=== PATIENT | male | born 1935 | race Hispanic/Latino ===

== ENCOUNTER 2022-08-01 08:58 | Observation (INO) | payer OTHER ==
--- NOTE | 2022-08-01 09:42 | RAD REPORT ---
EXAM DESCRIPTION: Shant Single View08/01/2022 9:24 am CLINICAL HISTORY: Retraction of dialysis catheter COMPARISON: none FINDINGS: The lungs appear clear of acute infiltrate. The heart is normal size Tip of a central venous catheter overlies the mid superior vena cava
[2022-08-01 10:07] LABS: Absolute Lymphocytes (CBC) 1.1 K/uL (0.7-4.9); Hematocrit 34.7 % (39.6-49.0); Lymphocytes % 17.9 % (15.3-44.8); MPV 8.3 fL (7.6-11.3); RBC Red Blood Cell Count 3.62 M/uL (4.33-5.43)
[2022-08-01 10:23] LABS: Protime INR 0.96
[2022-08-01 10:24] LABS: Potassium 4.2 mmol/L (3.5-5.1)
--- NOTE | 2022-08-01 12:27 | EDPHYS ---
Physician Documentation [facility] Name: Fran Stewart Age: 86 yrs Sex: Male : 1935 Arrival Date: 08/01/2022 Time: 09:01 Bed 8 Private MD: ED Physician Aaron Nevarez HPI: 08/01 09:16 This 86 yrs old Male presents to ER via EMS with complaints of Problem with learning coach catheter. 09:16 Pt sent from dialysis because dialysis catheter got pulled out about 5-6 inches. rn Patient had some bleeding, no longer bleeding. No other complaints. Pt does not recall how it happened. . Onset: The symptoms/episode began/occurred at an unknown time. Severity of symptoms: At their worst the symptoms were mild in the emergency department the symptoms are unchanged. The patient has not experienced similar symptoms in the past. The patient has not recently seen a physician. Historical: - Allergies: 09:11 No Known Allergies; db - PMHx: 09:11 End stage renal disease; db - Immunization history:: Client reports having NOT received the Covid vaccine. - Social history:: Smoking status: Patient/guardian denies using tobacco, the patient reports quitting approximately 47 years ago. - Family history:: not pertinent. - Hospitalizations: : No recent hospitalization is reported. ROS: 09:16 Constitutional: Negative for fever, chills, and weight loss, Eyes: Negative for injury, rn pain, redness, and discharge, Cardiovascular: Negative for chest pain, palpitations, and edema, Respiratory: Negative for shortness of breath, cough, wheezing, and pleuritic chest pain, Abdomen/GI: Negative for abdominal pain, nausea, vomiting, diarrhea, and constipation, Back: Negative for injury and pain, MS/Extremity: Negative for injury and deformity, Skin: Negative for injury, rash, and discoloration, Neuro: Negative for headache, weakness, numbness, tingling, and seizure. Exam: 12:24 Constitutional: This is a well developed, well nourished patient who is awake, alert, rn and in no acute distress. Head/Face: Normocephalic, atraumatic. Chest/axilla: Right chest wall tunneled catheter pulled out with dry blood approx 5 in. Cardiovascular: Regular rate and rhythm. No pulse deficits. Respiratory: No increased work of breathing, no retractions or nasal flaring. Abdomen/GI: Soft, non-tender Skin: Warm, dry MS/ Extremity: Pulses equal, no cyanosis. Neuro: Awake and alert, GCS 15, oriented to person, place, time, and situation. Vital Signs: 08:53 BP 122 / 73; Pulse 65; Resp 18; Temp 98.1(O); Pulse Ox 100% ; db 09:33 Weight 72.57 kg; Height 5 ft. 6 in. (167.64 cm); Pain 0/10; db 10:00 BP 118 / 70; Pulse 62; Resp 16; Pulse Ox 100% on R/A; db 10:30 BP 121 / 71; Pulse 60; Resp 16; Pulse Ox 100% on R/A; db 11:30 BP 126 / 70; Pulse 61; Resp 16; Pulse Ox 100% on R/A; db 12:00 BP 143 / 67; Pulse 65; Resp 16; Pulse Ox 100% on R/A; db 13:00 BP 145 / 75 (auto/); Pulse 62 MON; Resp 16 S; Pulse Ox 100% on R/A; db 17:00 BP 145 / 66; Pulse 62; Resp 18; Temp 98; Pulse Ox 100% ; Pain 0/10; db 09:33 Body Mass Index 25.82 (72.57 kg, 167.64 cm) db MDM: 09:04 Patient medically screened. rn 10:37 ED course: Consulted with Dr. Osei, will come to eval patient shortly. . rn 12:24 Differential Diagnosis ESRD, catheter pulled out. Data reviewed: vital signs, nurses rn notes, lab test result(s), radiologic studies, plain films, and as a result, I will admit patient. Counseling: I had a detailed discussion with the patient and/or guardian regarding: the historical points, exam findings, and any diagnostic results supporting the discharge/admit diagnosis, lab results, radiology results, the need for further work-up and treatment in the hospital. Special discussion: I discussed with the patient/guardian in detail that at this point there is no indication for admission to the hospital. It is understood, however, that if the symptoms persist or worsen the patient needs to return immediately for re-evaluation. ED course: Dr. Osei saw patient, will replace tomorrow, will admit to Dr. Nevarez and plan to keep NPO after midnight. . 08/01 09:04 Order name: CBC with Diff; Complete Time: 10: rn 08/01 09:04 Order name: Basic Metabolic Panel; Complete Time: : rn 08/01 09:04 Order name: XRAY Chest (1 view); Complete Time: 10: rn 08/01 09:04 Order name: Protime (+inr); Complete Time: 10: rn 08/01 09:04 Order name: Ptt, Activated; Complete Time: 10: rn 08/01 12:24 Order name: SARS RAPID kj1 08/01 09:04 Order name: IV Start; Complete Time: 09: rn 08/01 13:34 Order name: CONS Physician Consult EDMS Administered Medications: No medications were administered Disposition Summary: 08/01/22 12:27 Hospitalization Ordered Hospitalization Status: Observation rn Provider: Jagdish Nevarez rn Location: Telemetry/MedSurg (observation) rn Condition: Stable rn Problem: new rn Symptoms: have improved rn Bed/Room Type: Standard rn Room Assignment: [facility](08/01/22 17:06) jose Diagnosis - End stage renal disease rn - Other complication of vascular dialysis catheter rn Forms: - Medication Reconciliation Form rn - SBAR form rn Signatures: Dispatcher [employer] EDAaron Tomlinson MD MD rn Alonzo Felix, RN RN jaArmida Tadeo, RN RN db Corrections: (The following items were deleted from the chart) 12:24 09:16 Constitutional: Negative for fever, chills, and weight loss, rn rn 17:06 12:27 david garcia
--- NOTE | 2022-08-01 12:27 | ER ---
Nurse's Notes [facility] Name: Fran Stewart Age: 86 yrs Sex: Male : 1935 Arrival Date: 08/01/2022 Time: 09:01 Bed 8 Private MD: Diagnosis: End stage renal disease;Other complication of vascular dialysis catheter Presentation: 08/01 08:53 Chief complaint: EMS states: EMS picked patient up from [facility]. Per [facility] staff db patient's dialysis cath appears to be coming out. Patient in no distress no complaints denies pulling line. Denies pain. States did not finish dialysis today. Coronavirus screen: Vaccine status: Patient reports being unvaccinated. Client denies travel out of the [place] in the last 14 days. At this time, the client does not indicate any symptoms associated with coronavirus-19. Ebola Screen: Patient negative for fever greater than or equal to 101.5 degrees Fahrenheit, and additional compatible Ebola Virus Disease symptoms Patient denies exposure to infectious person. Patient denies travel to an Ebola-affected area in the 21 days before illness onset. No symptoms or risks identified at this time. Initial Sepsis Screen: Does the patient meet any 2 criteria? No. Patient's initial sepsis screen is negative. Does the patient have a suspected source of infection? No. Patient's initial sepsis screen is negative. Risk Assessment: Do you want to hurt yourself or someone else? Patient reports no desire to harm self or others. Onset of symptoms was August 01, 2022. 08:53 Method Of Arrival: EMS: [facility] db 08:53 Acuity: CAROLIN 3 db Triage Assessment: 09:11 General: Appears in no apparent distress. comfortable, Behavior is calm, cooperative, db appropriate for age, quiet. Pain: Denies pain. Historical: - Allergies: 09:11 No Known Allergies; db - PMHx: 09:11 End stage renal disease; db - Immunization history:: Client reports having NOT received the Covid vaccine. - Social history:: Smoking status: Patient/guardian denies using tobacco, the patient reports quitting approximately 47 years ago. - Family history:: not pertinent. - Hospitalizations: : No recent hospitalization is reported. Screenin:00 Abuse screen: Denies threats or abuse. Denies injuries from another. Nutritional db screening: No deficits noted. Tuberculosis screening: No symptoms or risk factors identified. Fall Risk None identified. No fall in past 12 months (0 pts). No secondary diagnosis (0 pts). IV access (20 points). Ambulatory Aid- None/Bed Rest/Nurse Assist (0 pts). Gait- Normal/Bed Rest/Wheelchair (0 pts) Mental Status- Oriented to own ability (0 pts). Total Alcantara Fall Scale indicates No Risk (0-24 pts). Assessment: 10:16 Reassessment: Patient and/or family updated on plan of care and expected duration. Pain db level reassessed. Patient is alert, oriented x 3, equal unlabored respirations, skin warm/dry/pink. see triage assessment for initial assessment. General: Appears in no apparent distress. Behavior is calm, cooperative, appropriate for age. Neuro: No deficits noted. Level of Consciousness is awake, alert, obeys commands, Oriented to person, place, time, situation, Appropriate for age. Cardiovascular: Capillary refill < 3 seconds Rhythm is sinus tachycardia Chest pain is denied. Respiratory: No deficits noted. Airway is patent Respiratory effort is Respiratory pattern is regular, symmetrical. GI: No deficits noted. No signs and/or symptoms were reported involving the gastrointestinal system. :. 12:00 Reassessment: Patient appears in no apparent distress at this time. No changes from db previously documented assessment. Patient and/or family updated on plan of care and expected duration. Pain level reassessed. Patient is alert, oriented x 3, equal unlabored respirations, skin warm/dry/pink. 13:00 Reassessment: Patient appears in no apparent distress at this time. No changes from db previously documented assessment. Patient and/or family updated on plan of care and expected duration. Pain level reassessed. Patient is alert, oriented x 3, equal unlabored respirations, skin warm/dry/pink. 17:00 Reassessment: Patient appears in no apparent distress at this time. No changes from db previously documented assessment. Patient and/or family updated on plan of care and expected duration. Pain level reassessed. Vital Signs: 08:53 BP 122 / 73; Pulse 65; Resp 18; Temp 98.1(O); Pulse Ox 100% ; db 09:33 Weight 72.57 kg; Height 5 ft. 6 in. (167.64 cm); Pain 0/10; db 10:00 BP 118 / 70; Pulse 62; Resp 16; Pulse Ox 100% on R/A; db 10:30 BP 121 / 71; Pulse 60; Resp 16; Pulse Ox 100% on R/A; db 11:30 BP 126 / 70; Pulse 61; Resp 16; Pulse Ox 100% on R/A; db 12:00 BP 143 / 67; Pulse 65; Resp 16; Pulse Ox 100% on R/A; db 13:00 BP 145 / 75 (auto/); Pulse 62 MON; Resp 16 S; Pulse Ox 100% on R/A; db 17:00 BP 145 / 66; Pulse 62; Resp 18; Temp 98; Pulse Ox 100% ; Pain 0/10; db 09:33 Body Mass Index 25.82 (72.57 kg, 167.64 cm) db ED Course: 09:01 Patient arrived in ED. ss 09:02 Armida Mullen RN is Primary Nurse. db 09:04 Aaron Nevarez MD is Attending Physician. rn 09:10 Triage completed. db 09:11 Arm band placed on right wrist. Patient placed in an exam room. db 09:26 XRAY Chest (1 view) In Process Unspecified. EDMS 09:55 Missed attempt(s): 22 gauge in right forearm. Bleeding controlled, band aid applied, jd3 catheter tip intact. 09:57 Inserted saline lock: 22 gauge in right antecubital area, using aseptic technique. jd3 Blood collected. 10:00 Patient has correct armband on for positive identification. Bed in low position. Side db rails up X 1. 12:26 Jagdish Nevarez MD is Hospitalizing Provider. rn 13:00 Pulse ox on. NIBP on. Warm blanket given. db 17:25 Report given to KENNETH Duran. db 17:33 No provider procedures requiring assistance completed. Patient admitted, IV remains in db place. Administered Medications: No medications were administered Medication: 10:00 VIS not applicable for this client. db Outcome: 12:27 Decision to Hospitalize by Provider. rn 17:33 Admitted to db 17:33 Condition: stable 17:33 Instructed on the need for admit. 17:44 Patient left the ED. db Signatures: Dispatcher [employer] EDMS Aaron Nevarez MD MD rn Smirch, Shelby, RN RN ss Davies, Jonathon RN RN jd3 Armida Mullen, RN RN db
[2022-08-01 13:15] LABS: SARS-CoV-2 Antigen Rapid Res Negative (Negative)
[2022-08-01] MEDS ORDERED: ONDANSETRON 4 MG/2 ML VIAL IV PRN (13:32)
--- NOTE | 2022-08-01 13:37 | P.HP ---
Certification for Inpatient Patient admitted to: Observation With expected LOS: <2 Midnights Practitioner: I am a practitioner with admitting privileges, knowledge of patient current condition, hospital course, and medical plan of care. 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 Patient reports he has been in usual state of health, no fever/chills, no pain, unsure of how it got pulled out. Workup in ED rather unremarkable. Dr. Osei was consulted by ED Physician and planning to replace catheter tomorrow. Allergies No Known Allergies Allergy (Unverified 08/01/22 13:46) Home Medications: Allopurinol 1 tab PO DAILY 08/01/22 Bupropion HCl [Wellbutrin Xl] 1 tab PO DAILY 08/01/22 Clonidine HCl [Clonidine HCl ER] 1 tab PO TID 08/01/22 Hydralazine [Apresoline*] 1 tab PO TID 08/01/22 Metoprolol Succinate [Toprol Xl*] 1 tab PO DAILY 08/01/22 Nifedipine Xl [Procardia XL*] 1 tab PO DAILY 08/01/22 Quinapril HCl 1 tab PO BID 08/01/22 Rosuvastatin [Crestor*] 1 tab PO DAILY 08/01/22 Torsemide [Demadex*] 1 tab PO DAILY 08/01/22 - Past Medical/Surgical History -: ESRD on HD -: HTN -: R nephrectomy for renal tumor -: R nephrectomy - Social History Smoking Status: Unknown if ever smoked Alcohol use: No Place of Residence: Home Review of Systems 10-point ROS is otherwise unremarkable Physical Examination - Physical Exam General: Alert, In no apparent distress, Oriented x3 HEENT: EOMI, Sclerae nonicteric Neck: Supple, No LAD Respiratory: Clear to auscultation bilaterally, Normal air movement Cardiovascular: Regular rate/rhythm, Edema (trace b/l pedal) Gastrointestinal: Soft and benign, Non-distended, No tenderness Musculoskeletal: No contractures, No tenderness Integumentary: Other (R tunneled IJ catheter pulled out a few inches, no surrounding erythema, no tenderness) Neurological: Normal speech, Normal strength at 5/5 x4 extr, Normal affect - Studies Laboratory Data (last 24 hrs) 08/01/22 09:55: PT 10.6, INR 0.96, APTT 29.7 08/01/22 09:55: Sodium 134 L, Potassium 4.2, BUN 30 H, Creatinine 4.50 H, Glucose 98 08/01/22 09:55: WBC 6.10, Hgb 11.5 L, Hct 34.7 L, Plt Count 207 Assessment and Plan - Advance Directives Does patient have a Living Will: No Does patient have a Durable POA for Healthcare: No Physician Review Additional Text: Problem List Dialysis catheter pulled out ESRD on HD (TTS) 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 Osei consulted in ED planned for replacement tomorrow NPO aftermidnight Nephrology - Lexi consulted patient without any complaints otherwise seems to be stable at baseline Code: DNR Dispo: home, possibly tomorrow after catheter placement +/- HD Time Spent Managing Pts Care (In Minutes): 65
[2022-08-01] MEDS: INSULIN -REGULAR HUMAN 50 UNIT/0.5 ML ML SQ SCH ×2 (16:30→21:00)
[2022-08-01 18:02] VITALS: BMI 25.6
[2022-08-02 01:19] LABS: Specific Gravity 1.013 (1.005-1.030); Urine Bacteria <20 /HPF (<20); Urine Bilirubin NEGATIVE (Negative); Urine Blood Negative (Negative); Urine Clarity Clear (Clear); Urine Color Light-Yellow (Yellow); Urine Glucose NEGATIVE (Negative); Urine Protein 1+ (Negative); Urine RBC <5 /HPF (None Seen); Urine Urobilinogen Normal (Normal); Urine pH 6.5 (5.0-7.0)
[2022-08-02 05:27] LABS: Absolute Lymphocytes (CBC) 1.2 K/uL (0.7-4.9); Hematocrit 29.9 % (39.6-49.0); Lymphocytes % 22.4 % (15.3-44.8); MPV 7.8 fL (7.6-11.3); RBC Red Blood Cell Count 3.12 M/uL (4.33-5.43)
[2022-08-02 05:46] LABS: Magnesium 2.3 mg/dL (1.8-2.4); Potassium 3.9 mmol/L (3.5-5.1)
[2022-08-02] MEDS: INSULIN -REGULAR HUMAN 50 UNIT/0.5 ML ML SQ SCH ×3 (07:30→16:30)
[2022-08-02] MEDS: cloNIDine HCL 0.1 MG TAB PO SCH ×2 (08:15→14:00)
[2022-08-02] MEDS: HYDRALAZINE HCL 25 MG TABLET PO SCH ×2 (08:17→14:00)
[2022-08-02] MEDS ORDERED: NIFEDIPINE XL 60 MG TABLET PO SCH (09:00)
[2022-08-02] MEDS ORDERED: lisinopriL 20 MG TAB PO SCH (09:00)
[2022-08-02] MEDS ORDERED: BUPROPION HCL XL 150 MG TAB PO SCH (09:00)
[2022-08-02] MEDS ORDERED: ROSUVASTATIN 10 MG TAB PO SCH (09:00)
[2022-08-02] MEDS ORDERED: allopurinoL 100 MG TAB PO SCH (09:00)
[2022-08-02] MEDS ORDERED: HOME MED 1 EA UNK (Clonidine Hcl [Clonidine Hcl Er] 0.1 MG Tab.Er.12h) PO SCH (09:00)
[2022-08-02] MEDS ORDERED: METOPROLOL XL 50 MG TAB PO SCH (09:00)
[2022-08-02] MEDS ORDERED: TORSEMIDE 20 MG TAB PO SCH (09:00)
[2022-08-02] MEDS ORDERED: Ringers Lactate 0 ML IV ONE (12:27)
[2022-08-02] MEDS ORDERED: NA CHLORIDE 0.9% 1,000 ML ONE (12:43)
[2022-08-02] MEDS ORDERED: NS 0.9% VIAL 10 ML ONE (13:16)
[2022-08-02] MEDS ORDERED: NA CHLORIDE 0.9% 100 ML IV ONE (13:16)
[2022-08-02] MEDS ORDERED: HEPARIN 5000 UNIT/ML 1 ML VIAL ONE (13:16)
[2022-08-02] MEDS ORDERED: CEFAZOLIN SODIUM 1 GM/VIAL ONE (13:24)
[2022-08-02] MEDS ORDERED: propofoL 200 MG/20 ML VIAL IV ONE ×2 (13:29→14:26)
[2022-08-02] MEDS ORDERED: MIDAZOLAM HCL 2 MG/2 ML INJ ONE (13:30)
[2022-08-02] MEDS ORDERED: LIDOCAINE 1% MPF 2 ML AMPULE ONE (13:30)
--- NOTE | 2022-08-02 14:38 | P.BOP ---
Preoperative diagnosis: ESRD Postoperative diagnosis: same Primary procedure: 1. Placement of a new RIJ vein cuffed hemodialysis catheter Secondary procedure: 2. interpretation of fluoroscopy Other procedure(s): 3. Right jugular vein ultrasound. Estimated blood loss: <10cc Specimen: old catheter Findings: see dicta Anesthesia: MAC Complications: None Transferred to: Recovery Room Condition: Good
--- NOTE | 2022-08-02 14:49 | P.BOP ---
Preoperative diagnosis: ESRD Postoperative diagnosis: same Primary procedure: 1. Placement of a new RIJ vein tunneled cuffed hemodialysis catheter Secondary procedure: 2. interpretation of fluoroscopy, 3. Removal of old tunneled cuffed HD cat Other procedure(s): 4. Right jugular vein ultrasound. Estimated blood loss: <10cc Specimen: old catheter Findings: see dicta Anesthesia: MAC Complications: None Implants: HD cath Transferred to: Recovery Room Condition: Good
[2022-08-02 15:08] VITALS: TEMP 97; O2SAT 100
--- NOTE | 2022-08-02 15:16 | RAD REPORT ---
EXAM DESCRIPTION: RAD - Chest Single View - 08/02/2022 3:08 pm CLINICAL HISTORY: new HD cath placed COMPARISON: Chest Single View dated 08/01/2022 FINDINGS: Lines: Right IJ approach dialysis catheter with tip overlying the SVC. Lungs: No evidence of edema or pneumonia. Pleural: No significant pleural effusions or pneumothorax. Cardiac: The heart size is within normal limits. Mediastinum: Within normal limits. Bones: No acute fractures. Other: None IMPRESSION: No acute cardiopulmonary disease. IJ catheter tip overlies the mid SVC.
[2022-08-02 15:23] VITALS: BP 119/52
--- NOTE | 2022-08-02 16:13 | RAD REPORT ---
EXAM DESCRIPTION: RAD - Fluoroscopy <1 Hour - 08/02/2022 2:54 pm CLINICAL HISTORY: TESSIO CATH PLACEMENT COMPARISON: No comparisons FINDINGS/IMPRESSION: Two intraoperative fluoroscopic images were submitted demonstrating placement o f a right IJ approach dialysis catheter with tip overlying the SVC. Cumulative dose: Not provided Fluoro time: 26.7 seconds
--- NOTE | 2022-08-02 18:33 | CON ---
Date of Consultation: 08/02/2022 Diagnosis: End-stage renal disease, nonfunctioning hemodialysis catheter. History Of Present Illness: This is a case of an 86-year-old patient sent from the Dialysis Center a fter found to have his catheter partially pulled with the cuff already outside, nonfunctioning. Appa rently, he just received a hemodialysis. He stated that dialysis catheter was placed over there for hemodialysis after he developed end-stage renal disease secondary to a right nephrectomy for tumor. He denies any shortness of breath, any chest pain, any fever. Review of Systems: Ten points otherwise unremarkable. Allergies: NONE. Medications: Allopurinol, , Toprol, Procardia, Crestor, Demadex, Wellbutrin. Social History: He does not smoke. He does drink alcohol. Past Medical History: End-stage renal disease, hypertension. Past Surgical History: Include right nephrectomy. Physical Examination: General: Patient is awake and alert. HEENT: Pupils are equal and reactive. Anicteric. Neck: Supple. Chest: Clear. Abdomen: Soft and depressible. Integumentary: Patient has a catheter exiting through the right chest. Half of his catheter is out. The cuff is already out. It is nonfunctional. There is no evidence of infection. No hematoma see n. Laboratory Data: Blood work shows WBC count of 6 with a hemoglobin of 11.5, INR is 0.96, creatinine is 4.5, and potassium is 4.2. Chest x-ray interpreted by Dr. Smith as lungs appear clear of infilt rate. Assessment: This is an 86-year-old patient found to have a dislodged catheter, cuff already off the skin, probably half way out and they sent the patient to us for malfunctioning catheter and also for removal and placement. The benefits, alternatives, and risks of removal of old catheter and placemen t of a new catheter fully explained which include, but not limited to, infection, bleeding, damage to adjacent structures, anesthesia complication, pneumothorax, hemothorax, DVTs, PEs, pericardiac tampo nade, endocarditis, pericarditis, DC, and even . He also understands this may not relieve any o f symptoms. He might need more than one surgical intervention. He was booked in OR. PETRONA/MODL Voice ID: [id number] Report ID: [id number]
--- NOTE | 2022-08-02 21:43 | P.DS ---
Admission Date: 08/01/22 Discharge Date: 08/02/22 Disposition: ROUTINE DISCHARGE Reason for Admission: tunneled dialysis catheter partially pulled out Consultations: General Surgery - Dr. Osei Nephrology - Dr. 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 Patient reports he has been in usual state of health, no fever/chills, no pain, unsure of how it got pulled out. Workup in ED rather unremarkable. Dr. Osei was consulted by ED Physician and planning to replace catheter tomorrow. 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 Dr. Osei was consulted and replaced the dialysis catheter without complications. Patient's aviation manager was consulted. Patient was deemed stable for discharge home, to continue dialysis as scheduled on outpatient basis tomorrow. No change in medications Follow-up with Dr. Osei in 1 week Vital Signs/Physical Exam: Temp Pulse Resp BP Pulse Ox 97.0 F 58 16 119/52 L 100 08/02/22 16:00 08/02/22 16:00 08/02/22 16:00 08/02/22 16:00 08/02/22 16:00 General: Alert, In no apparent distress, Oriented x3 HEENT: EOMI, Sclerae nonicteric Neck: Supple, No LAD Respiratory: Clear to auscultation bilaterally, Normal air movement Cardiovascular: No edema, Regular rate/rhythm Gastrointestinal: Soft and benign, Non-distended, No tenderness Musculoskeletal: No contractures, No tenderness Integumentary: No significant lesion Neurological: Normal speech, Normal affect Laboratory Data at Discharge: WBC 5.30 K/uL (4.3-10.9) 08/02/22 05:07 Hgb 10.0 g/dL (13.6-17.9) L D 08/02/22 05:07 Hct 29.9 % (39.6-49.0) L 08/02/22 05:07 Plt Count 168 K/uL (152-406) 08/02/22 05:07 PT 10.6 SECONDS (9.5-12.5) 08/01/22 09:55 INR 0.96 08/01/22 09:55 APTT 29.7 SECONDS (24.3-36.9) 08/01/22 09:55 Sodium 137 mmol/L (136-145) 08/02/22 05:07 Potassium 3.9 mmol/L (3.5-5.1) 08/02/22 05:07 BUN 45 mg/dL (7-18) H 08/02/22 05:07 Creatinine 5.78 mg/dL (0.55-1.3) H* 08/02/22 05:07 Glucose 95 mg/dL (74-106) 08/02/22 05:07 Magnesium 2.3 mg/dL (1.8-2.4) 08/02/22 05:07 Home Medications: Allopurinol 1 tab PO DAILY 08/01/22 Bupropion HCl [Wellbutrin Xl] 1 tab PO DAILY 08/01/22 Hydralazine [Apresoline*] 1 tab PO TID 08/01/22 Metoprolol Succinate [Toprol Xl*] 1 tab PO DAILY 08/01/22 Nifedipine Xl [Procardia XL*] 1 tab PO DAILY 08/01/22 Quinapril HCl 1 tab PO BID 08/01/22 Rosuvastatin [Crestor*] 1 tab PO DAILY 08/01/22 Torsemide [Demadex*] 1 tab PO DAILY 08/01/22 cloNIDine HCL [Clonidine HCl] 1 tab PO TID 08/01/22 Physician Discharge Instructions: Patient presented to ED from dialysis center after his dialysis catheter was noted to be pulled out several inches. Dr. Osei was consulted and replaced the dialysis catheter without complications. Patient's aviation manager was consulted. Patient was deemed stable for discharge home, to continue dialysis as scheduled on outpatient basis tomorrow. No change in medications Follow-up with Dr. Osei in 1 week Followup: NONE,NONE [Primary Care Provider] - 1 Week (Please follow up with your primary care provider. ) Time spent managing pt's care (in minutes): 45
--- NOTE | 2022-08-03 00:57 | OP ---
Date of Procedure: 08/02/2022 Surgeon: Parviz Osei MD Preoperative Diagnosis: End-stage renal disease. Postoperative Diagnosis: End-stage renal disease. Procedures: 1.Placement of a new cuffed hemodialysis catheter in the right internal jugular vein. 2.Interpretation of fluoroscopy. 3.Right jugular vein ultrasound. Estimated Blood Loss: Less than 10 cc. Specimen: Old catheter. Findings: Old catheter intact. Anesthesia: MAC plus local. Indications: This is the case of a male who by accident pulled his catheter out, it could not be rec overed so had to be removed and also the patient needed a new one in. The benefits, alternatives, an d risks of removal of a hemodialysis catheter and placement of a new hemodialysis catheter were also explained to the patient which include, but are not limited to infection, bleeding, damage to adjacen t structures, anesthesia complication, pneumothorax, hemothorax, cardiac arrhythmias, CT, and even de ath. He also understands this may not relieve any symptoms and he may need more than one surgical in tervention. He understood and signed a consent. He also understands the risks of pneumothorax, DVTs , and PE. Procedure In Detail: The patient was brought to the operating room, placed in supine position, and a nesthesia was given without complication. Chest and neck were prepped and draped in sterile fashion. The previous catheter was removed. It was hanging partially underneath the skin all the way to the neck region, but it was already off the vascular system. The catheter was removed intact, sent for evaluation. After that, with the patient already in Trendelenburg position, an ultrasound of that ar ea was done. We noted a patent jugular vein. Using that ultrasound guidance, we placed a needle in the right internal jugular vein at the first attempt. A guidewire was passed into the superior vena cava with the help of fluoroscopy. A cuffed catheter was tunneled underneath the skin coming from th e right upper chest to meet that new incision in the right neck region. Serial dilators were placed under fluoroscopy guidance through the guidewire until we put the introducer sheath. The guidewire w as removed. Catheter was placed and then introducer sheath was peeled off. The patient tolerated th e procedure well. Excellent backflow and inflow. Fluoroscopy once again showed the catheter was amee hollie in the proper place. The 3-0 chromic was used for subcutaneous closure and the 3-0 nylon to fix the catheter to the skin. The patient tolerated the procedure well. The patient was brought back fr om Trendelenburg position to normal position. The patient tolerated the procedure well. The patient was sent to recovery in stable condition. Chest x-ray was ordered stat. PETRONA/RASHEL Voice ID: [id number] Report ID: [id number]
== END 2022-08-02 16:54 | disposition home or self-care (01) ==
LOC: ER 08:58 → ERHOLD 13:31 → 2ND 17:25
PROVIDERS: ADMIT Hospitalist; ATTEND Hospitalist
PROC: 05HM33Z Insertion of Infusion Device into Right Internal Jugular Vein, Percutaneous Approach (ICD-10-PCS; principal; 2022-08-02 13:30)
DX: N18.6 End stage renal disease (principal); T82.41XA Breakdown (mechanical) of vascular dialysis catheter, initial encounter
CPT/HCPCS: 85025 ×2; 81001; 80048 ×2; 36415; 83735; 85610; 82947 ×5; 88300; 85730; 71045 ×2; 94760 ×2; 99285; 87811; 36558; J2704 ×2; J1644 ×2; A4216; G0378 ×4; J7030; J0690; C1752; 76000; J2250; J7120

== ENCOUNTER 2024-03-06 07:07 | Emergency (ER) | payer OTHER ==
--- OUTSIDE RECORDS SUMMARY | 2024-03-06 07:16 | XMS REPORT | Continuity of Care Document ---
Author Name Unknown Address [address] [facility] [address] [place] [address] [facility] Address [address] [facility] [address] [place] [address] Care Team Providers Care Compensation Manager Name Role Phone No , Pcp Primary Care Physician Unavailab ALBERTO Mendoza Attending Clinician UnavailJulian Goss MD Attending Clinician [phone] Alberto Mcrae MD Attending Clinician + [phone] Doctor Unassigned, [place] Attending Clinician U navailable 2, Bhavani Mda Procedure Rm Attending Clinician Unav marcela Montero MD, Sendil K.[facility]. Attending Clinician + [phone] WINSTON SENDTREVOR K.H. Attending Clinician UnavailNava Gonzalez Attending Clinician [phone] EARL LARSON RP Attending Clinician Unavailable MACKENZIE PARSONS Attending Clinician Unavailable 1, [facility] Attending Clinician Unavailable Mathew Hua MD Attending Clinician [phone] MATHEW HUA Attending Clinician UnavailDamaris Fonseca Attending Clinician + [phone] Roe COOPER, Cathryn Attending Clinician Unavailable Renny Singh MD Attending Clinician [phone] Soha Sanchez MD Attending Clinician [phone] 1, [facility] Infusion Chair Attending Clinician Junior Huang SOLUTIONS DEVELOPER, Mina Attending Clinician [phone] MINA HUANG Attending Clinician Unavailable Mackenzie Parsons DO Attending Clinician [phone] Gene LAKE, Earl Rp Attending Clinician [phone] [facility] Attending Clinician Unavailable 1, Bhavani Mda Procedure Rm Attending Clinician Goyo Moody DO Attending Clinician [phone] 2, [facility] Infusion Chair Attending Clinician Junior Moiseb, [facility] Main Attending Clinician Unavailabl e 3, [facility] Infusion Chair Attending Clinician Junior medeiros 5, [facility] Infusion Chair Attending Clinician Junior medeiros 7, [facility] Infusion Chair Attending Clinician Junior medeiros 1, [facility] Infusion Chair Attending Clinician Farhana Price Attending Clinician [phone] Quinn Marino LMSW Attending Clinician U Bang Foreman DO Attending Clinician [phone] Only, [facility] Test Attending Clinician Unavailable Pranay Davies MD Attending Clinician [phone] PRANAY DAVIES Attending Clinician Unavailable 2, [facility] Attending Clinician Unavailable , [facility] Surg Spec Procedure Attending Clinician Unavailable FARHANA GROVER Attending Clinician Unavailable Nurse, [facility] Surgery Faculty Attending Clinician U ALBERTO Zelaya Admitting Clinician Alberto Ruiz MD Admitting Clinician + [phone] Payers Payer Name Policy Type Policy Number Effective Date Expirati on Date Source [facility] WELL[employer] [id number] 2022 00:00:00 WELL[employer] MEDICARE ADVANTAGE [id number] 2002 00:00:00 Problems Condition Name Condition Details Condition Category Status Onset Date Resolution Date Last Treatment Date Treating Clinician Comments Source 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 02-04 00:00: 00 [facility] End stage renal disease End stage renal disease Disease Active 2021-09 1-04 00:00: 00 [facility] 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 05-21 00:00: 00 [facility] 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 8-30 00:00: 00 [facility] 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 1-28 00:00: 00 [facility] Urothelial cancer Urothelial cancer Disease Active 2020-09 00:00: 00 [facility] CKD (chronic kidney disease) stage 4, 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 Added automatic ally from request for surgery [id number] [facility] Allergies, Adverse Reactions, Alerts Allergy Name Allergy Type Status Severity Reaction(s) Onset Date Inactive Date Treating Clinician Comments Source No Known Drug Intolera nces DA Active U 2008-09 00:00: 00 [facility] NO KNOWN ALLERGIE S Drug Class Active [facility] Family History Family Member Diagnosis Comments Start Date Stop Date Sourc e Natural father Cancer Unive [facility] Natural mother Other - see comments [facility] Social History Social Habit Start Date Stop Date Quantity Comments Source History of tobacco use Cigarette Smoker [facility] Gender identity [facility] Sexual orientation [facility] Exposure to SARS-CoV-2 (event) 2022-09-20 00:00:00 2022-09-30 15:18:00 Not sure [facility] History of Social function 2022-07-30 00:00:00 2022-07-30 00:00:00 [facility] Tobacco use and exposure 2022-07-30 00:00:00 2022-07-30 00:00:00 Smokeless tobacco non-user [facility] History SDOH Food Worry 2022-05-29 00:00:00 2022-05-29 00:00:00 1 [facility] History SDOH Food Scarcity 2022-05-29 00:00:00 2022-05-29 00:00:00 1 [facility] History SDOH Transport Med 2022-05-29 00:00:00 2022-05-29 00:00:00 2 [facility] History SDOH Transport Non-Med 2022-05-29 00:00:00 2022-05-29 00:00:00 2 [facility] Alcohol intake 2022-04-04 00:00:00 2022-04-04 00:00:00 Current drinker of alcohol (finding) [facility] Sex Assigned At 1935 00:00:00 1935 00:00:00 [facility] Smoking Status Start Date Stop Date Source Never smoked tobacco [facility] Ex-smoker 2022-04-04 00:00:00 2022-04-04 00:00:00 U [facility] Medications Ordered Medication Name Filled Medication Name Start Date Stop Date Current Medication? Ordering Clinician Indication Dosage Frequency Signature (SIG) Comments Components Source sulfamethox azole-trime thoprim (BACTRIM DS) 800-160 mg per tablet 1 tablet 03-13 16:30: 00 03-13 15:41 :00 No [id number] 1{tbl} [facility] linagliptin (TRADJENTA ORAL) 03-13 10:17: 02 Yes Take by mouth. [facility] linagliptin (TRADJENTA ORAL) 09-30 15:38: 40 Yes Take by mouth. [facility] cloNIDine 0.1 mg tablet 2021-09 0 00:00: 00 Yes .1mg Take 0.1 mg by mouth. [facility] tamsulosin 0.4 mg 24 hr capsule 2021-09 0-13 00:00: 00 Yes [id number] .4mg Take 1 capsule by mouth at bedtime. [facility] NIFEdipine XL 60 mg 24 hr tablet 9-29 00:00: 00 09-12 00:00 :00 No 60mg Take 60 mg by mouth. [facility] docusate 50 mg/5 mL solution 05-29 00:00: 00 Yes [id number] 100mg Take 10 mL by mouth in the morning. [facility] metoprolol succinate XL 50 mg 24 hr tablet 05-29 00:00: 00 Yes [id number] 50mg Take 1 tablet by mouth in the morning. [facility] NIFEdipine ER 60 mg tablet 05-29 00:00: 00 Yes [id number] 60mg Take 1 tablet by mouth in the morning. [facility] torsemide 20 mg tablet 05-29 00:00: 00 Yes [id number] 20mg Take 1 tablet by mouth every morning. [facility] sennosides 8.6 mg tablet 05-29 00:00: 00 Yes [id number] 8.6mg Take 1 tablet by mouth in the morning. [facility] bisacodyL 5 mg EC tablet 05-29 00:00: 00 Yes [id number] 5mg Take 1 tablet by mouth in the morning. [facility] metoprolol succinate XL 50 mg 24 hr tablet 05-29 00:00: 00 09-12 00:00 :00 No 1{tbl} Take 1 tablet by mouth. [facility] linagliptin (TRADJENTA ORAL) 05-28 18:07: 30 Yes Take by mouth. [facility] hydralazine HCl (HYDRALAZIN E ORAL) 05-28 13:28: 30 05-28 00:00 :00 No 25mg Take 25 mg by mouth. [facility] heparin (porcine) injection 5,000 Units 05-28 13:00: 00 Yes 5000U 5,000 Units, Subcutaneo us, BID, First dose on Fri05/28/22 at 0800, Until Discontinu ed, Routine [facility] KCL (KLOR-CON M20) tablet 40 mEq 05-28 12:15: 00 05-28 14:07 :00 No 40meq 40 mEq, Oral, ONCE, 1 dose, On Fri05/28/22 at 0715, Routine [facility] hydrALAZINE 50 mg tablet 05-28 00:00: 00 Yes [id number] 50mg Take 1 tablet by mouth in the morning and 1 tablet at noon and 1 tablet in the evening. [facility] gabapentin 300 mg capsule 05-28 00:00: 00 Yes [id number] 300mg Take 1 capsule by mouth in the morning and 1 capsule in the evening. [facility] ondansetron 4 mg disintegrat ing tablet 05-28 00:00: 00 Yes [id number] 4mg Take 1 tablet by mouth every 8 (eight) hours as needed for Nausea and Vomiting (N/V). [facility] bisacodyL 10 mg suppository 05-28 00:00: 00 Yes [id number] 10mg Insert 1 Suppositor y into rectum once daily as needed for Constipati on or Constipati on unresolved by oral medication s. [facility] acetaminoph en 325 mg tablet 05-28 00:00: 00 05-29 04:59 :00 No [id number] 650mg Take 2 tablets by mouth every 6 (six) hours. [facility] NaCl 0.9% (NS) injection 5 mL 05-25 12:15: 00 05-25 17:00 :00 No 5mL 5 mL, Slow IV Push, ONCE, 1 dose, On 05/25/22 at 0715, Routine [facility] heparin 1,000 unit/mL injection 2,000 Units 05-25 12:03: 39 Yes 2000U PRN - SEE INSTRUCTIO NS, Starting on 05/25/22 at 0703, Until Discontinu ed, Routine
For Priming of Ports:&nbs p; &n bsp; After initial saline flush, prime each port with heparin according to the priming volume listed on each catheter port for catheter lock.
[facility] heparin 1,000 unit/mL injection 2,000 Units 05-24 19:18: 56 Yes 2000U PRN - SEE INSTRUCTIO NS, Starting on Fri05/24/22 at 1418, Until Discontinu ed, Routine
For Priming of Ports:&nbs p; &n bsp; After initial saline flush, prime each port with heparin according to the priming volume listed on each catheter port for catheter lock.
[facility] docusate (COLACE) 50 mg/5 mL solution 100 mg 05-24 14:00: 00 Yes 100mg 100 mg, Oral, DAILY, First dose on Fri05/24/22 at 0900, Until Discontinu ed, Routine [facility] bisacodyL (DULCOLAX) suppository 10 mg 05-24 11:49: 39 Yes 10mg 10 mg, Rectal, QDAILYPRN, Starting on Fri05/24/22 at 0649, Until Discontinu ed, Routine, Constipati on, Constipati on unresolved by oral medication s [facility] heparin 1,000 unit/mL injection 05-23 21:27: 57 05-23 21:27 :57 No Slow IV Push, PRN, Starting on Fri05/23/22 at 1627, Until Fri05/23/22 at 1627, Routine [facility] lidocaine 1% (PF) (XYLOCAINE) injection 05-23 21:08: 52 05-23 21:08 :52 No PRN, Starting on Fri05/23/22 at 1608, Until Discontinu ed, Routine [facility] FENTanyl PF (SUBLIMAZE (PF)) injection 05-23 21:04: 16 05-23 21:04 :16 No Slow IV Push, PRN, Starting on Fri05/23/22 at 1604, Until Discontinu ed, Routine [facility] D5W 0.45% NaCl (1/2NS) 1 L + KCL 20 mEq 05-23 18:15: 00 Yes IV Infusion, at 75 mL/hr, CONTINUOUS , Starting on Fri05/23/22 at 1315, Until Discontinu ed, [facility] bisacody[facility] (DULCOLAX) tablet 5 mg 05-23 14:00: 00 Yes 5mg 5 mg, Oral, DAILY, First dose on Fri05/23/22 at 0900, Until Discontinu ed, Routine [facility] hydrALAZINE (APRESOLINE ) tablet 50 mg 05-23 13:00: 00 Yes 50mg 50 mg, Oral, TID, First dose (after last modificati on) on Fri05/23/22 at 0800, Until Discontinu ed, Routine [facility] NaCl 0.9% (NS) IV infusion 1,000 mL 05-23 12:00: 00 Yes 1000mL at 10 mL/hr, IV Infusion, CONTINUOUS , Starting on Fri05/23/22 at 0700, Until Discontinu ed, Routine [facility] hydrALAZINE (APRESOLINE ) tablet 25 mg 05-23 01:00: 00 Yes 25mg 25 mg, Oral, BID, First dose on Fri05/22/22 at 2000, Until Discontinu ed, Routine [facility] torsemide (SOAANZ) tablet 20 mg 05-22 16:00: 00 Yes 20mg 20 mg, Oral, QAM, First dose on Fri05/22/22 at 1100, Until Discontinu ed, Routine [facility] NIFEdipine ER tablet 60 mg 05-22 16:00: 00 Yes 60mg 60 mg, Oral, DAILY, First dose on Fri05/22/22 at 1100, Until Discontinu ed, Routine [facility] HYDROmorpho ne (DILAUDID) injection 0.2 mg 05-22 15:41: 51 05-24 15:40 :51 No .2mg 0.2 mg, Slow IV Push, Q8HPRN, Starting on Fri05/22/22 at 1041, Until Fri05/24/22 at 1040, Routine, Breakthrou gh Pain Only
Us e approved by (Faculty): GENERAL SURGERY
General surgeon approving: Alberto Mcrae [facility] buPROPion XL (WELLBUTRIN XL) tablet 150 mg 05-22 14:00: 00 Yes 150mg 150 mg, Oral, DAILY, First dose on Fri05/22/22 at 0900, Until Discontinu ed, Routine [facility] sennosides (SENOKOT) tablet 8.6 mg 05-22 14:00: 00 Yes 8.6mg 8.6 mg, Oral, DAILY, First dose on Fri05/22/22 at 0900, Until Discontinu ed, Routine [facility] metoprolol succinate XL (TOPROL XL) tablet 50 mg 05-22 14:00: 00 Yes 50mg 50 mg, Oral, DAILY, First dose on Fri05/22/22 at 0900, Until Discontinu ed, Routine [facility] tamsulosin (FLOMAX) capsule 0.4 mg 05-22 02:00: 00 Yes .4mg 0.4 mg, Oral, QHS, First dose on Fri05/21/22 at 2100, Until Discontinu ed, Routine [facility] gabapentin (NEURONTIN) capsule 300 mg 05-22 01:00: 00 Yes 300mg 300 mg, Oral, BID, First dose on Fri05/21/22 at 2000, Until Discontinu ed, Routine [facility] proMETHazin e (PHENERGAN) 12.5 mg in NS 50 mL IV piggyback (CNR) 05-21 23:18: 46 Yes 12.5mg 12.5 mg, IV Piggyback, at 200 mL/hr Administer over 15 Minutes, Q4HPRN, Starting on Fri05/21/22 at 1818, Until Discontinu ed, Routine, N/V unresponsi ve to Ondansetro n [facility] acetaminoph en (TYLENOL) tablet 650 mg 05-21 23:00: 00 Yes 650mg 650 mg, Oral, Q6H, First dose on Fri05/21/22 at 1800, Until Discontinu ed, Routine [facility] Sliding Scale Insulin - Lispro (HumaLOG) + Fsbg Testing 05-21 22:00: 00 Yes Subcutaneo us, TID MEALS+HS, First dose on Fri05/21/22 at 1700, Until Discontinu ed, Routine [facility] NaCl 0.9% (NS) IV infusion 1,000 mL 05-21 22:00: 00 Yes 1000mL at 50 mL/hr, IV Infusion, CONTINUOUS , Starting on Fri05/21/22 at 1700, Until Discontinu ed, Routine [facility] glucagon (GLUCAGEN DIAGNOSTIC KIT) injection 1 mg 05-21 21:49: 47 Yes 1mg 1 mg, Intramuscu lar, PRN, Starting on Fri05/21/22 at 1649, Until Discontinu ed, NORA, Blood Glucose < or = 70 mg/dL and patient is unable to swallow or has mental changes. [facility] dextrose 50 % in water (D50W) injection 25 mL 05-21 21:49: 47 Yes 25mL 25 mL, Slow IV Push, PRN, Starting on Fri05/21/22 at 1649, Until Discontinu ed, NORA, Blood Glucose < or = 70 mg/dL and patient is unable to swallow or has mental status changes. [facility] ondansetron (ZOFRAN (PF)) injection 4 mg 05-21 21:42: 21 Yes 4mg 4 mg, Slow IV Push, Q4HPRN, Starting on Fri05/21/22 at 1642, Until Discontinu ed, Routine, Nausea and Vomiting (N/V) [facility] bupivacaine liposome (PF) (EXPAREL (PF)) 1.3 % (13.3 mg/mL) 266 mg, NaCl 0.9% (NS) 40 mL 05-21 21:00: 00 05-21 22:12 :34 No PRN, Starting on Fri05/21/22 at 1600, Intra-op [facility] HYDROcodone -acetaminop hen (NORCO 5) 5-325 mg tablet 1 tablet 05-21 20:45: 00 05-21 22:56 :00 No 1{tbl} 1 tablet, Oral, ONCE, 1 dose, On Fri05/21/22 at 1545, Routine, PACU [facility] HYDROmorphO ne (DILAUDID) injection 0.2 mg 05-21 20:33: 52 05-22 01:03 :16 No .2mg 0.2 mg, Slow IV Push, Q5MIN PRN, 10 doses, Starting on Fri05/21/22 at 1533, Until Fri05/21/22 at 2002, Routine, Pain (scale 7-10), PACU
Us e approved by (Faculty): PACU USE -ANESTHESI A SERVICE-HY DROMORPHON E INJECTIONS [facility] ondansetron (ZOFRAN (PF)) injection 4 mg 05-21 20:33: 52 05-21 23:00 :00 No 4mg 4 mg, Slow IV Push, PRN, 1 dose, Starting on Fri05/21/22 at 1533, Until Discontinu ed, Routine, Nausea and Vomiting (N/V), PACU [facility] gabapentin (NEURONTIN) capsule 300 mg 05-21 14:45: 00 05-21 17:01 :00 No 300mg 300 mg, Oral, ONCE, 1 dose, On Fri05/21/22 at 0945, Routine, DSU Pre-op [facility] acetaminoph en (TYLENOL) tablet 975 mg 05-21 14:45: 00 05-21 16:59 :00 No 975mg 975 mg, Oral, ONCE, 1 dose, On Fri05/21/22 at 0945, Routine, DSU Pre-op [facility] linagliptin (TRADJENTA ORAL) 05-21 10:27: 43 Yes Take by mouth. [facility] cloNIDine 0.1 mg tablet 05-02 00:00: 00 05-28 00:00 :00 No .1mg Take 1 tablet by mouth in the morning. [facility] acetaminoph en (TYLENOL ORAL) 04-29 10:14: 13 04-29 00:00 :00 No 1{tbl} Take 1 tablet by mouth as needed. [facility] quinapriL 40 mg tablet 7-26 00:00: 00 Yes 40mg Take 1 tablet by mouth. [facility] torsemide 20 mg tablet 5-31 00:00: 00 05-28 00:00 :00 No 20mg Take 20 mg by mouth in the morning. [facility] tamsulosin 0.4 mg 24 hr capsule 3-03 00:00: 00 07-04 00:00 :00 No [id number] .4mg Take 1 capsule by mouth at bedtime. [facility] proCHLORper azine 10 mg tablet 1- 00:00: 00 Yes [id number] 10mg Take 1 tablet by mouth every 6 (six) hours as needed for Nausea and Vomiting (N/V). [facility] ondansetron 4 mg disintegrat ing tablet - 00:00: 00 04-29 00:00 :00 No [id number] 4mg Take 1 tablet by mouth every 8 (eight) hours as needed for Nausea and Vomiting (N/V). [facility] aspirin 81 mg chewable tablet 3-25 00:00: 00 04-29 00:00 :00 No CHEW AND SWALLOW 1 TABLET BY MOUTH EVERY DAY [facility] quinapriL 40 mg tablet 11-28 00:00: 00 05-28 00:00 :00 No 40mg Take 40 mg by mouth 2 (two) times daily. [facility] ONETOUCH DELICA PLUS LANCET 33 gauge Misc 11-27 00:00: 00 Yes CHECK BLOOD SUGAR TWICE DAILY [facility] metoprolol succinate XL 50 mg 24 hr tablet 2-20 00:00: 00 05-28 00:00 :00 No 50mg Take 50 mg by mouth daily. [facility] rosuvastati n 10 mg tablet -08 00:00: 00 Yes 10mg Take 10 mg by mouth daily. [facility] NIFEdipine XL 60 mg 24 hr tablet 2 00:00: 00 05-28 00:00 :00 No 60mg Take 60 mg by mouth daily. [facility] buPROPion XL 150 mg 24 hr tablet 10-13 00:00: 00 Yes 150mg Take 150 mg by mouth daily. [facility] allopurinoL 100 mg tablet 10-09 00:00: 00 Yes 100mg Take 100 mg by mouth daily. [facility] cloNIDine 0.1 mg tablet 10-09 00:00: 00 05-02 00:00 :00 No .1mg Take 0.1 mg by mouth 3 (three) times daily. [facility] ONETOUCH ULTRA BLUE TEST STRIP strip 10-02 00:00: 00 Yes USE DIRECTED TO CHECK BLOOD GLUCOSE LEVELS TWICE DAILY [facility] Vital Signs Vital Name Observation Time Observation Value Comments S ource Systolic blood pressure 2023-03-13 15:10:00 112 mm[Hg] [facility] Diastolic blood pressure 2023-03-13 15:10:00 61 mm[Hg] [facility] Heart rate 2023-03-13 15:10:00 75 /min [facility] Body height 2023-03-13 15:10:00 167.6 cm [facility] Body weight 2023-03-13 15:10:00 72.802 kg [facility] BMI 2023-03-13 15:10:00 25.91 kg/m2 [facility] Oxygen saturation in Arterial blood by Pulse oximetry 2023-03-13 15:10:00 98 /min [facility] Systolic blood pressure 2022-09-30 21:40:00 117 mm[Hg] [facility] Diastolic blood pressure 2022-09-30 21:40:00 66 mm[Hg] [facility] Heart rate 2022-09-30 21:40:00 93 /min [facility] Body temperature 2022-09-30 21:40:00 36.83 Octavia [facility] Body height 2022-09-30 21:40:00 167.6 cm [facility] Body weight 2022-09-30 21:40:00 72.666 kg [facility] BMI 2022-09-30 21:40:00 25.86 kg/m2 [facility] Oxygen saturation in Arterial blood by Pulse oximetry 2022-09-30 21:40:00 98 /min [facility] Systolic blood pressure 2022-09-12 15:31:00 133 mm[Hg] [facility] Diastolic blood pressure 2022-09-12 15:31:00 59 mm[Hg] [facility] Heart rate 2022-09-12 15:31:00 56 /min Unive [facility] Body temperature 2022-09-12 15:31:00 36.56 Octavia [facility] Body height 2022-09-12 15:31:00 167.6 cm [facility] Body weight 2022-09-12 15:31:00 74.526 kg [facility] BMI 2022-09-12 15:31:00 26.52 kg/m2 [facility] Oxygen saturation in Arterial blood by Pulse oximetry 2022-09-12 15:31:00 99 /min rooma [facility] Systolic blood pressure 2022-06-13 15:11:00 148 mm[Hg] [facility] Diastolic blood pressure 2022-06-13 15:11:00 71 mm[Hg] [facility] Heart rate 2022-06-13 15:11:00 61 /min Unive [facility] Body temperature 2022-06-13 15:11:00 36.89 Octavia [facility] Body weight 2022-06-13 15:11:00 75.07 kg [facility] BMI 2022-06-13 15:11:00 26.71 kg/m2 [facility] Oxygen saturation in Arterial blood by Pulse oximetry 2022-06-13 15:11:00 99 /min [facility] Systolic blood pressure 2022-05-28 16:30:00 137 mm[Hg] [facility] Diastolic blood pressure 2022-05-28 16:30:00 77 mm[Hg] [facility] Heart rate 2022-05-28 16:30:00 82 /min Unive [facility] Body temperature 2022-05-28 16:30:00 36.11 Octavia [facility] Oxygen saturation in Arterial blood by Pulse oximetry 2022-05-28 16:30:00 91 /min [facility] Respiratory rate 2022-05-27 16:40:00 16 /min [facility] Body weight 2022-05-27 16:40:00 71.03 kg [facility] BMI 2022-05-27 16:40:00 25.27 kg/m2 [facility] Body height 2022-05-23 20:35:00 167.6 cm [facility] Systolic blood pressure 2022-05-21 14:41:00 133 mm[Hg] [facility] Diastolic blood pressure 2022-05-21 14:41:00 67 mm[Hg] [facility] Heart rate 2022-05-21 14:41:00 71 /min Unive [facility] Body temperature 2022-05-21 14:41:00 36.72 Octavia [facility] Respiratory rate 2022-05-21 14:41:00 18 /min [facility] Body height 2022-05-21 14:41:00 167.6 cm [facility] Body weight 2022-05-21 14:41:00 77.7 kg [facility] BMI 2022-05-21 14:41:00 27.65 kg/m2 [facility] Oxygen saturation in Arterial blood by Pulse oximetry 2022-05-21 14:41:00 97 /min [facility] Systolic blood pressure 2022-05-25 16:30:00 140 mm[Hg] [facility] Diastolic blood pressure 2022-05-25 16:30:00 73 mm[Hg] [facility] Heart rate 2022-05-25 16:30:00 84 /min [facility] Body temperature 2022-05-25 14:57:00 36.28 Octavia [facility] Respiratory rate 2022-05-25 14:57:00 18 /min [facility] Body weight 2022-05-25 14:57:00 73.5 kg [facility] BMI 2022-05-25 14:57:00 26.15 kg/m2 [facility] Oxygen saturation in Arterial blood by Pulse oximetry 2022-05-25 12:47:00 94 /min Elkin o [facility] Body height 2022-05-23 20:35:00 167.6 cm [facility] Procedures Procedure Date / Time Performed Performing Clinician Source DISCLOSURE AND CONSENT, MEDICAL AND SURGICAL PROCEDURES 2023-03-18 05:01:00 Doctor Unassigned, [place] [facility] CT ABDOMEN PELVIS WO CONTRAST 2022-09-27 19:53:00 Alberto Mcrae [facility] DISCLOSURE AND CONSENT, MEDICAL AND SURGICAL PROCEDURES 2022-09-18 06:01:00 Doctor Unassigned, [facility] EXTERNAL PROVIDER RECORDS 2022-08-02 06:01:00 Do ctor Unassigned, [facility] EXTERNAL PROVIDER RECORDS 2022-07-10 05:01:00 Do ctor Unassigned, [facility] EXTERNAL PROVIDER RECORDS 2022-06-28 05:01:00 Do ctor Unassigned, [facility] PHOSPHORUS 2022-05-28 07:14:00 Ashish Mcmullen [facility] MAGNESIUM 2022-05-28 07:14:00 Ashish Mcmullen [facility] BASIC METABOLIC PANEL (NA, K, CL, CO2, GLUCOSE, BUN, CREATININE, CA) 2022-05-28 07:14:00 Ashish Mcmullen [facility] EXTRA TUBE LAV 2022-05-28 07:14:00 Alberto Mcrae [facility] POCT GLUCOSE (AUTOMATED) 2022-05-27 17:05:00 Alberto Mcrae [facility] POCT GLUCOSE (AUTOMATED) 2022-05-27 16:18:00 Alberto Mcrae [facility] POCT GLUCOSE (AUTOMATED) 2022-05-27 01:50:00 Alberto Mcrae [facility] POCT GLUCOSE (AUTOMATED) 2022-05-26 20:56:00 Alberto Mcrae [facility] POCT GLUCOSE (AUTOMATED) 2022-05-26 17:18:00 Alberto Mcrae [facility] POCT GLUCOSE (AUTOMATED) 2022-05-26 13:49:00 Alberto Mcrae [facility] POCT GLUCOSE (AUTOMATED) 2022-05-26 01:55:00 Alberto Mcrae [facility] POCT GLUCOSE (AUTOMATED) 2022-05-25 22:21:00 Alberto Mcrae [facility] POCT GLUCOSE (AUTOMATED) 2022-05-25 12:50:00 Alberto Mcrae [facility] POCT GLUCOSE (AUTOMATED) 2022-05-25 12:50:00 Alberto Mcrae [facility] POCT GLUCOSE (AUTOMATED) 2022-05-25 01:55:00 Alberto Mcrae [facility] POCT GLUCOSE (AUTOMATED) 2022-05-25 01:55:00 Alberto Mcrae [facility] POCT GLUCOSE (AUTOMATED) 2022-05-24 22:32:00 Alberto Mcrae [facility] POCT GLUCOSE (AUTOMATED) 2022-05-24 22:32:00 Alberto Mcrae [facility] MRSA / MSSA SCREEN BY PCRERIC 2022-05-24 21:07:00 Mignon Rayo [facility] MRSA / MSSA SCREEN BY PCRERIC 2022-05-24 21:07:00 Mignon Rayo [facility] POCT GLUCOSE (AUTOMATED) 2022-05-24 16:59:00 Alberto Mcrae [facility] POCT GLUCOSE (AUTOMATED) 2022-05-24 16:59:00 Alberto Mcrae [facility] BASIC METABOLIC PANEL (NA, K, CL, CO2, GLUCOSE, BUN, CREATININE, CA) 2022-05-24 14:46:00 Ashish Mcmullen [facility] MAGNESIUM 2022-05-24 14:46:00 Ashish Mcmullen [facility] PHOSPHORUS 2022-05-24 14:46:00 Ashish Mcmullen [facility] HEPATITIS B SURFACE ANTIBODY 2022-05-24 14:46:00 Vu, [facility] HEPATITIS B SURFACE ANTIGEN 2022-05-24 14:46:00 Vu, [facility] HBC ANTIBODY (IGM & IGG) 2022-05-24 14:46:00 Vu, [facility] PHOSPHORUS 2022-05-24 14:46:00 Nasarabella Ashish [facility] MAGNESIUM 2022-05-24 14:46:00 [facility] BASIC METABOLIC PANEL (NA, K, CL, CO2, GLUCOSE, BUN, CREATININE, CA) 2022-05-24 14:46:00 [facility] HEPATITIS B SURFACE ANTIBODY 2022-05-24 14:46:00 Vu, [facility] HEPATITIS B SURFACE ANTIGEN 2022-05-24 14:46:00 Vu, [facility] HBC ANTIBODY (IGM & IGG) 2022-05-24 14:46:00 Vu, [facility] XR CHEST 1 VW 2022-05-24 14:35:00 Vu, [facility] XR CHEST 1 VW 2022-05-24 14:35:00 Vu, [facility] POCT GLUCOSE (AUTOMATED) 2022-05-24 12:56:00 Alberto Mcrae [facility] POCT GLUCOSE (AUTOMATED) 2022-05-24 12:56:00 Alberto Mcrae [facility] POCT GLUCOSE (AUTOMATED) 2022-05-24 02:41:00 Alberto Mcrae [facility] POCT GLUCOSE (AUTOMATED) 2022-05-24 02:41:00 Alberto Mcrae [facility] POCT GLUCOSE (AUTOMATED) 2022-05-23 22:33:00 Alberto Mcrae [facility] POCT GLUCOSE (AUTOMATED) 2022-05-23 22:33:00 Albetro Mcrae [facility] IR CENTRALLY INSERTED DEVICE TUNNELED 5 OR OLDER NO PORT/PUMP 2022-05-23 21:35:13 Aury, [facility] IR CENTRALLY INSERTED DEVICE TUNNELED 5 OR OLDER NO PORT/PUMP 2022-05-23 21:35:13 Ari Jeffers [facility] POCT GLUCOSE (AUTOMATED) 2022-05-23 16:47:00 Alberto Mcrae [facility] POCT GLUCOSE (AUTOMATED) 2022-05-23 16:47:00 Alberto Mcrae [facility] BASIC METABOLIC PANEL (NA, K, CL, CO2, GLUCOSE, BUN, CREATININE, CA) 2022-05-23 14:06:00 Ashish Mcmullen [facility] BASIC METABOLIC PANEL (NA, K, CL, CO2, GLUCOSE, BUN, CREATININE, CA) 2022-05-23 14:06:00 Ashish Mcmullen [facility] POCT GLUCOSE (AUTOMATED) 2022-05-23 12:56:00 Alberto Mcrae [facility] POCT GLUCOSE (AUTOMATED) 2022-05-23 12:56:00 Alberto Mcrae [facility] POCT GLUCOSE (AUTOMATED) 2022-05-23 02:10:00 Alberto Mcrae [facility] POCT GLUCOSE (AUTOMATED) 2022-05-23 02:10:00 Alberto Mcrae [facility] POCT GLUCOSE (AUTOMATED) 2022-05-22 21:25:00 Alberto Mcrae [facility] POCT GLUCOSE (AUTOMATED) 2022-05-22 21:25:00 Alberto Mcrae [facility] POCT GLUCOSE (AUTOMATED) 2022-05-22 21:25:00 Alberto Mcrae [facility] POCT GLUCOSE (AUTOMATED) 2022-05-22 16:34:00 Alberto Mcrae [facility] POCT GLUCOSE (AUTOMATED) 2022-05-22 16:34:00 Alberto Mcrae [facility] POCT GLUCOSE (AUTOMATED) 2022-05-22 16:34:00 Alberto Mcrae [facility] BASIC METABOLIC PANEL (NA, K, CL, CO2, GLUCOSE, BUN, CREATININE, CA) 2022-05-22 15:16:00 Bang Pride [facility] BASIC METABOLIC PANEL (NA, K, CL, CO2, GLUCOSE, BUN, CREATININE, CA) 2022-05-22 15:16:00 [employer] [facility] BASIC METABOLIC PANEL (NA, K, CL, CO2, GLUCOSE, BUN, CREATININE, CA) 2022-05-22 15:16:00 Bang Pride [facility] POCT GLUCOSE (AUTOMATED) 2022-05-22 12:43:00 Alberto Mcrae [facility] POCT GLUCOSE (AUTOMATED) 2022-05-22 12:43:00 Alberto Mcrae [facility] POCT GLUCOSE (AUTOMATED) 2022-05-22 12:43:00 Alberto Mcrae [facility] BASIC METABOLIC PANEL (NA, K, CL, CO2, GLUCOSE, BUN, CREATININE, CA) 2022-05-22 04:48:00 [employer] [facility] BASIC METABOLIC PANEL (NA, K, CL, CO2, GLUCOSE, BUN, CREATININE, CA) 2022-05-22 04:48:00 [employer] [facility] BASIC METABOLIC PANEL (NA, K, CL, CO2, GLUCOSE, BUN, CREATININE, CA) 2022-05-22 04:48:00 [employer] [facility] POCT GLUCOSE (AUTOMATED) 2022-05-22 01:43:00 Alberto Mcrae [facility] POCT GLUCOSE (AUTOMATED) 2022-05-22 01:43:00 Alberto Mcrae [facility] POCT GLUCOSE (AUTOMATED) 2022-05-22 01:43:00 Alberto Mcrae [facility] POCT GLUCOSE (AUTOMATED) 2022-05-21 22:51:00 Alberto Mcrae [facility] POCT GLUCOSE (AUTOMATED) 2022-05-21 22:51:00 Alberto Mcrae [facility] POCT GLUCOSE (AUTOMATED) 2022-05-21 22:51:00 Alberto Mcrae [facility] BASIC METABOLIC PANEL (NA, K, CL, CO2, GLUCOSE, BUN, CREATININE, CA) 2022-05-21 22:21:00 [employer] [facility] PROTHROMBIN TIME / INR 2022-05-21 22:21:00 Chen Pride [facility] BASIC METABOLIC PANEL (NA, K, CL, CO2, GLUCOSE, BUN, CREATININE, CA) 2022-05-21 22:21:00 [employer] [facility] PROTHROMBIN TIME / INR 2022-05-21 22:21:00 Chen Pride [facility] BASIC METABOLIC PANEL (NA, K, CL, CO2, GLUCOSE, BUN, CREATININE, CA) 2022-05-21 22:21:00 [employer] [facility] PROTHROMBIN TIME / INR 2022-05-21 22:21:00 Chen Pride [facility] SURGICAL PATHOLOGY EXAM 2022-05-21 20:42:00 Alberto Mcrae [facility] BASIC METABOLIC PANEL (NA, K, CL, CO2, GLUCOSE, BUN, CREATININE, CA) 2022-05-21 19:05:00 Floresita Hewitt [facility] BASIC METABOLIC PANEL (NA, K, CL, CO2, GLUCOSE, BUN, CREATININE, CA) 2022-05-21 19:05:00 Floresita Hewitt [facility] BASIC METABOLIC PANEL (NA, K, CL, CO2, GLUCOSE, BUN, CREATININE, CA) 2022-05-21 19:05:00 Floresita Hewitt [facility] ABG+COOX+NA+K+GLU+CA2+ 2022-05-21 19:02:00 Corky Mcrae [facility] ABG+COOX+NA+K+GLU+CA2+ 2022-05-21 19:02:00 Corky Mcrae [facility] INTUBATION 2022-05-21 17:59:00 Floresita Hewitt [facility] POCT GLUCOSE (AUTOMATED) 2022-05-21 17:42:00 Alberto Mcrae [facility] POCT GLUCOSE (AUTOMATED) 2022-05-21 17:42:00 Alberto Mcrae [facility] POCT GLUCOSE (AUTOMATED) 2022-05-21 17:42:00 Alberto Mcrae [facility] LAPAROSCOPIC NEPHRECTOMY 2022-05-21 17:30:00 Alberto Mcrae [facility] LAPAROSCOPIC NEPHRECTOMY 2022-05-21 17:30:00 Alberto Mcrae [facility] LAPAROSCOPIC NEPHRECTOMY 2022-05-21 17:30:00 Alberto Mcrae [facility] HB ABO GROUPING 2022-05-21 16:18:00 Bautista Mosquera [facility] HB ABO GROUPING 2022-05-21 16:18:00 Bautista Mosquera [facility] HB ABO GROUPING 2022-05-21 16:18:00 Bautista Mosquera [facility] COVID-19 (ID NOW RAPID TESTING) 2022-05-21 14:40:00 Alberto Mcrae [facility] LAB ONLY COVID INTERPRETATION 2022-05-21 14:40:00 Alberto Mcrae [facility] COVID-19 (ID NOW RAPID TESTING) 2022-05-21 14:40:00 Alberto Mcrae [facility] LAB ONLY COVID INTERPRETATION 2022-05-21 14:40:00 Alberto Mcrae [facility] COVID-19 (ID NOW RAPID TESTING) 2022-05-21 14:40:00 Alberto Mcrae [facility] LAB ONLY COVID INTERPRETATION 2022-05-21 14:40:00 Alberto Mcrae [facility] HOSPITAL ADMISSION 2022-05-21 05:01:00 Doctor Un assigned, [facility] NM MYOCARDIUM PERFUSION STRESS AND REST 2022-05-16 15:20:00 Josiane Montero [facility] NUCLEAR STRESS TEST CARDIOLOGY (DO NOT SCHED) 2022-05-16 15:20:00 Josiane Montero [facility] TRANSTHORACIC ECHO (TTE) COMPLETE W/ CONTRAST 2022-05-16 15:04:00 Josiane Montero [facility] DISCLOSURE AND CONSENT, MEDICAL AND SURGICAL PROCEDURES 2022-05-16 05:01:00 Doctor Unassigned, [facility] ECG ROUTINE & RHYTHM STRIP 2022-05-07 18:02:03 Josiane Montero [facility] INSURANCE CORRESPONDENCE 2022-05-07 05:01:00 Doc tor Unassigned, [facility] MAGNESIUM 2022-04-29 15:52:00 Mackenzie Parsons [facility] PHOSPHORUS 2022-04-29 15:52:00 [facility] INTACT PTH CALCIUM GROUP 2022-04-29 15:52:00 Ender Parsons [facility] CBC WITH DIFF 2022-04-29 15:52:00 Mina Huang [facility] COMP. METABOLIC PANEL ([id number]) 2022-04-29 15:52:00 Mina Huang [facility] FERRITIN SERUM 2022-04-29 15:52:00 Mina Huang [facility] TOTAL IRON BINDING CAPACITY 2022-04-29 15:52:00 Mina Huang [facility] DISCLOSURE AND CONSENT, MEDICAL AND SURGICAL PROCEDURES 2022-04-26 05:01:00 Doctor Unassigned, [facility] DISCLOSURE AND CONSENT, MEDICAL AND SURGICAL PROCEDURES 2022-04-26 05:01:00 Doctor Unassigned, [facility] DISCLOSURE AND CONSENT, MEDICAL AND SURGICAL PROCEDURES 2022-04-26 05:01:00 Doctor Unassigned, [facility] NM RENAL FLOW FUNCTION WITH PHARMACOLOGICAL INTERVENTION 2022-04-12 15:51:20 Mg Arceo [facility] CONSENT/REFUSAL FOR DIAGNOSIS AND TREATMENT 2022-04-12 13:48:51 Doctor Unassigned, [facility] ASSIGNMENT OF BENEFITS 2022-04-12 13:48:30 Docto r Unassigned, [facility] Encounters Start Date/Time End Date/Time Encounter Type Admission Type Attending Clinicians Care Facility Care Department Encounter ID Source 2023-04-18 09:49:27 Outpatient [facility] [id number] [facility] 2023-02-04 09:07:15 Outpatient [facility] [id number] [facility] 2023-01-13 08:39:19 Outpatient [facility] [id number] [facility] 2023-01-08 09:31:16 Outpatient [facility] [id number] [facility] 2022-10-29 08:41:22 Outpatient [facility] [id number] [facility] 2022-10-25 12:34:20 Outpatient [facility] [id number] [facility] 2022-09-03 07:49:48 Outpatient [facility] [id number] [facility] 2022-08-06 10:36:00 Outpatient [facility] [id number] [facility] 2022-07-29 08:51:23 Outpatient [facility] [id number] [facility] 2022-07-22 17:03:45 Outpatient [facility] [id number] [facility] 2022-07-15 09:06:16 Outpatient [facility] [id number] [facility] 2022-05-21 10:11:00 Inpatient ALBERTO DURHAM [facility] [id number] [facility] 2023-08-28 10:45:00 2023-08-28 10:45:00 Outpatient ALBERTO DURHAM [facility] [id number] [facility] 2023-07-01 09:00:00 2023-07-01 12:27:58 Office Visit Julian Dumas [facility] 1 1..114 350.1.13.58 9.2.7.2.686 [id number] [facility] 2023-03-20 00:00:00 2023-03-20 00:00:00 Telephone Alberto Mcrae [facility] 1..114 350.1.13.10 4.2.7.2.686 [id number] [facility] 2023-03-18 00:00:00 2023-03-18 00:00:00 Orders Only Doctor Unassigned, [facility] 1.840.114 350.1.13.10 4.2.7.2.686 [id number] [facility] 2023-03-13 11:00:00 2023-03-13 11:01:16 Outpatient R ALBERTO MCRAE [facility] [id number] [facility] 2023-03-13 11:00:00 2023-03-13 11:01:16 Office Visit Alberto Mcrae 2, Bhavani Mda Procedure [facility] 1..840.114 350.1.13.10 4.2.7.2.686 [id number] [facility] 2023-02-24 09:30:00 2023-02-24 09:30:00 Outpatient JULIAN DUMAS [facility] [id number] [facility] 2022-10-28 09:30:00 2022-10-28 09:31:13 Outpatient [facility] [id number] [facility] 2022-09-30 15:30:00 2022-09-30 16:00:00 Office Visit Josiane Montero [facility] 1..840.114 350.1.13.10 4.2.7.2.686 [id number] [facility] 2022-09-30 15:30:00 2022-09-30 15:30:00 Outpatient JOSIANE YEBOAH [facility] [id number] [facility] 2022-09-27 13:14:40 2022-09-27 23:59:00 Hospital Encounter Alberto Mcrae [facility] 1.2.840.114 350.1.13.10 4.2.7.2.686 [id number] [facility] 2022-09-27 13:13:29 2022-09-27 13:13:29 Outpatient R ALBERTO MCRAE [facility] [id number] [facility] 2022-09-27 13:13:29 2022-09-27 13:13:29 Hospital Encounter Alberto Mcrae [facility] 1.2.840.114 350.1.13.10 4.2.7.2.686 [id number] [facility] 2022-09-27 00:00:00 2022-09-27 00:00:00 [facility] 1.2.840.114 350.1.13.10 4.2.7.2.686 [id number] [facility] 2022-09-20 00:00:00 2022-09-20 00:00:00 Rosa Maria Arriaza [facility] 1.2.840.114 350.1.13.10 4.2.7.2.686 [id number] [facility] 2022-09-19 00:00:00 2022-09-19 00:00:00 Telephone Alberto Mcrae [facility] 1.2.840.114 350.1.13.10 4.2.7.2.686 [id number] [facility] 2022-09-18 00:00:00 2022-09-18 00:00:00 Orders Only Doctor Unassigned, [facility] 1.2.840.114 350.1.13.10 4.2.7.2.686 [id number] [facility] 2022-09-12 09:00:00 2022-09-12 10:00:00 Office Visit Alberto Mcrae 2, Bhavani Mda Procedure Rm [facility] 1.2.840.114 350.1.13.10 4.2.7.2.686 [id number] [facility] 2022-09-12 09:30:00 2022-09-12 09:45:00 Office Visit Alberto Mcrae [facility] 1.2.840.114 350.1.13.10 4.2.7.2.686 [id number] [facility] 2022-09-12 09:30:00 2022-09-12 09:30:00 Outpatient ALBERTO DURHAM [facility] [id number] [facility] 2022-09-12 09:00:00 2022-09-12 09:00:00 Outpatient ALBERTO DURHAM [facility] [id number] [facility] 2022-09-05 13:00:00 2022-09-05 13:00:00 Outpatient [facility] [id number] [facility] 2022-08-20 10:00:00 2022-08-20 10:00:00 Outpatient JOSIANE YEBOAH [facility] [id number] [facility] 2022-08-02 00:00:00 2022-08-02 00:00:00 Orders Only Doctor Unassigned, [facility] 1.840.114 350.1.13.10 4.2.7.2.686 [id number] [facility] 2022-07-29 09:45:00 2022-07-30 08:36:03 Office Visit Julian Dumas [facility] 1.2.840.114 350.1.13.58 9.2.7.2.686 [id number] [facility] 2022-07-11 16:00:00 2022-07-11 16:00:00 Outpatient MACKENZIE SEGOVIA [facility] [id number] [facility] 2022-07-11 16:00:00 2022-07-11 16:00:00 Outpatient Dustin [facility] [id number] [facility] 2022-07-10 00:00:00 2022-07-10 00:00:00 Orders Only Doctor Unassigned, [place] 1.2840.114 350.1.13.10 4.2.7.2.686 [id number] [facility] 2022-07-08 11:00:00 2022-07-08 11:15:00 Welcome Wagon Hostess Visit 1, Adc Lab Mathew Hua [facility] 1.0.114 350.1.13.10 4.2.7.2.686 [id number] [facility] 2022-07-08 11:00:00 2022-07-08 11:00:00 Outpatient MATHEW MCNAMARA [facility] [id number] [facility] 2022-07-04 00:00:00 2022-07-04 00:00:00 Case Management Nava Arriaza [facility] 1.2.114 350.1.13.10 4.2.7.2.686 [id number] [facility] 2022-07-03 00:00:00 2022-07-03 00:00:00 Telephone Damaris Marr [facility] 1.0.114 350.1.13.10 4.2.7.2.686 [id number] [facility] 2022-06-28 00:00:00 2022-06-28 00:00:00 Orders Only Doctor Unassigned, [place] [facility] 1.840.114 350.1.13.10 4.2.7.2.686 [id number] [facility] 2022-06-13 09:30:00 2022-06-13 09:45:00 Office Visit Alberto Mcrae [facility] 1..114 350.1.13.10 4.2.7.2.686 [id number] [facility] 2022-06-13 09:30:00 2022-06-13 09:30:00 Outpatient ALBERTO DURHAM [facility] [id number] [facility] 2022-05-29 00:00:00 2022-05-29 00:00:00 Transition of Care Cathryn Au 1.2.840.114 350.1.13.10 4.2.7.2.686 [id number] [facility] 2022-05-21 09:27:00 2022-05-28 18:07:00 Inpatient R ALBERTO MCRAE [facility] [id number] [facility] 2022-05-21 09:27:00 2022-05-28 18:07:00 Hospital Encounter Alberto Mcrae [facility] 1.2.840.114 350.1.13.10 4.2.7.2.686 [id number] [facility] 2022-05-21 12:51:00 2022-05-21 16:58:00 Anesthesia Event Renny Singh Joc[facility] 1.2.840.1 [id number] 3.104.2.7 .[id number] [facility] 2022-05-21 12:30:00 2022-05-21 16:18:00 Surgery Alberto Mcrae 1.2.840.1 [id number] 3.104.2.7 .[id number] [facility] 2022-05-21 09:27:00 2022-05-21 09:27:00 Inpatient [facility] [id number] [facility] 2022-05-21 00:00:00 2022-05-21 00:00:00 Orders Only Doctor Unassigned, [place] [facility] 1.2.840.114 350.1.13.10 4.2.7.2.686 [id number] [facility] 2022-05-20 07:00:00 2022-05-20 10:00:00 Nurse Visit 1, Adc Infusion Chair Mina Huang [facility] 1.2.840.114 350.1.13.10 4.2.7.2.686 [id number] [facility] 2022-05-20 07:00:00 2022-05-20 10:00:00 Nurse Visit Mina Huang 1, Adc Infusion Chair 1.2.840.1 [id number] 3.104.2.7 .[id number] [facility] 2022-05-20 07:00:00 2022-05-20 07:00:00 Outpatient MINA BRITT [facility] [id number] [facility] 2022-05-20 07:00:00 2022-05-20 07:00:00 Outpatient R SAL [facility] [id number] [facility] 2022-05-20 00:00:00 2022-05-20 00:00:00 Telephone Alberto Mcrae [facility] 1.2.840.114 350.1.13.10 4.2.7.2.686 [id number] [facility] 2022-05-20 00:00:00 2022-05-20 00:00:00 Telephone Alberto Mcrae 1.2.840.1 [id number] 3.104.2.7 .[id number] .8 [id number] [facility] 2022-05-20 00:00:00 2022-05-20 00:00:00 Travel 1.2.840.1 06795.1.1 3.104.2.7 .3.012246 .8 1.2.840.114 350.1.13.10 4.2.7.3.698 [id number] [facility] 2022-05-16 07:44:47 2022-05-16 23:59:00 Hospital Encounter Josiane Montero 1.2.840.1 77617.1.1 3.104.2.7 .3.870074 .8 [id number] [facility] 2022-05-16 07:44:21 2022-05-16 23:59:00 Hospital Encounter Josiane Montero [facility] 1.2.840.114 350.1.13.10 4.2.7.2.686 [id number] [facility] 2022-05-16 07:44:21 2022-05-16 23:59:00 Hospital Encounter Josiane Montero. 1.2.840.1 35696.1.1 3.104.2.7 .3.908927 .8 [id number] [facility] 2022-05-16 07:44:01 2022-05-16 23:59:00 Hospital Encounter Josiane Montero. [facility] 1.2.840.114 350.1.13.10 4.2.7.2.686 [id number] [facility] 2022-05-16 07:44:01 2022-05-16 23:59:00 Hospital Encounter Josiane Montero. 1.2.840.1 49632.1.1 3.104.2.7 .3.412279 .8 [id number] [facility] 2022-05-16 11:30:00 2022-05-16 11:30:00 Outpatient JOSIANE MONTERO [facility] [id number] [facility] 2022-05-16 08:00:00 2022-05-16 08:00:00 Outpatient R JOSIANE MONTERO [facility] [id number] [facility] 2022-05-16 07:43:41 2022-05-16 07:43:41 Hospital Encounter Josiane Montero [facility] 1.2.840.114 350.1.13.10 4.2.7.2.686 [id number] [facility] 2022-05-16 07:43:41 2022-05-16 07:43:41 Hospital Encounter Yenifer Monterotrevor Patel[facility]ille[facility]bin 1.2.840.1 50924.1.1 3.104.2.7 .3.722037 .8 [id number] [facility] 2022-05-16 07:42:46 2022-05-16 07:42:46 Outpatient R JOSIANE MONTERO [facility] [id number] [facility] 2022-05-16 07:42:46 2022-05-16 07:42:46 Hospital Encounter Josiane Montero [facility] 1..114 350.1.13.10 4.2.7.2.686 [id number] [facility] [facility] 2022-05-16 07:42:46 2022-05-16 07:42:46 Hospital Encounter Yenifer Monterotrevor PatelCamilleCorbin 1.2.840.1 06430.1.1 3.104.2.7 .3.334601 .8 [id number] [facility] 2022-05-14 00:00:00 2022-05-14 00:00:00 Case Management Mina Huang [facility] 1.840.114 350.1.13.10 4.2.7.2.686 [id number] [facility] 2022-05-14 00:00:00 2022-05-14 00:00:00 Case Management Mina Huang 1.2.840.1 73156.1.1 3.104.2.7 .3.173590 .8 [id number] [facility] 2022-05-10 00:00:00 2022-05-10 00:00:00 Telephone Alberto Mcrae [facility] 1..114 350.1.13.10 4.2.7.2.686 [id number] [facility] 2022-05-09 00:00:00 2022-05-09 00:00:00 Telephone Mina Huang BUILDING 1.2.840.114 350.1.13.10 4.2.7.2.686 [id number] [id number] [facility] 2022-05-09 00:00:00 2022-05-09 00:00:00 Telephone Tarsha Huangi 1.2.840.1 36169.1.1 3.104.2.7 .3.837094 .8 [id number] [facility] 2022-05-07 13:00:00 2022-05-07 14:36:31 Outpatient R JOSIANE MONTERO [facility] [id number] [facility] 2022-05-07 13:00:00 2022-05-07 14:36:31 Office Visit Josiane Montero [facility] 1.2.840.114 350.1.13.10 4.2.7.2.686 [id number] [facility] 2022-05-07 13:00:00 2022-05-07 14:36:31 Office Visit Josiane Montero 1.2.840.1 65589.1.1 3.104.2.7 .3.059269 .8 [id number] [facility] 2022-05-07 13:00:00 2022-05-07 13:30:00 Office Visit Josiane MonteroHCorbin [facility] 1.2.840.114 350.1.13.10 4.2.7.2.686 [id number] [facility] 2022-05-07 13:00:00 2022-05-07 13:00:00 Outpatient R JOSIANE MONTERO [facility] [id number] [facility] 2022-05-07 13:00:00 2022-05-07 13:00:00 Outpatient R WINSTON YENIFERTREVOR [facility] [id number] [facility] 2022-05-07 00:00:00 2022-05-07 00:00:00 Orders Only Doctor Unassigned, [place] [facility] 1.2.840.114 350.1.13.10 4.2.7.2.686 [id number] [facility] 2022-05-07 00:00:00 2022-05-07 00:00:00 Orders Only Doctor Unassigned, [place] 1.2.840.1 59274.1.1 3.104.2.7 .3.664515 .8 [id number] [facility] 2022-05-07 00:00:00 2022-05-07 00:00:00 Patient Secure Huang Mina [facility] 1.2.840.114 350.1.13.10 4.2.7.2.686 [id number] [facility] 2022-05-07 00:00:00 2022-05-07 00:00:00 Travel 1.2.840.1 62000.1.1 3.104.2.7 .3.376088 .8 1.2.840.114 350.1.13.10 4.2.7.3.698 084.8 [id number] [facility] 2022-05-02 10:30:00 2022-05-02 11:01:18 Outpatient R MACKENZIE PARSONS [facility] [id number] [facility] 2022-05-02 10:30:00 2022-05-02 11:01:18 Office Visit Mackenzie Parsons [facility] 1.2.840.114 350.1.13.10 4.2.7.2.686 [id number] [facility] 2022-05-02 10:30:00 2022-05-02 11:01:18 Office Visit Mackenzie Parsons 1.2.840.1 79349.1.1 3.104.2.7 .3.602547 .8 [id number] [facility] 2022-05-02 00:00:00 2022-05-02 00:00:00 Travel 1.2.840.1 25810.1.1 3.104.2.7 .3.616666 .8 1.2.840.114 350.1.13.10 4.2.7.3.698 084.8 [id number] [facility] 2022-04-29 10:00:00 2022-04-29 17:12:20 Outpatient R EARL LARSON [facility] [id number] [facility] 2022-04-29 10:00:00 2022-04-29 17:12:20 Office Visit Earl Larson Rp [facility] 1.2.840.114 350.1.13.10 4.2.7.2.686 [id number] [facility] 2022-04-29 10:00:00 2022-04-29 17:12:20 Office Visit Earl Larson Rp 1.2.840.1 41714.1.1 3.104.2.7 .3.716314 .8 [id number] [facility] 2022-04-29 10:45:00 2022-04-29 11:00:00 Welcome Wagon Hostess Visit [facility] Mackenize Parsons [facility] 1.2.840.114 350.1.13.10 4.2.7.2.686 [id number] [facility] 2022-04-29 10:45:00 2022-04-29 11:00:00 Welcome Wagon Hostess Visit Mackenzie Parsons [facility] 1.2.840.1 10420.1.1 3.104.2.7 .3.452911 .8 [id number] [facility] 2022-04-29 10:45:00 2022-04-29 10:45:00 Outpatient MACKENZIE SEGOVIA [facility] [id number] [facility] 2022-04-29 10:00:00 2022-04-29 10:00:00 Outpatient EARL GUIDRY [facility] [id number] [facility] 2022-04-29 00:00:00 2022-04-29 00:00:00 Travel 1.2.840.1 35157.1.1 3.104.2.7 .3.504866 .8 1.2.840.114 350.1.13.10 4.2.7.3.698 084.8 [id number] [facility] 2022-04-26 00:00:00 2022-04-26 00:00:00 Telephone Mackenzie Parsons [facility] 1.2.840.114 350.1.13.10 4.2.7.2.686 [id number] [facility] 2022-04-26 00:00:00 2022-04-26 00:00:00 Telephone Mackenzie Parsons 1.2.840.1 12725.1.1 3.104.2.7 .3.527030 .8 [id number] [facility] 2022-04-25 11:00:00 2022-04-25 13:51:07 Office Visit Alberto Mcrae 1, Bhavani Mda Procedure Rm 1.2.840.1 50304.1.1 3.104.2.7 .3.730998 .8 [id number] [facility] 2022-04-25 11:00:00 2022-04-25 12:00:00 Office Visit Alberto Mcrae 1, Bhavani Mda Procedure [facility] 1.2.840.114 350.1.13.10 4.2.7.2.686 [id number] [facility] 2022-04-25 11:00:00 2022-04-25 11:00:00 Outpatient R ALBERTO MCRAE [facility] [id number] [facility] 2022-04-25 00:00:00 2022-04-25 00:00:00 Travel 1.2.840.1 95521.1.1 3.104.2.7 .3.779780 .8 1.2.840.114 350.1.13.10 4.2.7.3.698 084.8 [id number] [facility] 2022-04-12 08:51:02 2022-04-12 23:59:00 Outpatient ALBERTO DURHAM [facility] [id number] [facility] 2022-04-12 08:51:02 2022-04-12 23:59:00 Hospital Encounter Alberto Mcrae [facility] 1.2.840.114 350.1.13.10 4.2.7.2.686 [id number] [facility] 2022-04-12 08:51:02 2022-04-12 23:59:00 Hospital Encounter Alberto Mcrae 1.2.840.1 51944.1.1 3.104.2.7 .3.069485 .8 [id number] [facility] 2022-04-12 00:00:00 2022-04-12 00:00:00 Orders Only Doctor Unassigned, [place] [facility] 1.2.840.114 350.1.13.10 4.2.7.2.686 [id number] [facility] 2022-04-12 00:00:00 2022-04-12 00:00:00 Orders Only Doctor Unassigned, [place] 1.2.840.1 99194.1.1 3.104.2.7 .3.260466 .8 [id number] [facility] 2022-04-05 00:00:00 2022-04-05 00:00:00 Patient Secure Msg Doctor Unassigned, [place] [facility] 1.2.840.114 350.1.13.10 4.2.7.2.686 [id number] [facility] 2022-04-04 23:59:59 2022-04-04 23:59:59 Anesthesia Event Goyo De La O 1.2.840.1 40844.1.1 3.104.2.7 .3.218184 .8 [id number] [facility] 2022-04-04 23:59:59 2022-04-04 23:59:59 Anesthesia Event Goyo De La O 1.2.840.1 26543.1.1 3.104.2.7 .3.642273 .8 [id number] [facility] 2022-04-04 10:30:00 2022-04-04 10:45:00 Office Visit Alberto Mcrae [facility] 1.2.840.114 350.1.13.10 4.2.7.2.686 [id number] [facility] 2022-04-04 10:30:00 2022-04-04 10:45:00 Office Visit Alberto Mcrae 1.2.840.1 75010.1.1 3.104.2.7 .3.768587 .8 [id number] [facility] 2022-04-04 10:30:00 2022-04-04 10:30:00 Outpatient ALBERTO DURHAM [facility] [id number] [facility] 2022-04-04 10:30:00 2022-04-04 10:30:00 Outpatient ALBERTO DURHAM [facility] [id number] [facility] 2022-04-04 00:00:00 2022-04-04 00:00:00 Travel 1.2.840.1 60247.1.1 3.104.2.7 .3.026432 .8 1.2.840.114 350.1.13.10 4.2.7.3.698 084.8 [id number] [facility] 2022-03-21 16:30:00 2022-03-21 16:30:00 Outpatient ALBERTO DURHAM [facility] [id number] [facility] 2022-03-21 00:00:00 2022-03-21 00:00:00 Telephone Alberto Mcrae [facility] 1.2.840.114 350.1.13.10 4.2.7.2.686 [id number] [facility] 2022-03-21 00:00:00 2022-03-21 00:00:00 Telephone Alberto Mcrae 1.2.840.1 48741.1.1 3.104.2.7 .3.000170 .8 [id number] [facility] 2022-02-26 00:00:00 2022-02-26 00:00:00 Telephone Alberto Mcrae [facility] 1.2.840.114 350.1.13.10 4.2.7.2.686 [id number] [facility] 2022-02-26 00:00:00 2022-02-26 00:00:00 Alberto [place] 1.2.840.1 65116.1.1 3.104.2.7 .3.409311 .8 [id number] [facility] 2022-02-15 00:00:00 2022-02-15 00:00:00 Telephone Alberto Mcrae [facility] 1.2.840.114 350.1.13.10 4.2.7.2.686 [id number] [facility] 2022-02-14 09:45:00 2022-02-14 09:45:00 Outpatient R ALBERTO MCRAE [facility] [id number] [facility] 2022-01-29 09:24:53 2022-01-29 23:59:00 Hospital Encounter Mina Huang [facility] 1.2840.114 350.1.13.10 4.2.7.2.686 [id number] [facility] 2022-01-29 09:24:32 2022-01-29 23:59:00 Outpatient R MINA HUANG [facility] [id number] [facility] 2022-01-29 09:24:32 2022-01-29 23:59:00 Hospital Encounter Sal [facility] 1.84.114 350.1.13.10 4.2.7.2.686 [id number] [facility] 2022-01-23 11:30:00 2022-01-23 13:00:00 Nurse Visit 2, [facility] Infusion Chair Earl Larson [facility] 1.114 350.1.13.10 4.2.7.2.686 [id number] [facility] 2022-01-23 11:30:00 2022-01-23 11:30:00 Outpatient R GENE NADINEBridget [facility] [id number] [facility] 2022-01-23 11:30:00 2022-01-23 11:30:00 Outpatient R EARL LARSON [facility] [id number] [facility] 2022-01-22 10:30:00 2022-01-22 10:45:00 Welcome Wagon Hostess Visit Pob, Adc Lab Main Earl Larson [facility] 1.84.114 350.1.13.10 4.2.7.2.686 [id number] [facility] 2022-01-22 10:30:00 2022-01-22 10:30:00 Outpatient R NADINE LARSONBridget [facility] [id number] [facility] 2022-01-16 13:30:00 2022-01-16 15:30:00 Nurse Visit 3, [facility] Infusion Chair Nadine Larsonbridget [facility] 1..840.114 350.1.13.10 4.2.7.2.686 [id number] [facility] 2022-01-16 13:30:00 2022-01-16 13:30:00 Outpatient R GENENADINEFORMERLY [facility] [id number] [facility] 2022-01-16 13:30:00 2022-01-16 13:30:00 Outpatient R GENE [facility]INEFORMERLY [facility] [id number] [facility] 2022-01-15 14:00:00 2022-01-15 15:00:00 Telemedici ne Visit Mina Huang BUILDING 1..840.114 350.1.13.10 4.2.7.2.686 [id number] [facility] 2022-01-15 14:00:00 2022-01-15 14:00:00 Outpatient MINA BRITT [facility] [id number] [facility] 2022-01-15 13:00:00 2022-01-15 13:00:00 Outpatient MINA BRITT [facility] [id number] [facility] 2022-01-15 10:15:00 2022-01-15 10:30:00 Welcome Wagon Hostess Visit Pob, Adc Lab Main Gene Earl [facility] BUILDING 1..840.114 350.1.13.10 4.2.7.2.686 [id number] [facility] 2022-01-15 10:15:00 2022-01-15 10:15:00 Outpatient EARL GUIDRY [facility] [id number] [facility] 2022-01-15 00:00:00 2022-01-15 00:00:00 Orders Only Doctor Unassigned, [place] [facility] 1.2840.114 350.1.13.10 4.2.7.2.686 [id number] [facility] 2022-01-02 11:30:00 2022-01-02 15:00:00 Nurse Visit 5, [facility] 1.20.114 350.1.13.10 4.2.7.2.686 [id number] [facility] 2022-01-02 11:30:00 2022-01-02 15:00:00 Nurse Visit 5, [facility] 1.20.114 350.1.13.10 4.2.7.2.686 [id number] [facility] 2022-01-02 11:30:00 2022-01-02 11:30:00 Outpatient R GENE [facility] [id number] [facility] 2022-01-02 11:30:00 2022-01-02 11:30:00 Outpatient R EARL LARSON [facility] [id number] [facility] 2022-01-01 10:30:00 2022-01-01 10:45:00 Welcome Wagon Hostess Visit Pob, Adc Lab Main Gene Nadinebridget [facility] 1..114 350.1.13.10 4.2.7.2.686 [id number] [facility] 2022-01-01 10:30:00 2022-01-01 10:30:00 Outpatient R [facility] [id number] [facility] 2022-01-01 10:30:00 2022-01-01 10:30:00 Outpatient R NADINE [facility]SONFORMERLY [facility] [id number] [facility] 2022-01-01 10:30:00 2022-01-01 10:30:00 Outpatient EARL GUIDRY [facility] [id number] [facility] 2022-01-01 00:00:00 2022-01-01 00:00:00 Orders Only Doctor Unassigned, [place] [facility] 1.84.114 350.1.13.10 4.2.7.2.686 [id number] [facility] 2021-12-26 13:00:00 2021-12-26 15:00:00 Nurse Visit 7, [facility] Infusion Chair Earl Larson Rp [facility] 1.84.114 350.1.13.10 4.2.7.2.686 [id number] [facility] 2021-12-26 13:00:00 2021-12-26 13:00:00 Outpatient EARL GUIDRY [facility] [id number] [facility] 2021-12-26 13:00:00 2021-12-26 13:00:00 Outpatient EARL GUIDRY [facility] [id number] [facility] 2021-12-24 11:20:00 2021-12-24 16:04:50 Office Visit Earl Larson Rp 1..840.114 350.1.13.10 4.2.7.2.686 [id number] [facility] 2021-12-24 11:20:00 2021-12-24 16:04:50 Outpatient EARL GUIDRY [facility] [id number] [facility] 2021-12-24 11:20:00 2021-12-24 16:04:50 Outpatient EARL GUIDRY [facility] [id number] [facility] 2021-12-24 11:20:00 2021-12-24 16:04:50 Office Visit Earl Larson Rp BUILDING 1.2.840.114 350.1.13.10 4.2.7.2.686 [id number] [facility] 2021-12-24 11:20:00 2021-12-24 11:20:00 Outpatient R GENEEARL Kaur [facility] [id number] [facility] 2021-12-24 10:30:00 2021-12-24 11:03:50 Outpatient R EARL LARSON [facility] [id number] [facility] 2021-12-24 10:30:00 2021-12-24 10:45:00 Welcome Wagon Hostess Visit [facility] Earl Larson [facility] 1.2.840.114 350.1.13.10 4.2.7.2.686 [id number] [facility] 2021-12-14 00:00:00 2021-12-14 00:00:00 Telephone Gene, Nadinebridget [facility] 1.2.840.114 350.1.13.10 4.2.7.2.686 [id number] [facility] 2021-12-12 12:30:00 2021-12-12 16:00:00 Nurse Visit 1, [facility] Infusion Chair GeneEarl kaur [facility] 1.2.840.114 350.1.13.10 4.2.7.2.686 [id number] [facility] 2021-12-12 12:30:00 2021-12-12 12:30:00 Outpatient R EARL LARSON [facility] [id number] [facility] 2021-12-12 12:30:00 2021-12-12 12:30:00 Outpatient R EARL LARSON [facility] [id number] [facility] 2021-12-11 11:30:00 2021-12-11 11:45:00 Welcome Wagon Hostess Visit Pob, [facility] 1.2.840.114 350.1.13.10 4.2.7.2.686 [id number] [facility] 2021-12-11 11:30:00 2021-12-11 11:30:00 Outpatient R NADINE [facility]SON[facility]ER[facility] [id number] [facility] 2021-12-05 13:00:00 2021-12-05 14:30:00 Nurse Visit 3, [facility] Infusion Chair Mina Huang [facility] 1.2.840.114 350.1.13.10 4.2.7.2.686 [id number] [facility] 2021-12-05 13:00:00 2021-12-05 13:00:00 Outpatient Dustin HUANG [facility] [id number] [facility] 2021-12-05 13:00:00 2021-12-05 13:00:00 Outpatient R SAL [facility] [id number] [facility] 2021-12-05 13:00:00 2021-12-05 13:00:00 Outpatient R MINA HUANG [facility] [id number] [facility] 2021-12-04 10:00:00 2021-12-04 10:15:00 Welcome Wagon Hostess Visit Pob, Adc Lab Main Sal [facility] BUILDING 1.2.840.114 350.1.13.10 4.2.7.2.686 [id number] [facility] 2021-12-04 10:00:00 2021-12-04 10:00:00 Outpatient R TARSHA HUANGFORMERLY [facility] [id number] [facility] 2021-12-04 10:00:00 2021-12-04 10:00:00 Outpatient TARSHA BRITTFORMERLY [facility] [id number] [facility] 2021-11-30 10:20:00 2021-11-30 10:40:00 Telemedici ne Visit Earl Larson Rp [facility] BUILDING 1.2.840.114 350.1.13.10 4.2.7.2.686 [id number] [facility] 2021-11-30 10:20:00 2021-11-30 10:20:00 Outpatient R EARL LARSON [facility] [id number] [facility] 2021-11-30 10:20:00 2021-11-30 10:20:00 Outpatient R EARL LRASON [facility] [id number] [facility] 2021-11-28 00:00:00 2021-11-28 00:00:00 Telephone Farhana Grover [facility] 1.2.840.114 350.1.13.10 4.2.7.2.686 [id number] [facility] 2021-11-27 10:30:00 2021-11-27 10:30:00 Outpatient MINA BRITT [facility] [id number] [facility] 2021-11-27 10:30:00 2021-11-27 10:30:00 Outpatient MINA BRITT [facility] [id number] [facility] 2021-11-23 10:00:00 2021-11-23 10:00:00 Outpatient EARL GUIDRY [facility] [id number] [facility] 2021-11-23 10:00:00 2021-11-23 10:00:00 Outpatient EARL GUIDRY [facility] [id number] [facility] 2021-11-19 10:30:00 2021-11-19 10:30:00 Outpatient EARL GUIDRY [facility] [id number] [facility] 2021-11-19 10:30:00 2021-11-19 10:30:00 Welcome Wagon Hostess Visit Pob, Adc Lab Main Earl Larson [facility] 1.2.840.114 350.1.13.10 4.2.7.2.686 [id number] [facility] 2021-11-19 10:30:00 2021-11-19 10:25:29 Outpatient EARL GUIDRY [facility] [id number] [facility] 2021-11-14 11:30:00 2021-11-14 13:00:00 Nurse Visit 3, [facility] Infusion Chair Mina Huang [facility] 1..840.114 350.1.13.10 4.2.7.2.686 [id number] [facility] 2021-11-14 11:30:00 2021-11-14 11:30:00 Outpatient Dustin HUANG [facility] [id number] [facility] 2021-11-14 11:30:00 2021-11-14 11:30:00 Outpatient TARSHA [facility]FORMER[facility] [id number] [facility] 2021-11-14 00:00:00 2021-11-14 00:00:00 Farhana Choudhary [facility] BUILDING 1..840.114 350.1.13.10 4.2.7.2.686 [id number] [facility] 2021-11-05 11:00:00 2021-11-05 11:15:00 Welcome Wagon Hostess Visit Pob, Adc Lab Main Earl Larson Rp [facility] BUILDING 1..840.114 350.1.13.10 4.2.7.2.686 [id number] [facility] 2021-11-05 11:00:00 2021-11-05 11:00:00 Outpatient EARL GUIDRY [facility] [id number] [facility] 2021-11-05 11:00:00 2021-11-05 11:00:00 Outpatient EARL GUIDRY [facility] [id number] [facility] 2021-11-02 00:00:00 2021-11-02 00:00:00 Case Management Mina Huang [facility] 1.2.840.114 350.1.13.10 4.2.7.2.686 [id number] [facility] 2021-11-01 12:30:00 2021-11-01 14:30:00 Nurse Visit 5, [facility] Infusion Chair Earl Larson [facility] 1.20.114 350.1.13.10 4.2.7.2.686 [id number] [facility] 2021-11-01 12:30:00 2021-11-01 12:30:00 Outpatient Dustin LARSON [facility] [id number] [facility] 2021-11-01 12:30:00 2021-11-01 12:30:00 Outpatient R GENE [facility] [id number] [facility] 2021-11-01 00:00:00 2021-11-01 00:00:00 Orders Only Doctor Unassigned, [place] [facility] 1.2840.114 350.1.13.10 4.2.7.2.686 [id number] [facility] 2021-10-30 00:00:00 2021-10-30 00:00:00 Case Management Mina Huang [facility] 1.2840.114 350.1.13.10 4.2.7.2.686 [id number] [facility] 2021-10-30 00:00:00 2021-10-30 00:00:00 Case Management Mina Huang [facility] 1.2840.114 350.1.13.10 4.2.7.2.686 [id number] [facility] 2021-10-24 08:08:05 2021-10-24 23:59:00 Hospital Encounter Nadine Larsonbridget Joshua [facility] 1.2840.114 350.1.13.10 4.2.7.2.686 [id number] [facility] 2021-10-24 09:00:00 2021-10-24 09:15:00 Welcome Wagon Hostess Visit [facility], [facility] Main Gene Earl Joshua [facility] PROFESSIO [facility] 1.2840.114 350.1.13.10 4.2.7.2.686 [id number] [facility] 2021-10-24 09:00:00 2021-10-24 09:00:00 Outpatient R EARL LARSON [facility] [id number] [facility] 2021-10-24 09:00:00 2021-10-24 09:00:00 Outpatient R EARL LARSON [facility] [id number] [facility] 2021-10-19 10:45:00 2021-10-19 11:00:00 Welcome Wagon Hostess Visit [facility] Gene Earl Joshua [facility] 1.2840.114 350.1.13.10 4.2.7.2.686 [id number] [facility] 2021-10-19 10:20:00 2021-10-19 10:40:00 Office Visit Earl Larson Rp [facility] 1.2840.114 350.1.13.10 4.2.7.2.686 [id number] [facility] 2021-10-19 10:20:00 2021-10-19 10:20:00 Outpatient R EARL LARSON [facility] [id number] [facility] 2021-10-19 10:20:00 2021-10-19 10:13:50 [facility] [id number] [facility] 2021-10-19 10:20:00 2021-10-19 10:13:50 Outpatient R EARL LARSON [facility] [id number] [facility] 2021-10-19 00:00:00 2021-10-19 00:00:00 Patient Outreach Davionvarun Quinn Elisa VALDEZ [facility] 1.2.840.114 350.1.13.10 4.2.7.2.686 [id number] [facility] 2021-09-28 00:00:00 2021-09-28 00:00:00 Telephone Earl Larson Rp [facility] 1.2.840.114 350.1.13.10 4.2.7.2.686 [id number] [facility] 2021-09-28 00:00:00 2021-09-28 00:00:00 Telephone Alberto Mcrae [facility] 1.2.840.114 350.1.13.10 4.2.7.2.686 [id number] [facility] 2021-09-26 00:00:00 2021-09-26 00:00:00 Multidisci plinary Conference [employer] [facility] 1.2.840.114 350.1.13.10 4.2.7.2.686 [id number] [facility] 2021-09-20 16:30:00 2021-09-20 16:45:00 Telemedici ne Visit Alberto Mcrae [facility] 1.2.840.114 350.1.13.10 4.2.7.2.686 [id number] [facility] 2021-09-20 16:30:00 2021-09-20 16:30:00 Outpatient R ALBERTO MCRAE [facility] [id number] [facility] 2021-09-20 16:30:00 2021-09-20 16:30:00 Outpatient ALBERTO DURHAM [facility] [id number] [facility] 2021-09-20 16:30:00 2021-09-20 16:30:00 Outpatient ALBERTO DURHAM [facility] [id number] [facility] 2021-09-17 00:00:00 2021-09-17 00:00:00 Telephone Earl Larson Rp [facility] 1.2840.114 350.1.13.10 4.2.7.2.686 [id number] [facility] 2021-09-17 00:00:00 2021-09-17 00:00:00 Telephone Earl Larson Rp [facility] 1.2840.114 350.1.13.10 4.2.7.2.686 [id number] [facility] 2021-08-28 00:00:00 2021-08-28 00:00:00 Orders Only Doctor Unassigned, [place] [facility] 1.840.114 350.1.13.10 4.2.7.2.686 [id number] [facility] 2021-08-27 10:00:00 2021-08-27 10:38:07 Outpatient EARL GUIDRY [facility] [id number] [facility] 2021-08-27 09:51:36 2021-08-27 10:38:07 Office Visit Earl Larson Rp [facility] 1.2840.114 350.1.13.10 4.2.7.2.686 [id number] [facility] 2021-08-22 09:02:09 2021-08-22 09:17:09 Welcome Wagon Hostess Visit Pob, Adc Lab Main Earl Larson [facility] 1.2840.114 350.1.13.10 4.2.7.2.686 [id number] [facility] 2021-08-22 09:00:00 2021-08-22 09:00:00 [facility]patient [facility] [id number] [facility] 2021-08-22 00:00:00 2021-08-22 00:00:00 Case Management Earl Larson JOSÉ MIGUEL [facility] 1.2.840.114 350.1.13.10 4.2.7.2.686 [id number] [facility] 2021-08-15 09:46:39 2021-08-15 23:59:00 Hospital Encounter Earl Larson [facility] 1.2840.114 350.1.13.10 4.2.7.2.686 [id number] [facility] 2021-08-15 09:46:03 2021-08-15 23:59:00 Outpatient R EARL LARSON [facility] [id number] [facility] 2021-08-15 09:46:03 2021-08-15 23:59:00 Hospital Encounter Earl Larson [facility] 1.2840.114 350.1.13.10 4.2.7.2.686 [id number] [facility] 2021-08-06 00:00:00 2021-08-06 00:00:00 Telephone Mina Huang [facility] 1.2.840.114 350.1.13.10 4.2.7.2.686 [id number] [facility] 2021-08-02 16:15:00 2021-08-02 16:15:00 Outpatient ALBERTO DURHAM [facility] [id number] [facility] 2021-08-02 13:18:24 2021-08-02 13:33:24 Telemedici ne Visit Alberto Mcrae [facility] 1.114 350.1.13.10 4.2.7.2.686 [id number] [facility] 2021-07-31 14:05:52 2021-07-31 23:59:00 Outpatient ALBERTO DURHAM [facility] [id number] [facility] 2021-07-31 14:05:52 2021-07-31 23:59:00 Outpatient ALBERTO DURHAM [facility] [id number] [facility] 2021-07-31 14:00:00 2021-07-31 23:59:00 Hospital Alberto Hodge [facility] 1..114 350.1.13.10 4.2.7.2.686 [id number] [facility] 2021-07-31 00:00:00 2021-07-31 00:00:00 Outpatient ALBERTO DURHAM [facility] [id number] [facility] 2021-07-30 10:00:00 2021-07-30 10:45:45 Outpatient R EARL LARSON [facility] [id number] [facility] 2021-07-30 10:00:00 2021-07-30 10:45:45 Outpatient EARL GUIDRY [facility] [id number] [facility] 2021-07-30 09:39:15 2021-07-30 10:45:45 [facility] 1..114 350.1.13.10 4.2.7.2.686 [id number] [facility] 2021-07-30 00:00:00 2021-07-30 00:00:00 Orders Only Doctor Unassigned, [place] [facility] 1.840.114 350.1.13.10 4.2.7.2.686 [id number] [facility] 2021-07-26 09:40:49 2021-07-26 09:55:49 Office Visit Alberto Mcrae [facility] 1.2.840.114 350.1.13.10 4.2.7.2.686 [id number] [facility] 2021-07-26 09:00:00 2021-07-26 09:00:00 Outpatient ALBERTO DURHAM [facility] [id number] [facility] 2021-07-26 09:00:00 2021-07-26 09:00:00 Outpatient Dustin MCRAE [facility] [id number] [facility] 2021-07-26 09:00:00 2021-07-26 09:00:00 Outpatient ALBERTO DURHAM [facility] [id number] [facility] 2021-07-26 09:00:00 2021-07-26 09:00:00 Outpatient ALBERTO DURHAM [facility] [id number] [facility] 2021-07-26 09:00:00 2021-07-26 09:00:00 Outpatient R ALBERTO MCRAE [facility] [id number] [facility] 2021-07-24 07:44:00 2021-07-24 16:10:00 Hospital Encounter Alberto Mcrae [facility] 1.2.840.114 350.1.13.10 4.2.7.2.686 [id number] [facility] 2021-07-24 07:44:00 2021-07-24 16:10:00 Outpatient R CLEMENTINA [facility] [id number] [facility] 2021-07-24 07:44:00 2021-07-24 16:10:00 Outpatient Dustin MCRAE [facility] [id number] [facility] 2021-07-24 09:23:00 2021-07-24 11:41:00 Surgery Alberto Mcrae [facility] 1.2840.114 350.1.13.10 4.2.7.2.686 [id number] [facility] 2021-07-24 00:00:00 2021-07-24 00:00:00 Orders Only Doctor Unassigned, [place] [facility] 1.2840.114 350.1.13.10 4.2.7.2.686 [id number] [id number] [facility] 2021-07-23 09:49:49 2021-07-23 10:04:49 Laboratory Only Only, Adc Test Mathew Hua [facility] 1..114 350.1.13.10 4.2.7.2.686 [id number] [facility] 2021-07-23 09:30:00 2021-07-23 09:30:00 Outpatient Dustin HUA [facility] [id number] [facility] 2021-07-23 00:00:00 2021-07-23 00:00:00 Orders Only Doctor Unassigned, [place] [facility] 1..114 350.1.13.10 4.2.7.2.686 [id number] [facility] 2021-07-05 13:00:00 2021-07-05 13:00:00 Outpatient ALBERTO DURHAM [facility] [id number] [facility] 2021-07-05 12:20:32 2021-07-05 12:50:32 Office Visit Alberto Mcrae [facility] 1..114 350.1.13.10 4.2.7.2.686 [id number] [facility] 2021-06-28 09:53:52 2021-06-28 10:08:52 Welcome Wagon Hostess Visit Pob, Adc Lab Main [facility] 1..114 350.1.13.10 4.2.7.2.686 [id number] [facility] 2021-06-28 10:00:00 2021-06-28 10:00:00 Outpatient R [facility]JALI [facility] [id number] [facility] 2021-06-28 00:00:00 2021-06-28 00:00:00 Orders Only Doctor Unassigned, [place] [facility] 1.2.840.114 350.1.13.10 4.2.7.2.686 [id number] [facility] 2021-06-27 00:00:00 2021-06-27 00:00:00 [facility] 1.20.114 350.1.13.10 4.2.7.2.686 [id number] [facility] 2021-06-18 08:35:44 2021-06-18 08:50:44 Welcome Wagon Hostess Visit Pob, Adc Lab [facility] 1..114 350.1.13.10 4.2.7.2.686 [id number] [facility] 2021-06-18 08:45:00 2021-06-18 08:45:00 Outpatient R [facility] [id number] [facility] 2021-06-15 00:00:00 2021-06-15 00:00:00 Telephone [facility] 1.2.114 350.1.13.10 4.2.7.2.686 [id number] [facility] 2021-06-13 00:00:00 2021-06-13 00:00:00 [facility] 1.2.114 350.1.13.10 4.2.7.2.686 [id number] [facility] 2021-06-12 00:00:00 2021-06-12 00:00:00 Telephone Jean Pierre Daviesth [facility] 1.2.840.114 350.1.13.10 4.2.7.2.686 [id number] [facility] 2021-06-11 11:18:43 2021-06-11 11:33:43 Welcome Wagon Hostess Visit 2, [facility] Pranay Davies [facility] Professio nal Building 1.2.840.114 350.1.13.10 4.2.7.2.686 [id number] [facility] 2021-06-11 11:18:43 2021-06-11 11:33:43 Welcome Wagon Hostess Visit 2, [facility] 1.2.840.114 350.1.13.10 4.2.7.2.686 [id number] [facility] 2021-06-11 09:55:45 2021-06-11 11:11:05 Office Visit Pranay Davies , [facility] Surg Spec Procedure [facility] Professio nal Building 1.2.840.114 350.1.13.10 4.2.7.2.686 [id number] [facility] 2021-06-11 10:00:00 2021-06-11 10:00:00 Outpatient R MARYBridget PRANAY [facility] [id number] [facility] 2021-06-11 00:00:00 2021-06-11 00:00:00 Orders Only Doctor Unassigned, [place] [facility] 1.2.840.114 350.1.13.10 4.2.7.2.686 [id number] [id number] [facility] 2021-06-07 00:00:00 2021-06-07 00:00:00 Telephone Farhana Grover [facility] Nadia [facility] 1.2.840.114 350.1.13.10 4.2.7.2.686 [id number] [facility] 2021-06-07 00:00:00 2021-06-07 00:00:00 Telephone Farhana Grover [facility] 1.2.840.114 350.1.13.10 4.2.7.2.686 [id number] [facility] 2021-06-06 10:26:33 2021-06-06 10:41:33 Welcome Wagon Hostess Visit Pob, Adc Lab Main Farhana Grover [facility] Devantesentara [facility] Building 1.2.840.114 350.1.13.10 4.2.7.2.686 [id number] [facility] 2021-06-06 10:26:33 2021-06-06 10:41:33 Welcome Wagon Hostess Visit Pob, Adc Lab Main Farhana Grover [facility] 1.2.840.114 350.1.13.10 4.2.7.2.686 [id number] [facility] 2021-06-06 10:30:00 2021-06-06 10:30:00 Outpatient R FARHANA GROVER [facility] [id number] [facility] 2021-06-04 08:00:00 2021-06-04 08:00:00 Outpatient R PRANAY DAVIES [facility] [id number] [facility] 2021-06-04 00:00:00 2021-06-04 00:00:00 Telephone Farhana Grover [facility] 1.2.840.114 350.1.13.10 4.2.7.2.686 [id number] [facility] 2021-06-04 00:00:00 2021-06-04 00:00:00 Telephone Farhana Grover [facility] [place] Mau Zuniga [facility] 1.2.840.114 350.1.13.10 4.2.7.2.686 [id number] [facility] 2021-05-31 00:00:00 2021-05-31 00:00:00 Telephone [facility]ana Grover [facility] 1.2.840.114 350.1.13.10 4.2.7.2.686 [id number] [facility] 2021-05-31 00:00:00 2021-05-31 00:00:00 Telephone Farhana Grover [facility] 1.2.840.114 350.1.13.10 4.2.7.2.686 [id number] [facility] 2021-05-25 10:30:00 2021-05-25 10:30:00 Outpatient R FARHANA GROVER [facility] [id number] [facility] 2021-05-25 10:09:13 2021-05-25 10:24:13 Welcome Wagon Hostess Visit Pob, Adc Lab Main Farhana Grover [facility] 1..840.114 350.1.13.10 4.2.7.2.686 [id number] [facility] 2021-05-25 10:09:13 2021-05-25 10:24:13 Welcome Wagon Hostess Visit Pob, Adc Lab Main Farhana Grover [facility] 1.2.840.114 350.1.13.10 4.2.7.2.686 [id number] [facility] 2021-05-25 00:00:00 2021-05-25 00:00:00 Orders Only Doctor Unassigned, [place] [facility] 1.2.840.114 350.1.13.10 4.2.7.2.686 [id number] [id number] [facility] 2021-05-25 00:00:00 2021-05-25 00:00:00 Orders Only Doctor Unassigned, [place] [facility] 1.2.840.114 350.1.13.10 4.2.7.2.686 [id number] [facility] 2021-05-15 00:00:00 2021-05-15 00:00:00 Case Management Farhana Grover [facility] 1.2.840.114 350.1.13.10 4.2.7.2.686 [id number] [facility] 2021-05-15 00:00:00 2021-05-15 00:00:00 Case Management Farhana Grover [facility] 1.2.840.114 350.1.13.10 4.2.7.2.686 [id number] [facility] 2021-05-08 00:00:00 2021-05-08 00:00:00 Orders Only Doctor Unassigned, [place] [facility] 1.2.840.114 350.1.13.10 4.2.7.2.686 [id number] [facility] 2021-05-08 00:00:00 2021-05-08 00:00:00 Orders Only Doctor Unassigned, [place] [facility] 1.2.840.114 350.1.13.10 4.2.7.2.686 [id number] [id number] [facility] 2021-04-26 09:20:59 2021-04-26 10:02:28 Office Visit Pranay Davies, Adc Surg Spec Procedure [facility] Building 1.2.840.114 350.1.13.10 4.2.7.2.686 [id number] [facility] 2021-04-26 09:30:00 2021-04-26 09:30:00 Outpatient R JEAN [facility] [id number] [facility] 2021-04-26 00:00:00 2021-04-26 00:00:00 Orders Only Doctor Unassigned, [place] [facility] 1.2.840.114 350.1.13.10 4.2.7.2.686 [id number] [facility] 2021-04-24 10:13:04 2021-04-24 10:28:04 Nurse Visit Nurse, [facility] Surgery Faculty Anjali [facility] 1.2.840.114 350.1.13.10 4.2.7.2.686 [id number] [facility] 2021-04-24 10:00:00 2021-04-24 10:00:00 Outpatient R PRANAY DAVIES [facility] [id number] [facility] 2021-04-24 00:00:00 2021-04-24 00:00:00 Telephone Anjali [facility] 1.2.840.114 350.1.13.10 4.2.7.2.686 [id number] [facility] 2021-04-24 00:00:00 2021-04-24 00:00:00 Telephone Anjali [facility] 1.2.840.114 350.1.13.10 4.2.7.2.686 [id number] [facility] 2021-04-09 00:00:00 2021-04-09 00:00:00 Outpatient R FARHANA GROVER [facility] [id number] [facility] 2021-04-04 00:00:00 2021-04-04 00:00:00 Case Management Farhana Grover [facility] 1..840.114 350.1.13.10 4.2.7.2.686 [id number] [facility] 2021-03-27 09:14:56 2021-03-27 23:59:00 Hospital Encounter Farhana Grover [facility] 1.84.114 350.1.13.10 4.2.7.2.686 [id number] [facility] 2021-03-27 00:00:00 2021-03-27 00:00:00 Outpatient R FARHANA GROVER [facility] [id number] [facility] 2021-03-21 08:53:31 2021-03-21 09:44:44 Office Visit Farhana Grover [facility] 1.840.114 350.1.13.10 4.2.7.2.686 [id number] [facility] 2021-03-21 09:30:00 2021-03-21 09:30:00 Outpatient R FARHANA GROVER [facility] [id number] [facility] 2020-12-21 13:54:08 2020-12-21 15:56:02 [facility] 1..840.114 350.1.13.10 4.2.7.2.686 [id number] [facility] 2020-12-21 14:15:00 2020-12-21 14:15:00 Outpatient R JEAN [facility]ER[facility] [id number] [facility] 2020-12-21 00:00:00 2020-12-21 00:00:00 Orders Only Doctor Unassigned, [place] [facility] 1..840.114 350.1.13.10 4.2.7.2.686 [id number] [facility] Results Test Description Test Time Test Comments Results Result Co [facility]ments [facility]29* Test Item Value Reference Range Interpretation Comme nts MAGNESIUM (test code = 4723987299) 2.1 mg/dL 1.7-2.4 Lab Interpretation (test cod e = 13333-2) [facility] 12:10:29* Test Item Value Reference Range Interpretation Comme nts PHOSPHORUS (test code = 1567268462) 3.2 mg/dL 2.5-5 Lab Interpretation (test cod e = 22285-0) [facility] (NA, K, CL, CO2, GLUCOSE, BUN, CREATININE, CA)2022-05-28 08:05:09* Test Item Value Reference Range Interpretation Comme nts NA (test code = 1838607349) 134 mmol/L 135-145 L K (test code = 1295948555) 3.4 mmol/L 3.5-5 L CL (test code = 0143981358) 105 mmol/L 98-108 CO2 TOTAL (test code = 0378601417) 25 mmol/L 23-31 AGAP (test code = 8565292425) 2-16 BUN (test code = 4027155274) 41 mg/dL 7-23 H GLUCOSE (test code = 3643185637) 92 mg/dL 70-110 CREATININE (test code = 6912490122) 3.79 mg/dL 0.6-1.25 H CALCIUM (test code = 1408851698) 8.3 mg/dL 8.6-10.6 L eGFR (test code = 7652529550) mL/min/1.73m2 LAMAR (test code = LAMAR) Association of Glomerular Filtration Rate (GFR) and Staging of Kidney Disease* + --+ --+ ------+| GFR (mL/min/1.73 m2) ?| With Kidney Damage ?| ?Without Kidney Damage+ --------+ --------+ +| ?>90 ?| ?Stage one ?| ? Normal ?+ ---+ ---+ -------+| ?60-89 ?| ?Stage two ?| ? Decreased GFR ? + --+ --+ ------+| ?30-59 ?| ?Stage three ?| ? Stage three ? + --+ --+ ------+| ?15-29 ?| ?Stage four ? | ? Stage four ?+ ---+ ---+ -------+| ?<15 (or dialysis) ? ?| ?Stage five ? | ? Stage five ?+ ---+ ---+ -------+ *Each stage assumes the associated GFR level has been in effect for at least three months. ?Stages 1 to 5, with or without kidney disease, indicate chronic kidney disease. Notes: Determination of stages one and two (with eGFR >59mL/min/1.73 m2) requires estimation of kidney damage for at least three months as defined by structural or functional abnormalities of the kidney, manifested by either:Pathological abnormalities or Markers of kidney damage (including abnormalities in the composition of the blood or urine or abnormalities in imaging tests). Lab Interpretation (test code = 54264-2) Abnormal [facility] GLUCOSE (AUTOMATED)2022-05-27 17:05:48* Test Item Value Reference Range Interpretation Comme nts POCT GLU (test code = 6057575918) 91 mg/dL 70-110 Notified Provide r Lab Interpretation (test code = 16302-0) Normal [facility] GLUCOSE (AUTOMATED)2022-05-27 16:19:18* Test Item Value Reference Range Interpretation Comme nts POCT GLU (test code = 8189138674) 101 mg/dL 70-110 Lab Interpretation (test cod e = 50842-0) Normal [facility] GLUCOSE (AUTOMATED)2022-05-27 01:54:26* Test Item Value Reference Range Interpretation Comme nts POCT GLU (test code = 5041461642) 94 mg/dL 70-110 Lab Interpretation (test cod e = 62654-6) Normal [facility] GLUCOSE (AUTOMATED)2022-05-26 20:57:23* Test Item Value Reference Range Interpretation Comme nts POCT GLU (test code = 5059272003) 111 mg/dL 70-110 H Lab Interpretation (test cod e = 80474-7) Abnormal [facility] GLUCOSE (AUTOMATED)2022-05-26 17:20:02* Test Item Value Reference Range Interpretation Comme nts POCT GLU (test code = 3709769745) 145 mg/dL 70-110 H Notified Provide r Lab Interpretation (test code = 30081-8) Abnormal [facility] GLUCOSE (AUTOMATED)2022-05-26 14:01:51* Test Item Value Reference Range Interpretation Comme nts POCT GLU (test code = 6706714424) 109 mg/dL 70-110 Notified Provide r Lab Interpretation (test code = 93633-8) Normal [facility] GLUCOSE (AUTOMATED)2022-05-26 01:56:49* Test Item Value Reference Range Interpretation Comme nts POCT GLU (test code = 9707370320) 144 mg/dL 70-110 H Notified Provide r Lab Interpretation (test code = 16351-6) Abnormal [facility] GLUCOSE (AUTOMATED)2022-05-25 22:23:00* Test Item Value Reference Range Interpretation Comme nts POCT GLU (test code = 8710507505) 88 mg/dL 70-110 Notified Provide r Lab Interpretation (test code = 53791-4) Normal [facility] GLUCOSE (AUTOMATED)2022-05-25 12:51:19* Test Item Value Reference Range Interpretation Comme nts POCT GLU (test code = 4499176214) 102 mg/dL 70-110 Notified Provide r Lab Interpretation (test code = 90516-6) Normal [facility] GLUCOSE (AUTOMATED)2022-05-25 12:51:19* Test Item Value Reference Range Interpretation Comme nts POCT GLU (test code = 4765003784) 102 mg/dL 70-110 Notified Provide r Lab Interpretation (test code = 42256-9) Normal [facility] GLUCOSE (AUTOMATED)2022-05-25 01:56:36* Test Item Value Reference Range Interpretation Comme nts POCT GLU (test code = 1461365426) 117 mg/dL 70-110 H Lab Interpretation (test cod e = 78301-3) Abnormal [facility] GLUCOSE (AUTOMATED)2022-05-24 22:40:35* Test Item Value Reference Range Interpretation Comme nts POCT GLU (test code = 4158354807) 109 mg/dL 70-110 Lab Interpretation (test cod e = 82783-1) Normal [facility] GLUCOSE (AUTOMATED)2022-05-24 17:00:37* Test Item Value Reference Range Interpretation Comme nts POCT GLU (test code = 3348477769) 113 mg/dL 70-110 H Lab Interpretation (test cod e = 96576-7) Abnormal [facility] GLUCOSE (AUTOMATED)2022-05-24 12:57:44* Test Item Value Reference Range Interpretation Comme nts POCT GLU (test code = [id number]) 101 mg/dL 70-110 Lab Interpretation (test cod e = 33629-7) Normal [facility] GLUCOSE (AUTOMATED)2022-05-24 02:43:09* Test Item Value Reference Range Interpretation Comme nts POCT GLU (test code = [id number]) 135 mg/dL 70-110 H Lab Interpretation (test cod e = 49716-8) Abnormal [facility] GLUCOSE (AUTOMATED)2022-05-23 22:34:12* Test Item Value Reference Range Interpretation Comme nts POCT GLU (test code = [id number]) 91 mg/dL 70-110 Lab Interpretation (test cod e = 43741-7) [facility] 21:19:58* Test Item Value Reference Range Interpretation Comme nts PH (test code = 2) 7.35-7.45 PCO2 (test code = [id number]) See_Comment [Automated messa ge] The system which generated this result transmitted reference range: 35 - 45 mmHg. The reference range was not used to interpret this result as normal/abnormal. PO2 (test code = [id number]) See_Comment H [Automated messa ge] The system which generated this result transmitted reference range: 80 - 100 mmHg. The reference range was not used to interpret this result as normal/abnormal. HCO3 (test code = [id number]) See_Comment [Automated messa ge] The system which generated this result transmitted reference range: 22 - 26 mEq/L. The reference range was not used to interpret this result as normal/abnormal. BE (test code = 1856393319) See_Comment [Automated messa ge] The system which generated this result transmitted reference range: -3.0 - 3.0 mEq/L. The reference range was not used to interpret this result as normal/abnormal. THB (test code = 2317533868) 13.4 g/dL 13.5-18 L %O2HB (test code = 2950652161) 99.2 % 94-99 H %COHB ART (test code = 3726073102) 0.2 % 0-1.5 %METHB ART (test code = 8466235176) 0.2 % 0.4-1.5 L VOL%O2 ART (test code = 1875110396) 19.2 % 15-23 QUES NA (test code = 2520722458) 143 mmol/L 135-145 K+ (test code = 4537533541) 3.2 mmol/L 3.5-5 L AC CA IONZ (test code = 6984535014) 5.10 mg/dL 4.5-5.3 GLUCOSE (test code = 0492581134) 117 mg/dL 70-110 H Lab Interpretation (test code = 76549-7) [facility] 21:19:58* Test Item Value Reference Range Interpretation Comme nts PH (test code = 2) 7.35-7.45 PCO2 (test code = 6025004139) See_Comment [Automated messa ge] The system which generated this result transmitted reference range: 35 - 45 mmHg. The reference range was not used to interpret this result as normal/abnormal. PO2 (test code = 0149460527) See_Comment H [Automated messa ge] The system which generated this result transmitted reference range: 80 - 100 mmHg. The reference range was not used to interpret this result as normal/abnormal. HCO3 (test code = 3468211566) See_Comment [Automated messa ge] The system which generated this result transmitted reference range: 22 - 26 mEq/L. The reference range was not used to interpret this result as normal/abnormal. BE (test code = 1961752243) See_Comment [Automated messa ge] The system which generated this result transmitted reference range: -3.0 - 3.0 mEq/L. The reference range was not used to interpret this result as normal/abnormal. THB (test code = 2728579002) 13.4 g/dL 13.5-18 L %O2HB (test code = 9805646074) 99.2 % 94-99 H %COHB ART (test code = 0699060922) 0.2 % 0-1.5 %METHB ART (test code = 8441504114) 0.2 % 0.4-1.5 L VOL%O2 ART (test code = 7800079878) 19.2 % 15-23 QUES NA (test code = 2824241204) 143 mmol/L 135-145 K+ (test code = 1574399980) 3.2 mmol/L 3.5-5 L AC CA IONZ (test code = 2804937002) 5.10 mg/dL 4.5-5.3 GLUCOSE (test code = 5492647158) 117 mg/dL 70-110 H Lab Interpretation (test code = 89499-5) [facility] 16:48:15* Test Item Value Reference Range Interpretation Comme [facility] POCT GLU (test code = 1543904128) 193 mg/dL 70-110 H Lab Interpretation (test cod e = 34436-4) Abnormal [facility] METABOLIC PANEL (NA, K, CL, CO2, GLUCOSE, BUN, CREATININE, CA)2022-05-23 14:26:44* Test Item Value Reference Range Interpretation Comme [facility] NA (test code = 6488183594) 140 mmol/L 135-145 K (test code = 1447982581) 3.9 mmol/L 3.5-5 CL (test code = 9167029246) 108 mmol/L 98-108 CO2 TOTAL (test code = 2488089451) 24 mmol/L 23-31 AGAP (test code = 3563604603) 2-16 BUN (test code = 1254652067) 46 mg/dL 7-23 H GLUCOSE (test code = 9868870079) 148 mg/dL 70-110 H CREATININE (test code = 9862870637) 4.80 mg/dL 0.6-1.25 H CALCIUM (test code = 0079534108) 8.6 mg/dL 8.6-10.6 eGFR (test code = 4832291409) mL/min/1.73m2 LAMAR (test code = LAMAR) Association of Glomerular Filtration Rate (GFR) and Staging of Kidney Disease* + --+ --+ ------+| GFR (mL/min/1.73 m2) ?| With Kidney Damage ?| ?Without Kidney Damage+ --------+ --------+ +| ?>90 ?| ?Stage one ?| ? Normal ?+ ---+ ---+ -------+| ?60-89 ?| ?Stage two ?| ? Decreased GFR ? + --+ --+ ------+| ?30-59 ?| ?Stage three ?| ? Stage three ? + --+ --+ ------+| ?15-29 ?| ?Stage four ? | ? Stage four ?+ ---+ ---+ -------+| ?<15 (or dialysis) ? ?| ?Stage five ? | ? Stage five ?+ ---+ ---+ -------+ *Each stage assumes the associated GFR level has been in effect for at least three months. ?Stages 1 to 5, with or without kidney disease, indicate chronic kidney disease. Notes: Determination of stages one and two (with eGFR >59mL/min/1.73 m2) requires estimation of kidney damage for at least three months as defined by structural or functional abnormalities of the kidney, manifested by either:Pathological abnormalities or Markers of kidney damage (including abnormalities in the composition of the blood or urine or abnormalities in imaging tests). Lab Interpretation (test code = 73197-3) Abnormal [facility] GLUCOSE (AUTOMATED)2022-05-23 12:57:22* Test Item Value Reference Range Interpretation Comme nts POCT GLU (test code = 7100383077) 115 mg/dL 70-110 H Lab Interpretation (test cod e = 79041-3) Abnormal [facility] GLUCOSE (AUTOMATED)2022-05-23 02:13:30* Test Item Value Reference Range Interpretation Comme nts POCT GLU (test code = 6062951081) 133 mg/dL 70-110 H Lab Interpretation (test cod e = 70940-4) Abnormal [facility] GLUCOSE (AUTOMATED)2022-05-22 21:26:56* Test Item Value Reference Range Interpretation Comme nts POCT GLU (test code = 3098753873) 148 mg/dL 70-110 H Lab Interpretation (test cod e = 17258-8) Abnormal [facility] GLUCOSE (AUTOMATED)2022-05-22 21:26:56* Test Item Value Reference Range Interpretation Comme nts POCT GLU (test code = 3536916493) 148 mg/dL 70-110 H Lab Interpretation (test cod e = 77136-3) Abnormal [facility] GLUCOSE (AUTOMATED)2022-05-22 16:35:07* Test Item Value Reference Range Interpretation Comme nts POCT GLU (test code = 7468589837) 118 mg/dL 70-110 H Lab Interpretation (test cod e = 11715-8) Abnormal [facility] GLUCOSE (AUTOMATED)2022-05-22 16:35:07* Test Item Value Reference Range Interpretation Comme nts POCT GLU (test code = 6145425014) 118 mg/dL 70-110 H Lab Interpretation (test cod e = 70917-9) Abnormal [facility] Metabolic Panel (NA, K, CL, CO2, Glucose, BUN, Creatinine, CA)2022-05-22 15:45:30* Test Item Value Reference Range Interpretation Comme [facility] NA (test code = 7841374156) 143 mmol/L 135-145 K (test code = 5225076053) 3.7 mmol/L 3.5-5 CL (test code = 6207257859) 111 mmol/L 98-108 H CO2 TOTAL (test code = 7668274763) 27 mmol/L 23-31 AGAP (test code = 0932188854) 2-16 BUN (test code = 7246494209) 33 mg/dL 7-23 H GLUCOSE (test code = 3124939736) 122 mg/dL 70-110 H CREATININE (test code = 6161201106) 3.11 mg/dL 0.6-1.25 H CALCIUM (test code = 4953339421) 7.9 mg/dL 8.6-10.6 L eGFR (test code = 2142661794) mL/min/1.73m2 LAMAR (test code = LAMAR) Association of Glomerular Filtration Rate (GFR) and Staging of Kidney Disease* + --+ --+ ------+| GFR (mL/min/1.73 m2) ?| With Kidney Damage ?| ?Without Kidney Damage+ --------+ --------+ +| ?>90 ?| ?Stage one ?| ? Normal ?+ ---+ ---+ -------+| ?60-89 ?| ?Stage two ?| ? Decreased GFR ? + --+ --+ ------+| ?30-59 ?| ?Stage three ?| ? Stage three ? + --+ --+ ------+| ?15-29 ?| ?Stage four ? | ? Stage four ?+ ---+ ---+ -------+| ?<15 (or dialysis) ? ?| ?Stage five ? | ? Stage five ?+ ---+ ---+ -------+ *Each stage assumes the associated GFR level has been in effect for at least three months. ?Stages 1 to 5, with or without kidney disease, indicate chronic kidney disease. Notes: Determination of stages one and two (with eGFR >59mL/min/1.73 m2) requires estimation of kidney damage for at least three months as defined by structural or functional abnormalities of the kidney, manifested by either:Pathological abnormalities or Markers of kidney damage (including abnormalities in the composition of the blood or urine or abnormalities in imaging tests). Lab Interpretation (test code = 74983-2) Abnormal [facility] Metabolic Panel (NA, K, CL, CO2, Glucose, BUN, Creatinine, CA)2022-05-22 15:45:30* Test Item Value Reference Range Interpretation Comme nts NA (test code = 4287257224) 143 mmol/L 135-145 K (test code = 6510170276) 3.7 mmol/L 3.5-5 CL (test code = 7242757924) 111 mmol/L 98-108 H CO2 TOTAL (test code = 9239835306) 27 mmol/L 23-31 AGAP (test code = 6489780320) 2-16 BUN (test code = 0105547133) 33 mg/dL 7-23 H GLUCOSE (test code = 0811982808) 122 mg/dL 70-110 H CREATININE (test code = 3762406902) 3.11 mg/dL 0.6-1.25 H CALCIUM (test code = 4159951828) 7.9 mg/dL 8.6-10.6 L eGFR (test code = 6694165473) mL/min/1.73m2 LAMAR (test code = LAMAR) Association of Glomerular Filtration Rate (GFR) and Staging of Kidney Disease* + --+ --+ ------+| GFR (mL/min/1.73 m2) ?| With Kidney Damage ?| ?Without Kidney Damage+ --------+ --------+ +| ?>90 ?| ?Stage one ?| ? Normal ?+ ---+ ---+ -------+| ?60-89 ?| ?Stage two ?| ? Decreased GFR ? + --+ --+ ------+| ?30-59 ?| ?Stage three ?| ? Stage three ? + --+ --+ ------+| ?15-29 ?| ?Stage four ? | ? Stage four ?+ ---+ ---+ -------+| ?<15 (or dialysis) ? ?| ?Stage five ? | ? Stage five ?+ ---+ ---+ -------+ *Each stage assumes the associated GFR level has been in effect for at least three months. ?Stages 1 to 5, with or without kidney disease, indicate chronic kidney disease. Notes: Determination of stages one and two (with eGFR >59mL/min/1.73 m2) requires estimation of kidney damage for at least three months as defined by structural or functional abnormalities of the kidney, manifested by either:Pathological abnormalities or Markers of kidney damage (including abnormalities in the composition of the blood or urine or abnormalities in imaging tests). Lab Interpretation (test code = 81929-8) Abnormal [facility] GLUCOSE (AUTOMATED)2022-05-22 12:44:12* Test Item Value Reference Range Interpretation Comme [facility] POCT GLU (test code = 1168010061) 129 mg/dL 70-110 H Lab Interpretation (test cod e = 18731-2) Abnormal [facility] GLUCOSE (AUTOMATED)2022-05-22 12:44:12* Test Item Value Reference Range Interpretation Comme [facility] POCT GLU (test code = 8672710963) 129 mg/dL 70-110 H Lab Interpretation (test cod e = 58189-7) Abnormal [facility] Metabolic Panel (NA, K, CL, CO2, Glucose, BUN, Creatinine, CA)2022-05-22 05:21:04* Test Item Value Reference Range Interpretation Comme [facility] NA (test code = 4357408095) 141 mmol/L 135-145 K (test code = 6920691557) 3.7 mmol/L 3.5-5 CL (test code = 8586740023) 112 mmol/L 98-108 H CO2 TOTAL (test code = 6074422663) 22 mmol/L 23-31 L AGAP (test code = 9361712612) 2-16 BUN (test code = 6829113839) 27 mg/dL 7-23 H GLUCOSE (test code = 5799960319) 136 mg/dL 70-110 H CREATININE (test code = 7582377258) 2.22 mg/dL 0.6-1.25 H CALCIUM (test code = 3949752746) 7.9 mg/dL 8.6-10.6 L eGFR (test code = 6842700060) mL/min/1.73m2 LAMAR (test code = LAMAR) Association of Glomerular Filtration Rate (GFR) and Staging of Kidney Disease* + --+ --+ ------+| GFR (mL/min/1.73 m2) ?| With Kidney Damage ?| ?Without Kidney Damage+ --------+ --------+ +| ?>90 ?| ?Stage one ?| ? Normal ?+ ---+ ---+ -------+| ?60-89 ?| ?Stage two ?| ? Decreased GFR ? + --+ --+ ------+| ?30-59 ?| ?Stage three ?| ? Stage three ? + --+ --+ ------+| ?15-29 ?| ?Stage four ? | ? Stage four ?+ ---+ ---+ -------+| ?<15 (or dialysis) ? ?| ?Stage five ? | ? Stage five ?+ ---+ ---+ -------+ *Each stage assumes the associated GFR level has been in effect for at least three months. ?Stages 1 to 5, with or without kidney disease, indicate chronic kidney disease. Notes: Determination of stages one and two (with eGFR >59mL/min/1.73 m2) requires estimation of kidney damage for at least three months as defined by structural or functional abnormalities of the kidney, manifested by either:Pathological abnormalities or Markers of kidney damage (including abnormalities in the composition of the blood or urine or abnormalities in imaging tests). Lab Interpretation (test code = 17693-9) [facility] (NA, K, CL, CO2, Glucose, BUN, Creatinine, CA)2022-05-22 05:21:04* Test Item Value Reference Range Interpretation Comme nts NA (test code = 8890934317) 141 mmol/L 135-145 K (test code = 5675409580) 3.7 mmol/L 3.5-5 CL (test code = 1143508855) 112 mmol/L 98-108 H CO2 TOTAL (test code = 8759107403) 22 mmol/L 23-31 L AGAP (test code = 7965275824) 2-16 BUN (test code = 8699858670) 27 mg/dL 7-23 H GLUCOSE (test code = 2996446625) 136 mg/dL 70-110 H CREATININE (test code = 7607761261) 2.22 mg/dL 0.6-1.25 H CALCIUM (test code = 0890277744) 7.9 mg/dL 8.6-10.6 L eGFR (test code = 4703153966) mL/min/1.73m2 LAMAR (test code = LAMAR) Association of Glomerular Filtration Rate (GFR) and Staging of Kidney Disease* + --+ --+ ------+| GFR (mL/min/1.73 m2) ?| With Kidney Damage ?| ?Without Kidney Damage+ --------+ --------+ +| ?>90 ?| ?Stage one ?| ? Normal ?+ ---+ ---+ -------+| ?60-89 ?| ?Stage two ?| ? Decreased GFR ? + --+ --+ ------+| ?30-59 ?| ?Stage three ?| ? Stage three ? + --+ --+ ------+| ?15-29 ?| ?Stage four ? | ? Stage four ?+ ---+ ---+ -------+| ?<15 (or dialysis) ? ?| ?Stage five ? | ? Stage five ?+ ---+ ---+ -------+ *Each stage assumes the associated GFR level has been in effect for at least three months. ?Stages 1 to 5, with or without kidney disease, indicate chronic kidney disease. Notes: Determination of stages one and two (with eGFR >59mL/min/1.73 m2) requires estimation of kidney damage for at least three months as defined by structural or functional abnormalities of the kidney, manifested by either:Pathological abnormalities or Markers of kidney damage (including abnormalities in the composition of the blood or urine or abnormalities in imaging tests). Lab Interpretation (test code = 32324-9) Abnormal [facility] GLUCOSE (AUTOMATED)2022-05-22 01:45:11* Test Item Value Reference Range Interpretation Comme nts POCT GLU (test code = 5880160069) 135 mg/dL 70-110 H Lab Interpretation (test cod e = 48467-5) Abnormal [facility] GLUCOSE (AUTOMATED)2022-05-22 01:45:11* Test Item Value Reference Range Interpretation Comme nts POCT GLU (test code = 3682016112) 135 mg/dL 70-110 H Lab Interpretation (test cod e = 37533-9) Abnormal [facility] GLUCOSE (AUTOMATED)2022-05-21 23:03:07* Test Item Value Reference Range Interpretation Comme nts POCT GLU (test code = 3002269242) 150 mg/dL 70-110 H Lab Interpretation (test cod e = 48452-3) Abnormal [facility] GLUCOSE (AUTOMATED)2022-05-21 23:03:07* Test Item Value Reference Range Interpretation Comme nts POCT GLU (test code = 9860148584) 150 mg/dL 70-110 H Lab Interpretation (test cod e = 80511-2) Abnormal [facility] Metabolic Panel (NA, K, CL, CO2, Glucose, BUN, Creatinine, CA)2022-05-21 22:58:23* Test Item Value Reference Range Interpretation Comme nts NA (test code = 4437223945) 140 mmol/L 135-145 K (test code = 8302088218) 3.5 mmol/L 3.5-5 CL (test code = 2527752703) 110 mmol/L 98-108 H CO2 TOTAL (test code = 2821630944) 23 mmol/L 23-31 AGAP (test code = 4140133179) 2-16 BUN (test code = 9277005684) 25 mg/dL 7-23 H GLUCOSE (test code = 3212303034) 167 mg/dL 70-110 H CREATININE (test code = 6679254059) 2.14 mg/dL 0.6-1.25 H CALCIUM (test code = 9669249767) 8.6 mg/dL 8.6-10.6 eGFR (test code = 9840651305) mL/min/1.73m2 LAMAR (test code = LAMAR) Association of Glomerular Filtration Rate (GFR) and Staging of Kidney Disease* + --+ --+ ------+| GFR (mL/min/1.73 m2) ?| With Kidney Damage ?| ?Without Kidney Damage+ --------+ --------+ +| ?>90 ?| ?Stage one ?| ? Normal ?+ ---+ ---+ -------+| ?60-89 ?| ?Stage two ?| ? Decreased GFR ? + --+ --+ ------+| ?30-59 ?| ?Stage three ?| ? Stage three ? + --+ --+ ------+| ?15-29 ?| ?Stage four ? | ? Stage four ?+ ---+ ---+ -------+| ?<15 (or dialysis) ? ?| ?Stage five ? | ? Stage five ?+ ---+ ---+ -------+ *Each stage assumes the associated GFR level has been in effect for at least three months. ?Stages 1 to 5, with or without kidney disease, indicate chronic kidney disease. Notes: Determination of stages one and two (with eGFR >59mL/min/1.73 m2) requires estimation of kidney damage for at least three months as defined by structural or functional abnormalities of the kidney, manifested by either:Pathological abnormalities or Markers of kidney damage (including abnormalities in the composition of the blood or urine or abnormalities in imaging tests). Lab Interpretation (test code = 71631-5) [facility] (NA, K, CL, CO2, Glucose, BUN, Creatinine, CA)2022-05-21 22:58:23* Test Item Value Reference Range Interpretation Comme nts NA (test code = 5022226638) 140 mmol/L 135-145 K (test code = 4320769653) 3.5 mmol/L 3.5-5 CL (test code = 6161246473) 110 mmol/L 98-108 H CO2 TOTAL (test code = 7887105405) 23 mmol/L 23-31 AGAP (test code = 3714087839) 2-16 BUN (test code = 8678989770) 25 mg/dL 7-23 H GLUCOSE (test code = 7672271421) 167 mg/dL 70-110 H CREATININE (test code = 4911154143) 2.14 mg/dL 0.6-1.25 H CALCIUM (test code = 3299650454) 8.6 mg/dL 8.6-10.6 eGFR (test code = 1968550663) mL/min/1.73m2 LAMAR (test code = LAMAR) Association of Glomerular Filtration Rate (GFR) and Staging of Kidney Disease* + --+ --+ ------+| GFR (mL/min/1.73 m2) ?| With Kidney Damage ?| ?Without Kidney Damage+ --------+ --------+ +| ?>90 ?| ?Stage one ?| ? Normal ?+ ---+ ---+ -------+| ?60-89 ?| ?Stage two ?| ? Decreased GFR ? + --+ --+ ------+| ?30-59 ?| ?Stage three ?| ? Stage three ? + --+ --+ ------+| ?15-29 ?| ?Stage four ? | ? Stage four ?+ ---+ ---+ -------+| ?<15 (or dialysis) ? ?| ?Stage five ? | ? Stage five ?+ ---+ ---+ -------+ *Each stage assumes the associated GFR level has been in effect for at least three months. ?Stages 1 to 5, with or without kidney disease, indicate chronic kidney disease. Notes: Determination of stages one and two (with eGFR >59mL/min/1.73 m2) requires estimation of kidney damage for at least three months as defined by structural or functional abnormalities of the kidney, manifested by either:Pathological abnormalities or Markers of kidney damage (including abnormalities in the composition of the blood or urine or abnormalities in imaging tests). Lab Interpretation (test code = 18718-9) [facility] [id number] 22:42:01* Test Item Value Reference Range Interpretation Comme nts PROTIME PATIENT (test code = 5964-2) See_Comment H [Automated messa ge] The system which generated this result transmitted reference range: 10.1 - 12.6 Seconds. The reference range was not used to interpret this result as normal/abnormal. INR (test code = 6301-6) Normal INR <1.1; Warfarin Therapeutic range 2.0 to 3.0 or 2.5 to 3.5, depending upon the indications. Lab Interpretation (test code = 71499-6) [facility] [id number] 22:42:01* Test Item Value Reference Range Interpretation Comme nts PROTIME PATIENT (test code = 5964-2) See_Comment H [Automated messa [employer]] The system which generated this result transmitted reference range: 10.1 - 12.6 Seconds. The reference range was not used to interpret this result as normal/abnormal. INR (test code = 6301-6) Normal INR <1.1; Warfarin Therapeutic range 2.0 to 3.0 or 2.5 to 3.5, depending upon the indications. Lab Interpretation (test code = 38151-7) [facility]normal [facility] / [id number] 22:42:01* Test Item Value Reference Range Interpretation Comme nts PROTIME PATIENT (test code = 5964-2) See_Comment H [Automated messa ge] The system which generated this result transmitted reference range: 10.1 - 12.6 Seconds. The reference range was not used to interpret this result as normal/abnormal. INR (test code = 6301-6) Normal INR <1.1; Warfarin Therapeutic range 2.0 to 3.0 or 2.5 to 3.5, depending upon the indications. Lab Interpretation (test code = 54555-5) Abnormal [facility] GLUCOSE (AUTOMATED)2022-05-21 17:44:04* Test Item Value Reference Range Interpretation Comme [facility] POCT GLU (test code = 2910120329) 106 mg/dL 70-110 Lab Interpretation (test cod e = 30179-3) Normal [facility] GLUCOSE (AUTOMATED)2022-05-21 17:44:04* Test Item Value Reference Range Interpretation Comme nts POCT GLU (test code = 1272842572) 106 mg/dL 70-110 Lab Interpretation (test cod e = 72090-6) Normal [facility] This is a pre-surgical type and screen. ONCE [id number] 16:59:30* Test Item Value Reference Range Interpretation Comme nts ABO & RH (test code = 20) AB POSITIVE Performed at [facility] Laboratory [facility] - [address] Free: [phone] No. [id number] IAT (test code = 1185) Negative Performed at [address] Free: [phone] No. [id number] [facility] This is a pre-surgical type and screen. ONCE [id number] 16:59:30* Test Item Value Reference Range Interpretation Comme nts ABO & RH (test code = 20) AB POSITIVE Performed at [address] Free: [phone] No. [id number] IAT (test code = 1185) Negative Performed at [place] [address] Free: [phone] No. [id number] [facility] - This is a pre-surgical type and screen. ONCE [id number] 16:59:30* Test Item Value Reference Range Interpretation Comme nts ABO & RH (test code = 20) AB POSITIVE Performed at [facility] Laboratory [place] [address]oll Free: [phone] No. [id number] IAT (test code = 1185) Negative Performed at [place] [address] Free: [phone] No. [id number] [facility]2022-05-16 18:51:14* Test Item Value Reference Range Interpretation Comme nts Height (test code = 6602817429) in Weight (test code = 1198088804) lbs Systolic BP (test code = 1304893288) mmHg Diastolic BP (test code = 3945639124) mmHg Heart Rate (test code = 2805077531) bpm BSA (test code = 7488611317) 1.88 m2 Ao root annulus (test code = 5527124643) 3.7 cm Ao root diam (test code = 2124705826) 3.70 cm Aortic root (test code = 7588870262) 3.7 cm LVOT diameter (test code = 1817985853) 2.06 cm LVIDD (test code = 0534407881) 4.80 cm IVS (test code = 5356029556) 1.52 cm Interventricular Septum Diastolic Thickness by 2D (test code = 2102519) 1.52 cm LVPWD (test code = 1448612068) 1.52 cm PW (test code = 2968071382) 1.52 cm 0.6-1.1 EF(Teich) (test code = 4369156052) 57.00 % LVIDS (test code = 9039165386) 3.40 cm FS (test code = 4260913166) 30 % EF - 2D (test code = 15717903) 57.00 % LA size (test code = 9649595908) 4.2 cm LAV(MOD-sp4) (test code = 7349346264) 68.30 mL E wave decelartion time (test code = 8224888132) 0.20 s MV Peak E Sourav (test code = 5967941595) 91.0 cm/s MV stenosis pressure 1/2 time (test code = 0596194755) 57.7 ms MV Peak A Sourav (test code = 0796325339) 111.4 cm/s E/A ratio (test code = 1491244265) ratio MV Prop V (test code = 4946729351) 53.90 cm/s MV E/e' septal (test code = 5713381044) 7.9 cm/s Tapse (test code = 0452621784) 2.5 cm LVOT stroke volume (test code = 0041937378) 80.20 cm3 LVOT peak sourav (test code = 8940414071) 93.2 cm/s LVOT mn grad (test code = 7779636173) mmHg AV LVOT peak gradient (test code = 4624146866) mmHg LVOT peak VTI (test code = 5721268803) 24.1 cm LV V1 mean (test code = 9175390268) 66.80 cm/s Aortic valve mean velocity (test code = 0013905970) 101.3 cm/s Ao peak sourav (test code = 0940687052) 146.4 cm/s Ao VTI (test code = 4779289130) 33.4 cm AV area by cont VTI (test code = 5080858049) 2.4 cm2 AV area peak sourav (test code = 3753637654) 2.1 cm2 Ao max PG (test code = 5700925033) 8.60 mm[Hg] AV peak gradient (test code = 1128669007) mmHg AV valve area (test code = 1886425785) 2.40 cm2 AV mean gradient (test code = 9078612609) mmHg Radiology Study observation (narrative) (test code = 29538-7) LAMAR (test code = LAMAR) Formatting of this result is different from the original. ?Left?Ventricle: Left ventricle size is normal. Mildly increased wall thickness. Normal wall motion. Normal systolic function with a visually estimated EF of 55 - 60%. There is impaired relaxation. ?Tricuspid?Valve: Trace transvalvular regurgitation. Insufficient regurgant jet to estimate RVSP. ?RA pressure is 0-5 mmHg. ?Left?Atrium: Left atrium is mildly dilated. Left VentricleLeft ventricle size is normal. Mildly increased wall thickness. Normal wall motion. Normal systolic function with a visually estimated EF of 55 - 60%. There is impaired relaxation.Right VentricleRight ventricle size is normal. Normal systolic function.Left AtriumLeft atrium is mildly dilated.Right AtriumRight atrium size is normal.IVC/SVCRA pressure is 0-5 mmHg.Mitral ValveMild mitral annular calcification. Trace transvalvular regurgitation.Tricusp id ValveTricuspid valve structure is grossly normal. Trace transvalvular regurgitation. Insufficient regurgant jet to estimate RVSP. RA pressure is 0-5 mmHg.Aortic ValveAortic valve opens well. Mildly calcified cusps. Trace transvalvular regurgitation.Pulmoni c ValveNot well visualized. Trace transvalvular regurgitation.Ascendi ng AortaAnnulus is normal in size.PericardiumTrivi al pericardial effusion present.Study DetailsStudy quality was adequate. A complete echocardiogram was performed using 2D, color flow Doppler and spectral Doppler. 5 mL of Lumason ultrasound enhancing agent used. [facility] [id number] 19:45:54* Test Item Value Reference Range Interpretation Comme nts PTH-INTACT (test code = 0081417919) 158.8 pg/mL 12-88 H PTH-CA Interpretation (test code = 4935958258) Further clinical data needed for interpretation. CALCIUM (test code = 6734149655) 8.9 mg/dL 8.6-10.6 Lab Interpretation (test code = 90404-3) Abnormal [facility] HospitalFERRITIN [id number] 18:13:44* Test Item Value Reference Range Interpretation Comme nts FERRITIN (test code = 5385353473) 81.7 ng/mL 18-464 LAMAR (test code = LAMAR) Biotin has been reported to cause a negative bias, interpret results relative to patient's use of biotin. Lab Interpretation (test code = 79058-1) Normal [facility] [id number] 17:46:02 * Test Item Value Reference Range Interpretation Comme nts TIBC (test code = 9700243189) 288 ug/dL 250-410 Lab Interpretation (test cod e = 23264-7) Normal [facility] HospitalCOMP[facility] METABOLIC PANEL (32256)2022-04-29 17:37:02* Test Item Value Reference Range Interpretation Comme nts NA (test code = 8419600937) 141 mmol/L 135-145 K (test code = 1356861721) 3.3 mmol/L 3.5-5 L CL (test code = 7149426919) 105 mmol/L 98-108 CO2 TOTAL (test code = 3537355180) 29 mmol/L 23-31 AGAP (test code = 8635243027) 2-16 BUN (test code = 3085895159) 34 mg/dL 7-23 H GLUCOSE (test code = 2514652121) 113 mg/dL 70-110 H CREATININE (test code = 0956837978) 2.23 mg/dL 0.6-1.25 H TOTAL BILI (test code = 4330356839) 0.3 mg/dL 0.1-1.1 CALCIUM (test code = 0392563606) 8.9 mg/dL 8.6-10.6 T PROTEIN (test code = 3843402382) 7.2 g/dL 6.3-8.2 ALBUMIN (test code = 9464929641) 4.3 g/dL 3.5-5 ALK PHOS (test code = 0009585318) 83 U/L 34-122 ALTv (test code = 1742-6) 17 U/L 5-50 AST(SGOT) (test code = 8757178457) 23 U/L 13-40 eGFR (test code = 5810076109) mL/min/1.73m2 LAMAR (test code = LAMAR) Association of Glomerular Filtration Rate (GFR) and Staging of Kidney Disease* + --+ --+ ------+| GFR (mL/min/1.73 m2) ?| With Kidney Damage ?| ?Without Kidney Damage+ --------+ --------+ +| ?>90 ?| ?Stage one ?| ? Normal ?+ ---+ ---+ -------+| ?60-89 ?| ?Stage two ?| ? Decreased GFR ? + --+ --+ ------+| ?30-59 ?| ?Stage three ?| ? Stage three ? + --+ --+ ------+| ?15-29 ?| ?Stage four ? | ? Stage four ?+ ---+ ---+ -------+| ?<15 (or dialysis) ? ?| ?Stage five ? | ? Stage five ?+ ---+ ---+ -------+ *Each stage assumes the associated GFR level has been in effect for at least three months. ?Stages 1 to 5, with or without kidney disease, indicate chronic kidney disease. Notes: Determination of stages one and two (with eGFR >59mL/min/1.73 m2) requires estimation of kidney damage for at least three months as defined by structural or functional abnormalities of the kidney, manifested by either:Pathological abnormalities or Markers of kidney damage (including abnormalities in the composition of the blood or urine or abnormalities in imaging tests). Lab Interpretation (test code = 57755-1) Abnormal [facility] WITH [id number] 17:31:00* Test Item Value Reference Range Interpretation Comme nts WBC (test code = 6690-2) See_Comment [Automated messa ge] The system which generated this result transmitted reference range: 4.20 - 10.70 10*3/?L. The reference range was not used to interpret this result as normal/abnormal. RBC (test code = 789-8) See_Comment L [Automated messa ge] The system which generated this result transmitted reference range: 4.26 - 5.52 10*6/?L. The reference range was not used to interpret this result as normal/abnormal. HGB (test code = 718-7) 11.0 g/dL 12.2-16.4 L HCT (test code = 4544-3) 34.2 % 38.4-49.3 L MCV (test code = 787-2) 97.4 fL 81.7-95.6 H MCH (test code = 785-6) 31.3 pg 26.1-32.7 MCHC (test code = 786-4) 32.2 g/dL 31.2-35 RDW-SD (test code = 46171-8) 51.6 fL 38.5-51.6 RDW-CV (test code = 788-0) 14.5 % 12.1-15.4 PLT (test code = 777-3) See_Comment L [Automated messa ge] The system which generated this result transmitted reference range: 150 - 328 10*3/?L. The reference range was not used to interpret this result as normal/abnormal. MPV (test code = 70819-7) 10.9 fL 9.8-13 NRBC/100 WBC (test code = 1482580235) See_Comment [Automated [employer] ssage] The system which generated this result transmitted reference range: 0.0 - 10.0 /100 WBCs. The reference range was not used to interpret this result as normal/abnormal. NRBC x10^3 (test code = 2943347154) See_Comment [Automated messa ge] The system which generated this result transmitted reference range: 10*3/?L. The reference range was not used to interpret this result as normal/abnormal. GRAN MAT (NEUT) % (test code = 770-8) 66.4 % IMM GRAN % (test code = 4770873326) 0.20 % LYMPH % (test code = 736-9) 20.7 % MONO % (test code = 5905-5) 11.2 % EOS % (test code = 713-8) 1.1 % BASO % (test code = 706-2) 0.4 % GRAN MAT x10^3(ANC) (test code = 9218746926) 3.80 10*3/uL 1.99-6.95 IMM GRAN x10^3 (test code = 2922368792) 0-0.06 LYMPH x10^3 (test code = 731-0) 1.18 10*3/uL 1.09-3.23 MONO x10^3 (test code = 742-7) 0.64 10*3/uL 0.36-1.02 EOS x10^3 (test code = 711-2) 0.06 10*3/uL 0.06-0.53 BASO x10^3 (test code = 704-7) 0.01-0.09 Lab Interpretation (test code = 09612-3) Abnormal [facility]- US RETROPERITONEAL [id number] 11:35:00 Patient Name: ALICIA STEWART Unit No: [id number] EXAMS: CPT CODE: [id number] US RETROPERITONEAL COM [id number] CLINICAL INFORMATION: Chronic kidney disease stage III Dictation Location: J9 Comparison: Technique: Real-time grayscale study with Doppler and spectral analysis. Findings: Right kidney: 11.6 x 4.9 x 6.5 centimeters. There is prominence of the intrarenal collecting system and proximal ureter. Echogenic cortex. 1 cm cortical cyst in the lower pole. No apparent stones. Left kidney: 9.3 x 3.4 x 5.0 centimeters. Echogenic cortex with 4.2 cm lower pole exophytic cortical cyst no apparentstones. There is no apparent ascites. IMPRESSION: 1. Bilateral echogenic renal cortices can be seen with medical renal disease. 2. No apparent urolithiasis. 3. Bilateral simple appearing cortical cysts. 4. Right hydronephrosis. [id number] Reported and signed by: Polo Gutierrez M.D. CC: Debbie Boone; Laura lAmeida Technologist: Jeanine Adams RDMS(AB) Transcrpt Date/Tm/Trnsp: 01/18/2019 (0168) [facility] Orig Print D/T: S:01/18/2019 (1137) [facility] NAME: ALICIA STEWART [address] [place] [address] PHYS: [place] [address] : 1935 AGE: 83 SEX: M [facility]ONE #: [phone] EXAM DATE: 01/18/2019 STATUS: REG CLI FAX #: [phone] RADIOLOGY NO: PAGE 1 Signed Report Notes Date/Time Note Provider Source 2019-01-18 17:03:00 [id number] [place] [address] PATIENT NAME: ALICIA STEWART ADMIT DATE: 01/18/19ACCOUNT NO: [id number] ROOM NO: AGE: 83 REPORT TYPE: ECHOCARDIOGRAM SEX: M ADMITTING PHYSICIAN: ATTENDING PHYSICIAN:Laura Almeida MD *[facility]*[address] [place], [place] [id number] Transthoracic Echocardiogram Patient: Alicia Stewart JStudy Date: 01/18/2019 BP: Location: COCWUURN: [id number] : 1935 Age: 83 Height: 66 in / 167.6 cmAccession#: [id number] Gender: M Weight: 169.6 lb / 77.1 kgBMI/BSA: 27.4 kg/m 2 / 1.91 m 2 *Ordering Physician: * Laura Almeida*Interpreting Physician: * Kemi Hernandez MD*Employment Law Attorney: * Faviola Walker [facility], T Indications: CHRONIC KIDNEY DISEASE. Study data: Transthoracic echocardiogram. Procedure: Transthoracicechocardiography was performed. Images were obtained using a [employer] cardiacultrasound machine. Image quality was adequate. Complete 2D, completespectral Doppler, and color Doppler. Patient status: Outpatient. Findings Left ventricle: The cavity size is normal. Wall thickness is mildlyincreased. Systolic function is normal. The estimated ejection fractionis 55-59%. Wall motion is normal; there are no regional wall motionabnormalities. Doppler parameters are consistent with abnormal leftventricular relaxation (grade 1 diastolic dysfunction).Right ventricle: The cavity size is normal. Systolic function isnormal. Systolic pressure is within the normal range. PATIENT NAME: ALICIA STEWART Left atrium: The atrium is normal in size.Right atrium: The atrium is normal in size.Atrial septum: No defect or patent foramen ovale is identified.Aorta: The aorta is normal size.Aortic valve: The valve is trileaflet. The leaflets are mildlythickened. Cusp separation is normal. Transvalvular velocity is withinthe normal range. There is no evidence of stenosis. There is mildregurgitation.Mitral valve: The leaflets are mildly thickened. There is no evidenceof stenosis. There is trivial regurgitation.Tricuspid valve: The valve is structurally normal. There is noevidence of stenosis. There is trivial regurgitation.Pulmonic valve: The valve is structurally normal. There is noevidence of stenosis. There is physiologic regurgitation.Pericardium: There is no pericardial effusion. Measurements Left ventricle Value Ref Left atrium continued Value Ref KRISTINE, LAX 5.3 cm 4.2 - 5.8 SI dim ES, LAX 4.2 cm --------- ESD, LAX 3.7 cm 2.5 - 4.0 AP dim, ES MM 4.0 cm 3.0 - 4.0 ESD/bsa, LAX 1.9 cm/m 2 1.3 - 2.1 LA/Ao root ratio, MM 1.18 --------- FS, LAX 29 % 43 ESD 3.7 cm 2.5 - 4.0 Aortic valve Value Ref ESD/bsa 1.9 cm/m 2 1.3 - 2.1 Leaflet sep, MM 2.19 cm --------- FS 29 % 25 - 43 Peak v, S 1.38 m/sec --------- PW, ED 1.3 cm 0.6 - 1.0 Mean v, S 0.95 m/sec --------- PW, ES 1.5 cm VTI, S 29.5 cm --------- IVS/PW, ED 1 Mean grad, S 4.2 mm Hg --------- EF 56 % 52 - 72 Peak grad, S 7.7 mm Hg --------- EF, SMM Teich. 56 % >=55 LVOT/AV, VTI ratio 0.85 --------- IVRT 100 ms KERRIE, VTI 4.11 cm 2 --------- LVOT/AV, Vpeak ratio 0.77 --------- LVOT Value Ref KERRIE, Vmax 3.70 cm 2 --------- Diam, S 2.48 cm Area 4.8 cm 2 Mitral valve Value Ref Peak sourav, S 1.06 m/sec Peak E PATIENT NAME: ALICIA STEWART 0.73 m/sec --------- Mean sourav, S 0.76 m/sec Peak A 1.13 m/sec --------- VTI, S 25.1 cm Mean v, D 0.59 m/sec --------- Peak grad, S 4 mm Hg VTI leaflet coapt 35.7 cm --------- Mean grad, S 1 mm Hg Decel time 208 ms --------- SV 121 ml Mean grad, D 1.7 mm Hg --------- Qs 6.59 L/min Peak grad, D 6.4 mm Hg --------- Qs/bsa 3.4 L/(min-m 2) Peak E/A ratio 0.64 --------- SV/bsa 63 ml/m 2 Pulmonic valve Value Ref Ventricular septum Value Ref NM v, ED 0.54 m/sec --------- IVS, ED 1.3 cm 0.6 - 1.0 IVS, ES 1.6 cm Tricuspid valve Value Ref TR peak v 1.77 m/sec <=2.8 Right ventricle Value Ref Peak RV-RA grad, S 13 mm Hg --------- Pressure, S 23 mm Hg Aortic root Value Ref RVOT Value Ref Root diam, ED MM 3.42 cm --------- Peak v, S 0.56 m/sec Peak grad, S 1 mm Hg Pulmonary artery Value Ref Pressure, S 20.2 mm Hg --------- Left atrium Value Ref LA ID 4.2 cm Systemic veins Value Ref AP dim, ES 4.19 cm 3.00 - 4.00 Estimated CVP 10 mm Hg --------- AP dim ES, LAX 4.2 cm 3.0 - 4.0 Conclusions Summary: 1. Left ventricle: The cavity size is normal. Wall thickness is mildly increased. Systolic function is normal. The estimated ejection fraction is 55-59%. Wall motion is normal; there are no regional wall motion abnormalities. Doppler parameters are consistent with abnormal left ventricular relaxation (grade 1 diastolic dysfunction). PATIENT NAME: LAICIA STEWART 2. Right ventricle: Systolic pressure is within the normal range. The RV pressure during systole by Doppler is 23 mm Hg.3. Aortic valve: The valve is trileaflet. The leaflets are mildly thickened. There is mild regurgitation. Prepared and electronically signed by Kemi Hernandez MD01/18/2019 17:02 at 1703 PATIENT NAME: ALICIA STEWART :03:0 0Z.[id number] for patient [id number]:04:50 [facility]"
[2024-03-06 08:00] LABS: Absolute Eosinophils 0.1 K/uL (0-0.5); Absolute Lymphocytes (CBC) 1.1 K/uL (0.7-4.9); Absolute Monocytes 0.8 K/uL (0.1-1.3); Absolute Neutrophil 4.6 K/uL (1.8-8.0); Basophils % 0.4 % (0-1.3); Eosinophils % 1.3 % (0-4.4); Hematocrit 31.6 % (39.6-49.0); Hemoglobin 10.7 g/dL (13.6-17.9); Lymphocytes % 16.5 % (15.3-44.8); MCH 32.9 pg (27.0-35.0); MCHC 33.8 g/dL (32.0-36.0); MCV 97.3 fL (80-100); MPV 8.8 fL (7.6-11.3); Monocytes % 11.9 % (3.3-12.3); Neutrophils % 69.9 % (41.7-73.7); Platelets 179 thou/uL (152-406); RBC Red Blood Cell Count 3.24 M/uL (4.33-5.43); Red Cell Distribution Width 15.7 % (12.1-15.2)
[2024-03-06 08:20] LABS: Anion Gap 13.9 mEq/L (5.0-15.0); Potassium 3.9 mEq/L (3.5-5.1); Troponin High Sensitivity 33.2 pg/mL (<58.9)
--- NOTE | 2024-03-06 08:54 | ER ---
Nurse's Notes [facility] Name: Fran Stewart Age: 88 yrs Sex: Male : 1935 Arrival Date: 03/06/2024 Time: 07:07 Bed 13 Private MD: Diagnosis: Patient's noncompliance with renal dialysis Presentation: 03/06 07:23 Chief complaint: Sent by [employer]. reports last HD session was over a month ago. hb Coronavirus screen: At this time, the client does not indicate any symptoms associated with coronavirus-19. Ebola Screen: No symptoms or risks identified at this time. Initial Sepsis Screen: Does the patient meet any 2 criteria? No. Patient's initial sepsis screen is negative. Does the patient have a suspected source of infection? No. Patient's initial sepsis screen is negative. Risk Assessment: Do you want to hurt yourself or someone else? Patient reports no desire to harm self or others. Onset of symptoms was March 06, 2024. 07:23 Method Of Arrival: Ambulatory hb 07:23 Acuity: CAROLIN 3 hb Triage Assessment: 07:43 General: Appears in no apparent distress. Behavior is calm, cooperative. Pain: Denies hb pain. Neuro: Level of Consciousness is awake, alert, obeys commands, Oriented to person, place, time, situation. Cardiovascular: Patient's skin is warm and dry. Respiratory: Respiratory effort is even, unlabored, Respiratory pattern is regular, symmetrical. 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 - Infectious Disease History:: Denies. - Social history:: Smoking status: Patient/guardian denies using tobacco, but has a distant history of tobacco abuse. Screenin:31 [facility] ED Fall Risk Assessment (Adult) History of falling in the last 3 months, mb9 including since admission No falls in past 3 months (0 pts) Confusion or Disorientation No (0 pts) Intoxicated or Sedated No (0 pts) Impaired Gait No (0 pts) Mobility Assist Device Used No (0 pt) Altered Elimination No (0 pt) Score/Fall Risk Level 0 - 2 = Low Risk Oriented to surroundings, Maintained a safe environment, Educated pt \T\ family on fall prevention, incl call for assistance when getting out of bed. Abuse screen: Denies threats or abuse. Nutritional screening: No deficits noted. Tuberculosis screening: No symptoms or risk factors identified. Assessment: 07:53 General: Appears in no apparent distress. Behavior is calm, cooperative. Pain: Denies mb9 pain. Neuro: [place] Agitation-Sedation Scale (RASS): 0 - Alert and Calm Level of Consciousness is awake, alert, obeys commands, Oriented to person, place, time, situation, Appropriate for age. Cardiovascular: Heart tones S1 S2 present Patient's skin is warm and dry. fistula noted to left arm. Bruit ausculted and thrill palpated. Respiratory: Airway is patent Respiratory effort is even, unlabored, Respiratory pattern is regular, symmetrical, Breath sounds are clear bilaterally. GI: No signs and/or symptoms were reported involving the gastrointestinal system. : No signs and/or symptoms were reported regarding the genitourinary system. EENT: No signs and/or symptoms were reported regarding the EENT system. Derm: Skin is fragile, is thin, Skin is dry, Skin is normal, Skin temperature is warm. Musculoskeletal: Range of motion: intact in all extremities. 08:54 Reassessment: No changes from previously documented assessment. Patient and/or family mb9 updated on plan of care and expected duration. Pain level reassessed. Patient is alert, oriented x 3, equal unlabored respirations, skin warm/dry/pink. Vital Signs: 07:23 BP 181 / 73; Pulse 67; Resp 16; Temp 98.3; Pulse Ox 100% on R/A; Weight 63.5 kg; Height hb 5 ft. 6 in. ; Pain 0/10; 08:55 BP 169 / 73; Pulse 64; Resp 16; Pulse Ox 98% on R/A; Pain 0/10; mb9 07:23 Body Mass Index 22.60 (63.50 kg, 167.64 cm) hb 07:23 Pain Scale: Adult hb 08:55 Pain Scale: Adult mb9 ED Course: 07:10 Patient arrived in ED. mr 07:22 Marcio Solis MD is Attending Physician. ec2 07:22 Shasta Mathis RN is Primary Nurse. mb9 07:31 Arm band placed on. mb9 07:40 Missed attempt(s): 22 gauge in right antecubital area. Bleeding controlled, band aid mb9 applied, catheter tip intact. 07:43 Triage completed. hb 07:45 Initial lab(s) drawn, by me, held in ED. EKG done, by ED staff, reviewed by Marcio Solis MD. Inserted saline lock: 22 gauge in right upper arm, using aseptic technique. Blood collected. 07:54 Placed in gown. Bed in low position. Call light in reach. Side rails up X 1. Provided mb9 Education on: press call light if needing anything. Client placed on continuous cardiac and pulse oximetry monitoring. NIBP monitoring applied. Door closed. Noise minimized. Warm blanket given. Pillow given. 07:54 No provider procedures requiring assistance completed. mb9 08:54 IV discontinued, intact, bleeding controlled, No redness/swelling at site. Pressure mb9 dressing applied. Administered Medications: No medications were administered Medication: 07:31 VIS not applicable for this client. mb9 Outcome: 08:53 Discharge ordered by . ec2 08:55 Discharged to home ambulatory, with family, mb9 08:55 Condition: stable 08:55 Discharge instructions given to patient, family, Instructed on discharge instructions, follow up and referral plans. Demonstrated understanding of instructions, follow-up care, 09:03 Patient left the ED. mb9 Signatures: Shasta Castrejon, Reg Reg mr KernFaviola, RN Shasta Nieves, RN RN wan Solis, MD JAYA Buckley ec2 Corrections: (The following items were deleted from the chart) 07:44 07:43 PMHx: End stage renal disease; hb hb 09:03 08:55 Pulse 64bpm; Resp 16bpm; Pulse Ox 98% RA; Pain 0/10, Adult; mb9 mb9
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
[2024-03-06 09:23] VITALS: BP 169/73; TEMP 98.3; O2SAT 98
--- NOTE | 2024-03-08 14:59 | EKG ---
Test Date: 2024-03-06 Test Time: 07:39:14 Software Sales: MB MEASUREMENT RESULTS: Intervals: Rate: 71 HI: 170 QRSD: 90 QT: 430 QTc: 467 [place]: P: 37 HI: 170 QRS: 82 T: 42 INTERPRETIVE STATEMENTS: Sinus rhythm with premature atrial complexes Otherwise normal ECG No previous ECG available for comparison Electronically Signed On 03-08-24 14:52:30 CDT by Leif Scott
== END 2024-03-06 09:03 | disposition home or self-care (01) ==
LOC: ER 07:07
DX: N18.6 End stage renal disease (principal); Z91.158 Patient's noncompliance with renal dialysis for other reason; Z90.5 Acquired absence of kidney
CPT/HCPCS: 36415; 80048; 84484; 85025; 93005; 99284

== ENCOUNTER 2024-09-14 09:43 | Inpatient (IN) | payer OTHER ==
--- OUTSIDE RECORDS SUMMARY | 2024-09-14 09:49 | XMS REPORT | Continuity of Care Document ---
Author Name Unknown Address [address] [facility] [place] [address] [facility] thconnect Address [address] [facility] [address] [place] [address] Care Team Providers Care Foreclosure Paralegal Name Role Phone No , Pcp Primary Care Physician UnavailServando Cartwright Attending Clinician Unavailable ALBERTO MCRAE Attending Clinician Julian Meng MD Attending Clinician [phone] Alberto Mcrae MD Attending Clinician [phone] Doctor Unassigned, Burden Attending Clinician Bhavani Avilez 2, Mda Procedure Rm Attending Clinician JULIAN Gray Attending Clinician Junior Montero MD, Sendil K.H. Attending Clinician + [phone] JOSIANE MONTERO K.H. Attending Clinician Nava Comer Attending Clinician [phone] GENE, BAGI RP Attending Clinician Unavailable MACKENZIE PARSONS Attending Clinician Unavailable 1, [facility] Attending Clinician Unavailable Colleen LAKE, Mathew Attending Clinician [phone] MATHEW HUA Attending Clinician UnavailDamaris Fonseca Attending Clinician [phone] Cathryn Au RN Attending Clinician Unavailable Samantha LAKE, Renny Attending Clinician + [phone] Daniel LAKE, Soha Ledesma Attending Clinician [phone] 1, [facility] Infusion Chair Attending Clinician Junior Huang NP, Mina Attending Clinician [phone] MINA HUANG Attending Clinician Unavailable Mackenzie Parsons DO Attending Clinician [phone] Gene LAKE, Earl Joshua Attending Clinician [phone] [facility] Attending Clinician Unavailable 1, Bhavani Mda Procedure Rm Attending Clinician Goyo Moody DO Attending Clinician [phone], [facility] Infusion Chair Attending Clinician Junior Moiseb, [facility] Lab Main Attending Clinician Unavailpatrick oliva 3, [facility] Infusion Chair Attending Clinician Junior medeiros 5, [facility] Infusion Chair Attending Clinician Junior medeiros 7, [facility] Infusion Chair Attending Clinician Junior medeiros 1, [facility] Infusion Chair Attending Clinician Farhana Price Attending Clinician [phone] [facility] Attending Clinician U Bang Foreman DO Attending Clinician [phone] Only, [facility] Test Attending Clinician Unavailable Pranay Davies MD Attending Clinician [phone] PRANAY DAVIES Attending Clinician Unavailable 2, [facility] Attending Clinician Unavailable Rm, [facility] Surg Spec Procedure Attending Clinician Unavailable FARHANA GROVER Attending Clinician Unavailable Nurse, [facility] Surgery Faculty Attending Clinician U ALBERTO Zelaya Admitting Clinician UnavailAlberto Arreaga MD Admitting Clinician [phone] Payers Payer Name Policy Type Policy Number Effective Date Expirati on Date Source [facility] [employer] [id number] 2022 00:00:00 [employer] MED[employer] ADVANTAGE [id number] 2002 00:00:00 Problems Condition Name Condition Details Condition Category Status Onset Date Resolution Date Last Treatment Date Treating Clinician Comments Source 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 5-16 00:00: 00 [facility] End stage renal disease End stage renal disease Disease Active 2021-09- 00:00: 00 [facility] 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 8-30 00:00: 00 [facility] 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 830 00:00: 00 [facility] 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 Added automatic ally from request for surgery [id number] [facility] [id number] History of kidney cancer Problem [facility] [id number] Dependence on renal dialysis Problem [facility] [id number] End stage renal disease Problem [facility] [id number] Mixed hyperlipid emia Problem [facility] [id number] Essential hypertensi on Problem [facility] [id number] Episode of recurrent major depressive disorder, unspecifie d depression episode severity Problem [facility] Allergies, Adverse Reactions, Alerts Allergy Name Allergy Type Status Severity Reaction(s) Onset Date Inactive Date Treating Clinician Comments Source No Known Drug Intolera nces DA Active U 2008-09 00:00: 00 [facility] NO KNOWN ALLERGIE S Drug Class Active [facility] Family History Family Member Diagnosis Comments Start Date Stop Date Sourc e Natural [facility] Natural mother Other - see comments [facility] Social History Social Habit Start Date Stop Date Quantity Comments Source Gender identity [facility] History of Tobacco Use [facility] Sex Assigned At [facility] Sexual orientation [facility] Exposure to SARS-CoV-2 (event) 2022-09-20 00:00:00 2022-09-30 15:18:00 Not sure [facility] History of Social function 2022-07-30 00:00:00 2022-07-30 00:00:00 [facility] Tobacco use and exposure 2022-07-30 00:00:00 2022-07-30 00:00:00 Smokeless tobacco non-user [facility] History SDOH Food Worry 2022-05-29 00:00:00 2022-05-29 00:00:00 1 [facility] History SDOH Food Scarcity 2022-05-29 00:00:00 2022-05-29 00:00:00 1 [facility] History SDOH Transport Med 2022-05-29 00:00:00 2022-05-29 00:00:00 2 [facility] History SDOH Transport Non-Med 2022-05-29 00:00:00 2022-05-29 00:00:00 2 [facility] Alcohol intake 2022-04-04 00:00:00 2022-04-04 00:00:00 Current drinker of alcohol (finding) [facility] Smoking Status Start Date Stop Date Source Never Smoker [facility] Former Smoker 2024-04-27 00:00:00 2024-04-27 00:00:00 [facility] Medications Ordered Medication Name Filled Medication Name Start Date Stop Date Current Medication? Ordering Clinician Indication Dosage Frequency Signature (SIG) Comments Components Source hydrALAZINE HCl 25 MG hydrALAZINE HCl 25 MG 06 00:00: 00 No 1{table t_with_ food} TID hydrALAZIN E HCl 25 MG sulfamethox azole-trime thoprim (BACTRIM DS) 800-160 mg per tablet 1 tablet 03-13 16:30: 00 03-13 15:41 :00 No [id number] 1{tbl} [facility] linagliptin (TRADJENTA ORAL) 03-13 10:17: 02 Yes Take by mouth. [facility] linagliptin (TRADJENTA ORAL) 09-30 15:38: 40 Yes Take by mouth. [facility] tamsulosin 0.4 mg 24 hr capsule 2021-09 0 00:00: 00 Yes [id number] .4mg Take 1 capsule by mouth at bedtime. [facility] NIFEdipine XL 60 mg 24 hr tablet 06-20 00:00: 00 09-12 00:00 :00 No 60mg Take 60 mg by mouth. [facility] docusate 50 mg/5 mL solution 05-29 00:00: 00 Yes [id number] 100mg Take 10 mL by mouth in the morning. [facility] metoprolol succinate XL 50 mg 24 hr tablet 05-29 00:00: 00 Yes [id number] 50mg Take 1 tablet by mouth in the morning. [facility] NIFEdipine ER 60 mg tablet 05-29 00:00: 00 Yes [id number] 60mg Take 1 tablet by mouth in the morning. [facility] torsemide 20 mg tablet 05-29 00:00: 00 Yes [id number] 20mg Take 1 tablet by mouth every morning. [facility] sennosides 8.6 mg tablet 05-29 00:00: 00 Yes [id number] 8.6mg Take 1 tablet by mouth in the morning. [facility] bisacodyL 5 mg EC tablet 05-29 00:00: 00 Yes [id number] 5mg Take 1 tablet by mouth in the morning. [facility] linagliptin (TRADJENTA ORAL) 05-28 18:07: 30 Yes Take by mouth. [facility] hydralazine HCl (HYDRALAZIN E ORAL) 05-28 13:28: 30 05-28 00:00 :00 No 25mg Take 25 mg by mouth. [facility] heparin (porcine) injection 5,000 Units 05-28 13:00: 00 Yes 5000U 5,000 Units, Subcutaneo us, BID, First dose on Fri05/28/22 at 0800, Until Discontinu ed, Routine [facility] KCL (KLOR-CON M20) tablet 40 mEq 05-28 12:15: 00 05-28 14:07 :00 No 40meq 40 mEq, Oral, ONCE, 1 dose, On Fri05/28/22 at 0715, Routine [facility] hydrALAZINE 50 mg tablet 05-28 00:00: 00 Yes [id number] 50mg Take 1 tablet by mouth in the morning and 1 tablet at noon and 1 tablet in the evening. [facility] gabapentin 300 mg capsule 05-28 00:00: 00 Yes [id number] 300mg Take 1 capsule by mouth in the morning and 1 capsule in the evening. [facility] ondansetron 4 mg disintegrat ing tablet 05-28 00:00: 00 Yes [id number] 4mg Take 1 tablet by mouth every 8 (eight) hours as needed for Nausea and Vomiting (N/V). [facility] bisacodyL 10 mg suppository 05-28 00:00: 00 Yes [id number] 10mg Insert 1 Suppositor y into rectum once daily as needed for Constipati on or Constipati on unresolved by oral medication s. [facility] acetaminoph en 325 mg tablet 05-28 00:00: 00 05-29 04:59 :00 No [id number] 650mg Take 2 tablets by mouth every 6 (six) hours. [facility] NaCl 0.9% (NS) injection 5 mL 05-25 12:15: 00 05-25 17:00 :00 No 5mL 5 mL, Slow IV Push, ONCE, 1 dose, On 05/25/22 at 0715, Routine [facility] heparin 1,000 unit/mL injection 2,000 Units 05-25 12:03: 39 Yes 2000U PRN - SEE INSTRUCTIO NS, Starting on 05/25/22 at 0703, Until Discontinu ed, Routine
For Priming of Ports:&nbs p; &n bsp; After initial saline flush, prime each port with heparin according to the priming volume listed on each catheter port for catheter lock.
[facility] heparin 1,000 unit/mL injection 2,000 Units 05-24 19:18: 56 Yes 2000U PRN - SEE INSTRUCTIO NS, Starting on Fri05/24/22 at 1418, Until Discontinu ed, Routine
For Priming of Ports:&nbs p; &n bsp; After initial saline flush, prime each port with heparin according to the priming volume listed on each catheter port for catheter lock.
[facility] ([facility] 50 mg/5 mL solution 100 mg 05-24 14:00: 00 Yes 100mg 100 mg, Oral, DAILY, First dose on Fri05/24/22 at 0900, Until Discontinu ed, Routine [facility] bisacodyL (DULCOLAX) suppository 10 mg 05-24 11:49: 39 Yes 10mg 10 mg, Rectal, QDAILYPRN, Starting on Fri05/24/22 at 0649, Until Discontinu ed, Routine, Constipati on, Constipati on unresolved by oral medication s [facility] heparin 1,000 unit/mL injection 05-23 21:27: 57 05-23 21:27 :57 No Slow IV Push, PRN, Starting on Mignon 05/23/22 at 1627, Until Mignon 05/23/22 at 1627, Routine [facility] lidocaine 1% (PF) (XYLOCAINE) injection 05-23 21:08: 52 05-23 21:08 :52 No PRN, Starting on Fri05/23/22 at 1608, Until Discontinu ed, Routine [facility] FENTanyl PF (SUBLIMAZE (PF)) injection 05-23 21:04: 16 05-23 21:04 :16 No Slow IV Push, PRN, Starting on Fri05/23/22 at 1604, Until Discontinu ed, Routine [facility] D5W 0.45% NaCl (1/2NS) 1 L + KCL 20 mEq 05-23 18:15: 00 Yes IV Infusion, at 75 mL/hr, CONTINUOUS , Starting on Fri05/23/22 at 1315, Until Discontinu ed, Routine [facility] bisacodyL (DULCOLAX) tablet 5 mg 05-23 14:00: 00 Yes 5mg 5 mg, Oral, DAILY, First dose on Fri05/23/22 at 0900, Until Discontinu ed, Routine [facility] hydrALAZINE (APRESOLINE ) tablet 50 mg 05-23 13:00: 00 Yes 50mg 50 mg, Oral, TID, First dose (after last modificati on) on Fri05/23/22 at 0800, Until Discontinu ed, Routine [facility] NaCl 0.9% (NS) IV infusion 1,000 mL 05-23 12:00: 00 Yes 1000mL at 10 mL/hr, IV Infusion, CONTINUOUS , Starting on Fri05/23/22 at 0700, Until Discontinu ed, Routine [facility] hydrALAZINE (APRESOLINE ) tablet 25 mg 05-23 01:00: 00 Yes 25mg 25 mg, Oral, BID, First dose on Fri05/22/22 at 2000, Until Discontinu ed, Routine [facility] torsemide (SOAANZ) tablet 20 mg 05-22 16:00: 00 Yes 20mg 20 mg, Oral, QAM, First dose on Fri05/22/22 at 1100, Until Discontinu ed, Routine [facility] NIFEdipine ER tablet 60 mg 05-22 16:00: 00 Yes 60mg 60 mg, Oral, DAILY, First dose on Fri05/22/22 at 1100, Until Discontinu ed, Routine [facility] HYDROmorpho ne (DILAUDID) injection 0.2 mg 05-22 15:41: 51 05-24 15:40 :51 No .2mg 0.2 mg, Slow IV Push, Q8HPRN, Starting on Fri05/22/22 at 1041, Until Fri05/24/22 at 1040, Routine, Breakthrou gh Pain Only
Us e approved by (Faculty): GENERAL SURGERY
General surgeon approving: Alberto Mcrae [facility] sennosides (SENOKOT) tablet 8.6 mg 05-22 14:00: 00 Yes 8.6mg 8.6 mg, Oral, DAILY, First dose on Fri05/22/22 at 0900, Until Discontinu ed, Routine [facility] metoprolol succinate XL (TOPROL XL) tablet 50 mg 05-22 14:00: 00 Yes 50mg 50 mg, Oral, DAILY, First dose on Fri05/22/22 at 0900, Until Discontinu ed, Routine [facility] tamsulosin (FLOMAX) capsule 0.4 mg 05-22 02:00: 00 Yes .4mg 0.4 mg, Oral, QHS, First dose on Fri05/21/22 at 2100, Until Discontinu ed, Routine [facility] gabapentin (NEURONTIN) capsule 300 mg 05-22 01:00: 00 Yes 300mg 300 mg, Oral, BID, First dose on Fri05/21/22 at 2000, Until Discontinu ed, Routine [facility] proMETHazin e (PHENERGAN) 12.5 mg in NS 50 mL IV piggyback (CNR) 05-21 23:18: 46 Yes 12.5mg 12.5 mg, IV Piggyback, at 200 mL/hr Administer over 15 Minutes, Q4HPRN, Starting on Fri05/21/22 at 1818, Until Discontinu ed, Routine, N/V unresponsi ve to Ondansetro n [facility] acetaminoph en (TYLENOL) tablet 650 mg 05-21 23:00: 00 Yes 650mg 650 mg, Oral, Q6H, First dose on Fri05/21/22 at 1800, Until Discontinu ed, Routine [facility] Sliding Scale Insulin - Lispro (HumaLOG) + Fsbg Testing 05-21 22:00: 00 Yes Subcutaneo us, TID MEALS+HS, First dose on Fri05/21/22 at 1700, Until Discontinu ed, Routine [facility] NaCl 0.9% (NS) IV infusion 1,000 mL 05-21 22:00: 00 Yes 1000mL at 50 mL/hr, IV Infusion, CONTINUOUS , Starting on Fri05/21/22 at 1700, Until Discontinu ed, Routine [facility] glucagon (GLUCAGEN DIAGNOSTIC KIT) injection 1 mg 05-21 21:49: 47 Yes 1mg 1 mg, Intramuscu lar, PRN, Starting on Fri05/21/22 at 1649, Until Discontinu ed, NORA, Blood Glucose < or = 70 mg/dL and patient is unable to swallow or has mental changes. [facility] dextrose 50 % in water (D50W) injection 25 mL 05-21 21:49: 47 Yes 25mL 25 mL, Slow IV Push, PRN, Starting on Fri05/21/22 at 1649, Until Discontinu ed, NORA, Blood Glucose < or = 70 mg/dL and patient is unable to swallow or has mental status changes. [facility] ondansetron (ZOFRAN (PF)) injection 4 mg 05-21 21:42: 21 Yes 4mg 4 mg, Slow IV Push, Q4HPRN, Starting on Fri05/21/22 at 1642, Until Discontinu ed, Routine, Nausea and Vomiting (N/V) [facility] bupivacaine liposome (PF) (EXPAREL (PF)) 1.3 % (13.3 mg/mL) 266 mg, NaCl 0.9% (NS) 40 mL 05-21 21:00: 00 05-21 22:12 :34 No PRN, Starting on Fri05/21/22 at 1600, Intra-op [facility] HYDROcodone -acetaminop hen (NORCO 5) 5-325 mg tablet 1 tablet 05-21 20:45: 00 05-21 22:56 :00 No 1{tbl} 1 tablet, Oral, ONCE, 1 dose, On Fri05/21/22 at 1545, Routine, PACU [facility] HYDROmorphO ne (DILAUDID) injection 0.2 mg 05-21 20:33: 52 05-22 01:03 :16 No .2mg 0.2 mg, Slow IV Push, Q5MIN PRN, 10 doses, Starting on Fri05/21/22 at 1533, Until Fri05/21/22 at 2002, Routine, Pain (scale 7-10), PACU
Us e approved by (Faculty): PACU USE -ANESTHESI A SERVICE-HY DROMORPHON E INJECTIONS [facility] ondansetron (ZOFRAN (PF)) injection 4 mg 05-21 20:33: 52 05-21 23:00 :00 No 4mg 4 mg, Slow IV Push, PRN, 1 dose, Starting on Fri05/21/22 at 1533, Until Discontinu ed, Routine, Nausea and Vomiting (N/V), PACU [facility] gabapentin (NEURONTIN) capsule 300 mg 05-21 14:45: 00 05-21 17:01 :00 No 300mg 300 mg, Oral, ONCE, 1 dose, On Fri05/21/22 at 0945, Routine, DSU Pre-op [facility] acetaminoph en (TYLENOL) tablet 975 mg 05-21 14:45: 00 05-21 16:59 :00 No 975mg 975 mg, Oral, ONCE, 1 dose, On Fri05/21/22 at 0945, Routine, DSU Pre-op [facility] linagliptin (TRADJENTA ORAL) 8-30 10:27: 43 Yes Take by mouth. [facility] acetaminoph en (TYLENOL ORAL) 8-08 10:14: 13 04-29 00:00 :00 No 1{tbl} Take 1 tablet by mouth as needed. [facility] quinapriL 40 mg tablet 7-26 00:00: 00 Yes 40mg Take 1 tablet by mouth. [facility] torsemide 20 mg tablet 5-31 00:00: 00 05-28 00:00 :00 No 20mg Take 20 mg by mouth in the morning. [facility] tamsulosin 0.4 mg 24 hr capsule 3-03 00:00: 00 07-04 00:00 :00 No [id number] .4mg Take 1 capsule by mouth at bedtime. [facility] proCHLORper azine 10 mg tablet 1-28 00:00: 00 Yes [id number] 10mg Take 1 tablet by mouth every 6 (six) hours as needed for Nausea and Vomiting (N/V). [facility] ondansetron 4 mg disintegrat ing tablet 1-28 00:00: 00 04-29 00:00 :00 No [id number] 4mg Take 1 tablet by mouth every 8 (eight) hours as needed for Nausea and Vomiting (N/V). [facility] aspirin 81 mg chewable tablet 3-25 00:00: 00 04-29 00:00 :00 No CHEW AND SWALLOW 1 TABLET BY MOUTH EVERY DAY [facility] quinapriL 40 mg tablet 3-09 00:00: 00 05-28 00:00 :00 No 40mg Take 40 mg by mouth 2 (two) times daily. [facility] ONETOUCH DELICA PLUS LANCET 33 gauge Misc 3-08 00:00: 00 Yes CHECK BLOOD SUGAR TWICE DAILY [facility] metoprolol succinate XL 50 mg 24 hr tablet 2-20 00:00: 00 05-28 00:00 :00 No 50mg Take 50 mg by mouth daily. [facility] rosuvastati n 10 mg tablet 10-30 00:00: 00 Yes 10mg Take 10 mg by mouth daily. [facility] NIFEdipine XL 60 mg 24 hr tablet 2 00:00: 00 05-28 00:00 :00 No 60mg Take 60 mg by mouth daily. [facility] ONETOUCH ULTRA BLUE TEST STRIP strip 1- 00:00: 00 Yes USE DIRECTED TO CHECK BLOOD GLUCOSE LEVELS TWICE DAILY [facility] Rosuvastati n Calcium 10 MG Rosuvastati n Calcium 10 MG No 1{table t} QD Rosuvastat in Calcium 10 MG cloNIDine HCl 0.1 MG cloNIDine HCl 0.1 MG No cloNIDine HCl 0.1 MG Metoprolol Succinate ER 50 MG Metoprolol Succinate ER 50 MG No 1{table t} QD Metoprolol Succinate ER 50 MG NIFEdipine ER 30 MG NIFEdipine ER 30 MG No 1{table t_on_an _empty_ stomach } QD NIFEdipine ER 30 MG buPROPion HCl ER (XL) 150 MG buPROPion HCl ER (XL) 150 MG No buPROPion HCl ER (XL) 150 MG Lisinopril 20 MG Lisinopril 20 MG No 1{table t} QD Lisinopril 20 MG Torsemide 20 MG Torsemide 20 MG No 1{table t} QD Torsemide 20 MG Tamsulosin HCl 0.4 MG Tamsulosin HCl 0.4 MG No 1{capsu le} QD Tamsulosin HCl 0.4 MG Allopurinol 100 MG Allopurinol 100 MG No Allopurino l 100 MG Vital Signs Vital Name Observation Time Observation Value Comments S ource blood pressure systolic 2024-05-11 09:40:00 136 mm[Hg] [facility] blood pressure diastolic 2024-05-11 09:40:00 60 mm[Hg] [facility] height 2024-05-11 09:40:00 65 [in_i] Commo n [facility] weight 2024-05-11 09:40:00 150.0 [lb_av] Co mmon [facility] temperature 2024-05-11 09:40:00 97.4 [degF] Com [facility] bmi 2024-05-11 09:40:00 24.96 kg/m2 Comm on [facility] oximetry 2024-05-11 09:40:00 97 % Commo n [facility] respiratory rate 2024-05-11 09:40:00 17 /min [facility] height 2024-04-27 10:00:00 65 [in_i] Commo n [facility] weight 2024-04-27 10:00:00 145.2 [lb_av] Co on [facility] temperature 2024-04-27 10:00:00 97.3 [degF] Com [facility] bmi 2024-04-27 10:00:00 24.16 kg/m2 Comm on [facility] oximetry 2024-04-27 10:00:00 99 % Commo n [facility] blood pressure systolic 2024-04-27 10:00:00 210 mm[Hg] [facility] blood pressure diastolic 2024-04-27 10:00:00 92 mm[Hg] [facility] Systolic blood pressure 2023-03-13 15:10:00 112 mm[Hg] [facility] Diastolic blood pressure 2023-03-13 15:10:00 61 mm[Hg] [facility] Heart rate 2023-03-13 15:10:00 75 [facility] 2023-03-13 15:10:00 167.6 cm [facility] Body weight 2023-03-13 15:10:00 72.802 kg [facility] BMI 2023-03-13 15:10:00 25.91 kg/m2 [facility] Oxygen saturation in Arterial blood by Pulse oximetry 2023-03-13 15:10:00 98 /min [facility] BMI 2022-09-30 21:40:00 25.86 kg/m2 [facility] Oxygen saturation in Arterial blood by Pulse oximetry 2022-09-30 21:40:00 98 /min [facility] Systolic blood pressure 2022-09-30 21:40:00 117 mm[Hg] [facility] Diastolic blood pressure 2022-09-30 21:40:00 66 mm[Hg] [facility] Heart rate 2022-09-30 21:40:00 93 /min Un[facility] Body temperature 2022-09-30 21:40:00 36.83 Octavia [facility] Body height 2022-09-30 21:40:00 167.6 cm [facility] Body weight 2022-09-30 21:40:00 72.666 kg [facility] Systolic blood pressure 2022-09-12 15:31:00 133 mm[Hg] [facility] Diastolic blood pressure 2022-09-12 15:31:00 59 mm[Hg] [facility] Heart rate 2022-09-12 15:31:00 56 /min Un[facility] Body temperature 2022-09-12 15:31:00 36.56 Octavia [facility] Body height 2022-09-12 15:31:00 167.6 [facility] 2022-09-12 15:31:00 74.526 kg [facility] BMI 2022-09-12 15:31:00 26.52 kg/m2 [facility] Oxygen saturation in Arterial blood by Pulse oximetry 2022-09-12 15:31:00 99 /min [facility] Systolic blood pressure 2022-06-13 15:11:00 148 mm[Hg] [facility] Diastolic blood pressure 2022-06-13 15:11:00 71 mm[Hg] [facility] Heart rate 2022-06-13 15:11:00 61 /min Unive [facility] Body temperature 2022-06-13 15:11:00 36.89 Octavia [facility] Body weight 2022-06-13 15:11:00 75.07 kg [facility] BMI 2022-06-13 15:11:00 26.71 kg/m2 [facility] Oxygen saturation in Arterial blood by Pulse oximetry 2022-06-13 15:11:00 99 /min [facility] Systolic blood pressure 2022-05-28 16:30:00 137 mm[Hg] [facility] Diastolic blood pressure 2022-05-28 16:30:00 77 mm[Hg] [facility] Heart rate 2022-05-28 16:30:00 82 /min Unive [facility] Body temperature 2022-05-28 16:30:00 36.11 Octavia [facility] Oxygen saturation in Arterial blood by Pulse oximetry 2022-05-28 16:30:00 91 /min [facility] Respiratory rate 2022-05-27 16:40:00 16 /min [facility] Body weight 2022-05-27 16:40:00 71.03 kg [facility] BMI 2022-05-27 16:40:00 25.27 kg/m2 [facility] Body height 2022-05-23 20:35:00 167.6 cm [facility] Systolic blood pressure 2022-05-21 14:41:00 133 mm[Hg] [facility] Diastolic blood pressure 2022-05-21 14:41:00 67 mm[Hg] [facility] Heart rate 2022-05-21 14:41:00 71 /min [facility] Body temperature 2022-05-21 14:41:00 36.72 Octavia [facility] Respiratory rate 2022-05-21 14:41:00 18 /min [facility] Body height 2022-05-21 14:41:00 167.6 cm [facility] Body weight 2022-05-21 14:41:00 77.7 kg [facility] BMI 2022-05-21 14:41:00 27.65 kg/m2 [facility] Oxygen saturation in Arterial blood by Pulse oximetry 2022-05-21 14:41:00 97 /min [facility] Systolic blood pressure 2022-05-25 16:30:00 140 mm[Hg] [facility] Diastolic blood pressure 2022-05-25 16:30:00 73 mm[Hg] [facility] Heart rate 2022-05-25 16:30:00 84 /min [facility] Body temperature 2022-05-25 14:57:00 36.28 Octavia [facility] Respiratory rate 2022-05-25 14:57:00 18 /min [facility] Body weight 2022-05-25 14:57:00 73.5 kg [facility] BMI 2022-05-25 14:57:00 26.15 kg/m2 [facility] Oxygen saturation in Arterial blood by Pulse oximetry 2022-05-25 12:47:00 94 /min [facility] Body height 2022-05-23 20:35:00 167.6 cm [facility] Procedures Procedure Date / Time Performed Performing Clinician Source DISCLOSURE AND CONSENT, MEDICAL AND SURGICAL PROCEDURES 2023-03-18 05:01:00 Doctor Unassigned, Burden [facility] CT ABDOMEN PELVIS WO CONTRAST 2022-09-27 19:53:00 Alberto Mcrae [facility] DISCLOSURE AND CONSENT, MEDICAL AND SURGICAL PROCEDURES 2022-09-18 06:01:00 Doctor Unassigned, Burden [facility] EXTERNAL PROVIDER RECORDS 2022-08-02 06:01:00 Do ctor Unassigned, Burden [facility] EXTERNAL PROVIDER RECORDS 2022-07-10 05:01:00 Do ctor Unassigned, Burden [facility] EXTERNAL PROVIDER RECORDS 2022-06-28 05:01:00 Do ctor Unassigned, Burden [facility] PHOSPHORUS 2022-05-28 07:14:00 Ashish Mcmullen [facility] MAGNESIUM 2022-05-28 07:14:00 Ashish Mcmullen [facility] BASIC METABOLIC PANEL (NA, K, CL, CO2, GLUCOSE, BUN, CREATININE, CA) 2022-05-28 07:14:00 Ashish Mcmullen [facility] EXTRA TUBE LAV 2022-05-28 07:14:00 Alberto Mcrae [facility] POCT GLUCOSE (AUTOMATED) 2022-05-27 17:05:00 Alberto Mcrae [facility] POCT GLUCOSE (AUTOMATED) 2022-05-27 16:18:00 Alberto Mcrae [facility] POCT GLUCOSE (AUTOMATED) 2022-05-27 01:50:00 Alberto Mcrae [facility] POCT GLUCOSE (AUTOMATED) 2022-05-26 20:56:00 Alberto Mcrae [facility] POCT GLUCOSE (AUTOMATED) 2022-05-26 17:18:00 Alberto Mcrae [facility] POCT GLUCOSE (AUTOMATED) 2022-05-26 13:49:00 Alberto Mcrae [facility] POCT GLUCOSE (AUTOMATED) 2022-05-26 01:55:00 Alberto Mcrae [facility] POCT GLUCOSE (AUTOMATED) 2022-05-25 22:21:00 Alberto Mcrae [facility] POCT GLUCOSE (AUTOMATED) 2022-05-25 12:50:00 Alberto Mcrae [facility] POCT GLUCOSE (AUTOMATED) 2022-05-25 12:50:00 Alberto Mcrae [facility] POCT GLUCOSE (AUTOMATED) 2022-05-25 01:55:00 Alberto Mcrae [facility] POCT GLUCOSE (AUTOMATED) 2022-05-25 01:55:00 Alberto Mcrae [facility] POCT GLUCOSE (AUTOMATED) 2022-05-24 22:32:00 Alberto Mcrae [facility] POCT GLUCOSE (AUTOMATED) 2022-05-24 22:32:00 Alberto Mcrae [facility] MRSA / MSSA SCREEN BY PCRERIC 2022-05-24 21:07:00 Mignon Rayo [facility] MRSA / MSSA SCREEN BY PCRERIC 2022-05-24 21:07:00 Mignon Rayo [facility] POCT GLUCOSE (AUTOMATED) 2022-05-24 16:59:00 Alberto Mcrae [facility] POCT GLUCOSE (AUTOMATED) 2022-05-24 16:59:00 Alberto Mcrae [facility] BASIC METABOLIC PANEL (NA, K, CL, CO2, GLUCOSE, BUN, CREATININE, CA) 2022-05-24 14:46:00 Ashish Mcmullen [facility] MAGNESIUM 2022-05-24 14:46:00 Ashish Mcmullen [facility] PHOSPHORUS 2022-05-24 14:46:00 Ashish Mcmullen [facility] HEPATITIS B SURFACE ANTIBODY 2022-05-24 14:46:00 Vu, [facility] HEPATITIS B SURFACE ANTIGEN 2022-05-24 14:46:00 Vu, [facility] HBC ANTIBODY (IGM & IGG) 2022-05-24 14:46:00 Vu, [facility] PHOSPHORUS 2022-05-24 14:46:00 Ashish Mcmullen [facility] MAGNESIUM 2022-05-24 14:46:00 Ashish Mcmullen [facility] BASIC METABOLIC PANEL (NA, K, CL, CO2, GLUCOSE, BUN, CREATININE, CA) 2022-05-24 14:46:00 Ashish Mcmullen [facility] HEPATITIS B SURFACE ANTIBODY 2022-05-24 14:46:00 Vu, [facility] HEPATITIS B SURFACE ANTIGEN 2022-05-24 14:46:00 Vu, [facility] HBC ANTIBODY (IGM & IGG) 2022-05-24 14:46:00 [facility] 2022-05-24 14:35[facility] 2022-05-24 14:35:00 Vu, [facility] POCT GLUCOSE (AUTOMATED) 2022-05-24 12:56:00 Alberto Mcrae [facility] POCT GLUCOSE (AUTOMATED) 2022-05-24 12:56:00 Alberto Mcrae [facility] POCT GLUCOSE (AUTOMATED) 2022-05-24 02:41:00 Alberto Mcrae [facility] POCT GLUCOSE (AUTOMATED) 2022-05-24 02:41:00 Alberto Mcrae [facility] POCT GLUCOSE (AUTOMATED) 2022-05-23 22:33:00 Alberto Mcrae [facility] POCT GLUCOSE (AUTOMATED) 2022-05-23 22:33:00 Alberto Mcrae [facility] IR CENTRALLY INSERTED DEVICE TUNNELED 5 OR OLDER NO PORT/PUMP 2022-05-23 21:35:13 [facility] IR CENTRALLY INSERTED DEVICE TUNNELED 5 OR OLDER NO PORT/PUMP 2022-05-23 21:35:13 [facility] POCT GLUCOSE (AUTOMATED) 2022-05-23 16:47:00 Alberto Mcrae [facility] POCT GLUCOSE (AUTOMATED) 2022-05-23 16:47:00 Alberto Mcrae [facility] BASIC METABOLIC PANEL (NA, K, CL, CO2, GLUCOSE, BUN, CREATININE, CA) 2022-05-23 14:06:00 Ashish Mcmullen [facility] BASIC METABOLIC PANEL (NA, K, CL, CO2, GLUCOSE, BUN, CREATININE, CA) 2022-05-23 14:06:00 Ashish Mcmullen [facility] POCT GLUCOSE (AUTOMATED) 2022-05-23 12:56:00 Alberto Mcrae [facility] POCT GLUCOSE (AUTOMATED) 2022-05-23 12:56:00 Alberto Mcrae [facility] POCT GLUCOSE (AUTOMATED) 2022-05-23 02:10:00 Alberto Mcare [facility] POCT GLUCOSE (AUTOMATED) 2022-05-23 02:10:00 Alberto Mcrae [facility] POCT GLUCOSE (AUTOMATED) 2022-05-22 21:25:00 Alberto Mcrae [facility] POCT GLUCOSE (AUTOMATED) 2022-05-22 21:25:00 Alberto Mcrae [facility] POCT GLUCOSE (AUTOMATED) 2022-05-22 21:25:00 Alberto Mcrae [facility] POCT GLUCOSE (AUTOMATED) 2022-05-22 16:34:00 Alberto Mcrae [facility] POCT GLUCOSE (AUTOMATED) 2022-05-22 16:34:00 Alberto Mcrae [facility] POCT GLUCOSE (AUTOMATED) 2022-05-22 16:34:00 Alberto Mcrae [facility] BASIC METABOLIC PANEL (NA, K, CL, CO2, GLUCOSE, BUN, CREATININE, CA) 2022-05-22 15:16:00 Bang Pride [facility] BASIC METABOLIC PANEL (NA, K, CL, CO2, GLUCOSE, BUN, CREATININE, CA) 2022-05-22 15:16:00 Bang Pride [facility] BASIC METABOLIC PANEL (NA, K, CL, CO2, GLUCOSE, BUN, CREATININE, CA) 2022-05-22 15:16:00 Bang Pride [facility] POCT GLUCOSE (AUTOMATED) 2022-05-22 12:43:00 Alberto Mcrae [facility] POCT GLUCOSE (AUTOMATED) 2022-05-22 12:43:00 Alberto Mcrae [facility] POCT GLUCOSE (AUTOMATED) 2022-05-22 12:43:00 Alberto Mcrae [facility] BASIC METABOLIC PANEL (NA, K, CL, CO2, GLUCOSE, BUN, CREATININE, CA) 2022-05-22 04:48:00 Bang Pride [facility] BASIC METABOLIC PANEL (NA, K, CL, CO2, GLUCOSE, BUN, CREATININE, CA) 2022-05-22 04:48:00 Bang Pride [facility] BASIC METABOLIC PANEL (NA, K, CL, CO2, GLUCOSE, BUN, CREATININE, CA) 2022-05-22 04:48:00 Bang Pride [facility] POCT GLUCOSE (AUTOMATED) 2022-05-22 01:43:00 Alberto Mcrae [facility] POCT GLUCOSE (AUTOMATED) 2022-05-22 01:43:00 Alberto Mcrae [facility] POCT GLUCOSE (AUTOMATED) 2022-05-22 01:43:00 Alberto Mcrae [facility] POCT GLUCOSE (AUTOMATED) 2022-05-21 22:51:00 Alberto Mcrae [facility] POCT GLUCOSE (AUTOMATED) 2022-05-21 22:51:00 Alberto Mcrae [facility] POCT GLUCOSE (AUTOMATED) 2022-05-21 22:51:00 Alberto Mcrae [facility] BASIC METABOLIC PANEL (NA, K, CL, CO2, GLUCOSE, BUN, CREATININE, CA) 2022-05-21 22:21:00 Bang Pride [facility] PROTHROMBIN TIME / INR 2022-05-21 22:21:00 Chen Pride [facility] BASIC METABOLIC PANEL (NA, K, CL, CO2, GLUCOSE, BUN, CREATININE, CA) 2022-05-21 22:21:00 Bang Pride [facility] PROTHROMBIN TIME / INR 2022-05-21 22:21:00 Chen Pride [facility] BASIC METABOLIC PANEL (NA, K, CL, CO2, GLUCOSE, BUN, CREATININE, CA) 2022-05-21 22:21:00 Bang Pride [facility] PROTHROMBIN TIME / INR 2022-05-21 22:21:00 Chen Pride [facility] SURGICAL PATHOLOGY EXAM 2022-05-21 20:42:00 Alberto Mcrae [facility] BASIC METABOLIC PANEL (NA, K, CL, CO2, GLUCOSE, BUN, CREATININE, CA) 2022-05-21 19:05:00 Floresita Hewitt [facility] BASIC METABOLIC PANEL (NA, K, CL, CO2, GLUCOSE, BUN, CREATININE, CA) 2022-05-21 19:05:00 Floresita Hewitt [facility] BASIC METABOLIC PANEL (NA, K, CL, CO2, GLUCOSE, BUN, CREATININE, CA) 2022-05-21 19:05:00 Floresita Hewitt [facility] ABG+COOX+NA+K+GLU+CA2+ 2022-05-21 19:02:00 Corky Mcrae [facility] ABG+COOX+NA+K+GLU+CA2+ 2022-05-21 19:02:00 Corky Mcrae [facility] INTUBATION 2022-05-21 17:59:00 Floresita Hewitt [facility] POCT GLUCOSE (AUTOMATED) 2022-05-21 17:42:00 Alberto Mcrae [facility] POCT GLUCOSE (AUTOMATED) 2022-05-21 17:42:00 Alberto Mcrae [facility] POCT GLUCOSE (AUTOMATED) 2022-05-21 17:42:00 Alberto Mcrae [facility] LAPAROSCOPIC NEPHRECTOMY 2022-05-21 17:30:00 Alberto Mcrae [facility] LAPAROSCOPIC NEPHRECTOMY 2022-05-21 17:30:00 Alberto Mcrae [facility] LAPAROSCOPIC NEPHRECTOMY 2022-05-21 17:30:00 Alberto Mcrae [facility] HB ABO GROUPING 2022-05-21 16:18:00 Bautista Mosquera [facility] HB ABO GROUPING 2022-05-21 16:18:00 Bautista Mosquera [facility] HB ABO GROUPING 2022-05-21 16:18:00 Bautista Mosquera [facility] COVID-19 (ID NOW RAPID TESTING) 2022-05-21 14:40:00 Alberto Mcrae [facility] LAB ONLY COVID INTERPRETATION 2022-05-21 14:40:00 Alberto Mcrae [facility] COVID-19 (ID NOW RAPID TESTING) 2022-05-21 14:40:00 Alberto Mcrae [facility] LAB ONLY COVID INTERPRETATION 2022-05-21 14:40:00 Alberto Mcrae [facility] COVID-19 (ID NOW RAPID TESTING) 2022-05-21 14:40:00 Alberto Mcrae [facility] LAB ONLY COVID INTERPRETATION 2022-05-21 14:40:00 Alberto Mcrae [facility] HOSPITAL ADMISSION 2022-05-21 05:01:00 Doctor Un assigned, Burden [facility] NM MYOCARDIUM PERFUSION STRESS AND REST 2022-05-16 15:20:00 Josiane Montero [facility] NUCLEAR STRESS TEST CARDIOLOGY (DO NOT SCHED) 2022-05-16 15:20:00 Josiane Montero [facility] TRANSTHORACIC ECHO (TTE) COMPLETE W/ CONTRAST 2022-05-16 15:04:00 Josiane Montero [facility] DISCLOSURE AND CONSENT, MEDICAL AND SURGICAL PROCEDURES 2022-05-16 05:01:00 Doctor Unassigned, Burden [facility] HB ECG ROUTINE & RHYTHM STRIP 2022-05-07 18:02:03 Josiane Montero [facility] INSURANCE CORRESPONDENCE 2022-05-07 05:01:00 Mp tor Unassigned, Burden [facility] MAGNESIUM 2022-04-29 15:52:00 Mackenzie Parsons [facility] PHOSPHORUS 2022-04-29 15:52:00 Mackenzie Parsons [facility] INTACT PTH CALCIUM GROUP 2022-04-29 15:52:00 Ender Parsons [facility] CBC WITH DIFF 2022-04-29 15:52:00 Mina Huang [facility] COMP. METABOLIC PANEL ([id number]) 2022-04-29 15:52:00 Mina Huang [facility] FERRITIN SERUM 2022-04-29 15:52:00 Mina Huang [facility] TOTAL IRON BINDING CAPACITY 2022-04-29 15:52:00 Mina Huang [facility] DISCLOSURE AND CONSENT, MEDICAL AND SURGICAL PROCEDURES 2022-04-26 05:01:00 Doctor Unassigned, Burden [facility] DISCLOSURE AND CONSENT, MEDICAL AND SURGICAL PROCEDURES 2022-04-26 05:01:00 Doctor Unassigned, Burden [facility] DISCLOSURE AND CONSENT, MEDICAL AND SURGICAL PROCEDURES 2022-04-26 05:01:00 Doctor Unassigned, Burden [facility] NM RENAL FLOW FUNCTION WITH PHARMACOLOGICAL INTERVENTION 2022-04-12 15:51:20 Mg Arceo [facility] CONSENT/REFUSAL FOR DIAGNOSIS AND TREATMENT 2022-04-12 13:48:51 Doctor Unassigned, Burden [facility] ASSIGNMENT OF BENEFITS 2022-04-12 13:48:30 Docto r Unassigned, Burden [facility] Encounters Start Date/Time End Date/Time Encounter Type Admission Type Attending [facility] Care Facility Care Department Encounter ID Source 2024-08-09 08:08:01 Outpatient Servando Thakur STLMLC STLMLC [id number] [facility] 2024-04-27 09:23:02 Outpatient Servando Thakur STLC STLC [id number] [facility] 2023-04-18 09:49:27 Outpatient [facility] [id number] [facility] 2023-02-04 09:07:15 Outpatient [facility] [id number] [facility] 2023-01-13 08:39:19 Outpatient [facility] [id number] [facility] 2023-01-08 09:31:16 Outpatient [facility] [id number] [facility] 2022-10-29 08:41:22 Outpatient [facility] [id number] [facility] 2022-10-25 12:34:20 Outpatient [facility] [id number] [facility] 2022-09-03 07:49:48 Outpatient [facility] [id number] [facility] 2022-08-06 10:36:00 Outpatient [facility] [id number] [facility] 2022-07-29 08:51:23 Outpatient [facility] [id number] [facility] 2022-07-22 17:03:45 Outpatient [facility] [id number] [facility] 2022-07-15 09:06:16 Outpatient [facility] [id number] [facility] 2022-05-21 10:11:00 Inpatient ALBERTO DURHAM [facility] [id number] [facility] 2024-05-11 00:00:00 2024-05-11 00:00:00 OFFICE VISIT ESTAB PT LEVEL 4 STLMLC STLMLC [id number] [facility] 2024-05-06 00:00:00 2024-05-06 00:00:00 (TEL) STLMLC STLMLC [id number] [facility] 2024-05-06 00:00:00 2024-05-06 00:00:00 (TEL) STLC STLC [id number] [facility] 2024-04-27 00:00:00 2024-04-27 00:00:00 OFFICE VISIT NEW PT LEVEL 4 STLMLC STLMLC [id number] [facility] 2023-08-28 10:45:00 2023-08-28 10:45:00 Outpatient ALBERTO DURHAM [facility] [id number] [facility] 2023-07-01 09:00:00 2023-07-01 12:27:58 Office Visit Julian Dumas [facility] 1 1.2.840.114 350.1.13.58 9.2.7.2.686 [id number] [facility] 2023-03-20 00:00:00 2023-03-20 00:00:00 Telephone Alberto Mcrae [facility] 1.2.840.114 350.1.13.10 4.2.7.2.686 [id number] [facility] 2023-03-18 00:00:00 2023-03-18 00:00:00 Orders Only Doctor Unassigned, Burden [facility] 1.2.840.114 350.1.13.10 4.2.7.2.686 [id number] [facility] 2023-03-13 11:00:00 2023-03-13 11:01:16 Outpatient ALBERTO DURHAM [facility] [id number] [facility] 2023-03-13 11:00:00 2023-03-13 11:01:16 Office Visit Alberto Mcrae 2, Lea Mda Procedure [facility] 1.2.840.114 350.1.13.10 4.2.7.2.686 [id number] [facility] 2023-02-24 09:30:00 2023-02-24 09:30:00 Outpatient JULIAN DUMAS [facility] [id number] [facility] 2023-02-07 08:29:00 2023-02-07 13:46:00 Outpatient JULIAN DUMAS [facility] [id number] [facility] 2022-10-28 09:30:00 2022-10-28 09:31:13 Outpatient [facility] [id number] [facility] 2022-09-30 15:30:00 2022-09-30 16:00:00 Office Visit Josiane Montero [facility] 1.2.840.114 350.1.13.10 4.2.7.2.686 [id number] [facility] 2022-09-30 15:30:00 2022-09-30 15:30:00 Outpatient R JOSIANE MONTERO [facility] [id number] [facility] 2022-09-27 13:14:40 2022-09-27 23:59:00 Hospital Encounter Clementina Alberto [facility] 1.2.840.114 350.1.13.10 4.2.7.2.686 [id number] [facility] 2022-09-27 13:13:29 2022-09-27 13:13:29 Outpatient R CLEMENTINA ALBERTO [facility] [id number] [facility] 2022-09-27 13:13:29 2022-09-27 13:13:29 Hospital Encounter Clementina Alberto [facility] 1.2.840.114 350.1.13.10 4.2.7.2.686 [id number] [facility] 2022-09-27 00:00:00 2022-09-27 00:00:00 [facility] 1.2.840.114 350.1.13.10 4.2.7.2.686 [id number] [facility] 2022-09-20 00:00:00 2022-09-20 00:00:00 Rosa Maria Arriaza Nava [facility] RAYMUNDO BOLTON [facility] 1.2.840.114 350.1.13.10 4.2.7.2.686 [id number] [facility] 2022-09-19 00:00:00 2022-09-19 00:00:00 Telephone Alberto Mcrae [facility] 1.2.840.114 350.1.13.10 4.2.7.2.686 [id number] [facility] 2022-09-18 00:00:00 2022-09-18 00:00:00 Orders Only Doctor Unassigned, Burden [facility] 1.2.840.114 350.1.13.10 4.2.7.2.686 [id number] [facility] 2022-09-12 09:00:00 2022-09-12 10:00:00 Office Visit Alberto Mcrae 2, Bhavani Mda Procedure Rm [facility] 1.2.840.114 350.1.13.10 4.2.7.2.686 [id number] [facility] 2022-09-12 09:30:00 2022-09-12 09:45:00 Office Visit Alberto Mcrae [facility] 1.2.840.114 350.1.13.10 4.2.7.2.686 [id number] [facility] 2022-09-12 09:30:00 2022-09-12 09:30:00 Outpatient ALBERTO DURHAM [facility] [id number] [facility] 2022-09-12 09:00:00 2022-09-12 09:00:00 Outpatient ALBERTO DURHAM [facility] [id number] [facility] 2022-09-05 13:00:00 2022-09-05 13:00:00 Outpatient [facility] [id number] [facility] 2022-08-20 10:00:00 2022-08-20 10:00:00 Outpatient JOSIANE YEBOAH [facility] [id number] [facility] 2022-08-02 00:00:00 2022-08-02 00:00:00 Orders Only Doctor Unassigned, Burden [facility] 1.2840.114 350.1.13.10 4.2.7.2.686 [id number] [facility] 2022-07-29 09:45:00 2022-07-30 08:36:03 Office Visit Julian Dumas [facility] 1.284.114 350.1.13.58 9.2.7.2.686 [id number] [facility] 2022-07-11 16:00:00 2022-07-11 16:00:00 Outpatient MACKENZIE SEGOVIA [facility] [id number] [facility] 2022-07-11 16:00:00 2022-07-11 16:00:00 [address] [facility] [facility] [id number] [facility] 2022-07-10 00:00:00 2022-07-10 00:00:00 Orders Only Doctor Unassigned, Burden [facility] 1.284.114 350.1.13.10 4.2.7.2.686 [id number] [facility] 2022-07-08 11:00:00 2022-07-08 11:15:00 Flame Degreaser Visit 1, Mathew Bourgeois [facility] 1.284.114 350.1.13.10 4.2.7.2.686 [id number] [facility] 2022-07-08 11:00:00 2022-07-08 11:00:00 Outpatient MATHEW MCNAMARA [facility] [id number] [facility] 2022-07-04 00:00:00 2022-07-04 00:00:00 Case Management Patria Arriazaney [facility] RAYMUNDO ROWEIO [facility] 1.2.114 350.1.13.10 4.2.7.2.686 [id number] [facility] 2022-07-03 00:00:00 2022-07-03 00:00:00 Telephone Damaris Marr [facility] 1..114 350.1.13.10 4.2.7.2.686 [id number] [facility] 2022-06-28 00:00:00 2022-06-28 00:00:00 Orders Only Doctor Unassigned, Burden [facility] 1.0.114 350.1.13.10 4.2.7.2.686 [id number] [facility] 2022-06-13 09:30:00 2022-06-13 09:45:00 Office Visit Alberto Mcrae [facility] 1..114 350.1.13.10 4.2.7.2.686 [id number] [facility] 2022-06-13 09:30:00 2022-06-13 09:30:00 Outpatient ALBERTO DURHAM [facility] [id number] [facility] 2022-05-29 00:00:00 2022-05-29 00:00:00 Transition of Care Cathryn Au [facility] 1..114 350.1.13.10 4.2.7.2.686 [id number] [facility] 2022-05-21 09:27:00 2022-05-28 18:07:00 Inpatient ALBERTO DURHAM [facility] [id number] [facility] 2022-05-21 09:27:00 2022-05-28 18:07:00 Hospital Encounter Alberto Mcrae [facility] 1.2840.114 350.1.13.10 4.2.7.2.686 [id number] [facility] 2022-05-21 12:51:00 2022-05-21 16:58:00 Anesthesia Event Renny Singh Jocelyn Green 1.2.840.1 [id number] 3.104.2.7 .[id number] [facility] 2022-05-21 12:30:00 2022-05-21 16:18:00 Surgery Alberto Mcrae 1.2840.1 [id number] 3.104.2.7 .[id number] [facility] 2022-05-21 09:27:00 2022-05-21 09:27:00 Inpatient R ALBERTO MCRAE [facility] [id number] [facility] 2022-05-21 00:00:00 2022-05-21 00:00:00 Orders Only Doctor Unassigned, Burden [facility] 1.2840.114 350.1.13.10 4.2.7.2.686 [id number] [facility] 2022-05-20 07:00:00 2022-05-20 10:00:00 Nurse Visit 1, Adc Infusion Chair Mina Huang [facility] 1.2.840.114 350.1.13.10 4.2.7.2.686 [id number] [facility] 2022-05-20 07:00:00 2022-05-20 10:00:00 Nurse Visit Mina Huang 1, Adc Infusion Chair 1.2.840.1 27966.1.1 3.104.2.7 .3.296732 .8 [id number] [facility] 2022-05-20 07:00:00 2022-05-20 07:00:00 Outpatient Dustin SAL MINA [facility] [id number] [facility] 2022-05-20 07:00:00 2022-05-20 07:00:00 Outpatient Dustin HUANG [facility]A [facility] [id number] [facility] 2022-05-20 00:00:00 2022-05-20 00:00:00 Telephone Alberto Mcrae [facility] 1.2.840.114 350.1.13.10 4.2.7.2.686 [id number] [facility] 2022-05-20 00:00:00 2022-05-20 00:00:00 Telephone Alberto Mcrae 1.2.840.1 62913.1.1 3.104.2.7 .3.271637 .8 [id number] [facility] 2022-05-20 00:00:00 2022-05-20 00:00:00 Travel 1.2.840.1 42000.1.1 3.104.2.7 .3.056922 .8 1.2.840.114 350.1.13.10 4.2.7.3.698 084.8 [id number] [facility] 2022-05-16 07:44:47 2022-05-16 23:59:00 Hospital Encounter Josiane Montero 1.2.840.1 06068.1.1 3.104.2.7 .3.411629 .8 [id number] [facility] 2022-05-16 07:44:21 2022-05-16 23:59:00 Hospital Encounter Josiane Montero [facility] 1.2.840.114 350.1.13.10 4.2.7.2.686 [id number] [facility] 2022-05-16 07:44:21 2022-05-16 23:59:00 Hospital Encounter Josiane Montero. 1.2.840.1 02376.1.1 3.104.2.7 .3.144803 .8 [id number] [facility] 2022-05-16 07:44:01 2022-05-16 23:59:00 Hospital Encounter Josiane Montero. [facility] 1.2.840.114 350.1.13.10 4.2.7.2.686 [id number] [facility] [facility]-16 07:44:01 2022-05-16 23:59:00 Hospital Encounter Josiane Montero. 1.2.840.1 01773.1.1 3.104.2.7 .3.735114 .8 [id number] [facility] 2022-05-16 11:30:00 2022-05-16 11:30:00 Outpatient JOSIANE MONTERO [facility] [id number] [facility] 2022-05-16 08:00:00 2022-05-16 08:00:00 Outpatient R JOSIANE MONTERO [facility] [id number] [facility] 2022-05-16 07:43:41 2022-05-16 07:43:41 Hospital Encounter Josiane Montero. [facility] 1.2.840.114 350.1.13.10 4.2.7.2.686 [id number] [facility] 2022-05-16 07:43:41 2022-05-16 07:43:41 Hospital Encounter Josiane Montero. 1.2.840.1 46966.1.1 3.104.2.7 .3.041738 .8 [id number] [facility] 2022-05-16 07:42:46 2022-05-16 07:42:46 Outpatient R JOSIANE MONTERO [facility] [id number] [facility] 2022-05-16 07:42:46 2022-05-16 07:42:46 Hospital Encounter Josiane Montero JorgeCamille. [facility] 1.2.840.114 350.1.13.10 4.2.7.2.686 [id number] [facility] 2022-05-16 07:42:46 2022-05-16 07:42:46 Hospital Encounter Josiane Montero 1.2.840.1 38949.1.1 3.104.2.7 .3.193315 .8 [id number] [facility] 2022-05-14 00:00:00 2022-05-14 00:00:00 Case Management Mina Huang [facility] 1.2.840.114 350.1.13.10 4.2.7.2.686 [id number] [id number] [facility] 2022-05-14 00:00:00 2022-05-14 00:00:00 Case Management Mina Huang 1.2.840.1 49360.1.1 3.104.2.7 .3.007792 .8 [id number] [facility] 2022-05-10 00:00:00 2022-05-10 00:00:00 Telephone Alberto Mcrae [facility] 1.2.840.114 350.1.13.10 4.2.7.2.686 [id number] [facility] 2022-05-09 00:00:00 2022-05-09 00:00:00 Telephone Mina Huang [facility] 1.2.840.114 350.1.13.10 4.2.7.2.686 [id number] [id number] [facility] 2022-05-09 00:00:00 2022-05-09 00:00:00 Telephone Mina Huang 1.2.840.1 95891.1.1 3.104.2.7 .3.979853 .8 [id number] [facility] 2022-05-07 13:00:00 2022-05-07 14:36:31 Outpatient R WINSTON JOSIANE [facility] [id number] [facility] 2022-05-07 13:00:00 2022-05-07 14:36:31 Office Visit Josiane Montero [facility] 1.2.840.114 350.1.13.10 4.2.7.2.686 [id number] [id number] [facility] 2022-05-07 13:00:00 2022-05-07 14:36:31 Office Visit Josiane Montero 1.2.840.1 40950.1.1 3.104.2.7 .3.286687 .8 [id number] [facility] 2022-05-07 13:00:00 2022-05-07 13:30:00 Office Visit Josiane Montero [facility] 1.2.840.114 350.1.13.10 4.2.7.2.686 [id number] [facility] 2022-05-07 13:00:00 2022-05-07 13:00:00 Outpatient R JOSIANE MONTERO [facility] [id number] [facility] 2022-05-07 13:00:00 2022-05-07 13:00:00 Outpatient R WINSTON [facility] [id number] [facility] 2022-05-07 00:00:00 2022-05-07 00:00:00 Orders Only Doctor Unassigned, Burden [facility] 1.2840.114 350.1.13.10 4.2.7.2.686 [id number] [id number] [facility] 2022-05-07 00:00:00 2022-05-07 00:00:00 Orders Only Doctor Unassigned, Burden 1.2.840.1 08748.1.1 3.104.2.7 .3.922036 .8 [id number] [facility] 2022-05-07 00:00:00 2022-05-07 00:00:00 Patient Secure Mina Corea [facility] 1.2.840.114 350.1.13.10 4.2.7.2.686 [id number] 080 [id number] [facility] 2022-05-07 00:00:00 2022-05-07 00:00:00 Travel 1.2.840.1 30412.1.1 3.104.2.7 .3.480760 .8 1.2.840.114 350.1.13.10 4.2.7.3.698 084.8 [id number] [facility] 2022-05-02 10:30:00 2022-05-02 11:01:18 Outpatient R MACKENZIE PARSONS [facility] [id number] [facility] 2022-05-02 10:30:00 2022-05-02 11:01:18 Office Visit Mackenzie Parsons [facility] 1.2.840.114 350.1.13.10 4.2.7.2.686 [id number] [facility] 2022-05-02 10:30:00 2022-05-02 11:01:18 Office Visit Mackenzie Parsons 1.2.840.1 07057.1.1 3.104.2.7 .3.475720 .8 [id number] [facility] 2022-05-02 00:00:00 2022-05-02 00:00:00 Travel 1.2.840.1 31524.1.1 3.104.2.7 .3.399817 .8 1.2.840.114 350.1.13.10 4.2.7.3.698 084.8 [id number] [facility] 2022-04-29 10:00:00 2022-04-29 17:12:20 Outpatient R NADINE LARSONBridget [facility] [id number] [facility] 2022-04-29 10:00:00 2022-04-29 17:12:20 Office Visit [facility] 1.2.840.114 350.1.13.10 4.2.7.2.686 [id number] [id number] [facility] 2022-04-29 10:00:00 2022-04-29 17:12:20 Office Visit Earl Larson Rp 1.2.840.1 66284.1.1 3.104.2.7 .3.474369 .8 [id number] [facility] 2022-04-29 10:45:00 2022-04-29 11:00:00 Flame Degreaser Visit [facility] Mackenzie Parsons [facility] 1.2.840.114 350.1.13.10 4.2.7.2.686 [id number] [facility] 2022-04-29 10:45:00 2022-04-29 11:00:00 Flame Degreaser Visit Mackenzie Parsons [facility] 1.2.840.1 37540.1.1 3.104.2.7 .3.407653 .8 [id number] [facility] 2022-04-29 10:45:00 2022-04-29 10:45:00 Outpatient R MACKENZIE PARSONS [facility] [id number] [facility] 2022-04-29 10:00:00 2022-04-29 10:00:00 Outpatient R EARL LARSON [facility] [id number] [facility] 2022-04-29 00:00:00 2022-04-29 00:00:00 Travel 1.2.840.1 10494.1.1 3.104.2.7 .3.105513 .8 1.2.840.114 350.1.13.10 4.2.7.3.698 084.8 [id number] [facility] 2022-04-26 00:00:00 2022-04-26 00:00:00 Telephone Mackenzie Parsons [facility] 1.2.840.114 350.1.13.10 4.2.7.2.686 [id number] [facility] 2022-04-26 00:00:00 2022-04-26 00:00:00 Telephone Mackenzie Parsons 1.2.840.1 55354.1.1 3.104.2.7 .3.197977 .8 [id number] [facility] 2022-04-25 11:00:00 2022-04-25 13:51:07 Office Visit Alberto Mcrae 1, Bhavani Mda Procedure 1.2.840.1 03923.1.1 3.104.2.7 .3.039426 .8 [id number] [facility] 2022-04-25 11:00:00 2022-04-25 12:00:00 Office Visit Alberto Mcrae 1, Bhavani Mda Procedure [facility] 1.2.840.114 350.1.13.10 4.2.7.2.686 [id number] [facility] 2022-04-25 11:00:00 2022-04-25 11:00:00 Outpatient R ALBERTO MCRAE [facility] [id number] [facility] 2022-04-25 00:00:00 2022-04-25 00:00:00 Travel 1.2.840.1 33309.1.1 3.104.2.7 .3.961692 .8 1.2.840.114 350.1.13.10 4.2.7.3.698 084.8 [id number] [facility] 2022-04-12 08:51:02 2022-04-12 23:59:00 Outpatient R ALBERTO MCRAE [facility] [id number] [facility] 2022-04-12 08:51:02 2022-04-12 23:59:00 Hospital Encounter lAberto Mcrae [facility] 1.2840.114 350.1.13.10 4.2.7.2.686 [id number] [facility] 2022-04-12 08:51:02 2022-04-12 23:59:00 Hospital Encounter Alberto Mcrae 1.840.1 78114.1.1 3.104.2.7 .3.657443 .8 [id number] [facility] 2022-04-12 00:00:00 2022-04-12 00:00:00 Orders Only Doctor Unassigned, Burden [facility] 1.20.114 350.1.13.10 4.2.7.2.686 [id number] [id number] [facility] 2022-04-12 00:00:00 2022-04-12 00:00:00 Orders Only Doctor Unassigned, Burden 1.840.1 83769.1.1 3.104.2.7 .3.127498 .8 [id number] [facility] 2022-04-05 00:00:00 2022-04-05 00:00:00 Patient Secure Msg Doctor Unassigned, Burden [facility] 1.2840.114 350.1.13.10 4.2.7.2.686 [id number] [facility] 2022-04-04 23:59:59 2022-04-04 23:59:59 Anesthesia Event Goyo De La O 1.2840.1 02078.1.1 3.104.2.7 .3.226374 .8 [id number] [facility] 2022-04-04 23:59:59 2022-04-04 23:59:59 Anesthesia Event Goyo De La O 1.2.840.1 14083.1.1 3.104.2.7 .3.079213 .8 [id number] [facility] 2022-04-04 10:30:00 2022-04-04 10:45:00 Office Visit Alberto Mcrae [facility] 1.2.840.114 350.1.13.10 4.2.7.2.686 [id number] [facility] 2022-04-04 10:30:00 2022-04-04 10:45:00 Office Visit Alberto Mcrae 1.2.840.1 70003.1.1 3.104.2.7 .3.452968 .8 [id number] [facility] 2022-04-04 10:30:00 2022-04-04 10:30:00 Outpatient R ALBERTO MCRAE [facility] [id number] [facility] 2022-04-04 10:30:00 2022-04-04 10:30:00 Outpatient ALBERTO DURHAM [facility] [id number] [facility] 2022-04-04 00:00:00 2022-04-04 00:00:00 Travel 1.2.840.1 10750.1.1 3.104.2.7 .3.315433 .8 1.2.840.114 350.1.13.10 4.2.7.3.698 084.8 [id number] [facility] 2022-03-21 16:30:00 2022-03-21 16:30:00 Outpatient ALBERTO DURHAM [facility] [id number] [facility] 2022-03-21 00:00:00 2022-03-21 00:00:00 Telephone Alberto Mcrae [facility] 1.2.840.114 350.1.13.10 4.2.7.2.686 [id number] 204 [id number] [facility] 2022-03-21 00:00:00 2022-03-21 00:00:00 Telephone Alberto Mcrae 1.2.840.1 20450.1.1 3.104.2.7 .3.536255 .8 [id number] [facility] 2022-02-26 00:00:00 2022-02-26 00:00:00 Telephone Alberto Mcrae [facility] 1.2.840.114 350.1.13.10 4.2.7.2.686 [id number] 204 [id number] [facility] 2022-02-26 00:00:00 2022-02-26 00:00:00 Telephone Alberto Mcrae 1.2.840.1 82548.1.1 3.104.2.7 .3.247114 .8 [id number] [facility] 2022-02-15 00:00:00 2022-02-15 00:00:00 Telephone Alberto Mcrae [facility] 1.2.840.114 350.1.13.10 4.2.7.2.686 [id number] [facility] 2022-02-14 09:45:00 2022-02-14 09:45:00 Outpatient ALBERTO DURHAM [facility] [id number] [facility] 2022-01-29 09:24:53 2022-01-29 23:59:00 Hospital Mina Garcia [facility] 1.2.840.114 350.1.13.10 4.2.7.2.686 [id number] [facility] 2022-01-29 09:24:32 2022-01-29 23:59:00 Outpatient MINA BRITT [facility] [id number] [facility] 2022-01-29 09:24:32 2022-01-29 23:59:00 Hospital Encounter Mina Huang [facility] 1.2840.114 350.1.13.10 4.2.7.2.686 [id number] [facility] 2022-01-23 11:30:00 2022-01-23 13:00:00 Nurse Visit 2, [facility] Infusion Chair Gene Nadinebridget [facility] 1.20.114 350.1.13.10 4.2.7.2.686 [id number] 053 [id number] [facility] 2022-01-23 11:30:00 2022-01-23 11:30:00 [facility] [id number] 2022-01-23 11:30:00 2022-01-23 11:30:00 [facility] [id number] [facility] 2022-01-22 10:30:00 2022-01-22 10:45:00 Flame Degreaser Visit Pob, Adc Lab Main Earl Larson [facility] 1.84.114 350.1.13.10 4.2.7.2.686 [id number] [facility] 2022-01-22 10:30:00 2022-01-22 10:30:00 [facility] [id number] [facility] 2022-01-16 13:30:00 2022-01-16 15:30:00 Nurse Visit 3, [facility] Infusion Chair Gene, Nadinebridget [facility] 1.2.114 350.1.13.10 4.2.7.2.686 [id number] [facility] 2022-01-16 13:30:00 2022-01-16 13:30:00 Outpatient EARL GUIDRY [facility] [id number] [facility] 2022-01-16 13:30:00 2022-01-16 13:30:00 Outpatient EARL GUIDRY [facility] [id number] [facility] 2022-01-15 14:00:00 2022-01-15 15:00:00 Telemedici ne Visit Mina Huang [facility] 1.114 350.1.13.10 4.2.7.2.686 [id number] [facility] 2022-01-15 14:00:00 2022-01-15 14:00:00 Outpatient MINA BRITT [facility] [id number] [facility] 2022-01-15 13:00:00 2022-01-15 13:00:00 Outpatient MINA BRITT [facility] [id number] [facility] 2022-01-15 10:15:00 2022-01-15 10:30:00 Flame Degreaser Visit Pob, Adc Lab Main Earl Larson [facility] 1.114 350.1.13.10 4.2.7.2.686 [id number] [facility] 2022-01-15 10:15:00 2022-01-15 10:15:00 Outpatient EARL GUIDRY [facility] [id number] [facility] 2022-01-15 00:00:00 2022-01-15 00:00:00 Orders Only Doctor Unassigned, Burden [facility] 1.114 350.1.13.10 4.2.7.2.686 [id number] [id number] [facility] 2022-01-02 11:30:00 2022-01-02 15:00:00 Nurse Visit 5, [facility] Infusion Chair Earl Larson [facility] 1.2.840.114 350.1.13.10 4.2.7.2.686 [id number] [id number] [facility] 2022-01-02 11:30:00 2022-01-02 15:00:00 Nurse Visit 5, [facility] Infusion Chair Earl Larson [facility] 1.0.114 350.1.13.10 4.2.7.2.686 [id number] [facility] 2022-01-02 11:30:00 2022-01-02 11:30:00 [facility] [id number] [facility] 2022-01-02 11:30:00 2022-01-02 11:30:00 [facility] [id number] [facility] 2022-01-01 10:30:00 2022-01-01 10:45:00 Flame Degreaser Visit Pob, Adc Lab Main Nadine Larsonbridget [facility] 1.840.114 350.1.13.10 4.2.7.2.686 [id number] [facility] 2022-01-01 10:30:00 2022-01-01 10:30:00 Outpatient R [facility] [id number] [facility] 2022-01-01 10:30:00 2022-01-01 10:30:00 [facility] [id number] [facility] 2022-01-01 10:30:00 2022-01-01 10:30:00 [facility] [id number] [facility] 2022-01-01 00:00:00 2022-01-01 00:00:00 Orders Only Doctor Unassigned, Burden [facility] 1.840.114 350.1.13.10 4.2.7.2.686 [id number] [facility] 2021-12-26 13:00:00 2021-12-26 15:00:00 Nurse Visit 7, [facility] Infusion Chair Nadine Larsonbridget [facility] 1.2.840.114 350.1.13.10 4.2.7.2.686 [id number] [facility] 2021-12-26 13:00:00 2021-12-26 13:00:00 Outpatient R GENE NADINEBridget [facility] [id number] [facility] 2021-12-26 13:00:00 2021-12-26 13:00:00 [facility] [id number] [facility] 2021-12-24 11:20:00 2021-12-24 16:04:50 Office Visit GeneEarl kaur [facility] 1..840.114 350.1.13.10 4.2.7.2.686 [id number] [facility] 2021-12-24 11:20:00 2021-12-24 16:04:50 [facility] [id number] [facility] 2021-12-24 11:20:00 2021-12-24 16:04:50 [facility] [id number] [facility] 2021-12-24 11:20:00 2021-12-24 16:04:50 Office Visit Gene, Nadinebridget [facility] 1.2.840.114 350.1.13.10 4.2.7.2.686 [id number] [facility] 2021-12-24 11:20:00 2021-12-24 11:20:00 Outpatient R GENE NADINEBridget [facility] [id number] [facility] 2021-12-24 10:30:00 2021-12-24 11:03:50 [facility] [id number] [facility] 2021-12-24 10:30:00 2021-12-24 10:45:00 Flame Degreaser Visit [facility] Earl Larson [facility] 1.2.840.114 350.1.13.10 4.2.7.2.686 [id number] [facility] 2021-12-14 00:00:00 2021-12-14 00:00:[address] [facility] 1.2.840.114 350.1.13.10 4.2.7.2.686 [id number] [id number] [facility] 2021-12-12 12:30:00 2021-12-12 16:00:00 Nurse Visit 1, [facility] Infusion Chair Nadine Larsonbridget [facility] 1.2.840.114 350.1.13.10 4.2.7.2.686 [id number] [facility] 2021-12-12 12:30:00 2021-12-12 12:30:00 [facility] [id number] [facility] 2021-12-12 12:30:00 2021-12-12 12:30:00 Outpatient R NADINE LARSONBridget [facility] [id number] [facility] 2021-12-11 11:30:00 2021-12-11 11:45:00 Flame Degreaser Visit Pob, Adc Lab Main Nadine Larsonbridget [facility] 1.2.840.114 350.1.13.10 4.2.7.2.686 [id number] [facility] 2021-12-11 11:30:00 2021-12-11 11:30:00 Outpatient R GENE NADINEBridget [facility] [id number] [facility] 2021-12-05 13:00:00 2021-12-05 14:30:00 Nurse Visit 3, [facility] Infusion Chair Mina Huang [facility] 1..840.114 350.1.13.10 4.2.7.2.686 [id number] [facility] 2021-12-05 13:00:00 2021-12-05 13:00:00 [facility] [id number] 2021-12-05 13:00:00 2021-12-05 13:00:00 Outpatient R SAL [facility] [id number] [facility] 2021-12-05 13:00:00 2021-12-05 13:00:00 Outpatient R SAL [facility] [id number] [facility] 2021-12-04 10:00:00 2021-12-04 10:15:00 Flame Degreaser Visit [facility]ob[facility]..840.114 350.1.13.10 4.2.7.2.686 [id number] [facility] 2021-12-04 10:00:00 2021-12-04 10:00:00 [facility] [id number] [facility] 2021-12-04 10:00:00 2021-12-04 10:00:00 Outpatient R SAL [facility] [id number] [facility] 2021-11-30 10:20:00 2021-11-30 10:40:00 Telemedici ne Visit Earl Larson Rp [facility] 1.2.840.114 350.1.13.10 4.2.7.2.686 [id number] [facility] 2021-11-30 10:20:00 2021-11-30 10:20:00 Outpatient R EARL LARSON [facility] [id number] [facility] 2021-11-30 10:20:00 2021-11-30 10:20:00 [facility] [id number] [facility] 2021-11-28 00:00:00 2021-11-28 00:00:00 Telephone Farhana Grover [facility] 1.2.840.114 350.1.13.10 4.2.7.2.686 [id number] [facility] 2021-11-27 10:30:00 2021-11-27 10:30:00 [facility] [id number] [facility] 2021-11-27 10:30:00 2021-11-27 10:30:00 Outpatient [facility] [id number] [facility] 2021-11-23 10:00:00 2021-11-23 10:00:00 [facility] [id number] [facility] 2021-11-23 10:00:00 2021-11-23 10:00:00 [facility] [id number] [facility] 2021-11-19 10:30:00 2021-11-19 10:30:00 Outpatient EARL GUIDRY [facility] [id number] [facility] 2021-11-19 10:30:00 2021-11-19 10:30:00 Flame Degreaser Visit Pob, Adc Lab Main Earl Larson [facility] 1.2.840.114 350.1.13.10 4.2.7.2.686 [id number] [facility] 2021-11-19 10:30:00 2021-11-19 10:25:29 Outpatient EARL GUIDRY [facility] [id number] [facility] 2021-11-14 11:30:00 2021-11-14 13:00:00 Nurse Visit 3, [facility] In[facility] 1.2.840.114 350.1.13.10 4.2.7.2.686 [id number] [facility] 2021-11-14 11:30:00 2021-11-14 11:30:00 Outpatient R MINA HAUNG [facility] [id number] [facility] 2021-11-14 11:30:00 2021-11-14 11:30:00 Outpatient R MINA HUANG [facility] [id number] [facility] 2021-11-14 00:00:00 2021-11-14 00:00:00 Refill Farhana Grover [facility] 1..840.114 350.1.13.10 4.2.7.2.686 [id number] [facility] 2021-11-05 11:00:00 2021-11-05 11:15:00 Flame Degreaser Visit Pob, Adc Lab Main Earl Larson Rp [facility] 1..840.114 350.1.13.10 4.2.7.2.686 [id number] [facility] 2021-11-05 11:00:00 2021-11-05 11:00:00 Outpatient EARL GUIDRY [facility] [id number] [facility] 2021-11-05 11:00:00 2021-11-05 11:00:00 Outpatient EARL GUIDRY [facility] [id number] [facility] 2021-11-02 00:00:00 2021-11-02 00:00:00 Case Management Mina Huang BUILDING 1..840.114 350.1.13.10 4.2.7.2.686 [id number] [facility] 2021-11-01 12:30:00 2021-11-01 14:30:00 Nurse Visit 5, [facility] Infusion Chair Earl Larson [facility] 1.0.114 350.1.13.10 4.2.7.2.686 [id number] [facility] 2021-11-01 12:30:00 2021-11-01 12:30:00 [id number] 2021-11-01 12:30:00 2021-11-01 12:30:00 [facility] [id number] [facility] 2021-11-01 00:00:00 2021-11-01 00:00:00 Orders Only Doctor Unassigned, Burden [facility] 1.2840.114 350.1.13.10 4.2.7.2.686 [id number] [facility] 2021-10-30 00:00:00 2021-10-30 00:00:00 [facility] 1.2840.114 350.1.13.10 4.2.7.2.686 [id number] [facility] 2021-10-30 00:00:00 2021-10-30 00:00:00 [facility] 1.2840.114 350.1.13.10 4.2.7.2.686 [id number] [facility] 2021-10-24 08:08:05 2021-10-24 23:59:00 Hospital Encounter GeneEarl kaur [facility] 1.2840.114 350.1.13.10 4.2.7.2.686 [id number] [facility] 2021-10-24 09:00:00 2021-10-24 09:15:00 Flame Degreaser Visit Pob, Adc Lab Main Earl Larson Replaced by [facility] 1.2840.114 350.1.13.10 4.2.7.2.686 [id number] [facility] 2021-10-24 09:00:00 2021-10-24 09:00:00 Outpatient R EARL LARSON [facility] [id number] [facility] 2021-10-24 09:00:00 2021-10-24 09:00:00 [facility] [id number] [facility] 2021-10-19 10:45:00 2021-10-19 11:00:00 Flame Degreaser Visit [facility] Earl Larson [facility] 1.840.114 350.1.13.10 4.2.7.2.686 [id number] [facility] 2021-10-19 10:20:00 2021-10-19 10:40:00 Office Visit Nadine Larsonbridget VALDE[facility] 1..840.114 350.1.13.10 4.2.7.2.686 [id number] [facility] 2021-10-19 10:20:00 2021-10-19 10:20:00 [facility] [id number] [facility] 2021-10-19 10:20:00 2021-10-19 10:13:50 [facility] [id number] [facility] 2021-10-19 10:20:00 2021-10-19 10:13:50 Outpatient R GENE [facility] [id number] [facility] 2021-10-19 00:00:00 2021-10-19 00:00:00 Patient Outreach Quinn [facility] 1..840.114 350.1.13.10 4.2.7.2.686 [id number] [facility] 2021-09-28 00:00:00 2021-09-28 00:00:00 Telephone Earl Larson Rp [facility] 1.2.840.114 350.1.13.10 4.2.7.2.686 [id number] [facility] 2021-09-28 00:00:00 2021-09-28 00:00:[address] [facility] 1.2.840.114 350.1.13.10 4.2.7.2.686 [id number] [facility] 2021-09-26 00:00:00 2021-09-26 00:00:00 Multidisci plinary Conference [facility] 1.2.840.114 350.1.13.10 4.2.7.2.686 [id number] [facility] 2021-09-20 16:30:00 2021-09-20 16:45:00 Telemedici ne Visit Alberto Mcrae [facility] 1.2.840.114 350.1.13.10 4.2.7.2.686 [id number] [facility] 2021-09-20 16:30:00 2021-09-20 16:30:00 Outpatient R ALBERTO MCRAE [facility] [id number] [facility] 2021-09-20 16:30:00 2021-09-20 16:30:00 Outpatient ALBERTO DURHAM [facility] [id number] [facility] 2021-09-20 16:30:00 2021-09-20 16:30:00 Outpatient Dustin MCRAE ALBERTO [facility] [id number] [facility] 2021-09-17 00:00:00 2021-09-17 00:00:00 Telephone Earl Larson Rp [facility] 1.2840.114 350.1.13.10 4.2.7.2.686 [id number] [facility] 2021-09-17 00:00:00 2021-09-17 00:00:00 [facility] 1.2.840.114 350.1.13.10 4.2.7.2.686 [id number] [facility] 2021-08-28 00:00:00 2021-08-28 00:00:00 Orders Only Doctor Unassigned, Burden [facility] 1.2.840.114 350.1.13.10 4.2.7.2.686 [id number] [id number] [facility] 2021-08-27 10:00:00 2021-08-27 10:38:07 Outpatient EARL GUIDRY [facility] [id number] [facility] 2021-08-27 09:51:36 2021-08-27 10:38:07 [facility] 1.2840.114 350.1.13.10 4.2.7.2.686 [id number] [facility] 2021-08-22 09:02:09 2021-08-22 09:17:09 Flame Degreaser Visit Pob, Adc Lab Main Earl Larson [facility] BUILDING 1.2840.114 350.1.13.10 4.2.7.2.686 [id number] [facility] 2021-08-22 09:00:00 2021-08-22 09:00:00 Outpatient R EARL LARSON [facility] [id number] [facility] 2021-08-22 00:00:00 2021-08-22 00:00:00 Case Management [facility] 1.2840.114 350.1.13.10 4.2.7.2.686 [id number] [facility] 2021-08-15 09:46:39 2021-08-15 23:59:00 Hospital Encounter Earl Larson [facility] 1.2840.114 350.1.13.10 4.2.7.2.686 [id number] [facility] 2021-08-15 09:46:03 2021-08-15 23:59:00 Outpatient R NADINE LARSONBridget [facility] [id number] [facility] 2021-08-15 09:46:03 2021-08-15 23:59:00 Hospital Encounter Earl Larson [facility] 1.840.114 350.1.13.10 4.2.7.2.686 [id number] [facility] 2021-08-06 00:00:00 2021-08-06 00:00:00 Telephone Mina Huang [facility] 1..840.114 350.1.13.10 4.2.7.2.686 [id number] [facility] 2021-08-02 16:15:00 2021-08-02 16:15:00 Outpatient ALBERTO DURHAM [facility] [id number] [facility] 2021-08-02 13:18:24 2021-08-02 13:33:24 Telemedici ne Visit Alberto Mcrae [facility] 1..840.114 350.1.13.10 4.2.7.2.686 [id number] [facility] 2021-07-31 14:05:52 2021-07-31 23:59:00 Outpatient ALBERTO DURHAM [facility] [id number] [facility] 2021-07-31 14:05:52 2021-07-31 23:59:00 Outpatient ALBERTO DURHAM [facility] [id number] [facility] 2021-07-31 14:00:00 2021-07-31 23:59:00 Hospital Encounter Alberto Mcrae [facility] 1.2840.114 350.1.13.10 4.2.7.2.686 [id number] [facility] 2021-07-31 00:00:00 2021-07-31 00:00:00 Outpatient R ALBERTO MCRAE [facility] [id number] [facility] 2021-07-30 10:00:00 2021-07-30 10:45:45 Outpatient R EARL LARSON [facility] [id number] [facility] 2021-07-30 10:00:00 2021-07-30 10:45:45 Outpatient R EARL LARSON [facility] [id number] [facility] 2021-07-30 09:39:15 2021-07-30 10:45:45 Office Visit Earl Larson [facility] 1.840.114 350.1.13.10 4.2.7.2.686 [id number] [facility] 2021-07-30 00:00:00 2021-07-30 00:00:00 Orders Only Doctor Unassigned, Burden [facility] 1.840.114 350.1.13.10 4.2.7.2.686 [id number] [id number] [facility] 2021-07-26 09:40:49 2021-07-26 09:55:49 Office Visit Alberto Mcrae [facility] 1.840.114 350.1.13.10 4.2.7.2.686 [id number] [facility] 2021-07-26 09:00:00 2021-07-26 09:00:00 Outpatient R ALBERTO MCRAE [facility] [id number] [facility] 2021-07-26 09:00:00 2021-07-26 09:00:00 Outpatient R ALBERTO MCRAE [facility] [id number] [facility] 2021-07-26 09:00:00 2021-07-26 09:00:00 Outpatient R CLEMENTINA ALBERTO [facility] [id number] [facility] 2021-07-26 09:00:00 2021-07-26 09:00:00 Outpatient R ALBERTO MCRAE [facility] [id number] [facility] 2021-07-26 09:00:00 2021-07-26 09:00:00 Outpatient R ALBERTO MCRAE [facility] [id number] [facility] 2021-07-24 07:44:00 2021-07-24 16:10:00 Hospital Encounter Alberto Mcrae [facility] 1..840.114 350.1.13.10 4.2.7.2.686 [id number] [facility] 2021-07-24 07:44:00 2021-07-24 16:10:00 Outpatient R ALBERTO MCRAE [facility] [id number] [facility] 2021-07-24 07:44:00 2021-07-24 16:10:00 Outpatient ALBERTO DURHAM [facility] [id number] [facility] 2021-07-24 09:23:00 2021-07-24 11:41:00 Surgery Alberto Mcrae [facility] 1..840.114 350.1.13.10 4.2.7.2.686 [id number] [facility] 2021-07-24 00:00:00 2021-07-24 00:00:00 Orders Only Doctor Unassigned, Burden [facility] 1..840.114 350.1.13.10 4.2.7.2.686 [id number] [id number] [facility] 2021-07-23 09:49:49 2021-07-23 10:04:49 Laboratory Only Only, Adc Test Colleen [facility] 1.114 350.1.13.10 4.2.7.2.686 [id number] [facility] 2021-07-23 09:30:00 2021-07-23 09:30:00 Outpatient R [facility] [id number] [facility] 2021-07-23 00:00:00 2021-07-23 00:00:00 Orders Only Doctor Unassigned, Burden [facility] 1.114 350.1.13.10 4.2.7.2.686 [id number] [id number] [facility] 2021-07-05 13:00:00 2021-07-05 13:00:00 Outpatient ALBERTO DURHAM [facility] [id number] [facility] 2021-07-05 12:20:32 2021-07-05 12:50:32 Office Visit Alberto Mcrae [facility] 1.114 350.1.13.10 4.2.7.2.686 [id number] [facility] 2021-06-28 09:53:52 2021-06-28 10:08:52 Flame Degreaser Visit Pob, Adc Lab Main [facility] 1.114 350.1.13.10 4.2.7.2.686 [id number] [facility] 2021-06-28 10:00:00 2021-06-28 10:00:00 Outpatient R ANJALI [facility] [id number] [facility] 2021-06-28 00:00:00 2021-06-28 00:00:00 Orders Only Doctor Unassigned, Burden [facility] 1.114 350.1.13.10 4.2.7.2.686 [id number] [id number] [facility] 2021-06-27 00:00:00 2021-06-27 00:00:00 Telephone [facility] 1.2.840.114 350.1.13.10 4.2.7.2.686 [id number] [facility] 2021-06-18 08:35:44 2021-06-18 08:50:44 Flame Degreaser Visit Pob, Adc Lab Main [facility] Building 1.2.840.114 350.1.13.10 4.2.7.2.686 [id number] [facility] 2021-06-18 08:45:00 2021-06-18 08:45:00 Out[facility] [id number] [facility] 2021-06-15 00:00:00 2021-06-15 00:00:00 Telephone [facility] 1.2.840.114 350.1.13.10 4.2.7.2.686 [id number] [facility] 2021-06-13 00:00:00 2021-06-13 00:00:00 Telephone [facility] Building 1.2.840.114 350.1.13.10 4.2.7.2.686 [id number] [facility] 2021-06-12 00:00:00 2021-06-12 00:00:00 Telephone [facility] 1.2.840.114 350.1.13.10 4.2.7.2.686 [id number] [id number] [facility] 2021-06-11 11:18:43 2021-06-11 11:33:43 Flame Degreaser Visit 2, Adc Lab Anjali Pranay [facility] Building 1.2.840.114 350.1.13.10 4.2.7.2.686 [id number] [facility] 2021-06-11 11:18:43 2021-06-11 11:33:43 Flame Degreaser Visit 2, [facility] Kelly[place]get Pranay [facility] Building 1.2.840.114 350.1.13.10 4.2.7.2.686 [id number] [facility] 2021-06-11 09:55:45 2021-06-11 11:11:05 Office Visit Pranay Davies , [facility] Surg Spec Procedure [facility] 1.2.840.114 350.1.13.10 4.2.7.2.686 [id number] [facility] 2021-06-11 10:00:00 2021-06-11 10:00:00 Outpatient R KELLYBridget PRANAY [facility] [id number] [facility] 2021-06-11 00:00:00 2021-06-11 00:00:00 Orders Only Doctor Unassigned, Burden [facility] 1.2.840.114 350.1.13.10 4.2.7.2.686 [id number] [id number] [facility] 2021-06-07 00:00:00 2021-06-07 00:00:00 Telephone Farhana Grover [facility] 1.2840.114 350.1.13.10 4.2.7.2.686 [id number] [facility] 2021-06-07 00:00:00 2021-06-07 00:00:00 Telephone Farhana Grover [facility] Building 1.2840.114 350.1.13.10 4.2.7.2.686 [id number] [facility] 2021-06-06 10:26:33 2021-06-06 10:41:33 Flame Degreaser Visit Pob, Adc Lab Main Farhana Grover [facility] [place] [facility] [facility] 1.2840.114 350.1.13.10 4.2.7.2.686 [id number] [facility] 2021-06-06 10:26:33 2021-06-06 10:41:33 Flame Degreaser Visit Pob, Adc Lab Main Farhana Grover [facility] 1.2840.114 350.1.13.10 4.2.7.2.686 [id number] [facility] 2021-06-06 10:30:00 2021-06-06 10:30:00 Outpatient R FARHANA GROVER [facility] [id number] [facility] 2021-06-04 08:00:00 2021-06-04 08:00:00 Outpatient R PRANAY DAVIES [facility] [id number] [facility] 2021-06-04 00:00:00 2021-06-04 00:00:00 Telephone [facility] 1.284.114 350.1.13.10 4.2.7.2.686 [id number] [facility] 2021-06-04 00:00:00 2021-06-04 00:00:00 Telephone Farhana Grover [facility] 1.2840.114 350.1.13.10 4.2.7.2.686 [id number] [facility] 2021-05-31 00:00:00 2021-05-31 00:00:00 Telephone [facility] Gro[facility] 1.2840.114 350.1.13.10 4.2.7.2.686 [id number] [facility] 2021-05-31 00:00:00 2021-05-31 00:00:00 Telephone Farhana Grover [facility] Building 1.2.840.114 350.1.13.10 4.2.7.2.686 [id number] [facility] 2021-05-25 10:30:00 2021-05-25 10:30:00 Outpatient R FARHANA GROVER [facility] [id number] [facility] 2021-05-25 10:09:13 2021-05-25 10:24:13 Flame Degreaser Visit Pob, Adc Lab Main Farhana Grover [facility] Building 1.2.840.114 350.1.13.10 4.2.7.2.686 [id number] [facility] 2021-05-25 10:09:13 2021-05-25 10:24:13 Flame Degreaser Visit Pob, Adc Lab Main Farhana Grvoer [facility] Building 1.2840.114 350.1.13.10 4.2.7.2.686 [id number] [facility] 2021-05-25 00:00:00 2021-05-25 00:00:00 Orders Only Doctor Unassigned, Burden [facility] 1.2840.114 350.1.13.10 4.2.7.2.686 [id number] [id number] [facility] 2021-05-25 00:00:00 2021-05-25 00:00:00 Orders Only Doctor Unassigned, Burden [facility] 1.2840.114 350.1.13.10 4.2.7.2.686 [id number] [id number] [facility] 2021-05-15 00:00:00 2021-05-15 00:00:00 Case Management Farhana Grover [facility] 1.2840.114 350.1.13.10 4.2.7.2.686 [id number] 204 [id number] [facility] 2021-05-15 00:00:00 2021-05-15 00:00:00 Case Management Farhana Grover [facility] 1.2840.114 350.1.13.10 4.2.7.2.686 [id number] [facility] 2021-05-08 00:00:00 2021-05-08 00:00:00 Orders Only Doctor Unassigned, Burden [facility] 1.2840.114 350.1.13.10 4.2.7.2.686 [id number] [id number] [facility] 2021-05-08 00:00:00 2021-05-08 00:00:00 Orders Only Doctor Unassigned, Burden [facility] 1.2840.114 350.1.13.10 4.2.7.2.686 [id number] [id number] [facility] 2021-04-26 09:20:59 2021-04-26 10:02:28 Office Visit Pranay Davies Rm, Adc Surg Spec Procedure [facility] 1.2840.114 350.1.13.10 4.2.7.2.686 [id number] [facility] 2021-04-26 09:30:00 2021-04-26 09:30:00 Outpatient R PRANAY DAVIES [facility] [id number] [facility] 2021-04-26 00:00:00 2021-04-26 00:00:00 Orders Only Doctor Unassigned, Burden [facility] 1.2840.114 350.1.13.10 4.2.7.2.686 [id number] [id number] [facility] 2021-04-24 10:13:04 2021-04-24 10:28:04 Nurse Visit Nurse, [facility] Surgery Faculty [facility] 1.2.840.114 350.1.13.10 4.2.7.2.686 [id number] [facility] 2021-04-24 10:00:00 2021-04-24 10:00:00 Outpatient R ANJALI [facility] [id number] [facility] 2021-04-24 00:00:00 2021-04-24 00:00:00 Telephone Anjali [facility] 1.2.840.114 350.1.13.10 4.2.7.2.686 [id number] [facility] 2021-04-24 00:00:00 2021-04-24 00:00:00 Telephone Anjali [facility] 1.2.840.114 350.1.13.10 4.2.7.2.686 [id number] [facility] 2021-04-09 00:00:00 2021-04-09 00:00:00 Outpatient R FARHANA GROVER [facility] [id number] [facility] 2021-04-04 00:00:00 2021-04-04 00:00:00 Case Management Farhana Grover [facility] 1.2.840.114 350.1.13.10 4.2.7.2.686 [id number] [facility] 2021-03-27 09:14:56 2021-03-27 23:59:00 Hospital Encounter Farhana Grover [facility] 1.2.840.114 350.1.13.10 4.2.7.2.686 [id number] [facility] 2021-03-27 00:00:00 2021-03-27 00:00:00 Outpatient R FARHANA GROVER [facility] [id number] [facility] 2021-03-21 08:53:31 2021-03-21 09:44:44 Office Visit Farhana Grover [address].840.114 350.1.13.10 4.2.7.2.686 [id number] [facility] 2021-03-21 09:30:00 2021-03-21 09:30:00 Outpatient R FARHANA GROVER [facility] [id number] [facility] 2020-12-21 13:54:08 2020-12-21 15:56:02 Office Visit [place] [address].2.840.114 350.1.13.10 4.2.7.2.686 [id number] [facility] 2020-12-21 14:15:00 2020-12-21 14:15:00 [id number] 2020-12-21 00:00:00 2020-12-21 00:00:00 Orders Only Doctor Unassigned, Burden [facility] .2.840.114 350.1.13.10 4.2.7.2.686 [id number] 009 [id number] [facility] Results Test Description Test Time Test Comments Results Result Co mments Source SURGICAL PATHOLOGY [id number] 20:39:51* Test Item Value Reference Range Interpretation Comme nts Case Report (test code = [id number]) Surgical Pathology ?Case: [id number] ? Authorizing Provider: ?Alberto Mcrae MD ? ?Collected: ? 05/21/2022 1542 ?Ordering Location: ? ? [facility] OR ? Received: ?05/21/2022 1722 ? Department ? Pathologist: ? Trip Newsome MD ?Specimens: ? A) - KIDNEY, RIGHT, RIGHT KIDNEY AND RIGHT URETER ? B) - LYMPH NODE, RIGHT PARACAVAL LYMPH NODES ? Final Diagnosis (test code = [id number]) r1cipQUlDZBkh7giUVCpyFMc ZzEwMzNcZnRuYmpcdWMxIHtc omNzJQafyDmgJMArAHRmFY5d oTxgjZj1uCjeUVQcflK7bOHh MZlvp6afIVC3z3hlhfjvKVIz CCmuHk9tqYMqyIkxLhVsRPIm VNz8tM72EPEmgK6gxLOoORd1 XHBhcGVydzEyMjQwXHBhcGVy sJG3EDJhNY2tgdihLPmhNPry ETLojiY6DSRydVOjT3AlALKk YS5vohkwJWT6EIpiOPNoGUW3 QxJpSLRjq8Ukrze8MwIaxCMu ZFxwbGFpblxmczIwXHBhciBB EwIAAEBTHQphDX6GGNOLNMND UiwgUklHSFQsIEhBTkQgQVNT XNRNWCSmJSZXXDVEW1BTLVpL IFJBRElDQUxccGFyICAgICBO ICRMNf3UAkLJTKXYK8CMVMw0 QYKsobIpSNQaIM4wOBEUPNBD XiIBQ02jON8FEDTAIqCpHYjV SCBHUkFERSBQQVBJTExBUlkg RKWODGkMSFhZHPFDZQXAXK8J TUFccGFyICAgICAgLSBVTklG H1FQWAHZFY3LWoYQSXFENUMG TkcgNSBDTSBJTiBHUkVBVEVT HSBOIS3RXlAEZ07opYLbGZFk NCQaTYJGFN8LTpVCY13AXT1I RCBUTyBVUkVURVJccGFyICAg KIDjGRPGIkGZAN3ELY5VYAOC SLlPCzOAGpWHS5hXUpINSCQI AWzBRXXMNQVxewCeRUGfYQ6b UPoFVo1NJMWFEe8LRWLbuYFg TWFkDMOtUROQOpoXGc5XDjKH KPmDKT0HCPcrAUALRAZVV8DB HTXVN9cSYSBBYXOEFK3LG48z J3eTKXaNRXWYE4EZNOWdnyGo YVIcUE6dRXDVB2XrUHVYOZ9A D4bZYhYWGMPDOUGvVRnKLgT1 PFgtKHQTPKuCCsb7WTIDURDq AjWtwO9AQErjKOHcsVBqIOFn MVeMZEKFFK8VWMQaNIRHV1vT IFBBUkFDQVZBTCwgRVhDSVNJ Y147BHUabuJnIYIuIO0sQ59K CNwMJBZRTT7BEHMhG2iGOXPT KuKDFYaKX32BBqZWPJlAVE2X SUZJRUQgKDAvMSlccGFyXHBh gyHWVPQvRJftkX5vEYAEYITb BX2sMiWzZpXsMDM7GJMdHS0a vUNgSJFozi68GKX6RnEgy7F3 DIHyFcYcOLNsOY1xxFjdHVKv GQ3yQJYcS0pmzA3mouo8JsEt ZMNkPkW8BZAateR5Xen0DHLs KGaxx4npv0MsD0DgtZDcdRp7 y3uiYSAnVfO9tNUfLMkcX3wu zeDksJSjFIZtVGy4wGkjQeZu RYMue4pyacWgCsIjDALzSSXw VNXcqCuftcw0fI23ETUieE8u gVLdMJrszbVnGpS1PFsrWTCy TdH6ODJoqHWcJILmW6kgMSGw UWyhBPTdMSashZLdQVT1bPfx q0M5lSHuqEAguLteEyBfMcJj PDYRb9HgKJo7sNdwN5HgYRSi ZbR6oUFyNFGxBNohITNbBTFl txR4eA04UWwuunT0iOTks0Ca g02lh068zJ1uxEInLNA8CHXc NRSwuZAjDRVrSBI7EFHkhFAo S5wjRCNySS3dwoxxAKkoUHcr CJTlpEB7BOMhjEJyF5JqWEYm VVrnYASbikx1MzVmBo2vkXAo pGgqEUmwv9dha9exrQXyNni2 FXGfMvDxFwlaEFmgw5Vkh8jg MWUbhx1zOVM3tMTqcBmon3O6 bGUxXGRudGJsbnNiZGJcZmV0 ADzsXA9msp40JUBrQLM7vg9m rISaaIeadpMgyFFbEFjhS8Ls AULng500CVWpH3YrADNff0U6 lwDvMqPwMFLmfFY9qdK4ZVPw TNh6aEGczhU0flVocUVtY3qv yJ8xFUVkSG4dnmxsa8njSObb HGycOKShdHD3ezI7PUUnsVTt J2DxjF1fRTPyZXuuHJIdlcp1 AzReJw0krJRfvLolFHrqRmof YWdlXHBnbmNvbnRccGduZGVj XHBsYWluXHBsYWluXGYwXGZz UbSunFusnYhzaM3nIlOwXnXz AZqyCG4eGDYlG7tkvKBgNWQu IETcZ0bxHvUiqY6jiLuhOPou ZjJcZnMyMFxwYXIgSSBoYXZl NJHpjjDnyfLlqJpkdiE0gKD8 MSWdZGmsRKJeKTMazMLqhb6g lRhsLPTgQJ8kCTOdbjWqKYzh iXjiVMxcRPD9UDZrzFFhrPKg bWFkZSBieSByZXNpZGVudHMs HEKqbNypj9Rnt9MlkDN7mY2a k9wrt4XgNELsjKQ4CT66wrQ0 qD1oOBPhKP4lDVKqZM1yaVFj eKUqUXEcy25hmFutyeVaDKJe cnQuXHBsYWluXGYyXGZzMjhc bGFuZzEwMzNcaGljaFxmMlxk SiUdJJPcMXcmY5tfKvJjBgYs NYscQGP4dF== Clinical Information (test code = [id number]) 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] Gross Description (test code = [id number]) d1qtcHApHLApbHLANTTxUSLu AK0fcVbhdGk1wFgdVUPxubM4 wWEkJNyns0qpGBG9q4rrxlJD ClxkZWZmMVxwYXBlcncxMjI0 AJmeXRGrxnzqIYw4WPynGBPb nLK8NQLqrYDeI6IzSYDyOD9h yek7HPW1PZbtHZFnViS2UGUk UyTsUpwvMLw6SBSgtgC0Ghh5 FOVyXMMldQAsn2J0HRqsotij BKZpaDPeZ559UVaou8XetZLq DQpccGFyZCANCntcKlxlcGlj r6VetTOtQDoyNXMvKLCbUWdn npehNUz8VWUxZGadmHFuQL5b eNwsBgykfTrgi8XqyOQhTVtu BRPwJMTnOLymYKNxYR0RXeKm TJIjQKN7HCTxMGb3MPy6TX5W GeOkIQWqNQyvOpX5CiAqEEz5 FDijTR8RSNP0NSS5EIK1KGDh QDQdEEKyIPy1TVIbDYsdJQFv aWFsIFxcZnMgMTAgXFxmbCBc SG6icDauxABjlzqoocYiXQPT MKPPVKHHXMThvLBrNG1UMYTj NZmmVYBqrHOCBLJ9BN0rTAJT DmrhfRWxJROiiZqfWGppfV3x NA2RZRx5xyEmMZAlZeRnT9Tg K5tzOB7nNXHmapPdGBZzzSQx ZCBmcmVzaCBsYWJlbGVkIHdp dGggdGhlIHBhdGllbnQncyBu YY6oKULQFFOttE6gWGDiCGNt dLursZLmfCHeMZemPZ9gTGZf F7n1EXArGHFwgdAeAO9eUINq ryOlb2OrMR8qQGUxzhJnuOJe kTOvzRDsAQU2e584JMLlERMz fXAnZwQGnDYkm8sqckR5SBpe sBfcONG7NZVzGLZgeBLrhO7g mTygiHNoTvE5DD9eMTK7piJp ANJyYlPtnSY2ZoFcdGG0EwDv Q57tOCQiDeUkCLW5ArOrHMS9 XePmA88kx5w3sE63lLPiPMPt bmVwaHJpYyBmYXQpLiBUaGUg vPGfwA4wpHberTUbWQNvaO0q KVU8oAQeeYHwaHTnbLEfsJqk tOp2NVX7egovwVSdQE8hMMMi ZSBhbnRlcmlvciBzdXJmYWNl LiNShPMsiNCzpVPcQA5dZWF8 jrTdJUN9PtPuU28dzY5xyGIm C4GvVJupRQ34YB5lPQ01PIPi MEqeTAIuYK5ahMDeBiFFqGOs l6FkA3ssDG9ulADvvK1aGHDd TLByu8DzqJ6bHAIjQADcMAUp uvjpE39oPVCpedEjv4LchnYr IHRvIHJldmVhbCBhIHBvbHlw v2uhAZ7au5NvcG5voBflMTSb WYLhhbRxbV4vcaPlJLKtmNCd untrHX6sDMdpVm9dSQehZN30 HYPgIeSJkOSzoXRcitVkg10t dkZ2hNJqqG9rWh3qGLJvZH0z OBNrHVLcbBShFBdaIX9uTIug uDKdFNDwDSAeHN0oTIStNkPj Y15hg5OrtEdfAGZbDOKzatJd GCMrK9Wjs79reGCtK1taTvKi NOweevPgwWKzey5pb7O6rS19 cyBtYXNzIGluIHRoZSBraWRu JPnpQWT6aAXdPSKescNeEDOw uIJ1BSHcK8sxmBkpRXIvBQUk lhTuqdFrwVHni0SmfCQnehU4 kZKzwrQnHLujxUNhHL6qfFtq RFhniSooFLewldykv8Xgp82z PSaqLJYsQTM8iIUgxgJnu9bt OJ6hNZFcAGJbfZNvUSlsjTRi a1ZiiP2pZLDcOTJfkWLzgfWm vkCzoKTioSSeaK6yprOph38g KGClkZKdUS0CXWSaeuBLPvmg hrOiu0XyOksdZRVnKSgVaERx OiBhbnRlcmlvclxwYXIgDQpS KQQ5ICGlu8OsqzwxsmiiVOSe DQpCbGFjazogdXJldGVyXHBh wrJILjbnVOHyEQiHGPY6aR9w MNCpOXN4DMVdogWNPcGoTiU6 ZWluIGFuZCBhcnRlcnkgbWFy T2ueENPdgqMYAcIyLnZ3ajF0 NQVgiTMaV5ezUVOxrvJZGcUc KTQ2QtWNtD8zjnM0sjE0xrZ3 UXMkDXPpt0ZyMHJdM0Aah27e yWNoTC2LXRM9XKQ2pVheKtEb AXN3wJ7xugpdRVOaVXlQRzuk HHOzhLHjAHTqz7XeUNZoPKlc YM2urOiituZwlsGqKM41WBTy gjAuoILqLT2TFGj4DXewtNEk APObNAYxdVRoAU1GIMlbDZMh CbIDVHZvVZFavvKrrBe5ZHJe eFGpJZerTMBoSWO8hEEhVEI8 t4UmcCAnKP4YGFBglfUTNfMh pZogCW25htghHC7GYVQ7UlAs SnJvPlZoRAS8BnPdKR0voWDs BS0CAFMbavPFFxCiYGW4KSsb fXTsTR4XGX9gLZS6fG1wcmSo FXM7lD3nleK4LFXqKCO8Bo4j aNZkJUXgp6obz4naculioBxw vN6lo6wnSuZfOSEnAIfsm4Qs tJrxUXfseCMcDGvxp2HpgPdx bnMuIFxwYXIgDQpBMTEtQTE1 ReQAUGB3IS3uMAL3zA8iUASi pdVSKcIvAmxlCFBbiFWzRM4r vnskpfqkYLKvUGngtSEtLH5G MGP6lHHYr3DeQigpQFDoCEzt KJ1eCORpPCV9GeTkJBKAWQUc ciANClxlcGljTmVzdERvYzBc zoS7XFBzyBRxOMS4EI7jBUHg gyjyINArGRDtLBN2DApuzQ57 bHQwXGZzMTZccGFyfVxwbGFp hvJXHwflBqigxDwmj1AydMUt WAghIJVfACJgPYstECPnNL3Q LhKkRZWpEWM1PFBkHWe4DVt4 MS5EJwXgGLPbHZyeBkK7TnPz CUn0CZimUJ7EOSM1XIM3LRy0 WiaiJJEzTkdsDLi8VXGqNBhq IEFyaWFsIFxcZnMgMTAgXFxm rXWoUW0gkUlmkIEvbqpvheLi KILDWTOSIJBPEKHluHNcQO9H UNBhUGnzIRTfhGAFIGC7EB1w MSANClxsdHJwYXJcbGluMFxy lH4lEH7PADa1huAuLVXiEjUq B6RlW3lhGE7iRiPkhyTwDANp aXZlZCBmcmVzaCBsYWJlbGVk IHdpdGggdGhlIHBhdGllbnQn zdGmLB0bGIIRIKIanK8sXZYe IGQlbCicnDCmHOJrB7K8QUmv vEyywIfzzd7pIVSaYQQxZDHp s41jfKK8xuQvQiXrJLffClKm YXRlZCBmcmFnbWVudCBvZiBh IPauw7IaSYZgh6W3VUXsTD1w CAhxGJ33BMnpKL2kWIBoMCY8 aGljaCBpcyBwYWxwYWJsZSBm o1Ijkx9cbErjpDlvkd0rUHZq VDTkOYEgmEGqeA4admBnieUq mTJfaBP0MTXhDZ65iVCniPru zP6lKhWcTfHoPOeqHJFhPMty gUBnSR9TQIL2wTDPm9QpXgug TUQgIDgvMzEvMjAyMiAgNDoz MiBQTVxwYXIgDQogDQpcZXBp K46rc7KQd3DiMPHrs4dvdAvl m0EaeFEcSYhgSRWsoGJtGTcf kP3jPiMwt8pdgIq9ZXmfiyP1 CTFcog4owWhtgT1nNVnas3dr DLZ3RAMbvPStzASpYSgtmMpo qV0jBaQzRox6HAwlYHGpV2Qe X1UxxkV5CXUhWUrzSRPlIVAu DQp9 Synoptic Checklist (test code = [id number]) RENAL PELVIS AND URETER: ResectionRENAL PELVIS AND URETER - All [id number] Edition - Protocol posted: 03/21/2021 SPECIMEN ? Procedure: ? ?Nephroureterectomy ? Specimen Laterality: ? ?Right TUMOR ? Tumor Site: ? ?Ureter ? Tumor Size: ? ?Greatest Dimension (Centimeters): 5 cm ? ? Additional Dimension (Centimeters): ? ?3 cm ? ? Additional Dimension (Centimeters): ? ?1.4 cm ? 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 Histologic Grade: ? ?High-grade ? Tumor Extent: ? ?Noninvasive papillary carcinoma ? Lymphovascular Invasion: ? ?Not identified ? Tumor Configuration: ? ?Papillary MARGINS ? Margin Status for Invasive Carcinoma: ? ?Not applicable ? Margin Status for Carcinoma in Situ / Noninvasive Papillary Urothelial Carcinoma: ? ?All margins negative for carcinoma in situ / noninvasive papillary urothelial carcinoma ? ? Closest Margin(s) to Carcinoma in Situ / Noninvasive Papillary Urothelial Carcinoma: ? ?Distal ureteral REGIONAL LYMPH NODES ? Regional Lymph Node Status: ? : ? ?All regional lymph nodes negative for tumor ? ? Number of Lymph Nodes Examined: ? ?1 PATHOLOGIC STAGE CLASSIFICATION (pTNM, AJCC 8th Edition) ? Reporting of pT, pN, and (when applicable) pM categories is based on information available to the pathologist at the time the report is issued. As per the AJCC (Chapter 1, 8th Ed.) it is the managing physician s responsibility to establish the final pathologic stage based upon all pertinent information, including but potentially not limited to this pathology report. ? pT Category: ? ?lead case manager ? pN Category: ? ?pN0 ADDITIONAL FINDINGS ? Associated Epithelial Lesions: ? ?None identified ? Pathologic Findings in Ipsilateral Nonneoplastic Renal Tissue: ? ?Vascular disease: ATHEROSCLEROSIS Disclaimer (test code = [id number]) [id number] ZzEwMzNcZnRuYmpcdWMxIHtc suChQKmpr4SsA4WzQnQqUZwj bnNpXGRlZmxhbmcxMDMzXGZ0 aaMgBEFkWEkaJOBjUMlfCf9b zRPjiKehLvLoYWQgv9kxtoXM ACymVePqZ361FROqSQoea1tv d7SbWCIaxKZvy2C9XTMXbfch qMz9hSlwZ13es4B9EufdM9jb PAPpLRXlZ7VrQF3fYKOnPlq9 JXH6PUC3NUPgPKQwL4YuVB9s KGDjnTWkBGl3j9nqeHnbYBWg ISY7b7zzJNgcytMxMF2bqm5n zOv1c8fmepLlTJHoQHWdqPYZ IIImJ1MqfStfIr9txZg9vBtb OamtGXY0Svy0YA9qnk90lxh0 rXtpKCGlhnmhUnP3UTcmDQGq iepcCSa8RCenPJKlqZA9NCBb pLWdJ0HmBJDbHV5kllw8LYX1 KVrtSJDtYbN6OJZhrISyYJJa cNunSNwag257SLA4VkGyLN5t R0Rhw3S9mZ5dlWYvOBQucVSz QhSpRXMytj4edCWiNZbog3Vp XFZ3ypQ8gMQewDZeJTKfJF50 Gxbgo1PbPlvxs9NaH66swXE5 IJlug9sjFA3fUoA4rwLkPNcl n1tbjB5pXeG8XCkhKV7lDW4s QPKxdP0bhirlZWXeVbZxovxx BWFrlFxuqmCdVz8ihPpgFQK1 ELjbL8sdeT8iHpG7WWlnW4cp lW7eAGo6OKbfnAO3UFPuuF1c MJ8qddyss5llSCtuEGmgHNHt pdP1tyF3RNMkpDFoS7VteK7s RBLcNB6urrtud4jkZZZ2OItr UQNiUCY9CwYfGAGmk4Bsjdy4 JzSdz0MjoTDfYBqoU07xg215 YJSbrjWiV4bplKOydlsweASs zineIQmqjrL3NKPcwiZfb7Hb LXXgCOQ1WEzsPXhhfFXmCMIm gUguh9zkI7LpjHSmFELyEFcm XGYxXGZzMjBcbGFuZzEwMzNc aGljaFxmMVxkYmNoXGYxXGxv Z4sjUfVcM7TjWWMuKdDwvBAb N4rhFRtetbWgIVNuocFvvPB4 FKohG3t1MBGbzdNswDp3dyQd MiNiBDQgDWE3ZSelsJWbUZDd t1NsmfyxkNWhHl2bhABrNGWr nN2zGOOmIUHxEJrnNT1xlId0 NPNNzHFnbKCoBoEHAOTtCU75 hjMrQCHPwdafo6J2XKsfJNWt b4CboLSsZ7vvt1KdDCBmo43z DA5yz9Z2j9ccHXK3QD2rf1Ky UUVewJPvzUQfBIOln0Sfmpsb m7OwOBAoatWdp8ScBHOumoOd rHZlELNkpyMsev0qtoHgIEIh FHLkH2PgsrblhEzunbIpPNBr mf1zzqHlCGG5EEJIHDNnZWVk f5QghW6syCECGMD8tAZjtz4s hiXWbXJeGHImmz79DWDzII5d Y7qnFMDlNKYytmPgwLGdc3Es CHBstXR6yARqUO3PQqCVd16d IGFuZCBEcnVnIEFkbWluaXN0 hmZ2dH9oGSlXLEGrNoc+IFRo CFJZYOOlUL7wvpNpt0QmbnIi tBvaMAWdpNXwq7CaxNTav2Ya yYggo4YchZUeeBQoLV2uZMJe clxwYXIgVVRNQiBMYWJvcmF0 j4SlPKGcEGNqQIL8xZtarwy2 HTFvhB1bCBQzM0skfsaoJVss MWOsd3YhwM5qxDZQfNAhv8Oc bWJisDTFnTKoFB8derZiOSxG JMvYQHL8voGiMWCio5IpCWtk Z3bxE47rrYjonPl6fXN7ONB4 nE4zZxg+IFxwYXJccGFyIEFw mSOoqUNdMNDjxKesvmNfY9Zq zkYgsF1cpZZehmEsJV2fYB9x D4M0vUDzRUYcolMtp1uhPFjj dmUgYmVlbiByZXZpZXdlZCBm n7FcAWhdYAU5HOccvgXwkwWn dWRpbmcgSCZFLCBTcGVjaWFs QBC0OLfwvgEurgQlAF4nxZ7w jVxojI9cfSEshDF9yykeZVPj MHUesGxuXNZyJW0kdZTdUCKo gpCAwGvwxNHliX9dI8JtUFJn GQWgit4rFDQgmT3sPOhzw5Fj lsalYHEfMGRvXYRkikKorr8d JNAdpECRLO1YCWljfMHnn0Wz sxVmS2yRWXY7EIEhLxZpPrji USWjzLYhlFViULZhkz39NUSz tB0feBtzUECetI2yuX5ulTcq nD9xRwCzUkUwKWrtQJ9dKZXt F6wxbWKcJPCcPDTpL2xfFwYn rP2xwNizJVbkQvFrYdQyPTiv YXJ9fQ== Embedded Images (test code = 4233105128) [facility]2022-09-06 12:10:29* Test Item Value Reference Range Interpretation Comme nts MAGNESIUM (test code = 4008430355) 2.1 mg/dL 1.7-2.4 Lab Interpretation (test cod e = 30995-1) [facility]:10:29* Test Item Value Reference Range Interpretation Comme nts PHOSPHORUS (test code = 8647012356) 3.2 mg/dL 2.5-5 Lab Interpretation (test cod e = 43613-1) Normal [facility] METABOLIC PANEL (NA, K, CL, CO2, GLUCOSE, BUN, CREATININE, CA)2022-05-28 08:05:09* Test Item Value Reference Range Interpretation Comme nts NA (test code = 7504003038) 134 mmol/L 135-145 L K (test code = 9876032476) 3.4 mmol/L 3.5-5 L CL (test code = 3906932795) 105 mmol/L 98-108 CO2 TOTAL (test code = 8088298543) 25 mmol/L 23-31 AGAP (test code = 6090293200) 2-16 BUN (test code = 3978797951) 41 mg/dL 7-23 H GLUCOSE (test code = 9945485058) 92 mg/dL 70-110 CREATININE (test code = 1165577081) 3.79 mg/dL 0.6-1.25 H CALCIUM (test code = 8681173839) 8.3 mg/dL 8.6-10.6 L eGFR (test code = 6332663341) mL/min/1.73m2 LAMAR (test code = LAMAR) Association [...] imaging tests). Lab Interpretation (test code = 52761-5) Abnormal [facility] GLUCOSE (AUTOMATED)2022-05-27 17:05:48* Test Item Value Reference Range Interpretation Comme nts POCT GLU (test code = 0490735144) 91 mg/dL 70-110 Notified Provide r Lab Interpretation (test code = 53058-5) Normal [facility] GLUCOSE (AUTOMATED)2022-05-27 16:19:18* Test Item Value Reference Range Interpretation Comme nts POCT GLU (test code = 5049727163) 101 mg/dL 70-110 Lab Interpretation (test cod e = 41135-3) Normal [facility] GLUCOSE (AUTOMATED)2022-05-27 01:54:26* Test Item Value Reference Range Interpretation Comme nts POCT GLU (test code = 4723072847) 94 mg/dL 70-110 Lab Interpretation (test cod e = 97702-8) Normal [facility] GLUCOSE (AUTOMATED)2022-05-26 20:57:23* Test Item Value Reference Range Interpretation Comme nts POCT GLU (test code = 7660653288) 111 mg/dL 70-110 H Lab Interpretation (test cod e = 24687-4) Abnormal [facility] GLUCOSE (AUTOMATED)2022-05-26 17:20:02* Test Item Value Reference Range Interpretation Comme nts POCT GLU (test code = 1685524326) 145 mg/dL 70-110 H Notified Provide r Lab Interpretation (test code = 30350-4) Abnormal [facility] GLUCOSE (AUTOMATED)2022-05-26 14:01:51* Test Item Value Reference Range Interpretation Comme nts POCT GLU (test code = 0204846207) 109 mg/dL 70-110 Notified Provide r Lab Interpretation (test code = 36145-1) Normal [facility] GLUCOSE (AUTOMATED)2022-05-26 01:56:49* Test Item Value Reference Range Interpretation Comme nts POCT GLU (test code = 0448352406) 144 mg/dL 70-110 H Notified Provide r Lab Interpretation (test code = 00839-6) Abnormal [facility] GLUCOSE (AUTOMATED)2022-05-25 22:23:00* Test Item Value Reference Range Interpretation Comme nts POCT GLU (test code = 8574448468) 88 mg/dL 70-110 Notified Provide r Lab Interpretation (test code = 55251-2) Normal [facility] GLUCOSE (AUTOMATED)2022-05-25 12:51:19* Test Item Value Reference Range Interpretation Comme nts POCT GLU (test code = 6338217967) 102 mg/dL 70-110 Notified Provide r Lab Interpretation (test code = 86748-6) Normal [facility] GLUCOSE (AUTOMATED)2022-05-25 12:51:19* Test Item Value Reference Range Interpretation Comme nts POCT GLU (test code = 9121235644) 102 mg/dL 70-110 Notified Provide r Lab Interpretation (test code = 61011-0) Normal [facility] GLUCOSE (AUTOMATED)2022-05-25 01:56:36* Test Item Value Reference Range Interpretation Comme nts POCT GLU (test code = 0699347931) 117 mg/dL 70-110 H Lab Interpretation (test cod e = 59631-2) Abnormal [facility] GLUCOSE (AUTOMATED)2022-05-24 22:40:35* Test Item Value Reference Range Interpretation Comme nts POCT GLU (test code = 8601380631) 109 mg/dL 70-110 Lab Interpretation (test cod e = 32004-2) Normal [facility] GLUCOSE (AUTOMATED)2022-05-24 17:00:37* Test Item Value Reference Range Interpretation Comme nts POCT GLU (test code = 2308494191) 113 mg/dL 70-110 H Lab Interpretation (test cod e = 78329-8) Abnormal [facility] GLUCOSE (AUTOMATED)2022-05-24 12:57:44* Test Item Value Reference Range Interpretation Comme nts POCT GLU (test code = 7953542448) 101 mg/dL 70-110 Lab Interpretation (test cod e = 22926-6) Normal [facility] GLUCOSE (AUTOMATED)2022-05-24 02:43:09* Test Item Value Reference Range Interpretation Comme nts POCT GLU (test code = 4540952091) 135 mg/dL 70-110 H Lab Interpretation (test cod e = 41794-0) Abnormal [facility] GLUCOSE (AUTOMATED)2022-05-23 22:34:12* Test Item Value Reference Range Interpretation Comme nts POCT GLU (test code = 3639299766) 91 mg/dL 70-110 Lab Interpretation (test cod e = 62530-0) [facility] 21:19:58* Test Item Value Reference Range Interpretation Comme [facility] PH (test code = 2) 7.35-7.45 PCO2 (test code = 0866518853) See_Comment [Automated messa ge] The system which generated this result transmitted reference range: 35 - 45 mmHg. The reference range was not used to interpret this result as normal/abnormal. PO2 (test code = 1298083679) See_Comment H [Automated messa ge] The system which generated this result transmitted reference range: 80 - 100 mmHg. The reference range was not used to interpret this result as normal/abnormal. HCO3 (test code = 8266393135) See_Comment [Automated messa ge] The system which generated this result transmitted reference range: 22 - 26 mEq/L. The reference range was not used to interpret this result as normal/abnormal. BE (test code = 7879430860) See_Comment [Automated messa ge] The system which generated this result transmitted reference range: -3.0 - 3.0 mEq/L. The reference range was not used to interpret this result as normal/abnormal. THB (test code = 8876240992) 13.4 g/dL 13.5-18 L %O2HB (test code = 2559758496) 99.2 % 94-99 H %COHB ART (test code = 0132128116) 0.2 % 0-1.5 %METHB ART (test code = 8159384688) 0.2 % 0.4-1.5 L VOL%O2 ART (test code = 2734458029) 19.2 % 15-23 QUES NA (test code = 2340299118) 143 mmol/L 135-145 K+ (test code = 6241730959) 3.2 mmol/L 3.5-5 L AC CA IONZ (test code = 4952292033) 5.10 mg/dL 4.5-5.3 GLUCOSE (test code = 9154808832) 117 mg/dL 70-110 H Lab Interpretation (test code = 22130-4) [facility]23 21:19:58* Test Item Value Reference Range Interpretation Comme nts PH (test code = 2) 7.35-7.45 PCO2 (test code = 2045114324) See_Comment [Automated messa ge] The system which generated this result transmitted reference range: 35 - 45 mmHg. The reference range was not used to interpret this result as normal/abnormal. PO2 (test code = 7082778462) See_Comment H [Automated messa ge] The system which generated this result transmitted reference range: 80 - 100 mmHg. The reference range was not used to interpret this result as normal/abnormal. HCO3 (test code = 9489535867) See_Comment [Automated messa ge] The system which generated this result transmitted reference range: 22 - 26 mEq/L. The reference range was not used to interpret this result as normal/abnormal. BE (test code = 8431640735) See_Comment [Automated messa ge] The system which generated this result transmitted reference range: -3.0 - 3.0 mEq/L. The reference range was not used to interpret this result as normal/abnormal. THB (test code = 8620399373) 13.4 g/dL 13.5-18 L %O2HB (test code = 5500077264) 99.2 % 94-99 H %COHB ART (test code = 2253648868) 0.2 % 0-1.5 %METHB ART (test code = 9094018333) 0.2 % 0.4-1.5 L VOL%O2 ART (test code = 5586740266) 19.2 % 15-23 QUES NA (test code = 9601557058) 143 mmol/L 135-145 K+ (test code = 0681766633) 3.2 mmol/L 3.5-5 L AC CA IONZ (test code = 5284575379) 5.10 mg/dL 4.5-5.3 GLUCOSE (test code = 6362396932) 117 mg/dL 70-110 H Lab Interpretation (test code = 71644-9) [facility] 16:48:15* Test Item Value Reference Range Interpretation Comme nts POCT GLU (test code = 8324671716) 193 mg/dL 70-110 H Lab Interpretation (test cod e = 32359-9) Abnormal [facility] METABOLIC PANEL (NA, K, CL, CO2, GLUCOSE, BUN, CREATININE, CA)2022-05-23 14:26:44* Test Item Value Reference Range Interpretation Comme [facility] (test code = 2986119725) 140 mmol/L 135-145 K (test code = 5234428141) 3.9 mmol/L 3.5-5 CL (test code = 2118575424) 108 mmol/L 98-108 CO2 TOTAL (test code = 7354951978) 24 mmol/L 23-31 AGAP (test code = 0115840859) 2-16 BUN (test code = 1376011255) 46 mg/dL 7-23 H GLUCOSE (test code = 1935602666) 148 mg/dL 70-110 H CREATININE (test code = 8050557326) 4.80 mg/dL 0.6-1.25 H CALCIUM (test code = 4999616544) 8.6 mg/dL 8.6-10.6 eGFR (test code = 3639625398) mL/min/1.73m2 LAMAR (test code = LAMAR) Association [...] imaging tests). Lab Interpretation (test code = 76817-6) Abnormal [facility] GLUCOSE (AUTOMATED)2022-05-23 12:57:22* Test Item Value Reference Range Interpretation Comme nts POCT GLU (test code = 1157824395) 115 mg/dL 70-110 H Lab Interpretation (test cod e = 98907-9) Abnormal [facility] GLUCOSE (AUTOMATED)2022-05-23 02:13:30* Test Item Value Reference Range Interpretation Comme nts POCT GLU (test code = 7669408445) 133 mg/dL 70-110 H Lab Interpretation (test cod e = 48467-1) Abnormal [facility] GLUCOSE (AUTOMATED)2022-05-22 21:26:56* Test Item Value Reference Range Interpretation Comme nts POCT GLU (test code = 1580912038) 148 mg/dL 70-110 H Lab Interpretation (test cod e = 42423-6) Abnormal [facility] GLUCOSE (AUTOMATED)2022-05-22 21:26:56* Test Item Value Reference Range Interpretation Comme nts POCT GLU (test code = 8838852079) 148 mg/dL 70-110 H Lab Interpretation (test cod e = 96795-3) Abnormal [facility] GLUCOSE (AUTOMATED)2022-05-22 16:35:07* Test Item Value Reference Range Interpretation Comme nts POCT GLU (test code = 5201610056) 118 mg/dL 70-110 H Lab Interpretation (test cod e = 76970-3) [facility] 16:35:07* Test Item Value Reference Range Interpretation Comme nts POCT GLU (test code = 4255838582) 118 mg/dL 70-110 H Lab Interpretation (test cod e = 79934-5) Abnormal [facility] Metabolic Panel (NA, K, CL, CO2, Glucose, BUN, Creatinine, CA)2022-05-22 15:45:30* Test Item Value Reference Range Interpretation Comme [facility] NA (test code = 2250702725) 143 mmol/L 135-145 K (test code = 4149550536) 3.7 mmol/L 3.5-5 CL (test code = 9625874434) 111 mmol/L 98-108 H CO2 TOTAL (test code = 5181740408) 27 mmol/L 23-31 AGAP (test code = 9507901625) 2-16 BUN (test code = 7441435114) 33 mg/dL 7-23 H GLUCOSE (test code = 3961002619) 122 mg/dL 70-110 H CREATININE (test code = 9972300498) 3.11 mg/dL 0.6-1.25 H CALCIUM (test code = 1115168927) 7.9 mg/dL 8.6-10.6 L eGFR (test code = 4021475113) mL/min/1.73m2 LAMAR (test code = LAMAR) Association [...] imaging tests). Lab Interpretation (test code = 60751-9) Abnormal [facility] Metabolic Panel (NA, K, CL, CO2, Glucose, BUN, Creatinine, CA)2022-05-22 15:45:30* Test Item Value Reference Range Interpretation Comme nts NA (test code = 7809955252) 143 mmol/L 135-145 K (test code = 2163936466) 3.7 mmol/L 3.5-5 CL (test code = 9777252818) 111 mmol/L 98-108 H CO2 TOTAL (test code = 4495998342) 27 mmol/L 23-31 AGAP (test code = 6574384236) 2-16 BUN (test code = 4819557592) 33 mg/dL 7-23 H GLUCOSE (test code = 8412002776) 122 mg/dL 70-110 H CREATININE (test code = 5712052057) 3.11 mg/dL 0.6-1.25 H CALCIUM (test code = 6091527066) 7.9 mg/dL 8.6-10.6 L eGFR (test code = 6364598369) mL/min/1.73m2 LAMAR (test code = LAMAR) Association [...] imaging tests). Lab Interpretation (test code = 31948-7) Abnormal [facility] GLUCOSE (AUTOMATED)2022-05-22 12:44:12* Test Item Value Reference Range Interpretation Comme [facility] POCT GLU (test code = 2275292104) 129 mg/dL 70-110 H Lab Interpretation (test cod e = 91995-5) Abnormal [facility] GLUCOSE (AUTOMATED)2022-05-22 12:44:12* Test Item Value Reference Range Interpretation Comme [facility] POCT GLU (test code = 6613843035) 129 mg/dL 70-110 H Lab Interpretation (test cod e = 66825-7) Abnormal [facility] Metabolic Panel (NA, K, CL, CO2, Glucose, BUN, Creatinine, CA)2022-05-22 05:21:04* Test Item Value Reference Range Interpretation Comme [facility] NA (test code = 8507333314) 141 mmol/L 135-145 K (test code = 0950741993) 3.7 mmol/L 3.5-5 CL (test code = 4285577933) 112 mmol/L 98-108 H CO2 TOTAL (test code = 7477603955) 22 mmol/L 23-31 L AGAP (test code = 6481221676) 2-16 BUN (test code = 3942515463) 27 mg/dL 7-23 H GLUCOSE (test code = 5721450298) 136 mg/dL 70-110 H CREATININE (test code = 7372482061) 2.22 mg/dL 0.6-1.25 H CALCIUM (test code = 4730813237) 7.9 mg/dL 8.6-10.6 L eGFR (test code = 4841323635) mL/min/1.73m2 LAMAR (test code = LAMAR) Association [...] imaging tests). Lab Interpretation (test code = 76296-1) Abnormal [facility] Metabolic Panel (NA, K, CL, CO2, Glucose, BUN, Creatinine, CA)2022-05-22 05:21:04* Test Item Value Reference Range Interpretation Comme nts NA (test code = 7171861815) 141 mmol/L 135-145 K (test code = 8952020172) 3.7 mmol/L 3.5-5 CL (test code = 8854814480) 112 mmol/L 98-108 H CO2 TOTAL (test code = 3288670170) 22 mmol/L 23-31 L AGAP (test code = 0406673228) 2-16 BUN (test code = 4029667635) 27 mg/dL 7-23 H GLUCOSE (test code = 8834851388) 136 mg/dL 70-110 H CREATININE (test code = 8063976791) 2.22 mg/dL 0.6-1.25 H CALCIUM (test code = 1993602855) 7.9 mg/dL 8.6-10.6 L eGFR (test code = 1472645081) mL/min/1.73m2 LAMAR (test code = LAMAR) Association [...] imaging tests). Lab Interpretation (test code = 68639-0) [facility]:11* Test Item Value Reference Range Interpretation Comme [facility] PO[facility] GLU (test code = 1589432594) 135 mg/dL 70-110 H Lab Interpretation (test cod e = 12149-6) Abnormal [facility] GLUCOSE (AUTOMATED)2022-05-22 01:45:11* Test Item Value Reference Range Interpretation Comme nts POCT GLU (test code = 1350421720) 135 mg/dL 70-110 H Lab Interpretation (test cod e = 37980-7) Abnormal [facility] GLUCOSE (AUTOMATED)2022-05-21 23:03:07* Test Item Value Reference Range Interpretation Comme nts POCT GLU (test code = 8645594738) 150 mg/dL 70-110 H Lab Interpretation (test cod e = 29414-1) Abnormal [facility] GLUCOSE (AUTOMATED)2022-05-21 23:03:07* Test Item Value Reference Range Interpretation Comme nts POCT GLU (test code = 4508324428) 150 mg/dL 70-110 H Lab Interpretation (test cod e = 69153-5) Abnormal [facility] Metabolic Panel (NA, K, CL, CO2, Glucose, BUN, Creatinine, CA)2022-05-21 22:58:23* Test Item Value Reference Range Interpretation Comme nts NA (test code = 0083222630) 140 mmol/L 135-145 K (test code = 6680365734) 3.5 mmol/L 3.5-5 CL (test code = 1078106901) 110 mmol/L 98-108 H CO2 TOTAL (test code = 3608927783) 23 mmol/L 23-31 AGAP (test code = 3155565039) 2-16 BUN (test code = 0184029360) 25 mg/dL 7-23 H GLUCOSE (test code = 3378825368) 167 mg/dL 70-110 H CREATININE (test code = 8862759777) 2.14 mg/dL 0.6-1.25 H CALCIUM (test code = 9002429130) 8.6 mg/dL 8.6-10.6 eGFR (test code = 1329616316) mL/min/1.73m2 LAMAR (test code = LAMAR) Association [...] imaging tests). Lab Interpretation (test code = 81374-4) Abnormal [facility] Metabolic Panel (NA, K, CL, CO2, Glucose, BUN, Creatinine, CA)2022-05-21 22:58:23* Test Item Value Reference Range Interpretation Comme nts NA (test code = 6547376528) 140 mmol/L 135-145 K (test code = 6360515940) 3.5 mmol/L 3.5-5 CL (test code = 6822867320) 110 mmol/L 98-108 H CO2 TOTAL (test code = 9762533975) 23 mmol/L 23-31 AGAP (test code = 9001739578) 2-16 BUN (test code = 8472859241) 25 mg/dL 7-23 H GLUCOSE (test code = 1420597266) 167 mg/dL 70-110 H CREATININE (test code = 3739742493) 2.14 mg/dL 0.6-1.25 H CALCIUM (test code = 7728014762) 8.6 mg/dL 8.6-10.6 eGFR (test code = 1541236737) mL/min/1.73m2 LAMAR (test code = LAMAR) Association [...] imaging tests). Lab Interpretation (test code = 08565-4) [facility] [id number] 22:42:01* Test Item Value Reference Range Interpretation Comme nts LATASHA PATIENT (test code = 5964-2) See_Comment H [Automated [employer]] The system which generated this result transmitted reference range: 10.1 - 12.6 Seconds. The reference range was not used to interpret this result as normal/abnormal. INR (test code = 6301-6) Normal INR <1.1; Warfarin Therapeutic range 2.0 to 3.0 or 2.5 to 3.5, depending upon the indications. Lab Interpretation (test code = 40842-9) [facility] / [id number] 22:42:01* Test Item Value Reference Range Interpretation [...] the indications. Lab Interpretation (test code = 01755-1) [facility] / [id number] 22:42:01* Test Item Value Reference Range Interpretation [...] the indications. Lab Interpretation (test code = 45538-9) Abnormal [facility] GLUCOSE (AUTOMATED)2022-05-21 17:44:04* Test Item Value Reference Range Interpretation Comme nts POCT GLU (test code = 1746920732) 106 mg/dL 70-110 Lab Interpretation (test cod e = 87870-4) Normal [facility] GLUCOSE (AUTOMATED)2022-05-21 17:44:04* Test Item Value Reference Range Interpretation Comme nts POCT GLU (test code = 2001952807) 106 mg/dL 70-110 Lab Interpretation (test cod e = 04699-0) [facility] This is a pre-surgical type and screen. ONCE [id number] 16:59:30* Test Item Value Reference Range Interpretation Comme nts ABO & RH (test code = 20) AB POSITIVE Performed at [facility] Laboratory Services - [facility] Blood [address] [id number] Free: [phone] No. [id number] IAT (test code = 1185) Negative Performed at [facility] Laboratory Services - [address] Free: [phone] No. [id number] [facility] This is a pre-surgical type and screen. ONCE [id number] 16:59:30* Test Item Value Reference Range Interpretation Comme nts ABO & RH (test code = 20) AB POSITIVE Performed at [facility] Laboratory [facility] - [address] Free: [phone] No. [id number] IAT (test code = 1185) Negative Performed at [address] Free: [phone] No. [id number] [facility] This is a pre-surgical type and screen. ONCE [id number] 16:59:30* Test Item Value Reference Range Interpretation Comme nts ABO & RH (test code = 20) AB POSITIVE Performed at [facility] Laboratory [facility] - [address] Free: [phone] No. [id number] IAT (test code = 1185) Negative Performed at [address] Free: [phone] No. [id number] [facility] ([facility]2022-05-16 18:51:14* Test Item Value Reference Range Interpretation Comme nts Height (test code = 1392508947) in Weight (test code = 9508168747) lbs Systolic BP (test code = 6759254035) mmHg Diastolic BP (test code = 7956542051) mmHg Heart Rate (test code = 2332201083) bpm BSA (test code = 9880531558) 1.88 m2 Ao root annulus (test code = 7869146124) 3.7 cm Ao root diam (test code = 8931132389) 3.70 cm Aortic root (test code = 6746711101) 3.7 cm LVOT diameter (test code = 4944279425) 2.06 cm LVIDD (test code = 5982573175) 4.80 cm IVS (test code = 8013166500) 1.52 cm Interventricular Septum Diastolic Thickness by 2D (test code = 9299375) 1.52 cm LVPWD (test code = 9245523634) 1.52 cm PW (test code = 3320093656) 1.52 cm 0.6-1.1 EF(Teich) (test code = 8547303145) 57.00 % LVIDS (test code = 1833496888) 3.40 cm FS (test code = 4896422946) 30 % EF - 2D (test code = 18828670) 57.00 % LA size (test code = 0541518581) 4.2 cm LAV(MOD-sp4) (test code = 2872406410) 68.30 mL E wave decelartion time (test code = 1937077379) 0.20 s MV Peak E Sourav (test code = 2044971389) 91.0 cm/s MV stenosis pressure 1/2 time (test code = 6013508349) 57.7 ms MV Peak A Sourav (test code = 9271036723) 111.4 cm/s E/A ratio (test code = 2599881159) ratio MV Prop V (test code = 0940888106) 53.90 cm/s MV E/e' septal (test code = 0586349147) 7.9 cm/s Tapse (test code = 4810786048) 2.5 cm LVOT stroke volume (test code = 9843169445) 80.20 cm3 LVOT peak sourav (test code = 9552572818) 93.2 cm/s LVOT mn grad (test code = 5466700787) mmHg AV LVOT peak gradient (test code = 4605377560) mmHg LVOT peak VTI (test code = 2153786293) 24.1 cm LV V1 mean (test code = 0148387104) 66.80 cm/s Aortic valve mean velocity (test code = 6776674405) 101.3 cm/s Ao peak sourav (test code = 0609276267) 146.4 cm/s Ao VTI (test code = 2632511113) 33.4 cm AV area by cont VTI (test code = 2574279351) 2.4 cm2 AV area peak sourav (test code = 1063195543) 2.1 cm2 Ao max PG (test code = 0504716053) 8.60 mm[Hg] AV peak gradient (test code = 1317392107) mmHg AV valve area (test code = 9877600767) 2.40 cm2 AV mean gradient (test code = 7697217091) mmHg Radiology Study observation (narrative) (test code = 75392-1) LAMAR (test code = LAMAR) Formatting of [...] mL of Lumason ultrasound enhancing agent used. [facility] [id number] 19:45:54* Test Item Value Reference Range Interpretation Comme nts PTH-INTACT (test code = 9963939163) 158.8 pg/mL 12-88 H PTH-CA Interpretation (test code = 9095622284) Further clinical data needed for interpretation. CALCIUM (test code = 0400554887) 8.9 mg/dL 8.6-10.6 Lab Interpretation (test code = 22128-1) [facility]normal [facility] [id number] 18:13:44* Test Item Value Reference Range Interpretation Comme nts FERRITIN (test code = 7252740803) 81.7 ng/mL 18-464 LAMAR (test code = LAMAR) Biotin has been reported to cause a negative bias, interpret results relative to patient's use of biotin. Lab Interpretation (test code = 09407-0) [facility] [id number] 17:46:02 * Test Item Value Reference Range Interpretation Comme nts TIBC (test code = 1509781817) 288 ug/dL 250-410 Lab Interpretation (test cod e = 29052-6) [facility] ([id number])2022-04-29 17:37:02* Test Item Value Reference Range Interpretation Comme nts NA (test code = 9923630854) 141 mmol/L 135-145 K (test code = 3395349481) 3.3 mmol/L 3.5-5 L CL (test code = 4003455264) 105 mmol/L 98-108 CO2 TOTAL (test code = 8426290079) 29 mmol/L 23-31 AGAP (test code = 3972315207) 2-16 BUN (test code = 8909945522) 34 mg/dL 7-23 H GLUCOSE (test code = 0428625310) 113 mg/dL 70-110 H CREATININE (test code = 9365275236) 2.23 mg/dL 0.6-1.25 H TOTAL BILI (test code = 8719611494) 0.3 mg/dL 0.1-1.1 CALCIUM (test code = 9888014924) 8.9 mg/dL 8.6-10.6 T PROTEIN (test code = 0484545906) 7.2 g/dL 6.3-8.2 ALBUMIN (test code = 3434593383) 4.3 g/dL 3.5-5 ALK PHOS (test code = 8786304871) 83 U/L 34-122 ALTv (test code = 1742-6) 17 U/L 5-50 AST(SGOT) (test code = 3603368877) 23 U/L 13-40 eGFR (test code = 9684332721) mL/min/1.73m2 LAMAR (test code = LAMAR) Association [...] imaging tests). Lab Interpretation (test code = 94353-8) Abnormal [facility] WITH [id number] 17:31:00* Test Item Value Reference Range Interpretation Comme nts WBC (test code = 6690-2) See_Comment [Automated [employer]] The system which generated this result transmitted reference range: 4.20 - 10.70 10*3/?L. The reference range was not used to interpret this result as normal/abnormal. RBC (test code = 789-8) See_Comment L [Automated [employer]] The system which generated this result transmitted [...] 32.2 g/dL 31.2-35 RDW-SD (test code = 52744-7) 51.6 fL 38.5-51.6 RDW-CV (test code = 788-0) 14.5 % 12.1-15.4 PLT (test code = 777-3) See_Comment L [Automated messa ge] The system which generated this result transmitted reference range: 150 - 328 10*3/?L. The reference range was not used to interpret this result as normal/abnormal. MPV (test code = 15762-2) 10.9 fL 9.8-13 NRBC/100 WBC (test code = 1985675074) See_Comment [Automated me ssage] The system which generated this result transmitted reference range: 0.0 - 10.0 /100 WBCs. The reference range was not used to interpret this result as normal/abnormal. NRBC x10^3 (test code = 7335656134) See_Comment [Automated messa ge] The system which generated this result transmitted reference range: 10*3/?L. The reference range was not used to interpret this result as normal/abnormal. GRAN MAT (NEUT) % (test code = 770-8) 66.4 % IMM GRAN % (test code = 1181117899) 0.20 % LYMPH % (test code = 736-9) 20.7 % MONO % (test code = 5905-5) 11.2 % EOS % (test code = 713-8) 1.1 % BASO % (test code = 706-2) 0.4 % GRAN MAT x10^3(ANC) (test code = 8907517365) 3.80 10*3/uL 1.99-6.95 IMM GRAN x10^3 (test code = 3827208916) 0-0.06 LYMPH x10^3 (test code = 731-0) 1.18 10*3/uL 1.09-3.23 MONO x10^3 (test code = 742-7) 0.64 10*3/uL 0.36-1.02 EOS x10^3 (test code = 711-2) 0.06 10*3/uL 0.06-0.53 BASO x10^3 (test code = 704-7) 0.01-0.09 Lab Interpretation (test code = 76008-0) Abnormal [facility]- US RETROPERITONEAL [id number] 11:35:00 Patient Name: ALICIA STEWART Unit No: [id number] EXAMS: CPT CODE: [id number] US RETROPERITONEAL COM [id number] CLINICAL INFORMATION: Chronic kidney disease stage III Dictation Location: J9 Comparison: Technique: Real-time grayscale study with Doppler and spectral analysis. Findings: Right kidney: 11.6 x 4.9 x 6.5 centimeters. There is prominence of the intrarenal collecting system and proximal ureter. Echogenic cortex. 1 cm cortical cyst in the lower pole. No apparent stones. Left kidney: 9.3 x3.4 x 5.0 centimeters. Echogenic cortex with 4.2 cm lower pole exophytic cortical cyst no apparent stones. There is no apparent ascites. IMPRESSION: 1. Bilateral echogenic renal cortices can be seen with medical renal disease. 2. No apparent urolithiasis. 3. Bilateral simple appearing cortical cysts. 4. Right hydronephrosis. at 1135 Reported and signed by: Polo Gutierrez M.D. CC: Debbie Boone; Laura Almeida Technologist: Jeanine Adams RDMS() Transcrpt Date/Tm/Trnsp: 01/18/2019 (1135) [facility] Print D/T: S: 01/18/2019 (7083) [facility] NAME: ALICIA STEWART [id number] PHYS: [place] [address] : 1935 AGE: 83 SEX: M LOC: [facility] PHONE #: [phone] EXAM DATE: 01/18/2019 STATUS: EVER CARRIZALES FAX #: [phone] RADIOLOGY NO: PAGE 1 Signed Report"
[2024-09-14 10:19] LABS: Absolute Lymphocytes (CBC) 0.4 K/uL (0.7-4.9); Absolute Monocytes 0.4 K/uL (0.1-1.3); Absolute Neutrophil 6.4 K/uL (1.8-8.0); Basophils % 0.2 % (0-1.3); Hematocrit 46.6 % (39.6-49.0); Hemoglobin 15.4 g/dL (13.6-17.9); Lymphocytes % 5.3 % (15.3-44.8); MCH 31.6 pg (27.0-35.0); MCV 95.6 fL (80-100); Monocytes % 5.9 % (3.3-12.3); Neutrophils % 88.6 % (41.7-73.7); Nucleated Red Blood Cells % 0.1 % (0-0); Platelets 145 thou/uL (152-406); RBC Red Blood Cell Count 4.87 M/uL (4.33-5.43); Red Cell Distribution Width 17.2 % (12.1-15.2)
--- NOTE | 2024-09-14 10:27 | RAD REPORT ---
EXAMINATION: ONE VIEW CHEST XR CLINICAL INDICATION: GLF TECHNIQUE: Frontal chest projection is submitted. Examination is limited by patient positioning and t echnique. COMPARISON: 08/02/2022 FINDINGS: The lungs are well inflated and clear. The heart is normal in size. No displaced fractures identified . IMPRESSION: No acute intrathoracic abnormalities.
[2024-09-14 10:37] LABS: Anion Gap 21.2 mEq/L (5.0-15.0); Potassium 4.2 mEq/L (3.5-5.1)
[2024-09-14 10:39] LABS: Troponin High Sensitivity 14190.1 pg/mL (<58.9)
[2024-09-14 10:49] LABS: Blood Morphology Comment NOT SEEN (NOT SEEN); Platelet Estimate DECR; White Blood Cell Scan OK (OK)
--- NOTE | 2024-09-14 10:49 | RAD REPORT ---
EXAM: CT brain without contrast HISTORY: glf COMPARISON: None TECHNIQUE: Multiple contiguous axial images were obtained and a CT of the brain without contrast. Sag ittal and coronal reformats were performed. One or more of the following dose reduction techniques were used: Automated exposure control, adjust ment of the mA and/or kV according to patient size, and/or iterative reconstruction. FINDINGS: No evidence of hydrocephalus, intracranial hemorrhage, or extra-axial fluid collection. Mild brain atrophy with mild periventricular and deep white matter chronic microvascular ischemic ch anges present. No evidence of midline shift or areas of brain edema. The calvarium is intact. Trace fluid is seen in the sphenoid sinus. Right mastoid air cell partially opacified. Right vertebral atherosclerosis. IMPRESSION: No evidence of acute intracranial abnormality. EXAM: CT of the cervical spine without contrast HISTORY: Neck pain, injury glf TECHNIQUE: Multiple contiguous axial images were obtained in a CT of the cervical spine without contr ast. Sagittal and coronal reformats were performed. FINDINGS: The vertebral bodies demonstrate normal height and alignment. No evidence of acute fracture or subluxation.. Moderate lower cervical degenerative changes are present. 2 mm degenerative anterolisthesis of C4 on 5. No prevertebral soft tissue swelling is seen. The posterior facets are well aligned. Normal alignment of the skull base with the cervical spine is seen. Heavy carotid atherosclerosis, greater on the right. The lung apices are unremarkable. IMPRESSION: No evidence of acute osseous abnormality of the cervical spine. Moderate lower cervical degenerative changes. 2 mm degenerative anterolisthesis C4 on 5.
[2024-09-14] MEDS ORDERED: MORPHINE 4 MG/ML SYR ONE (11:00)
--- NOTE | 2024-09-14 11:51 | EDPHYS ---
Physician Documentation [facility] Name: Fran Stewart Age: 89 yrs Sex: Male : 1935 Arrival Date: 09/14/2024 Time: 09:43 Bed 16 Private MD: ED Physician Marcio Solis HPI: 09/14 09:53 This 89 yrs old Male presents to ER via EMS with complaints of Fall Injury. ec2 09:53 Patient arrives today for evaluation of a ground-level fall, unwitnessed. Maximum ec2 downtime approximately 1 hour. Patient is with a history of dementia, unable provide significant history. No blood thinners reported by EMS. Patient reports no specific pain or concerns. No reported chest pain or shortness of breath.. Historical: - Allergies: 09:52 No Known Allergies; jl7 - PMHx: 09:52 ESRD; Dialysis (Right Nephrectomy); jl7 - PSHx: 09:52 Right Nephrectomy; jl7 - Immunization history:: Adult Immunizations unknown. - Infectious Disease History:: unknown. - Immunization history: Last tetanus immunization: unknown. - Social history:: Smoking status: unknown. ROS: 09:53 Constitutional: as per hpi ec2 Exam: 09:53 Constitutional: GEN: NAD Head: atraumatic Eyes: EOMI Ears: External ears are ec2 normal. CV: regular rate LUNGS: no respiratory distress ABD: non-distended SKIN: n skin tear to the left elbow noted. MSK: no evidence of trauma Vital Signs: 09:57 BP 154 / 94; Pulse 100; Resp 16 S; Pulse Ox 96% on R/A; Weight 53.52 kg (M); kc6 10:56 BP 160 / 96; Pulse 98; Resp 16 S; Pulse Ox 98% on R/A; kc6 11:45 BP 155 / 103; Pulse 83; Resp 16 S; Pulse Ox 99% on R/A; kc6 13:15 BP 150 / 88; Pulse 86; Resp 20 S; Pulse Ox 99% on R/A; kc6 [place] Coma Score: 10:15 Eye Response: spontaneous(4). Motor Response: obeys commands(6). Verbal Response: kc6 confused(4). Total: 14. Trauma Score (Adult): 10:15 Eye Response: spontaneous(1); Verbal Response: confused(1); Motor Response: obeys kc6 commands(2); Systolic BP: > 89 mm Hg(4); Respiratory Rate: 10 to 29 per min(4); [place] Score: 14; Trauma Score: 12 MDM: 09:47 Medical Screening Exam initiated ec2 10:42 ED course: Patient arrives today after ground-level fall. EKG obtained, independently ec2 reviewed and interpreted by me, shows concern for STEMI with ST elevations in the anterior leads with ST depressions in the inferior leads. Patient with dementia, is a poor historian. Family now at bedside, I had a lengthy discussion with as well as niece regarding goals of care. They indicated that patient has essentially "given up "as he has stopped going to dialysis over the past 2 months. This that he is indicated he is ready to and that he would not like aggressive interventions. There would not like aggressive intervention specifically would not like him to undergo cardiac catheter. I did discuss with the cardiology and they agreed. Conversation occurred with KENNETH French at bedside as well. Plan of care going forward is going to be more so on alleviating patient suffering.. 10:44 Data reviewed: vital signs, nurses notes. ec2 10:44 ED course: I did instruct family that I would still like to admit him to the hospital ec2 with goal of care being comfort as opposed to aggressive management. They were agreeable at this time. Patient with markedly elevated troponin. 10:45 ED course: CBC reassuring, slight thrombocytopenia noted. Metabolic profile shows ec2 expected renal dysfunction. Patient with marked troponin elevation at 14,000, CPK is 780.. 10:54 ED course: CT scan of the head and C-spine without acute traumatic process.. ec2 11:49 ED course: Additionally I discussed DNR status and family strongly agree that they ec2 would not want to do compressions or intubation.. 11:50 ED course: Will admit with plans for comfort cares.. ec2 09/14 09:53 Order name: CBC with Diff; Complete Time: 10:54 ec2 09/14 09:53 Order name: BMP; Complete Time: 10:45 ec2 09/14 09:53 Order name: Troponin High Sensitivity; Complete Time: 10:45 ec2 09/14 09:55 Order name: CK; Complete Time: 10:45 ec2 12/24 10:23 Order name: CBC Smear Scan; Complete Time: 10:54 EDMS 09/14 09:53 Order name: CT Head C Spine; Complete Time: 10:54 ec2 09/14 09:53 Order name: CXR XRAY; Complete Time: 10:45 ec2 09/14 12:28 Order name: Case Management Consult EDHI 09/14 09:53 Order name: EKG - Nurse/Tech; Complete Time: 09:54 ec2 Administered Medications: 11:04 Drug: morphine IM 4 mg IM once Route: IM; Site: left deltoid; kc6 13:32 Follow up: Response: No adverse reaction; Pain is decreased kc6 Disposition Summary: 09/14/24 11:51 Hospitalization Ordered Notes: Hospitalization Status: Inpatient Admission ec2 Provider: Salma López ec2 Location: Telemetry/MedSur (Inpatient) ec2 Condition: Stable ec2 Problem: new ec2 Symptoms: are unchanged ec2 Bed/Room Type: Standard ec2 Room Assignment: 203(09/14/24 15:41) eb Diagnosis - STEMI, Weakness, Fall ec2 Forms: - Medication Reconciliation Form ec2 - SBAR form ec2 - Leadership Thank You Letter ec2 Critical care time excluding procedures: 11:35 Critical care time: Bedside Care: 30 minutes, Family Intervention: 15 minutes. Total ec2 time: 45 minutes Signatures: Dispatcher [employer] Zaida Gross RN RN jl7 Sis Burgos Kaitlyn, RN RN kc6 Marcio Solis MD MD ec2 Corrections: (The following items were deleted from the chart) 09:54 09:54 Chest Single View+RAD.RAD.BRZ ordered. [facility] EDHI 09:57 09:53 Patient arrives today for evaluation of a ground-level fall, unwitnessed. Maximum ec2 downtime approximately 1 hour. Patient is with a history of dementia, unable provide significant history. No blood thinners reported by EMS. Patient reports no specific pain or concerns. ec2 15:41 11:51 ec2 eb
--- NOTE | 2024-09-14 11:51 | ER ---
Nurse's Notes [facility] Name: Fran Stewart Age: 89 yrs Sex: Male : 1935 Arrival Date: 09/14/2024 Time: 09:43 Bed 16 Private MD: Diagnosis: STEMI, Weakness, Fall Presentation: 09/14 09:49 Chief complaint: EMS states: found pt twisted up in blanket next to bed, pt able jl7 to ambulate to stretched, healing skin tear re-opened noted to left forearm. Asp 325 given in route due to EKG changes. Coronavirus screen: At this time, the client does not indicate any symptoms associated with coronavirus-19. Ebola Screen: No symptoms or risks identified at this time. Initial Sepsis Screen: Does the patient meet any 2 criteria? No. Patient's initial sepsis screen is negative. Does the patient have a suspected source of infection? No. Patient's initial sepsis screen is negative. Risk Assessment: Do you want to hurt yourself or someone else? Patient reports no desire to harm self or others. Onset of symptoms is unknown. Care prior to arrival: Medication(s) given: ASA, 325 mg. 09:49 Method Of Arrival: EMS: [facility] jl7 09:49 Acuity: CAROLIN 2 jl7 10:15 Mechanism of Injury: Fall from standing position. Trauma event details: Injury occurred kc6 in the [facility], Injury occurred: at home. Triage Assessment: 09:52 General: Appears in no apparent distress. uncomfortable, Behavior is calm, cooperative. jl7 Pain: Complains of pain in unable to obtain, pt nonverbal. Trauma Activation: Not Applicable Physician: ED Physician; Name: ; Notified At: ; Arrived At: Physician: General Surgeon; Name: ; Notified At: ; Arrived At: Physician: Radiology; Name: ; Notified At: ; Arrived At: Physician: Respiratory; Name: ; Notified At: ; Arrived At: Physician: Lab; Name: ; Notified At: ; Arrived At: Historical: - Allergies: 09:52 No Known Allergies; jl7 - PMHx: 09:52 ESRD; Dialysis (Right Nephrectomy); jl7 - PSHx: 09:52 Right Nephrectomy; jl7 - Immunization history:: Adult Immunizations unknown. - Infectious Disease History:: unknown. - Immunization history: Last tetanus immunization: unknown. - Social history:: Smoking status: unknown. Screenin:15 Abuse screen: Denies threats or abuse. Denies injuries from another. Tuberculosis kc6 screening: No symptoms or risk factors identified. 10:17 [facility] ED Fall Risk Assessment (Adult) History of falling in the last 3 months, kc6 including since admission Yes- single mechanical fall (1 pt) Confusion or Disorientation Yes (5 pts) Intoxicated or Sedated No (0 pts) Impaired Gait Yes (1 pt) Mobility Assist Device Used Yes (1 pt) Altered Elimination No (0 pt) Score/Fall Risk Level 3 or more points = High Risk Oriented to surroundings, Maintained a safe environment, Educated pt \T\ family on fall prevention, incl call for assistance when getting out of bed. Nutritional screening: No deficits noted. Primary Survey: 10:15 NO uncontrolled hemorrhage observed. A: The client is awake and alert. The airway is kc6 patent. Breathing/Chest: Spontaneous respiratory effort, equal unlabored respirations, breath sounds clear bilaterally, regular pattern, symmetrical chest rise and fall. Circulation: No external hemorrhage present. Regular and strong central pulse, skin warm/dry/normal color. Disability Pupils are equal, round, reactive to light and accommodation. Client is alert. Exposure/Environment: All clothing and personal items were removed. Forensic evidence collection is not deemed to be indicated at this time. Items placed in patient belonging bag. There is no evidence of uncontrolled external bleeding. Obvious injury(ies) are noted at this time: skin tear to LFA A warming method has been applied: A warm blanket has been provided to the patient. 10:56 Reassessment Alertness and Airway: Awake and alert. The airway is patent. Breathing: kc6 Spontaneous respiratory effort, equal unlabored respirations, breath sounds clear bilaterally, regular pattern with symmetrical chest rise and fall. Circulation: No external hemorrhage noted. Regular and strong central pulse, skin warm/dry/normal color. Disability: Pupils Pupils are equal, round, reactive to light and accomodation. Alert. Assessment: 10:17 General: Appears in no apparent distress. comfortable, slender, well groomed, Behavior kc6 is calm, cooperative, appropriate for age, quiet. Neuro: Level of Consciousness is awake, alert, obeys commands, confused, Oriented to person, place, situation, Appropriate for age. Cardiovascular: Capillary refill < 3 seconds. Respiratory: Airway is patent Trachea midline Respiratory effort is even, unlabored, Respiratory pattern is regular, symmetrical. GI: No signs and/or symptoms were reported involving the gastrointestinal system. : No signs and/or symptoms were reported regarding the genitourinary system. EENT: No signs and/or symptoms were reported regarding the EENT system. Derm: Skin is fragile, is thin, with poor turgor has skin tears on LFA Skin is dry, Skin is pink, warm \T\ dry. Skin temperature is warm. Musculoskeletal: Circulation, motion, and sensation intact. Range of motion: intact in all extremities. 10:55 Reassessment: Dr. Solis at bedside with pt and family. pt and family updated regarding kc6 pts clinical condition. 11:45 Reassessment: Patient appears in no apparent distress at this time. No changes from kc6 previously documented assessment. Patient and/or family updated on plan of care and expected duration. Pain level reassessed. 12:45 Reassessment: Patient appears in no apparent distress at this time. No changes from kc6 previously documented assessment. Patient and/or family updated on plan of care and expected duration. Pain level reassessed. Vital Signs: 09:57 BP 154 / 94; Pulse 100; Resp 16 S; Pulse Ox 96% on R/A; Weight 53.52 kg (M); kc6 10:56 BP 160 / 96; Pulse 98; Resp 16 S; Pulse Ox 98% on R/A; kc6 11:45 BP 155 / 103; Pulse 83; Resp 16 S; Pulse Ox 99% on R/A; kc6 13:15 BP 150 / 88; Pulse 86; Resp 20 S; Pulse Ox 99% on R/A; kc6 [place] Coma Score: 10:15 Eye Response: spontaneous(4). Motor Response: obeys commands(6). Verbal Response: kc6 confused(4). Total: 14. Trauma Score (Adult): 10:15 Eye Response: spontaneous(1); Verbal Response: confused(1); Motor Response: obeys kc6 commands(2); Systolic BP: > 89 mm Hg(4); Respiratory Rate: 10 to 29 per min(4); [place] Score: 14; Trauma Score: 12 ED Course: 09:47 Patient arrived in ED. kc6 09:47 Marcio Solis MD is Attending Physician. ec2 09:52 Triage completed. jl7 09:52 Arm band placed on right wrist. jl7 09:54 Flory Davis, RN is Primary Nurse. kc6 10:07 CXR XRAY In Process Unspecified. EDMS 10:14 CK Sent. kc6 10:14 Troponin High Sensitivity Sent. kc6 10:14 BMP Sent. kc6 10:14 CBC with Diff Sent. kc6 10:14 Initial lab(s) drawn, by me, sent to lab. Missed attempt(s): 24 gauge in right forearm. kc6 Patient maintains SpO2 saturation greater than 95% on room air. 10:15 Patient has correct armband on for positive identification. Bed in low position. Call kc6 light in reach. Side rails up X2. Adult w/ patient. engine monitor on. Pulse ox on. NIBP on. Door closed. Noise minimized. Lights dimmed. Warm blanket given. Pillow given. 10:17 Thermoregulation: warm blanket given to patient. kc6 10:23 CT Head C Spine In Process Unspecified. EDMS 11:51 Salma López MD is Hospitalizing Provider. ec2 12:55 No provider procedures requiring assistance completed. Patient did not have IV access kc6 during this emergency room visit. Administered Medications: 11:04 Drug: morphine IM 4 mg IM once Route: IM; Site: left deltoid; kc6 13:32 Follow up: Response: No adverse reaction; Pain is decreased kc6 Medication: 17:28 VIS not applicable for this client. kc6 Outcome: 11:51 Decision to Hospitalize by Provider. ec2 17:28 Admitted to Med/surg accompanied by tech, via stretcher, room 203, with chart, kc6 17:28 Condition: stable 17:28 Instructed on the need for admit, 17:28 Patient left the ED. kc6 Signatures: Dispatcher [employer] Zaida Gross RN RN jl7 Campbell, Kaitlyn, KENNETH RN [email or web address] Marcio Solis MD MD ec2 Corrections: (The following items were deleted from the chart) 10:15 09:57 BP 154 / 94; Resp 16bpm; Spontaneous; 53.52 kg Measured; kc6 kc6
[2024-09-14] MEDS ORDERED: ONDANSETRON 4 MG/2 ML VIAL IV PRN (12:21)
[2024-09-14] MEDS ORDERED: LORazepam 2 MG/ML VIAL IV PRN (12:21)
[2024-09-14] MEDS ORDERED: MORPHINE 4 MG/ML SYR IV PRN (12:21)
[2024-09-14 13:59] VITALS: BMI 18.0
[2024-09-14] MEDS: MORPHINE 2 MG/ML SYR IV SCH (17:50)
[2024-09-15] MEDS ORDERED: ACETAMINOPHEN 325 MG/SUPP PR PRN (11:11)
[2024-09-15] MEDS ORDERED: BISACODYL 10 MG RECTAL SUPP PR PRN (11:11)
[2024-09-15] MEDS ORDERED: LORazepam 2 MG/ML VIAL IV PRN (11:12)
[2024-09-15] MEDS ORDERED: ONDANSETRON 4 MG (ODT) TAB PO PRN (11:12)
[2024-09-15] MEDS ORDERED: ACETAMINOPHEN 650MG/RECT SUPP PR PRN (11:19)
[2024-09-15] MEDS: SCOPOLAMINE HYDROBROMIDE PATCH TD SCH (14:55)
[2024-09-15 20:34] VITALS: BP 87/53; TEMP 98.2
[2024-09-15] MEDS: MORPHINE 2 MG/ML SYR IV PRN (21:05)
[2024-09-15 21:59] VITALS: O2SAT 95
--- NOTE | 2024-09-16 13:59 | P.HP ---
Certification for Inpatient Patient admitted to: Inpatient With expected LOS: >2 Midnights Patient will require the following post-hospital care: Hospice Practitioner: I am a practitioner with admitting privileges, knowledge of patient current condition, hospital course, and medical plan of care. Services: Services provided to patient in accordance with Admission requirements found in Title 42 Section 412.3 of the Code of Federal Regulations Patient History Date of Service: 09/14/24 Reason for admission: ST elevation myocardial infarction History of Present Illness: Patient is an 89-year-old gentleman came to the hospital with left elevation myocardial infarction. Patient is also end-stage renal disease and the patient had been on dialysis for 3 years but he quit 2 months ago. Patient refused any treatment at that time. Patient was having chest pain so the family brought him into the ER. In the ER patient had ST elevation myocardial infarction. Patient is lethargic and not interacting. Family wants to proceed with comfort measures. Patient will be admitted and will consult hospice. Allergies No Known Allergies Allergy (Unverified 08/01/22 13:46) Home Medications: Allopurinol 1 tab PO DAILY 08/01/22 Hydralazine [Apresoline*] 1 tab PO TID 08/01/22 Metoprolol Succinate [Toprol Xl*] 1 tab PO DAILY 08/01/22 Nifedipine Xl [Procardia XL*] 1 tab PO DAILY 08/01/22 Quinapril HCl 1 tab PO BID 08/01/22 Rosuvastatin [Crestor*] 1 tab PO DAILY 08/01/22 Torsemide [Demadex*] 1 tab PO DAILY 08/01/22 buPROPion HCL [Wellbutrin Xl] 1 tab PO DAILY 08/01/22 cloNIDine HCL [Clonidine HCl] 1 tab PO TID 08/01/22 - Past Medical/Surgical History Diabetic: No -: ESRD on HD -: HTN -: R nephrectomy for renal tumor -: Gout -: R nephrectomy - Family History Father Family History: Reviewed- Non-Contributory - Social History Smoking Status: Unknown if ever smoked Alcohol use: No CD- Drugs: No Caffeine use: No Place of Residence: Home Review of Systems 10-point ROS is otherwise unremarkable Physical Examination - Vital Signs Temperature: 98.2 F Blood Pressure: 87/53 Pulse: 101 Respirations: 12 Pulse Ox (%): 95 - Physical Exam General: Unresponsive HEENT: Atraumatic, PERRLA, Mucous membr. moist/pink, EOMI, Sclerae nonicteric Neck: Supple, 2+ carotid pulse no bruit, No LAD, Without JVD or thyroid abnormality Respiratory: Clear to auscultation bilaterally, Normal air movement Cardiovascular: Irregular heart rate/rhythm, Systolic murmur Gastrointestinal: Normal bowel sounds, Soft and benign, Non-distended, No tenderness Musculoskeletal: No clubbing, No tenderness, Swelling Neurological: Other (Patient unresponsive and unable to follow commands) Lymphatics: No axilla or inguinal lymphadenopathy Assessment & Plan - Problems (Diagnosis) (1) STEMI (ST elevation myocardial infarction) Status: Acute (2) ESRD (end stage renal disease) Status: Acute (3) Palliative care patient Status: Acute - Plan Had a long discussion with family and patient would not want any treatment at this time of his life. Will proceed with hospice care. Discharge Plan: Other (hospice) - Advance Directives Does patient have a Living Will: Yes Does patient have a Durable POA for Healthcare: Yes - Code Status/Comfort Care Comfort Measures: Palliative Care Critical Care: No Time Spent Managing PTS Care (In Minutes): 45
--- NOTE | 2024-09-16 14:01 | P.PN ---
Subjective Date of Service: 09/15/24 Patient unresponsive. Review of Systems is unable to be obtained Physical Examination - Vital Signs Temperature: 98.2 F Blood Pressure: 87/53 Pulse: 101 Respirations: 12 Pulse Ox (%): 95 - Physical Exam General: Unresponsive Respiratory: Clear to auscultation bilaterally, Normal air movement Cardiovascular: Regular rate/rhythm, Normal S1 S2 Gastrointestinal: Normal bowel sounds, Soft and benign, Non-distended Assessment & Plan - Problems (Diagnosis) (1) STEMI (ST elevation myocardial infarction) Status: Acute (2) ESRD (end stage renal disease) Status: Acute (3) Palliative care patient Status: Acute - Plan Patient to go to [facility] hospice. - Advance Directives Does patient have a Living Will: Yes Does patient have a Durable POA for Healthcare: Yes - Code Status/Comfort Care Comfort Measures: Hospice Care Critical Care: No Time Spent Managing PTS Care (In Minutes): 35
--- NOTE | 2024-09-16 14:02 | P.DS ---
Discharge Date: 09/16/24 Disposition: HOSPICE-MEDICAL FACILITY Discharge Condition: FAIR Reason for Admission: ST elevation myocardial infarction - Problems (1) STEMI (ST elevation myocardial infarction) Status: Acute (2) ESRD (end stage renal disease) Status: Acute (3) Palliative care patient Status: Acute Brief History of Present Illness: Patient is an 89-year-old gentleman came to the hospital with left elevation myocardial infarction. Patient is also end-stage renal disease and the patient had been on dialysis for 3 years but he quit 2 months ago. Patient refused any treatment at that time. Patient was having chest pain so the family brought him into the ER. In the ER patient had ST elevation myocardial infarction. Patient is lethargic and not interacting. Family wants to proceed with comfort measures. Patient will be admitted and will consult hospice. Hospital Course: Family decided on hospice care. Will go ahead and placed on hospice at this time. Vital Signs/Physical Exam: Temp Pulse Resp BP Pulse Ox 98.2 F 101 H 12 87/53 L 95 09/16/24 14:00 09/16/24 14:00 09/16/24 14:00 09/16/24 14:00 09/16/24 14:00 General: Unresponsive Laboratory Data at Discharge: WBC 7.20 thou/uL (4.3-10.9) 09/14/24 10:10 Hgb 15.4 g/dL (13.6-17.9) 09/14/24 10:10 Hct 46.6 % (39.6-49.0) 09/14/24 10:10 Plt Count 145 thou/uL (152-406) L 09/14/24 10:10 Sodium 144 mEq/L (136-145) 09/14/24 10:10 Potassium 4.2 mEq/L (3.5-5.1) 09/14/24 10:10 BUN 110 mg/dL (7-18) H 09/14/24 10:10 Creatinine 10.10 mg/dL (0.70-1.30) H 09/14/24 10:10 Glucose 101 mg/dL (74-106) 09/14/24 10:10 Home Medications: Allopurinol 1 tab PO DAILY 08/01/22 Hydralazine [Apresoline*] 1 tab PO TID 08/01/22 Metoprolol Succinate [Toprol Xl*] 1 tab PO DAILY 08/01/22 Nifedipine Xl [Procardia XL*] 1 tab PO DAILY 08/01/22 Quinapril HCl 1 tab PO BID 08/01/22 Rosuvastatin [Crestor*] 1 tab PO DAILY 08/01/22 Torsemide [Demadex*] 1 tab PO DAILY 08/01/22 buPROPion HCL [Wellbutrin Xl] 1 tab PO DAILY 08/01/22 cloNIDine HCL [Clonidine HCl] 1 tab PO TID 08/01/22 Physician Discharge Instructions: Transfer to in hospice care. Followup: NILS TURNER [Primary Care Provider] - Time spent managing pt's care (in minutes): 35
== END 2024-09-16 07:53 | disposition hospice, inpatient (51) | DRG 280 ==
LOC: ER 09:43 → ERHOLD 12:21 → 2ND 17:21
PROVIDERS: ADMIT Hospitalist; ATTEND Hospitalist
DX: I21.4 Non-ST elevation (NSTEMI) myocardial infarction (principal); N18.6 End stage renal disease; I12.0 Hypertensive chronic kidney disease with stage 5 chronic kidney disease or end stage renal disease; M10.9 Gout, unspecified; D69.6 Thrombocytopenia, unspecified; F03.90 Unspecified dementia, unspecified severity, without behavioral disturbance, psychotic disturbance, mood disturbance, and anxiety; Z66 Do not resuscitate; Z90.5 Acquired absence of kidney; Z99.2 Dependence on renal dialysis; Z51.5 Encounter for palliative care; Z91.158 Patient's noncompliance with renal dialysis for other reason
CPT/HCPCS: 36415; 70450; 71045; 72125; 80048; 82550; 84484; 85025; 93005; 96372; 99285; J2270

== ENCOUNTER 2024-09-16 07:52 | Inpatient (IN) | payer OTHER ==
--- OUTSIDE RECORDS SUMMARY | 2024-09-16 08:24 | XMS REPORT | Continuity of Care Document ---
Author Name Unknown Address [address] [facility] [address] [place] [address] [facility] Address [address] [facility] [address] [place] [address] Care Team Providers Care Airport Operations Specialist Name Role Phone No , Pcp Primary Care Physician UnavailServando Cartwright Attending Clinician Unavailable ALBERTO MCRAE Attending Clinician UnavailJulian Goss MD Attending Clinician [phone] Alberto Mcrae MD Attending Clinician + [phone] Doctor Unassigned, [place] Attending Clinician U ivan 2, Bhavani Mda Procedure Rm Attending Clinician UnaJULIAN Barry Attending Clinician Junior Montero MD, Sendil K.H. Attending Clinician + [phone] JOSIANE MONTERO K.H. Attending Clinician UnavailNava Gonzalez Attending Clinician [phone] EARL LARSON RP Attending Clinician Unavailable MACKENZIE PARSONS Attending Clinician Unavailable 1, [facility] Attending Clinician Unavailable Mathew Hua MD Attending Clinician [phone] MATHEW HUA Attending Clinician UnavailDamaris Fonseca Attending Clinician [phone] Roe COOPER, Cathryn Attending Clinician Unavailable Samantha LAKE, Renny Attending Clinician + [phone] Daniel LAKE, Soha Ledesma Attending Clinician [phone] 1, [facility] Infusion Chair Attending Clinician Junior Huang EDITOR IN CHIEF NEWSPAPER, Mina Attending Clinician [phone] MINA HUANG Attending Clinician Unavailable Mackenzie Parsons DO Attending Clinician [phone] Gene LAKE, Earl Joshua Attending Clinician [phone] [facility] Attending Clinician Unavailable 1, Bhavani Mda Procedure Rm Attending Clinician Goyo Moody DO Attending Clinician [phone] 2, [facility] Infusion Chair Attending Clinician Junior Moiseb, [facility] Main Attending Clinician Unavailpatrick oliva 3, [facility] Infusion Chair Attending Clinician Junior medeiros 5, [facility] Infusion Chair Attending Clinician Junior medeiros 7, [facility] Infusion Chair Attending Clinician Junior medeiros 1, [facility] Infusion Chair Attending Clinician Farhana Price Attending Clinician [phone] [facility] Attending Clinician U Bang Foreman DO Attending Clinician [phone] Only, [facility] Attending Clinician Unavailable Pranay Davies MD Attending Clinician [phone] PRANAY DAVIES Attending Clinician Unavailable 2, [facility] Attending Clinician Unavailable Rm, [facility] Surg Spec Procedure Attending Clinician Unavailable FARHANA GROVER Attending Clinician Unavailable Nurse, [facility] Surgery Faculty Attending Clinician U ALBERTO Zelaya Admitting Clinician UnavailAlberto Arreaga MD Admitting Clinician + [phone] Payers Payer Name Policy Type Policy Number Effective Date Expirati on Date Source [facility] WELLMED [id number] 2022 00:00:00 [employer] MEDICARE ADVANTAGE [id number] 2002 00:00:00 Problems Condition Name Condition Details Condition Category Status Onset Date Resolution Date Last Treatment Date Treating Clinician Comments Source 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 5-16 00:00: 00 [facility] End stage renal disease End stage renal disease Disease Active 2021-09 00:00: 00 [facility] 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 8-30 00:00: 00 [facility] 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 8-30 00:00: 00 [facility] 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 Added automatic ally from request for surgery [id number] [facility] [id number] History of kidney cancer Problem [facility] [id number] Dependence on renal dialysis Problem [facility] [id number] End stage renal disease Problem [facility] [id number] Mixed hyperlipid emia Problem [facility] [id number] Essential hypertensi on Problem [facility] [id number] Episode of recurrent major depressive disorder, unspecifie d depression episode severity Problem [facility] Allergies, Adverse Reactions, Alerts Allergy Name Allergy Type Status Severity Reaction(s) Onset Date Inactive Date Treating Clinician Comments Source No Known Drug Intolera nces DA Active U 2008-09 00:00: 00 [facility] NO KNOWN ALLERGIE S Drug Class Active [facility] Family History Family Member Diagnosis Comments Start Date Stop Date Sourc e Natural father Cancer Un[facility] Natural mother Other - see comments [facility] Social History Social Habit Start Date Stop Date Quantity Comments Source Gender identity [facility] Sexual orientation [facility] History of Tobacco Use [facility] Sex Assigned At [facility] Exposure to SARS-CoV-2 (event) 2022-09-20 00:00:00 2022-09-30 15:18:00 Not sure [facility] History of Social function 2022-07-30 00:00:00 2022-07-30 00:00:00 [facility] Tobacco use and exposure 2022-07-30 00:00:00 2022-07-30 00:00:00 Smokeless tobacco non-user [facility] History SDOH Food Worry 2022-05-29 00:00:00 2022-05-29 00:00:00 1 [facility] History SDOH Food Scarcity 2022-05-29 00:00:00 2022-05-29 00:00:00 1 [facility] History SDOH Transport Med 2022-05-29 00:00:00 2022-05-29 00:00:00 2 [facility] History SDOH Transport Non-Med 2022-05-29 00:00:00 2022-05-29 00:00:00 2 [facility] Alcohol intake 2022-04-04 00:00:00 2022-04-04 00:00:00 Current drinker of alcohol (finding) [facility] Smoking Status Start Date Stop Date Source Never Smoker [facility] Former Smoker 2024-04-27 00:00:00 2024-04-27 00:00:00 [facility] Medications Ordered Medication Name Filled Medication Name Start Date Stop Date Current Medication? Ordering Clinician Indication Dosage Frequency Signature (SIG) Comments Components Source hydrALAZINE HCl 25 MG hydrALAZINE HCl 25 MG - 00:00: 00 No 1{table t_with_ food} TID hydrALAZIN E HCl 25 MG sulfamethox azole-trime thoprim (BACTRIM DS) 800-160 mg per tablet 1 tablet 03-13 16:30: 00 03-13 15:41 :00 No [id number] 1{tbl} [facility] linagliptin (TRADJENTA ORAL) 03-13 10:17: 02 Yes Take by mouth. [facility] linagliptin (TRADJENTA ORAL) 09-30 15:38: 40 Yes Take by mouth. [facility] tamsulosin 0.4 mg 24 hr capsule 2021-09 00:00: 00 Yes [id number] .4mg Take 1 capsule by mouth at bedtime. [facility] NIFEdipine XL 60 mg 24 hr tablet 06-20 00:00: 00 09-12 00:00 :00 No 60mg Take 60 mg by mouth. [facility] docusate 50 mg/5 mL solution 05-29 00:00: 00 Yes [id number] 100mg Take 10 mL by mouth in the morning. [facility] metoprolol succinate XL 50 mg 24 hr tablet 05-29 00:00: 00 Yes [id number] 50mg Take 1 tablet by mouth in the morning. [facility] NIFEdipine ER 60 mg tablet 05-29 00:00: 00 Yes [id number] 60mg Take 1 tablet by mouth in the morning. [facility] torsemide 20 mg tablet 05-29 00:00: 00 Yes [id number] 20mg Take 1 tablet by mouth every morning. [facility] sennosides 8.6 mg tablet 05-29 00:00: 00 Yes [id number] 8.6mg Take 1 tablet by mouth in the morning. [facility] bisacodyL 5 mg EC tablet 05-29 00:00: 00 Yes [id number] 5mg Take 1 tablet by mouth in the morning. [facility] linagliptin (TRADJENTA ORAL) 05-28 18:07: 30 Yes Take by mouth. [facility] hydralazine HCl (HYDRALAZIN E ORAL) 05-28 13:28: 30 05-28 00:00 :00 No 25mg Take 25 mg by mouth. [facility] heparin (porcine) injection 5,000 Units 05-28 13:00: 00 Yes 5000U 5,000 Units, Subcutaneo us, BID, First dose on Fri05/28/22 at 0800, Until Discontinu ed, Routine [facility] KCL (KLOR-CON M20) tablet 40 mEq 05-28 12:15: 00 05-28 14:07 :00 No 40meq 40 mEq, Oral, ONCE, 1 dose, On Fri05/28/22 at 0715, Routine [facility] hydrALAZINE 50 mg tablet 05-28 00:00: 00 Yes [id number] 50mg Take 1 tablet by mouth in the morning and 1 tablet at noon and 1 tablet in the evening. [facility] gabapentin 300 mg capsule 05-28 00:00: 00 Yes [id number] 300mg Take 1 capsule by mouth in the morning and 1 capsule in the evening. [facility] ondansetron 4 mg disintegrat ing tablet 05-28 00:00: 00 Yes [id number] 4mg Take 1 tablet by mouth every 8 (eight) hours as needed for Nausea and Vomiting (N/V). [facility] bisacodyL 10 mg suppository 05-28 00:00: 00 Yes [id number] 10mg Insert 1 Suppositor y into rectum once daily as needed for Constipati on or Constipati on unresolved by oral medication s. [facility] acetaminoph en 325 mg tablet 05-28 00:00: 00 05-29 04:59 :00 No [id number] 650mg Take 2 tablets by mouth every 6 (six) hours. [facility] NaCl 0.9% (NS) injection 5 mL 05-25 12:15: 00 05-25 17:00 :00 No 5mL 5 mL, Slow IV Push, ONCE, 1 dose, On Fri05/25/22 at 0715, Routine [facility] heparin 1,000 unit/mL injection 2,000 Units 05-25 12:03: 39 Yes 2000U PRN - SEE INSTRUCTIO NS, Starting on Fri05/25/22 at 0703, Until Discontinu ed, Routine
For Priming of Ports:&nbs p; &n bsp; After initial saline flush, prime each port with heparin according to the priming volume listed on each catheter port for catheter lock.
[facility] heparin 1,000 unit/mL injection 2,000 Units 05-24 19:18: 56 Yes 2000U PRN - SEE INSTRUCTIO NS, Starting on Fri05/24/22 at 1418, Until Discontinu ed, Routine
For Priming of Ports:&nbs p; &n bsp; After initial saline flush, prime each port with heparin according to the priming volume listed on each catheter port for catheter lock.
[facility] docusate (COLACE) 50 mg/5 mL solution 100 mg 05-24 14:00: 00 Yes 100mg 100 mg, Oral, DAILY, First dose on Fri05/24/22 at 0900, Until Discontinu ed, Routine [facility] bisacodyL (DULCOLAX) suppository 10 mg 05-24 11:49: 39 Yes 10mg 10 mg, Rectal, QDAILYPRN, Starting on Fri05/24/22 at 0649, Until Discontinu ed, Routine, Constipati on, Constipati on unresolved by oral medication s [facility] heparin 1,000 unit/mL injection 05-23 21:27: 57 05-23 21:27 :57 No Slow IV Push, PRN, Starting on Fri05/23/22 at 1627, Until Fri05/23/22 at 1627, Routine [facility] lidocaine 1% (PF) (XYLOCAINE) injection 05-23 21:08: 52 05-23 21:08 :52 No PRN, Starting on Fri05/23/22 at 1608, Until Discontinu ed, Routine [facility] FENTanyl PF (SUBLIMAZE (PF)) injection 05-23 21:04: 16 05-23 21:04 :16 No Slow IV Push, PRN, Starting on Fri05/23/22 at 1604, Until Discontinu ed, Routine [facility] D5W 0.45% NaCl (1/2NS) 1 L + KCL 20 mEq 05-23 18:15: 00 Yes IV Infusion, at 75 mL/hr, CONTINUOUS , Starting on Fri05/23/22 at 1315, Until Discontinu ed, Routine [facility] bisacodyL (DULCOLAX) tablet 5 mg 05-23 14:00: 00 Yes 5mg 5 mg, Oral, DAILY, First dose on Fri05/23/22 at 0900, Until Discontinu ed, Routine [facility] hydrALAZINE (APRESOLINE ) tablet 50 mg 05-23 13:00: 00 Yes 50mg 50 mg, Oral, TID, First dose (after last modificati on) on Fri05/23/22 at 0800, Until Discontinu ed, Routine [facility] NaCl 0.9% (NS) IV infusion 1,000 mL 05-23 12:00: 00 Yes 1000mL at 10 mL/hr, IV Infusion, CONTINUOUS , Starting on Fri05/23/22 at 0700, Until Discontinu ed, Routine [facility] hydrALAZINE (APRESOLINE ) tablet 25 mg 05-23 01:00: 00 Yes 25mg 25 mg, Oral, BID, First dose on Fri05/22/22 at 2000, Until Discontinu ed, Routine [facility] torsemide (SOAANZ) tablet 20 mg 05-22 16:00: 00 Yes 20mg 20 mg, Oral, QAM, First dose on Fri05/22/22 at 1100, Until Discontinu ed, Routine [facility] NIFEdipine ER tablet 60 mg 05-22 16:00: 00 Yes 60mg 60 mg, Oral, DAILY, First dose on Fri05/22/22 at 1100, Until Discontinu ed, Routine [facility] HYDROmorpho ne (DILAUDID) injection 0.2 mg 05-22 15:41: 51 05-24 15:40 :51 No .2mg 0.2 mg, Slow IV Push, Q8HPRN, Starting on Fri05/22/22 at 1041, Until Fri05/24/22 at 1040, Routine, Breakthrou gh Pain Only
Us e approved by (Faculty): GENERAL SURGERY
General surgeon approving: Alberto Mcrae [facility] sennosides (SENOKOT) tablet 8.6 mg 05-22 14:00: 00 Yes 8.6mg 8.6 mg, Oral, DAILY, First dose on Fri05/22/22 at 0900, Until Discontinu ed, Routine [facility] metoprolol succinate XL (TOPROL XL) tablet 50 mg 05-22 14:00: 00 Yes 50mg 50 mg, Oral, DAILY, First dose on Fri05/22/22 at 0900, Until Discontinu ed, Routine [facility] tamsulosin (FLOMAX) capsule 0.4 mg 05-22 02:00: 00 Yes .4mg 0.4 mg, Oral, QHS, First dose on Fri05/21/22 at 2100, Until Discontinu ed, Routine [facility] gabapentin (NEURONTIN) capsule 300 mg 05-22 01:00: 00 Yes 300mg 300 mg, Oral, BID, First dose on Fri05/21/22 at 2000, Until Discontinu ed, Routine [facility] proMETHazin e (PHENERGAN) 12.5 mg in NS 50 mL IV piggyback (CNR) 05-21 23:18: 46 Yes 12.5mg 12.5 mg, IV Piggyback, at 200 mL/hr Administer over 15 Minutes, Q4HPRN, Starting on Fri05/21/22 at 1818, Until Discontinu ed, Routine, N/V unresponsi ve to Ondansetro n [facility] acetaminoph en (TYLENOL) tablet 650 mg 05-21 23:00: 00 Yes 650mg 650 mg, Oral, Q6H, First dose on Fri05/21/22 at 1800, Until Discontinu ed, Routine [facility] Sliding Scale Insulin - Lispro (HumaLOG) + Fsbg Testing 05-21 22:00: 00 Yes Subcutaneo us, TID MEALS+HS, First dose on Fri05/21/22 at 1700, Until Discontinu ed, Routine [facility] NaCl 0.9% (NS) IV infusion 1,000 mL 05-21 22:00: 00 Yes 1000mL at 50 mL/hr, IV Infusion, CONTINUOUS , Starting on Fri05/21/22 at 1700, Until Discontinu ed, Routine [facility] glucagon (GLUCAGEN DIAGNOSTIC KIT) injection 1 mg 05-21 21:49: 47 Yes 1mg 1 mg, Intramuscu lar, PRN, Starting on Fri05/21/22 at 1649, Until Discontinu ed, NORA, Blood Glucose < or = 70 mg/dL and patient is unable to swallow or has mental changes. [facility] dextrose 50 % in water (D50W) injection 25 mL 05-21 21:49: 47 Yes 25mL 25 mL, Slow IV Push, PRN, Starting on Fri05/21/22 at 1649, Until Discontinu ed, NORA, Blood Glucose < or = 70 mg/dL and patient is unable to swallow or has mental status changes. [facility] ondansetron (ZOFRAN (PF)) injection 4 mg 05-21 21:42: 21 Yes 4mg 4 mg, Slow IV Push, Q4HPRN, Starting on Fri05/21/22 at 1642, Until Discontinu ed, Routine, Nausea and Vomiting (N/V) [facility] bupivacaine liposome (PF) (EXPAREL (PF)) 1.3 % (13.3 mg/mL) 266 mg, NaCl 0.9% (NS) 40 mL 05-21 21:00: 00 05-21 22:12 :34 No PRN, Starting on Fri05/21/22 at 1600, Intra-op [facility] HYDROcodone -acetaminop hen (NORCO 5) 5-325 mg tablet 1 tablet 05-21 20:45: 00 05-21 22:56 :00 No 1{tbl} 1 tablet, Oral, ONCE, 1 dose, On Fri05/21/22 at 1545, Routine, PACU [facility] HYDROmorphO ne (DILAUDID) injection 0.2 mg 05-21 20:33: 52 05-22 01:03 :16 No .2mg 0.2 mg, Slow IV Push, Q5MIN PRN, 10 doses, Starting on Fri05/21/22 at 1533, Until Fri05/21/22 at 2003, Routine, Pain (scale 7-10), PACU
Us e approved by (Faculty): PACU USE -ANESTHESI A SERVICE-HY DROMORPHON E INJECTIONS [facility] ondansetron (ZOFRAN (PF)) injection 4 mg 05-21 20:33: 52 05-21 23:00 :00 No 4mg 4 mg, Slow IV Push, PRN, 1 dose, Starting on Fri05/21/22 at 1533, Until Discontinu ed, Routine, Nausea and Vomiting (N/V), PACU [facility] gabapentin (NEURONTIN) capsule 300 mg 05-21 14:45: 00 05-21 17:01 :00 No 300mg 300 mg, Oral, ONCE, 1 dose, On Fri05/21/22 at 0945, Routine, DSU Pre-op [facility] acetaminoph en (TYLENOL) tablet 975 mg 05-21 14:45: 00 05-21 16:59 :00 No 975mg 975 mg, Oral, ONCE, 1 dose, On Fri05/21/22 at 0945, Routine, DSU Pre-op [facility] linagliptin (TRADJENTA ORAL) 2022-0 8-30 10:27: 43 Yes Take by mouth. [facility] acetaminoph en (TYLENOL ORAL) 8-08 10:14: 13 04-29 00:00 :00 No 1{tbl} Take 1 tablet by mouth as needed. [facility] quinapriL 40 mg tablet 7-26 00:00: 00 Yes 40mg Take 1 tablet by mouth. [facility] torsemide 20 mg tablet 5-31 00:00: 00 05-28 00:00 :00 No 20mg Take 20 mg by mouth in the morning. [facility] tamsulosin 0.4 mg 24 hr capsule 3-03 00:00: 00 07-04 00:00 :00 No [id number] .4mg Take 1 capsule by mouth at bedtime. [facility] proCHLORper azine 10 mg tablet 1-28 00:00: 00 Yes [id number] 10mg Take 1 tablet by mouth every 6 (six) hours as needed for Nausea and Vomiting (N/V). [facility] ondansetron 4 mg disintegrat ing tablet 1-28 00:00: 00 04-29 00:00 :00 No [id number] 4mg Take 1 tablet by mouth every 8 (eight) hours as needed for Nausea and Vomiting (N/V). [facility] aspirin 81 mg chewable tablet 3-25 00:00: 00 04-29 00:00 :00 No CHEW AND SWALLOW 1 TABLET BY MOUTH EVERY DAY [facility] quinapriL 40 mg tablet - 00:00: 00 05-28 00:00 :00 No 40mg Take 40 mg by mouth 2 (two) times daily. [facility] ONETOUCH DELICA PLUS LANCET 33 gauge Misc 11-27 00:00: 00 Yes CHECK BLOOD SUGAR TWICE DAILY [facility] metoprolol succinate XL 50 mg 24 hr tablet 2-20 00:00: 00 05-28 00:00 :00 No 50mg Take 50 mg by mouth daily. [facility] rosuvastati n 10 mg tablet 10-30 00:00: 00 Yes 10mg Take 10 mg by mouth daily. [facility] NIFEdipine XL 60 mg 24 hr tablet 10-25 00:00: 00 05-28 00:00 :00 No 60mg Take 60 mg by mouth daily. [facility] ONETOUCH ULTRA BLUE TEST STRIP strip 10-02 00:00: 00 Yes USE DIRECTED TO CHECK BLOOD GLUCOSE LEVELS TWICE DAILY [facility] Rosuvastati n Calcium 10 MG Rosuvastati n [...] Observation Time Observation Value Comments S ource height 2024-05-11 09:40:00 65 [in_i] Commo n [facility] weight 2024-05-11 09:40:00 150.0 [lb_av] Co mmon [facility] temperature 2024-05-11 09:40:00 97.4 [degF] Com mon [facility] bmi 2024-05-11 09:40:00 24.96 kg/m2 Comm on [facility] oximetry 2024-05-11 09:40:00 97 % Commo n [facility] respiratory rate 2024-05-11 09:40:00 17 /min [facility] blood pressure systolic 2024-05-11 09:40:00 136 mm[Hg] Common [facility] blood pressure diastolic 2024-05-11 09:40:00 60 mm[Hg] Common [facility] height 2024-04-27 10:00:00 65 [in_i] Commo n [facility] weight 2024-04-27 10:00:00 145.2 [lb_av] Co mmon [facility] temperature 2024-04-27 10:00:00 97.3 [degF] Com mon [facility] bmi 2024-04-27 10:00:00 24.16 kg/m2 Comm on [facility] oximetry 2024-04-27 10:00:00 99 % Commo n [facility] blood pressure systolic 2024-04-27 10:00:00 210 mm[Hg] [facility] blood pressure diastolic 2024-04-27 10:00:00 92 mm[Hg] [facility] Systolic blood pressure 2023-03-13 15:10:00 112 mm[Hg] [facility] Diastolic blood pressure 2023-03-13 15:10:00 61 mm[Hg] [facility] Heart rate 2023-03-13 15:10:00 75 /min [facility] height 2023-03-13 15:10:00 167.6 cm [facility] Body weight 2023-03-13 15:10:00 72.802 kg [facility] BMI 2023-03-13 15:10:00 25.91 kg/m2 [facility] Oxygen saturation in Arterial blood by Pulse oximetry 2023-03-13 15:10:00 98 /min [facility] Body height 2022-09-30 21:40:00 167.6 cm [facility] Body weight 2022-09-30 21:40:00 72.666 kg [facility] BMI 2022-09-30 21:40:00 25.86 kg/m2 [facility] Oxygen saturation in Arterial blood by Pulse oximetry 2022-09-30 21:40:00 98 /min [facility] Systolic blood pressure 2022-09-30 21:40:00 117 mm[Hg] [facility] Diastolic blood pressure 2022-09-30 21:40:00 66 mm[Hg] [facility] Heart rate 2022-09-30 21:40:00 93 /min Un[facility] Body temperature 2022-09-30 21:40:00 36.83 Octavia [facility] Systolic blood pressure 2022-09-12 15:31:00 133 mm[Hg] [facility] Diastolic blood pressure 2022-09-12 15:31:00 59 mm[Hg] [facility] Heart rate 2022-09-12 15:31:00 56 /min [facility] Body temperature 2022-09-12 15:31:00 36.56 Oct[facility] Body height 2022-09-12 15:31:00 167.6 cm [facility] Body weight 2022-09-12 15:31:00 74.526 kg [facility] BMI 2022-09-12 15:31:00 26.52 kg/m2 [facility] Oxygen saturation in Arterial blood by Pulse oximetry 2022-09-12 15:31:00 99 /min rooma ir [facility] Systolic blood pressure 2022-06-13 15:11:00 148 mm[Hg] [facility] Diastolic blood pressure 2022-06-13 15:11:00 71 mm[Hg] [facility] Heart rate 2022-06-13 15:11:00 61 /min [facility] Body temperature 2022-06-13 15:11:00 36.89 Octavia [facility] Body weight 2022-06-13 15:11:00 75.07 kg [facility] BMI 2022-06-13 15:11:00 26.71 kg/m2 [facility] Oxygen saturation in Arterial blood by Pulse oximetry 2022-06-13 15:11:00 99 /min [facility] Systolic blood pressure 2022-05-28 16:30:00 137 mm[Hg] [facility] Diastolic blood pressure 2022-05-28 16:30:00 77 mm[Hg] [facility] Heart rate 2022-05-28 16:30:00 82 /min [facility] Body temperature 2022-05-28 16:30:00 36.11 Octavia [facility] Oxygen saturation in Arterial blood by Pulse oximetry 2022-05-28 16:30:00 91 /min [facility] Respiratory rate 2022-05-27 16:40:00 16 /min [facility] Body weight 2022-05-27 16:40:00 71.03 kg [facility] BMI 2022-05-27 16:40:00 25.27 kg/m2 [facility] Body height 2022-05-23 20:35:00 167.6 cm [facility] Systolic blood pressure 2022-05-21 14:41:00 133 mm[Hg] [facility] Diastolic blood pressure 2022-05-21 14:41:00 67 mm[Hg] [facility] Heart rate 2022-05-21 14:41:00 71 /min Un[facility] Body temperature 2022-05-21 14:41:00 36.72 Oct[facility] Respiratory rate 2022-05-21 14:41:00 18 /min [facility] Body height 2022-05-21 14:41:00 167.6 cm [facility] Body weight 2022-05-21 14:41:00 77.7 kg [facility] BMI 2022-05-21 14:41:00 27.65 kg/m2 [facility] [facility] in Arterial blood by Pulse oximetry 2022-05-21 14:41:00 97 /min [facility] Systolic blood pressure 2022-05-25 16:30:00 140 mm[Hg] [facility] Diastolic blood pressure 2022-05-25 16:30:00 73 mm[Hg] [facility] Heart rate 2022-05-25 16:30:00 84 /min [facility] Body temperature 2022-05-25 14:57:00 36.28 Octavia [facility] Respiratory rate 2022-05-25 14:57:00 18 /min [facility] Body weight 2022-05-25 14:57:00 73.5 kg [facility] BMI 2022-05-25 14:57:00 26.15 kg/m2 [facility] Oxygen saturation in Arterial blood by Pulse oximetry 2022-05-25 12:47:00 94 /min [facility] Body height 2022-05-23 20:35:00 167.6 cm [facility] Procedures Procedure Date / Time Performed Performing Clinician Source DISCLOSURE AND CONSENT, MEDICAL AND SURGICAL PROCEDURES 2023-03-18 05:01:00 Doctor Unassigned, [place] [facility] CT ABDOMEN PELVIS WO CONTRAST 2022-09-27 19:53:00 Alberto Mcrae [facility] DISCLOSURE AND CONSENT, MEDICAL AND SURGICAL PROCEDURES 2022-09-18 06:01:00 Doctor Unassigned, [place] [facility] EXTERNAL PROVIDER RECORDS 2022-08-02 06:01:00 Do ctor Unassigned, [place] [facility] EXTERNAL PROVIDER RECORDS 2022-07-10 05:01:00 Do ctor Unassigned, [place] [facility] EXTERNAL PROVIDER RECORDS 2022-06-28 05:01:00 Do ctor Unassigned, [place] [facility] PHOSPHORUS 2022-05-28 07:14:00 Ashish Mcmullen [facility] MAGNESIUM 2022-05-28 07:14:00 Ashish Mcmullen [facility] BASIC METABOLIC PANEL (NA, K, CL, CO2, GLUCOSE, BUN, CREATININE, CA) 2022-05-28 07:14:00 Ashish Mcmullen [facility] EXTRA TUBE LAV 2022-05-28 07:14:00 Alberto Mcrae [facility] POCT GLUCOSE (AUTOMATED) 2022-05-27 17:05:00 Alberto Mcrae [facility] POCT GLUCOSE (AUTOMATED) 2022-05-27 16:18:00 Alberto Mcrae [facility] POCT GLUCOSE (AUTOMATED) 2022-05-27 01:50:00 Alberto Mcrae [facility] POCT GLUCOSE (AUTOMATED) 2022-05-26 20:56:00 Alberto Mcrae [facility] POCT GLUCOSE (AUTOMATED) 2022-05-26 17:18:00 Alberto Mcrae [facility] POCT GLUCOSE (AUTOMATED) 2022-05-26 13:49:00 Alberto Mcrae [facility] POCT GLUCOSE (AUTOMATED) 2022-05-26 01:55:00 Alberto Mcrae [facility] POCT GLUCOSE (AUTOMATED) 2022-05-25 22:21:00 Alberto Mcrae [facility] POCT GLUCOSE (AUTOMATED) 2022-05-25 12:50:00 Alberto Mcrae [facility] POCT GLUCOSE (AUTOMATED) 2022-05-25 12:50:00 Alberto Mcrae [facility] POCT GLUCOSE (AUTOMATED) 2022-05-25 01:55:00 Alberto Mcrae [facility] POCT GLUCOSE (AUTOMATED) 2022-05-25 01:55:00 Alberto Mcrae [facility] POCT GLUCOSE (AUTOMATED) 2022-05-24 22:32:00 Alberto Mcrae [facility] POCT GLUCOSE (AUTOMATED) 2022-05-24 22:32:00 Alberto Mcrae [facility] MRSA / MSSA [facility] 2022-05-24 21:07:00 Mignon Rayo [facility] MRSA / MSSA SCREEN BY PCR, [facility] 2022-05-24 21:07:00 Mignon Rayo [facility] POCT GLUCOSE (AUTOMATED) 2022-05-24 16:59:00 Alberto Mcrae [facility] POCT GLUCOSE (AUTOMATED) 2022-05-24 16:59:00 Alberto Mcrae [facility] BASIC METABOLIC PANEL (NA, K, CL, CO2, GLUCOSE, BUN, CREATININE, CA) 2022-05-24 14:46:00 Ashish Mcmullen [facility] MAGNESIUM 2022-05-24 14:46:00 Ashish Mcmullen [facility] PHOSPHORUS 2022-05-24 14:46:00 [facility] HEPATITIS B SURFACE ANTIBODY 2022-05-24 14:46:00 Vu, [facility] HEPATITIS B SURFACE ANTIGEN 2022-05-24 14:46:00 Vu, [facility] HBC ANTIBODY (IGM & IGG) 2022-05-24 14:46:00 Vu, [facility] PHOSPHORUS 2022-05-24 14:46:00 Ashish Mcmullen [facility] MAGNESIUM 2022-05-24 14:46:00 [facility] BASIC METABOLIC PANEL (NA, K, CL, CO2, GLUCOSE, BUN, CREATININE, CA) 2022-05-24 14:46:00 [facility] HEPATITIS B SURFACE ANTIBODY 2022-05-24 14:46:00 Vu, [facility] HEPATITIS B SURFACE ANTIGEN 2022-05-24 14:46:00 Vu, [facility] HBC ANTIBODY (IGM & IGG) 2022-05-24 14:46:00 Vu, [facility] XR CHEST 1 VW 2022-05-24 14:35:00 [facility]-24 [facility]) 2022-05-24 12:56:00 Alberto Mcrae [facility] POCT GLUCOSE (AUTOMATED) 2022-05-24 12:56:00 Alberto Mcrae [facility] POCT GLUCOSE (AUTOMATED) 2022-05-24 02:41:00 Alberto Mcrae [facility] POCT GLUCOSE (AUTOMATED) 2022-05-24 02:41:00 Alberto Mcrae [facility] POCT GLUCOSE (AUTOMATED) 2022-05-23 22:33:00 Alberto Mcrae [facility] POCT GLUCOSE (AUTOMATED) 2022-05-23 22:33:00 Alberto Mcrae [facility] IR CENTRALLY INSERTED DEVICE TUNNELED 5 OR OLDER NO PORT/PUMP 2022-05-23 21:35:13 Aury [facility] IR CENTRALLY INSERTED DEVICE TUNNELED 5 OR OLDER NO PORT/PUMP 2022-05-23 21:35:13 Aury [facility] POCT GLUCOSE (AUTOMATED) 2022-05-23 16:47:00 Alberto Mcrae [facility] POCT GLUCOSE (AUTOMATED) 2022-05-23 16:47:00 Alberto Mcrae [facility] BASIC METABOLIC PANEL (NA, K, CL, CO2, GLUCOSE, BUN, CREATININE, CA) 2022-05-23 14:06:00 Ashish Mcmullen [facility] BASIC METABOLIC PANEL (NA, K, CL, CO2, GLUCOSE, BUN, CREATININE, CA) 2022-05-23 14:06:00 Ashish Mcmullen [facility] POCT GLUCOSE (AUTOMATED) 2022-05-23 12:56:00 Alberto Mcrae [facility] POCT GLUCOSE (AUTOMATED) 2022-05-23 12:56:00 Alberto Mcrae [facility] POCT GLUCOSE (AUTOMATED) 2022-05-23 02:10:00 Alberto Mcrae [facility] POCT GLUCOSE (AUTOMATED) 2022-05-23 02:10:00 Alberto Mcrae [facility] POCT GLUCOSE (AUTOMATED) 2022-05-22 21:25:00 Alberto Mcrae [facility] POCT GLUCOSE (AUTOMATED) 2022-05-22 21:25:00 Alberto Mcrae [facility] POCT GLUCOSE (AUTOMATED) 2022-05-22 21:25:00 Alberto Mcrae [facility] POCT GLUCOSE (AUTOMATED) 2022-05-22 16:34:00 Alberto Mcrae [facility] POCT GLUCOSE (AUTOMATED) 2022-05-22 16:34:00 Alberto Mcrae [facility] POCT GLUCOSE (AUTOMATED) 2022-05-22 16:34:00 Alberto Mcrae [facility] BASIC METABOLIC PANEL (NA, K, CL, CO2, GLUCOSE, BUN, CREATININE, CA) 2022-05-22 15:16:00 Bang Pride [facility] BASIC METABOLIC PANEL (NA, K, CL, CO2, GLUCOSE, BUN, CREATININE, CA) 2022-05-22 15:16:00 Bang Pride [facility] BASIC METABOLIC PANEL (NA, K, CL, CO2, GLUCOSE, BUN, CREATININE, CA) 2022-05-22 15:16:00 Bang Pride [facility] POCT GLUCOSE (AUTOMATED) 2022-05-22 12:43:00 Alberto Mcrae [facility] POCT GLUCOSE (AUTOMATED) 2022-05-22 12:43:00 Alberto Mcrae [facility] POCT GLUCOSE (AUTOMATED) 2022-05-22 12:43:00 Alberto Mcrae [facility] BASIC METABOLIC PANEL (NA, K, CL, CO2, GLUCOSE, BUN, CREATININE, CA) 2022-05-22 04:48:00 Bang Pride [facility] BASIC METABOLIC PANEL (NA, K, CL, CO2, GLUCOSE, BUN, CREATININE, CA) 2022-05-22 04:48:00 Bang Pride [facility] BASIC METABOLIC PANEL (NA, K, CL, CO2, GLUCOSE, BUN, CREATININE, CA) 2022-05-22 04:48:00 Bang Pride [facility] POCT GLUCOSE (AUTOMATED) 2022-05-22 01:43:00 Alberto Mcrae [facility] POCT GLUCOSE (AUTOMATED) 2022-05-22 01:43:00 Alberto Mcrae [facility] POCT GLUCOSE (AUTOMATED) 2022-05-22 01:43:00 Alberto Mcrae [facility] POCT GLUCOSE (AUTOMATED) 2022-05-21 22:51:00 Alberto Mcrae [facility] POCT GLUCOSE (AUTOMATED) 2022-05-21 22:51:00 Alberto Mcrae [facility] POCT GLUCOSE (AUTOMATED) 2022-05-21 22:51:00 Alberto Mcrae [facility] BASIC METABOLIC PANEL (NA, K, CL, CO2, GLUCOSE, BUN, CREATININE, CA) 2022-05-21 22:21:00 Bang Pride [facility] PROTHROMBIN TIME / INR 2022-05-21 22:21:00 Chen Pride [facility] BASIC METABOLIC PANEL (NA, K, CL, CO2, GLUCOSE, BUN, CREATININE, CA) 2022-05-21 22:21:00 Bang Pride [facility] PROTHROMBIN TIME / INR 2022-05-21 22:21:00 Chen Pride [facility] BASIC METABOLIC PANEL (NA, K, CL, CO2, GLUCOSE, BUN, CREATININE, CA) 2022-05-21 22:21:00 Bang Pride [facility] PROTHROMBIN TIME / INR 2022-05-21 22:21:00 Chen Pride [facility] SURGICAL PATHOLOGY EXAM 2022-05-21 20:42:00 Alberto Mcrae [facility] BASIC METABOLIC PANEL (NA, K, CL, CO2, GLUCOSE, BUN, CREATININE, CA) 2022-05-21 19:05:00 Floresita Hewitt [facility] BASIC METABOLIC PANEL (NA, K, CL, CO2, GLUCOSE, BUN, CREATININE, CA) 2022-05-21 19:05:00 Floresita Hewitt [facility] BASIC METABOLIC PANEL (NA, K, CL, CO2, GLUCOSE, BUN, CREATININE, CA) 2022-05-21 19:05:00 Floresita Hewitt [facility] ABG+COOX+NA+K+GLU+CA2+ 2022-05-21 19:02:00 Corky Mcrae [facility] ABG+COOX+NA+K+GLU+CA2+ 2022-05-21 19:02:00 Corky Mcrae [facility] INTUBATION 2022-05-21 17:59:00 Floresita Hewitt [facility] POCT GLUCOSE (AUTOMATED) 2022-05-21 17:42:00 Alberto Mcrae [facility] POCT GLUCOSE (AUTOMATED) 2022-05-21 17:42:00 Alberto Mcrae [facility] POCT GLUCOSE (AUTOMATED) 2022-05-21 17:42:00 Alberto Mcrae [facility] LAPAROSCOPIC NEPHRECTOMY 2022-05-21 17:30:00 Alberto Mcrae [facility] LAPAROSCOPIC NEPHRECTOMY 2022-05-21 17:30:00 Alberto Mcrae [facility] LAPAROSCOPIC NEPHRECTOMY 2022-05-21 17:30:00 Alberto Mcrae [facility] HB ABO GROUPING 2022-05-21 16:18:00 Bautista Mosquera [facility] HB ABO GROUPING 2022-05-21 16:18:00 Bautista Mosquera [facility] HB ABO GROUPING 2022-05-21 16:18:00 Bautista Mosquera [facility] COVID-19 (ID NOW RAPID TESTING) 2022-05-21 14:40:00 Alberto Mcrae [facility] LAB ONLY COVID INTERPRETATION 2022-05-21 14:40:00 Alberto Mcrae [facility] COVID-19 (ID NOW RAPID TESTING) 2022-05-21 14:40:00 Alberto Mcrae [facility] LAB ONLY COVID INTERPRETATION 2022-05-21 14:40:00 Alberto Mcrae [facility] COVID-19 (ID NOW RAPID TESTING) 2022-05-21 14:40:00 Alberto Mcrae [facility] LAB ONLY COVID INTERPRETATION 2022-05-21 14:40:00 Alberto Mcrae [facility] HOSPITAL ADMISSION 2022-05-21 05:01:00 Doctor Un assigned, [place] [facility] NM MYOCARDIUM PERFUSION STRESS AND REST 2022-05-16 15:20:00 Josiane Montero [facility] NUCLEAR STRESS TEST CARDIOLOGY (DO NOT SCHED) 2022-05-16 15:20:00 Josiane Montero [facility] TRANSTHORACIC ECHO (TTE) COMPLETE W/ CONTRAST 2022-05-16 15:04:00 Josiane Montero [facility] DISCLOSURE AND CONSENT, MEDICAL AND SURGICAL PROCEDURES 2022-05-16 05:01:00 Doctor Unassigned, [place] [facility] HB ECG ROUTINE & RHYTHM STRIP 2022-05-07 18:02:03 Josiane Montero [facility] INSURANCE CORRESPONDENCE 2022-05-07 05:01:00 Doc tor Unassigned, [place] [facility] MAGNESIUM 2022-04-29 15:52:00 Mackenzie Parsons [facility] PHOSPHORUS 2022-04-29 15:52:00 Mackenzie Parsons [facility] INTACT PTH CALCIUM GROUP 2022-04-29 15:52:00 Ender Parsons [facility] CBC WITH DIFF 2022-04-29 15:52:00 [facility] COMP. METABOLIC PANEL ([id number]) 2022-04-29 15:52:00 Mina Huang [facility] FERRITIN SERUM 2022-04-29 15:52:00 Mina Huang [facility] TOTAL IRON BINDING CAPACITY 2022-04-29 15:52:00 Mina Huang [facility] DISCLOSURE AND CONSENT, MEDICAL AND SURGICAL PROCEDURES 2022-04-26 05:01:00 Doctor Unassigned, [place] [facility] DISCLOSURE AND CONSENT, MEDICAL AND SURGICAL PROCEDURES 2022-04-26 05:01:00 Doctor Unassigned, [place] [facility] DISCLOSURE AND CONSENT, MEDICAL AND SURGICAL PROCEDURES 2022-04-26 05:01:00 Doctor Unassigned, [place] [facility] NM RENAL FLOW FUNCTION WITH PHARMACOLOGICAL INTERVENTION 2022-04-12 15:51:20 Mg Arceo [facility] CONSENT/REFUSAL FOR DIAGNOSIS AND TREATMENT 2022-04-12 13:48:51 Doctor Unassigned, [place] [facility] ASSIGNMENT OF BENEFITS 2022-04-12 13:48:30 Docto r Unassigned, [place] [facility] Encounters Start Date/Time End Date/Time Encounter Type Admission Type Attending [facility] Care Facility Care Department Encounter ID Source 2024-08-09 08:08:01 Outpatient Servando Thakur [facility] ST[facility] [id number] [facility] 2024-04-27 09:23:02 Outpatient Servando Thakur STLMLC STLC [id number] [facility] 2023-04-18 09:49:27 Outpatient [facility] [id number] [facility] 2023-02-04 09:07:15 Outpatient [facility] [id number] [facility] 2023-01-13 08:39:19 Outpatient [facility] [id number] [facility] 2023-01-08 09:31:16 Outpatient [facility] [id number] [facility] 2022-10-29 08:41:22 Outpatient [facility] [id number] [facility] 2022-10-25 12:34:20 Outpatient [facility] [id number] [facility] 2022-09-03 07:49:48 Outpatient [facility] [id number] [facility] 2022-08-06 10:36:00 Outpatient [facility] [id number] [facility] 2022-07-29 08:51:23 Outpatient [facility] [id number] [facility] 2022-07-22 17:03:45 Outpatient [facility] [id number] [facility] 2022-07-15 09:06:16 Outpatient [facility] [id number] [facility] 2022-05-21 10:11:00 Inpatient ALBERTO DURHAM [facility] [id number] [facility] 2024-05-11 00:00:00 2024-05-11 00:00:00 OFFICE VISIT ESTAB PT LEVEL 4 [facility] STL[facility]C [id number] [facility] 2024-05-06 00:00:00 2024-05-06 00:00:00 (TEL) STLMLC STLMLC [id number] [facility] 2024-05-06 00:00:00 2024-05-06 00:00:00 (TEL) STLMLC STLMLC [id number] [facility] 2024-04-27 00:00:00 2024-04-27 00:00:00 OFFICE VISIT NEW PT LEVEL [facility] [id number] [facility] 2023-08-28 10:45:00 2023-08-28 10:45:00 Outpatient ALBERTO DURHAM [facility] [id number] [facility] 2023-07-01 09:00:00 2023-07-01 12:27:58 Office Visit Julian Dumas [facility] 1 1.2.840.114 [id number] [facility] 2023-03-20 00:00:00 2023-03-20 00:00:00 Telephone Alberto Mcrae [facility] 1.2.840.114 350.1.13.10 4.2.7.2.686 [id number] [facility] 2023-03-18 00:00:00 2023-03-18 00:00:00 Orders Only Doctor Unassigned, [place] [facility] 1.2.840.114 350.1.13.10 4.2.7.2.686 [id number] [facility] 2023-03-13 11:00:00 2023-03-13 11:01:16 Outpatient ALBERTO DURHAM [facility] [id number] [facility] 2023-03-13 11:00:00 2023-03-13 11:01:16 Office Visit Alberto Mcrae 2, Bhavani Mda Procedure Rm [facility] 1.2.840.114 350.1.13.10 4.2.7.2.686 [id number] [facility] 2023-02-24 09:30:00 2023-02-24 09:30:00 Outpatient JULIAN DUMAS [facility] [id number] [facility] 2023-02-07 08:29:00 2023-02-07 13:46:00 Outpatient FELIXJULIAN [id number] [facility] 2022-10-28 09:30:00 2022-10-28 09:31:13 Outpatient [facility] [id number] [facility] 2022-09-30 15:30:00 2022-09-30 16:00:00 [facility] 1.2.840.114 350.1.13.10 4.2.7.2.686 [id number] [facility] 2022-09-30 15:30:00 2022-09-30 15:30:00 Outpatient JOSIANE YEBOAH [facility] [id number] [facility] 2022-09-27 13:14:40 2022-09-27 23:59:00 Hospital Encounter Clementina Alberto [facility] 1.2.840.114 350.1.13.10 4.2.7.2.686 [id number] [facility] 2022-09-27 13:13:29 2022-09-27 13:13:29 Outpatient Dustin MCRAE ALBERTO [facility] [id number] [facility] 2022-09-27 13:13:29 2022-09-27 13:13:29 Hospital Encounter Alberto Mcrae [facility] 1.2.840.114 350.1.13.10 4.2.7.2.686 [id number] [facility] 2022-09-27 00:00:00 2022-09-27 00:00:00 [facility] 1.2.840.114 350.1.13.10 4.2.7.2.686 [id number] [facility] 2022-09-20 00:00:00 2022-09-20 00:00:00 Nava Gupta [facility] 1.2.840.114 350.1.13.10 4.2.7.2.686 [id number] [facility] 2022-09-19 00:00:00 2022-09-19 00:00:00 Telephone Alberto Mcrae [facility] 1.2.840.114 350.1.13.10 4.2.7.2.686 [id number] [facility] 2022-09-18 00:00:00 2022-09-18 00:00:00 Orders Only Doctor Unassigned, [place] [facility] 1.2.840.114 350.1.13.10 4.2.7.2.686 [id number] [facility] 2022-09-12 09:00:00 2022-09-12 10:00:00 Office Visit Alberto Mcrae 2, Bhavani Mda Procedure [facility] 1.2.840.114 350.1.13.10 4.2.7.2.686 [id number] [facility] 2022-09-12 09:30:00 2022-09-12 09:45:00 Office Visit Alberto Mcrae [facility] 1.2.840.114 350.1.13.10 4.2.7.2.686 [id number] [facility] 2022-09-12 09:30:00 2022-09-12 09:30:00 Outpatient ALBERTO DURHAM [facility] [id number] [facility] 2022-09-12 09:00:00 2022-09-12 09:00:00 Outpatient ALBERTO DURHAM [facility] [id number] [facility] 2022-09-05 13:00:00 2022-09-05 13:00:00 Outpatient [facility] [id number] [facility] 2022-08-20 10:00:00 2022-08-20 10:00:00 Outpatient JOSIANE YEBOAH [facility] [id number] [facility] 2022-08-02 00:00:00 2022-08-02 00:00:00 Orders Only Doctor Unassigned, [place] [facility] 1.2.840.114 350.1.13.10 4.2.7.2.686 [id number] [facility] 2022-07-29 09:45:00 2022-07-30 08:36:03 Office Visit Julian Dumas [facility] 1.2.840.114 350.1.13.58 9.2.7.2.686 [id number] [facility] 2022-07-11 16:00:00 2022-07-11 16:00:00 Outpatient MACKENZIE SEGOVIA [facility] [id number] [facility] 2022-07-11 16:00:00 2022-07-11 16:00:00 Outpatient Dustin [facility] [id number] [facility] 2022-07-10 00:00:00 2022-07-10 00:00:00 Orders Only Doctor Unassigned, [place] [facility] 1.2.840.114 350.1.13.10 4.2.7.2.686 [id number] 009 [id number] [facility] 2022-07-08 11:00:00 2022-07-08 11:15:00 Flight Crew Ordnanceman Visit 1, Adc Mathew Snow [facility] 1.2.840.114 350.1.13.10 4.2.7.2.686 [id number] [facility] 2022-07-08 11:00:00 2022-07-08 11:00:00 Outpatient MATHEW MCNAMARA [facility] [id number] [facility] 2022-07-04 00:00:00 2022-07-04 00:00:00 Case Management Nava Arriaza [facility] RAYMUNDO ROWEIO [facility] 1.20.114 350.1.13.10 4.2.7.2.686 [id number] 204 [id number] [facility] 2022-07-03 00:00:00 2022-07-03 00:00:00 Telephone Damaris Marr [facility] 1.2840.114 350.1.13.10 4.2.7.2.686 [id number] [facility] 2022-06-28 00:00:00 2022-06-28 00:00:00 Orders Only Doctor Unassigned, [place] [facility] 1.840.114 350.1.13.10 4.2.7.2.686 [id number] 009 [id number] [facility] 2022-06-13 09:30:00 2022-06-13 09:45:00 Office Visit Alberto Mcrae [facility] 1.0.114 350.1.13.10 4.2.7.2.686 [id number] [facility] 2022-06-13 09:30:00 2022-06-13 09:30:00 Outpatient ALBERTO DURHAM [facility] [id number] [facility] 2022-05-29 00:00:00 2022-05-29 00:00:00 Transition of Care Cathryn Au 1.0.114 350.1.13.10 4.2.7.2.686 [id number] [facility] 2022-05-21 09:27:00 2022-05-28 18:07:00 Inpatient ALBERTO DURHAM [facility] SUU [id number] [facility] 2022-05-21 09:27:00 2022-05-28 18:07:00 Hospital Encounter Alberto McraeE [facility] 1.2.840.114 350.1.13.10 4.2.7.2.686 [id number] 091 [id number] [facility] 2022-05-21 12:51:00 2022-05-21 16:58:00 Anesthesia Event SamanthaRenny yuan Jocelyn Green 1.2.840.1 16316.1.1 3.104.2.7 .3.546588 .8 [id number] [facility] 2022-05-21 12:30:00 2022-05-21 16:18:00 Surgery Alberto Mcrae 1.2.840.1 53648.1.1 3.104.2.7 .3.711449 .8 [id number] [facility] 2022-05-21 09:27:00 2022-05-21 09:27:00 Inpatient R ALBERTO MCRAE [facility] [id number] [facility] 2022-05-21 00:00:00 2022-05-21 00:00:00 Orders Only Doctor Unassigned, [place] [facility] 1..840.114 350.1.13.10 4.2.7.2.686 [id number] 009 [id number] [facility] 2022-05-20 07:00:00 2022-05-20 10:00:00 Nurse Visit 1, Adc Infusion Chair Mina Huang [facility] 1..840.114 350.1.13.10 4.2.7.2.686 [id number] 053 [id number] [facility] 2022-05-20 07:00:00 2022-05-20 10:00:00 Nurse Visit Mina Huang 1, Adc Infusion Chair 1.2.840.1 19556.1.1 3.104.2.7 .3.907734 .8 [id number] [facility] 2022-05-20 07:00:00 2022-05-20 07:00:00 Outpatient MINA BRITT [facility] [id number] [facility] 2022-05-20 07:00:00 2022-05-20 07:00:00 Outpatient Dustin SAL [facility] NAVEENU [id number] [facility] 2022-05-20 00:00:00 2022-05-20 00:00:00 Telephone Alberto Mcrae [facility] 1.2.840.114 350.1.13.10 4.2.7.2.686 [id number] [facility] 2022-05-20 00:00:00 2022-05-20 00:00:00 Telephone Alberto Mcrae 1.2.840.1 34108.1.1 3.104.2.7 .3.372517 .8 [id number] [facility] 2022-05-20 00:00:00 2022-05-20 00:00:00 Travel 1.2.840.1 82927.1.1 3.104.2.7 .3.861135 .8 1.2.840.114 350.1.13.10 4.2.7.3.698 084.8 [id number] [facility] 2022-05-16 07:44:47 2022-05-16 23:59:00 Hospital Encounter Josiaen Montero 1.2.840.1 62755.1.1 3.104.2.7 .3.973250 .8 [id number] [facility] 2022-05-16 07:44:21 2022-05-16 23:59:00 Hospital Encounter Josiane Montero [facility] 1.2.840.114 350.1.13.10 4.2.7.2.686 [id number] 805 [id number] [facility] 2022-05-16 07:44:21 2022-05-16 23:59:00 Hospital Encounter Josiane Montero 1.2.840.1 24814.1.1 3.104.2.7 .3.799195 .8 [id number] [facility] 2022-05-16 07:44:01 2022-05-16 23:59:00 Hospital Encounter Josiane Montero. [facility] 1.2.840.114 350.1.13.10 4.2.7.2.686 [id number] 805 [id number] [facility] 2022-05-16 07:44:01 2022-05-16 23:59:00 Hospital Encounter Josiane Montero. 1.2.840.1 79934.1.1 3.104.2.7 .3.085283 .8 [id number] [facility] 2022-05-16 11:30:00 2022-05-16 11:30:00 Outpatient JOSIANE MONTERO [facility] [id number] [facility] 2022-05-16 08:00:00 2022-05-16 08:00:00 Outpatient R JOSIANE MONTERO [facility] [id number] [facility] 2022-05-16 07:43:41 2022-05-16 07:43:41 Hospital Encounter Josiane Montero. [facility] 1.2.840.114 350.1.13.10 4.2.7.2.686 [id number] [facility] 2022-05-16 07:43:41 2022-05-16 07:43:41 Hospital Encounter Josiane Montero. 1.2.840.1 55771.1.1 3.104.2.7 .3.455464 .8 [id number] [facility] 2022-05-16 07:42:46 2022-05-16 07:42:46 Outpatient R JOSIANE MONTERO [facility] [id number] [facility] 2022-05-16 07:42:46 2022-05-16 07:42:46 Hospital Encounter Josiane Montero [facility] 1.2.840.114 350.1.13.10 4.2.7.2.686 [id number] 805 [id number] [facility] 2022-05-16 07:42:46 2022-05-16 07:42:46 Hospital Encounter Josiane Montero 1.2.840.1 36156.1.1 3.104.2.7 .3.619967 .8 [id number] [facility] 2022-05-14 00:00:00 2022-05-14 00:00:00 Case Management Mina Huang [facility] 1.2.840.114 350.1.13.10 4.2.7.2.686 [id number] 080 [id number] [facility] 2022-05-14 00:00:00 2022-05-14 00:00:00 Case Management Mina Huang 1.2.840.1 04120.1.1 3.104.2.7 .3.158910 .8 [id number] [facility] 2022-05-10 00:00:00 2022-05-10 00:00:00 Telephone Alberto Mcrae [facility] 1.2.840.114 350.1.13.10 4.2.7.2.686 [id number] [facility] 2022-05-09 00:00:00 2022-05-09 00:00:00 Telephone Mina Huang [facility] 1.2.840.114 350.1.13.10 4.2.7.2.686 [id number] 080 [id number] [facility] 2022-05-09 00:00:00 2022-05-09 00:00:00 Telephone Mina Huang 1.2.840.1 93763.1.1 3.104.2.7 .3.568459 .8 [id number] [facility] 2022-05-07 13:00:00 2022-05-07 14:36:31 Outpatient R JOSIANE MONTERO [facility] [id number] [facility] 2022-05-07 13:00:00 2022-05-07 14:36:31 Office Visit Josiane Montero [facility] 1.2.840.114 350.1.13.10 4.2.7.2.686 [id number] 059 [id number] [facility] 2022-05-07 13:00:00 2022-05-07 14:36:31 Office Visit MonteroJosiane giron 1.2.840.1 78259.1.1 3.104.2.7 .3.363083 .8 [id number] [facility] 2022-05-07 13:00:00 2022-05-07 13:30:00 Office Visit Josiane MonteroCamilleCorbin [facility] 1.2.840.114 350.1.13.10 4.2.7.2.686 [id number] 059 [id number] [facility] 2022-05-07 13:00:00 2022-05-07 13:00:00 Outpatient R MONTEROYENIFERHAIM [facility] [id number] [facility] 2022-05-07 13:00:00 2022-05-07 13:00:00 [facility] [id number] [facility] 2022-05-07 00:00:00 2022-05-07 00:00:00 Orders Only Doctor Unassigned, [place] [facility] 1.2.840.114 350.1.13.10 4.2.7.2.686 [id number] 009 [id number] [facility] 2022-05-07 00:00:00 2022-05-07 00:00:00 Orders Only Doctor Unassigned, [place] 1.2.840.1 28682.1.1 3.104.2.7 .3.166096 .8 [id number] [facility] 2022-05-07 00:00:00 2022-05-07 00:00:00 Patient Secure Mina Corea [facility] 1.2.840.114 350.1.13.10 4.2.7.2.686 [id number] 080 [id number] [facility] 2022-05-07 00:00:00 2022-05-07 00:00:00 Travel 1.2.840.1 00559.1.1 3.104.2.7 .3.059096 .8 1.2.840.114 350.1.13.10 4.2.7.3.698 084.8 [id number] [facility] 2022-05-02 10:30:00 2022-05-02 11:01:18 Outpatient R MACKENZIE PARSONS [facility] [id number] [facility] 2022-05-02 10:30:00 2022-05-02 11:01:18 Office Visit Mackenzie Parsons [facility] 1.2.840.114 350.1.13.10 4.2.7.2.686 [id number] [facility] 2022-05-02 10:30:00 2022-05-02 11:01:18 Office Visit Mackenzie Parsons 1.2.840.1 39244.1.1 3.104.2.7 .3.647926 .8 [id number] [facility] 2022-05-02 00:00:00 2022-05-02 00:00:00 Travel 1.2.840.1 68861.1.1 3.104.2.7 .3.780153 .8 1.2.840.114 350.1.13.10 4.2.7.3.698 084.8 [id number] [facility] 2022-04-29 10:00:00 2022-04-29 17:12:20 Outpatient R NADINE LARSONBridget [facility] [id number] [facility] 2022-04-29 10:00:00 2022-04-29 17:12:20 Office Visit Earl Larson [facility] 1.2.840.114 350.1.13.10 4.2.7.2.686 [id number] 080 [id number] [facility] 2022-04-29 10:00:00 2022-04-29 17:12:20 Office Visit Earl Larson R[facility] 1.2.840.1 93970.1.1 3.104.2.7 .3.533919 .8 [id number] [facility] 2022-04-29 10:45:00 2022-04-29 11:00:00 Flight Crew Ordnanceman Visit [facility] Mackenzie Parsons [facility] 1.2.840.114 350.1.13.10 4.2.7.2.686 [id number] [facility] 2022-04-29 10:45:00 2022-04-29 11:00:00 Flight Crew Ordnanceman Visit Mackenzie Parsons [facility] 1.2.840.1 55468.1.1 3.104.2.7 .3.433084 .8 [id number] [facility] 2022-04-29 10:45:00 2022-04-29 10:45:00 Outpatient R MACKENZIE PARSONS [facility] [id number] [facility] 2022-04-29 10:00:00 2022-04-29 10:00:00 Outpatient R GENE EARL [facility] [id number] [facility] 2022-04-29 00:00:00 2022-04-29 00:00:00 Travel 1.2.840.1 58277.1.1 3.104.2.7 .3.060534 .8 1.2.840.114 350.1.13.10 4.2.7.3.698 084.8 [id number] [facility] 2022-04-26 00:00:00 2022-04-26 00:00:00 Telephone Mackenzie Parsons [facility] 1.2.840.114 350.1.13.10 4.2.7.2.686 [id number] [facility] 2022-04-26 00:00:00 2022-04-26 00:00:00 Telephone Mackenzie Parsons 1.2.840.1 35090.1.1 3.104.2.7 .3.744055 .8 [id number] [facility] 2022-04-25 11:00:00 2022-04-25 13:51:07 Office Visit Alberto Mcrae 1, Bhavani Mda Procedure 1.2.840.1 76027.1.1 3.104.2.7 .3.243695 .8 [id number] [facility] 2022-04-25 11:00:00 2022-04-25 12:00:00 Office Visit Alberto Mcrae 1, Bhavani Mda Procedure [facility] 1.2.840.114 350.1.13.10 4.2.7.2.686 [id number] [facility] 2022-04-25 11:00:00 2022-04-25 11:00:00 Outpatient R ALBERTO MCRAE [facility] [id number] [facility] 2022-04-25 00:00:00 2022-04-25 00:00:00 Travel 1.2.840.1 41150.1.1 3.104.2.7 .3.244857 .8 1.2.840.114 350.1.13.10 4.2.7.3.698 084.8 [id number] [facility] 2022-04-12 08:51:02 2022-04-12 23:59:00 Outpatient R ALBERTO MCRAE [facility] [id number] [facility] 2022-04-12 08:51:02 2022-04-12 23:59:00 Hospital Encounter Alberto Mcrae [facility] 1.2.840.114 350.1.13.10 4.2.7.2.686 [id number] [facility] 2022-04-12 08:51:02 2022-04-12 23:59:00 Hospital Encounter Alberto Mcrae 1.2.840.1 72418.1.1 3.104.2.7 .3.140315 .8 [id number] [facility] 2022-04-12 00:00:00 2022-04-12 00:00:00 Orders Only Doctor Unassigned, [place] [facility] 1.2.840.114 350.1.13.10 4.2.7.2.686 [id number] 009 [id number] [facility] 2022-04-12 00:00:00 2022-04-12 00:00:00 Orders Only Doctor Unassigned, [place] 1.2.840.1 47595.1.1 3.104.2.7 .3.481620 .8 [id number] [facility] 2022-04-05 00:00:00 2022-04-05 00:00:00 Patient Secure Msg Doctor Unassigned, [place] [facility] 1.2.840.114 350.1.13.10 4.2.7.2.686 [id number] 019 [id number] [facility] 2022-04-04 23:59:59 2022-04-04 23:59:59 Anesthesia Event Goyo De La O 1.2.840.1 88587.1.1 3.104.2.7 .3.684084 .8 [id number] [facility] 2022-04-04 23:59:59 2022-04-04 23:59:59 Anesthesia Event Goyo De La O 1.2.840.1 62309.1.1 3.104.2.7 .3.922579 .8 [id number] [facility] 2022-04-04 10:30:00 2022-04-04 10:45:00 Office Visit Alberto Mcrae [facility] 1.2.840.114 350.1.13.10 4.2.7.2.686 [id number] [facility] 2022-04-04 10:30:00 2022-04-04 10:45:00 Office Visit Alberto Mcrae 1.2.840.1 62941.1.1 3.104.2.7 .3.946665 .8 [id number] [facility] 2022-04-04 10:30:00 2022-04-04 10:30:00 Outpatient R ALBERTO MCRAE [facility] [id number] [facility] 2022-04-04 10:30:00 2022-04-04 10:30:00 Outpatient R ALBERTO MCRAE [facility] [id number] [facility] 2022-04-04 00:00:00 2022-04-04 00:00:00 Travel 1.2.840.1 78852.1.1 3.104.2.7 .3.374098 .8 1.2.840.114 350.1.13.10 4.2.7.3.698 084.8 [id number] [facility] 2022-03-21 16:30:00 2022-03-21 16:30:00 Outpatient R ALBERTO MCRAE [facility] [id number] [facility] 2022-03-21 00:00:00 2022-03-21 00:00:00 Telephone Alberto Mcrae [facility] 1.2.840.114 350.1.13.10 4.2.7.2.686 [id number] [facility] 2022-03-21 00:00:00 2022-03-21 00:00:00 Telephone Alberto Mcrae 1.2.840.1 04306.1.1 3.104.2.7 .3.786192 .8 [id number] [facility] 2022-02-26 00:00:00 2022-02-26 00:00:00 Telephone Alberto Mcrae [facility] 1.2.840.114 350.1.13.10 4.2.7.2.686 [id number] [facility] 2022-02-26 00:00:00 2022-02-26 00:00:00 Telephone Alberto Mcrae 1.2.840.1 57298.1.1 3.104.2.7 .3.254863 .8 [id number] [facility] 2022-02-15 00:00:00 2022-02-15 00:00:00 Telephone Alberto Mcrae [facility] 1.2.840.114 350.1.13.10 4.2.7.2.686 [id number] 204 [id number] [facility] 2022-02-14 09:45:00 2022-02-14 09:45:00 Outpatient R ALBERTO MCRAE [facility] [id number] [facility] 2022-01-29 09:24:53 2022-01-29 23:59:00 Hospital Encounter Mina Huang [facility] 1.2.840.114 350.1.13.10 4.2.7.2.686 [id number] [facility] 2022-01-29 09:24:32 2022-01-29 23:59:00 Outpatient MINA BRITT [facility] [id number] [facility] 2022-01-29 09:24:32 2022-01-29 23:59:00 Hospital Encounter Mina Huang [facility] 1..114 350.1.13.10 4.2.7.2.686 [id number] [facility] 2022-01-23 11:30:00 2022-01-23 13:00:00 Nurse Visit 2, [facility] Infusion Chair Earl Larson [facility] 1.2.114 350.1.13.10 4.2.7.2.686 [id number] 053 [id number] [facility] 2022-01-23 11:30:00 2022-01-23 11:30:00 [facility] [id number] 2022-01-23 11:30:00 2022-01-23 11:30:00 [facility] [id number] [facility] 2022-01-22 10:30:00 2022-01-22 10:45:00 Flight Crew Ordnanceman Visit Pob, Adc Lab Main Earl Larson [facility] 1.284.114 350.1.13.10 4.2.7.2.686 [id number] [facility] 2022-01-22 10:30:00 2022-01-22 10:30:00 Outpatient R EARL LARSON [facility] [id number] [facility] 2022-01-16 13:30:00 2022-01-16 15:30:00 Nurse Visit 3, [facility] Infusion Chair Earl Larson [facility] 1.2.114 350.1.13.10 4.2.7.2.686 [id number] 053 [id number] [facility] 2022-01-16 13:30:00 2022-01-16 13:30:00 Out[facility] R GENE[facility] [id number] [facility] 2022-01-16 13:30:00 2022-01-16 13:30:00 Outpatient R EARL LARSON [facility] [id number] [facility] 2022-01-15 14:00:00 2022-01-15 15:00:00 Telemedici ne Visit Mina Huang [facility] 1..114 350.1.13.10 4.2.7.2.686 [id number] 080 [id number] [facility] 2022-01-15 14:00:00 2022-01-15 14:00:00 Outpatient R MINA HUANG [facility] [id number] [facility] 2022-01-15 13:00:00 2022-01-15 13:00:00 [facility] [id number] [facility] 2022-01-15 10:15:00 2022-01-15 10:30:00 Flight Crew Ordnanceman Visit Pob, Adc Lab Main Earl Larson [facility] BUILD[facility] 1.114 350.1.13.10 4.2.7.2.686 [id number] [facility] 2022-01-15 10:15:00 2022-01-15 10:15:00 Outpatient R EARL LARSON [facility] [id number] [facility] 2022-01-15 00:00:00 2022-01-15 00:00:00 Orders Only Doctor Unassigned, [place] [facility] 1..114 350.1.13.10 4.2.7.2.686 [id number] 009 [id number] [facility] 2022-01-02 11:30:00 2022-01-02 15:00:00 Nurse Visit 5, [facility] Infusion Chair Earl Larson [facility] 1..114 350.1.13.10 4.2.7.2.686 [id number] 053 [id number] [facility] 2022-01-02 11:30:00 2022-01-02 15:00:00 Nurse Visit 5, [facility] Infusion Chair Earl Larson [facility] 1.114 350.1.13.10 4.2.7.2.686 [id number] 053 [id number] [facility] 2022-01-02 11:30:00 2022-01-02 11:30:00 Outpatient R NADINE LARSONBridget [facility] [id number] [facility] 2022-01-02 11:30:00 2022-01-02 11:30:00 [facility] [id number] [facility] 2022-01-01 10:30:00 2022-01-01 10:45:00 Flight Crew Ordnanceman Visit Pob, Adc Lab Main Nadine Larsonbridget [facility] 1..114 350.1.13.10 4.2.7.2.686 [id number] [facility] 2022-01-01 10:30:00 2022-01-01 10:30:00 Outpatient R [facility] [id number] [facility] 2022-01-01 10:30:00 2022-01-01 10:30:00 [facility] [id number] [facility] 2022-01-01 10:30:00 2022-01-01 10:30:00 Out[facility] [id number] [facility] 2022-01-01 00:00:00 2022-01-01 00:00:00 Orders Only Doctor Unassigned, [place] [facility] 1.84.114 350.1.13.10 4.2.7.2.686 [id number] [id number] [facility] 2021-12-26 13:00:00 2021-12-26 15:00:00 Nurse Visit 7, [facility] Infusion Chair Nadine Larsonbridget Joshua [facility] 1.2.840.114 350.1.13.10 4.2.7.2.686 [id number] 053 [id number] [facility] 2021-12-26 13:00:00 2021-12-26 13:00:00 Outpatient R GENE NADINEBridget [facility] [id number] [facility] 2021-12-26 13:00:00 2021-12-26 13:00:00 [facility] [id number] [facility] 2021-12-24 11:20:00 2021-12-24 16:04:50 Office Visit Earl Larson [facility] 1.2.840.114 350.1.13.10 4.2.7.2.686 [id number] 080 [id number] [facility] 2021-12-24 11:20:00 2021-12-24 16:04:50 Out[facility] [id number] [facility] 2021-12-24 11:20:00 2021-12-24 16:04:50 Outpatient R GENE NADINEBridget [facility] [id number] [facility] 2021-12-24 11:20:00 2021-12-24 16:04:50 Office Visit Earl Larson [facility] 1.2.840.114 350.1.13.10 4.2.7.2.686 [id number] 080 [id number] [facility] 2021-12-24 11:20:00 2021-12-24 11:20:00 Outpatient R GENE NADINEBridget [facility] [id number] [facility] 2021-12-24 10:30:00 2021-12-24 11:03:50 Outpatient R GENE NADINEBridget [facility] [id number] [facility] 2021-12-24 10:30:00 2021-12-24 10:45:00 Flight Crew Ordnanceman Visit [facility] Earl Larson [facility] 1.2.840.114 350.1.13.10 4.2.7.2.686 [id number] [facility] 2021-12-14 00:00:00 2021-12-14 00:00:00 Telephone Earl Larson [facility] BUILDING 1.2.840.114 350.1.13.10 4.2.7.2.686 [id number] [facility] 2021-12-12 12:30:00 2021-12-12 16:00:00 Nurse Visit 1, [facility] Infusion Chair Nadine Larsonbridget [facility] 1.2840.114 350.1.13.10 4.2.7.2.686 [id number] [facility] 2021-12-12 12:30:00 2021-12-12 12:30:00 [id number] 2021-12-12 12:30:00 2021-12-12 12:30:00 Outpatient R NADINE LARSONBridget [facility] [id number] [facility] 2021-12-11 11:30:00 2021-12-11 11:45:00 Flight Crew Ordnanceman Visit Pob, Adc Lab Main Nadine Larsonbridget [facility] 1.2.840.114 350.1.13.10 4.2.7.2.686 [id number] [facility] 2021-12-11 11:30:00 2021-12-11 11:30:00 Outpatient R NADINE LARSONBridget [facility] [id number] [facility] 2021-12-05 13:00:00 2021-12-05 14:30:00 Nurse Visit 3, [facility] Infusion Chair Huang, [facility] 1.2.840.114 350.1.13.10 4.2.7.2.686 [id number] [facility] 2021-12-05 13:00:00 2021-12-05 13:00:00 Outpatient Dustin MINA HUANG [facility] [id number] [facility] 2021-12-05 13:00:00 2021-12-05 13:00:00 [facility] [id number] [facility] 2021-12-05 13:00:00 2021-12-05 13:00:00 Outpatient Dustin HUANG [facility] [id number] [facility] 2021-12-04 10:00:00 2021-12-04 10:15:00 Flight Crew Ordnanceman Visit Pob, Adc Lab Main Sal [facility] 1.2.840.114 350.1.13.10 4.2.7.2.686 [id number] [facility] 2021-12-04 10:00:00 2021-12-04 10:00:00 Outpatient MINA BRITT [facility] [id number] [facility] 2021-12-04 10:00:00 2021-12-04 10:00:00 Outpatient Dustin HUANG [facility] [id number] [facility] 2021-11-30 10:20:00 2021-11-30 10:40:00 Telemedici ne Visit Earl Larson Rp [facility] 1.2.840.114 350.1.13.10 4.2.7.2.686 [id number] [facility] 2021-11-30 10:20:00 2021-11-30 10:20:00 Outpatient EARL GUIDRY [facility] [id number] [facility] 2021-11-30 10:20:00 2021-11-30 10:20:00 Outpatient EARL GUIDRY [facility] [id number] [facility] 2021-11-28 00:00:00 2021-11-28 00:00:00 Telephone Caitlyn, Farhana Kaur [facility] BUILD[facility] 1..840.114 350.1.13.10 4.2.7.2.686 [id number] [facility] 2021-11-27 10:30:00 2021-11-27 10:30:00 [facility] [id number] [facility] 2021-11-27 10:30:00 2021-11-27 10:30:00 [facility] [id number] [facility] 2021-11-23 10:00:00 2021-11-23 10:00:00 [facility] [id number] [facility] 2021-11-23 10:00:00 2021-11-23 10:00:00 [facility] [id number] [facility] 2021-11-19 10:30:00 2021-11-19 10:30:00 Outpatient NADINE GUIDRYBridget [facility] [id number] [facility] 2021-11-19 10:30:00 2021-11-19 10:30:00 Flight Crew Ordnanceman Visit Pob, Adc Lab Main Earl Larson Rp [facility] 1..840.114 350.1.13.10 4.2.7.2.686 [id number] [facility] 2021-11-19 10:30:00 2021-11-19 10:25:29 Outpatient NADINE GUIDRYBridget [facility] [id number] [facility] 2021-11-14 11:30:00 2021-11-14 13:00:00 Nurse Visit 3, [facility] Infusion Chair Mina Huang [facility] 1..840.114 350.1.13.10 4.2.7.2.686 [id number] [facility] 2021-11-14 11:30:00 2021-11-14 11:30:00 Outpatient MINA BRITT [facility] [id number] [facility] 2021-11-14 11:30:00 2021-11-14 11:30:00 Outpatient MINA BRITT [facility] [id number] [facility] 2021-11-14 00:00:00 2021-11-14 00:00:00 Refill Farhana Grover [facility] ..840.114 350.1.13.10 4.2.7.2.686 [id number] [facility] 2021-11-05 11:00:00 2021-11-05 11:15:00 Flight Crew Ordnanceman Visit Pob, Adc Lab Main Earl Larson Rp [facility] ..840.114 350.1.13.10 4.2.7.2.686 [id number] [facility] 2021-11-05 11:00:00 2021-11-05 11:00:00 Outpatient EARL GUIDRY [facility] [id number] [facility] 2021-11-05 11:00:00 2021-11-05 11:00:00 Outpatient EARL GUIRDY [facility] [id number] [facility] 2021-11-02 00:00:00 2021-11-02 00:00:00 Case Management Mina Huang BUILDING ..840.114 350.1.13.10 4.2.7.2.686 [id number] 080 [id number] [facility] 2021-11-01 12:30:00 2021-11-01 14:30:00 Nurse Visit 5, [facility] Infusion Chair Earl Larson Rp [facility] 1.2.840.114 350.1.13.10 4.2.7.2.686 [id number] [id number] [facility] 2021-11-01 12:30:00 2021-11-01 12:30:00 [facility] [id number] [facility] 2021-11-01 12:30:00 2021-11-01 12:30:00 [facility] [id number] [facility] 2021-11-01 00:00:00 2021-11-01 00:00:00 Orders Only Doctor Unassigned, [place] [facility] 1.2.840.114 350.1.13.10 4.2.7.2.686 [id number] [id number] [facility] 2021-10-30 00:00:00 2021-10-30 00:00:00 [facility] 1.2.840.114 350.1.13.10 4.2.7.2.686 [id number] 080 [id number] [facility] 2021-10-30 00:00:00 2021-10-30 00:00:00 [facility] 1.2.840.114 350.1.13.10 4.2.7.2.686 [id number] 080 [id number] [facility] 2021-10-24 08:08:05 2021-10-24 23:59:00 Hospital Encounter Nadine Larsonbridget [facility] 1.2.840.114 350.1.13.10 4.2.7.2.686 [id number] [facility] 2021-10-24 09:00:00 2021-10-24 09:15:00 Flight Crew Ordnanceman Visit Pob, Adc Lab Main GeneEarl kaur [facility] BUILD[facility] 1.2840.114 350.1.13.10 4.2.7.2.686 [id number] [facility] 2021-10-24 09:00:00 2021-10-24 09:00:00 Outpatient R EARL LARSON [facility] [id number] [facility] 2021-10-24 09:00:00 2021-10-24 09:00:00 [facility] [id number] [facility] 2021-10-19 10:45:00 2021-10-19 11:00:00 Flight Crew Ordnanceman Visit [facility] Earl Larson [facility] 1.840.114 350.1.13.10 4.2.7.2.686 [id number] [facility] 2021-10-19 10:20:00 2021-10-19 10:40:00 Office Visit Earl Larson Tres [facility] 1..840.114 350.1.13.10 4.2.7.2.686 [id number] 080 [id number] [facility] 2021-10-19 10:20:00 2021-10-19 10:20:00 [facility] [id number] [facility] 2021-10-19 10:20:00 2021-10-19 10:13:50 [facility] [id number] [facility] 2021-10-19 10:20:00 2021-10-19 10:13:50 [facility] [id number] [facility] 2021-10-19 00:00:00 2021-10-19 00:00:00 Patient Outreach Quinn Marino [facility] 1..840.114 350.1.13.10 4.2.7.2.686 [id number] 080 [id number] [facility] 2021-09-28 00:00:00 2021-09-28 00:00:00 Telephone Earl Larson Rp Camille [facility] 1..114 350.1.13.10 4.2.7.2.686 [id number] 080 [id number] [facility] 2021-09-28 00:00:00 2021-09-28 00:00:00 Telephone Alberto Mcrae [facility] 1.0.114 350.1.13.10 4.2.7.2.686 [id number] [facility] 2021-09-26 00:00:00 2021-09-26 00:00:00 Multidisci plinary Conference [employer] [facility] 1.0.114 350.1.13.10 4.2.7.2.686 [id number] [facility] 2021-09-20 16:30:00 2021-09-20 16:45:00 Telemedici ne Visit Clementina [facility] 1.0.114 350.1.13.10 4.2.7.2.686 [id number] [facility] 2021-09-20 16:30:00 2021-09-20 16:30:00 Outpatient R CLEMENTINA [facility] [id number] [facility] 2021-09-20 16:30:00 2021-09-20 16:30:00 Outpatient R CLEMENTINA [facility] [id number] [facility] 2021-09-20 16:30:00 2021-09-20 16:30:00 Outpatient R CLEMENTINA [facility] [id number] [facility] 2021-09-17 00:00:00 2021-09-17 00:00:00 Telephone Earl Larson Rp [place] [facility] 1..114 350.1.13.10 4.2.7.2.686 [id number] 080 [id number] [facility] 2021-09-17 00:00:00 2021-09-17 00:00:00 Telephone [facility]ine [facility]bridget [facility] 1.2.840.114 350.1.13.10 4.2.7.2.686 [id number] 080 [id number] [facility] 2021-08-28 00:00:00 2021-08-28 00:00:00 Orders Only Doctor Unassigned, [place] [facility] 1.2.840.114 350.1.13.10 4.2.7.2.686 [id number] [id number] [facility] 2021-08-27 10:00:00 2021-08-27 10:38:07 Outpatient R EARL LARSON [facility] [id number] [facility] 2021-08-27 09:51:36 2021-08-27 10:38:07 Office Visit GeneEarl kaur [facility] 1.2840.114 350.1.13.10 4.2.7.2.686 [id number] 080 [id number] [facility] 2021-08-22 09:02:09 2021-08-22 09:17:09 Flight Crew Ordnanceman Visit Pob, Adc Lab Main GeneEarl kaur [facility] BUILDING 1.2840.114 350.1.13.10 4.2.7.2.686 [id number] [facility] 2021-08-22 09:00:00 2021-08-22 09:00:00 Outpatient R EARL LARSON [facility] [id number] [facility] 2021-08-22 00:00:00 2021-08-22 00:00:00 Case Management Gene Earl [facility] 1.2840.114 350.1.13.10 4.2.7.2.686 [id number] 080 [id number] [facility] 2021-08-15 09:46:39 2021-08-15 23:59:00 Hospital Encounter Earl Larson [facility] 1..840.114 350.1.13.10 4.2.7.2.686 [id number] [facility] 2021-08-15 09:46:03 2021-08-15 23:59:00 Outpatient R NADINE LARSONBridget [facility] [id number] [facility] 2021-08-15 09:46:03 2021-08-15 23:59:00 Hospital Encounter Earl Larson [facility] 1..840.114 350.1.13.10 4.2.7.2.686 [id number] [facility] 2021-08-06 00:00:00 2021-08-06 00:00:00 Telephone Mina Huang [facility] 1..840.114 350.1.13.10 4.2.7.2.686 [id number] 080 [id number] [facility] 2021-08-02 16:15:00 2021-08-02 16:15:00 Outpatient ALBERTO DURHAM [facility] [id number] [facility] 2021-08-02 13:18:24 2021-08-02 13:33:24 Telemedici ne Visit Alberto Mcrae [facility] 1..840.114 350.1.13.10 4.2.7.2.686 [id number] [facility] 2021-07-31 14:05:52 2021-07-31 23:59:00 Outpatient ALBERTO DURHAM [facility] [id number] [facility] 2021-07-31 14:05:52 2021-07-31 23:59:00 Outpatient ALBERTO DURHAM [facility] [id number] [facility] 2021-07-31 14:00:00 2021-07-31 23:59:00 Hospital Encounter Alberto Mcrae [facility] 1.2.840.114 350.1.13.10 4.2.7.2.686 [id number] [facility] 2021-07-31 00:00:00 2021-07-31 00:00:00 Outpatient R ALBERTO MCRAE [facility] [id number] [facility] 2021-07-30 10:00:00 2021-07-30 10:45:45 [facility] [id number] [facility] 2021-07-30 10:00:00 2021-07-30 10:45:45 [facility] [id number] [facility] 2021-07-30 09:39:15 2021-07-30 10:45:45 Office Visit Earl Larson [facility] 1.2840.114 350.1.13.10 4.2.7.2.686 [id number] 080 [id number] [facility] 2021-07-30 00:00:00 2021-07-30 00:00:00 Orders Only Doctor Unassigned, [place] [facility] 1.2.840.114 350.1.13.10 4.2.7.2.686 [id number] [id number] [facility] 2021-07-26 09:40:49 2021-07-26 09:55:49 Office Visit Alberto Mcrae [facility] 1.2.840.114 350.1.13.10 4.2.7.2.686 [id number] [facility] 2021-07-26 09:00:00 2021-07-26 09:00:00 Outpatient R ALBERTO MCRAE [facility] [id number] [facility] 2021-07-26 09:00:00 2021-07-26 09:00:00 Outpatient R ALBERTO MCRAE [facility] [id number] [facility] 2021-07-26 09:00:00 2021-07-26 09:00:00 Outpatient R CLEMENTINA ALBERTO [facility] [id number] [facility] 2021-07-26 09:00:00 2021-07-26 09:00:00 Outpatient R CLEMENTINA ALBERTO [facility] [id number] [facility] 2021-07-26 09:00:00 2021-07-26 09:00:00 Outpatient R ALBERTO MCRAE [facility] [id number] [facility] 2021-07-24 07:44:00 2021-07-24 16:10:00 Hospital Encounter Alberto Mcrae [facility] 1..840.114 350.1.13.10 4.2.7.2.686 [id number] [facility] 2021-07-24 07:44:00 2021-07-24 16:10:00 Outpatient R ALBERTO MCRAE [facility] [id number] [facility] 2021-07-24 07:44:00 2021-07-24 16:10:00 Outpatient R ALBERTO MCRAE [facility] [id number] [facility] 2021-07-24 09:23:00 2021-07-24 11:41:00 Surgery Alberto Mcrae [facility] 1..840.114 350.1.13.10 4.2.7.2.686 [id number] [facility] 2021-07-24 00:00:00 2021-07-24 00:00:00 Orders Only Doctor Unassigned, [place] [facility] 1.2.840.114 350.1.13.10 4.2.7.2.686 [id number] [id number] [facility] 2021-07-23 09:49:49 2021-07-23 10:04:49 Laboratory Only Only, Adc Test [place], [facility] 1.0.114 350.1.13.10 4.2.7.2.686 [id number] [facility] 2021-07-23 09:30:00 2021-07-23 09:30:00 Outpatient R [facility] [id number] [facility] 2021-07-23 00:00:00 2021-07-23 00:00:00 Orders Only Doctor Unassigned, [place] [facility] 1.0.114 350.1.13.10 4.2.7.2.686 [id number] [id number] [facility] 2021-07-05 13:00:00 2021-07-05 13:00:00 Outpatient ALBERTO DURHAM [facility] [id number] [facility] 2021-07-05 12:20:32 2021-07-05 12:50:32 Office Visit Alberto Mcrae [facility] 1..114 350.1.13.10 4.2.7.2.686 [id number] [facility] 2021-06-28 09:53:52 2021-06-28 10:08:52 Flight Crew Ordnanceman Visit Pob, Adc Lab Main Anjali [facility] 1.114 350.1.13.10 4.2.7.2.686 [id number] [facility] 2021-06-28 10:00:00 2021-06-28 10:00:00 Outpatient R ANJALI [facility] [id number] [facility] 2021-06-28 00:00:00 2021-06-28 00:00:00 Orders Only Doctor Unassigned, [place] [facility] 1.0.114 350.1.13.10 4.2.7.2.686 [id number] [id number] [facility] 2021-06-27 00:00:00 2021-06-27 00:00:00 Telephone [facility] 1.2.840.114 350.1.13.10 4.2.7.2.686 [id number] [facility] 2021-06-18 08:35:44 2021-06-18 08:50:44 Flight Crew Ordnanceman Visit Pob, Adc Lab Main [facility] Building 1.2.840.114 350.1.13.10 4.2.7.2.686 [id number] [facility] 2021-06-18 08:45:00 2021-06-18 08:45:[address] [facility] [id number] [facility] 2021-06-15 00:00:00 2021-06-15 00:00:00 Telephone [facility] 1.2.840.114 350.1.13.10 4.2.7.2.686 [id number] [facility] 2021-06-13 00:00:00 2021-06-13 00:00:00 Telephone [facility] 1.2.840.114 350.1.13.10 4.2.7.2.686 [id number] [facility] 2021-06-12 00:00:00 2021-06-12 00:00:00 Telephone [facility] 1.2.840.114 350.1.13.10 4.2.7.2.686 [id number] [id number] [facility] 2021-06-11 11:18:43 2021-06-11 11:33:43 Flight Crew Ordnanceman Visit 2, Adc Lab Alzweri, Pranay [facility] 1.2.840.114 350.1.13.10 4.2.7.2.686 [id number] [facility] 2021-06-11 11:18:43 2021-06-11 11:33:43 Flight Crew Ordnanceman Visit 2, Adc Lab Pranay Davies [facility] Building 1.2.840.114 350.1.13.10 4.2.7.2.686 [id number] [facility] 2021-06-11 09:55:45 2021-06-11 11:11:05 Office Visit Pranay Davies Rm, Adc Surg Spec Procedure [facility] 1.2840.114 350.1.13.10 4.2.7.2.686 [id number] [facility] 2021-06-11 10:00:00 2021-06-11 10:00:00 Outpatient R PRANAY DAVIES [facility] [id number] [facility] 2021-06-11 00:00:00 2021-06-11 00:00:00 Orders Only Doctor Unassigned, [place] [facility] 1.2840.114 350.1.13.10 4.2.7.2.686 [id number] [id number] [facility] 2021-06-07 00:00:00 2021-06-07 00:00:00 Telephone Farhana Grover [facility] 1.2840.114 350.1.13.10 4.2.7.2.686 [id number] [facility] 2021-06-07 00:00:00 2021-06-07 00:00:00 Telephone Farhana Grover [facility] 1.2840.114 350.1.13.10 4.2.7.2.686 [id number] [facility] 2021-06-06 10:26:33 2021-06-06 10:41:33 Flight Crew Ordnanceman Visit Pob, Adc Lab Main Farhana Grover [facility] [place] Nadia [facility] Building 1.2.840.114 350.1.13.10 4.2.7.2.686 [id number] [facility] 2021-06-06 10:26:33 2021-06-06 10:41:33 Flight Crew Ordnanceman Visit Pob, Adc Lab Main Farhana Grover [facility] 1.2840.114 350.1.13.10 4.2.7.2.686 [id number] [facility] 2021-06-06 10:30:00 2021-06-06 10:30:00 Outpatient R FARHANA GROVER [facility] [id number] [facility] 2021-06-04 08:00:00 2021-06-04 08:00:00 Outpatient R ANJALIPRANAY [facility] [id number] [facility] 2021-06-04 00:00:00 2021-06-04 00:00:00 [facility] 1.2840.114 350.1.13.10 4.2.7.2.686 [id number] [facility] 2021-06-04 00:00:00 2021-06-04 00:00:00 Telephone [facility] 1.2840.114 350.1.13.10 4.2.7.2.686 [id number] [facility] 2021-05-31 00:00:00 2021-05-31 00:00:00 Telephone [facility]ana Gro[facility] 1.2.840.114 350.1.13.10 4.2.7.2.686 [id number] [facility] 2021-05-31 00:00:00 2021-05-31 00:00:00 Telephone Farhana Grover [facility] 1.2.840.114 350.1.13.10 4.2.7.2.686 [id number] [facility] 2021-05-25 10:30:00 2021-05-25 10:30:00 Outpatient R FARHANA GROVER [facility] [id number] [facility] 2021-05-25 10:09:13 2021-05-25 10:24:13 Flight Crew Ordnanceman Visit Pob, Adc Lab Main Farhana Grover [facility] 1.2.840.114 350.1.13.10 4.2.7.2.686 [id number] 353 [id number] [facility] 2021-05-25 10:09:13 2021-05-25 10:24:13 Flight Crew Ordnanceman Visit Pob, Adc Lab Main Farhana Grover [facility] 1.2840.114 350.1.13.10 4.2.7.2.686 [id number] [facility] 2021-05-25 00:00:00 2021-05-25 00:00:00 Orders Only Doctor Unassigned, [place] [facility] 1.2840.114 350.1.13.10 4.2.7.2.686 [id number] [id number] [facility] 2021-05-25 00:00:00 2021-05-25 00:00:00 Orders Only Doctor Unassigned, [place] [facility] 1.2840.114 350.1.13.10 4.2.7.2.686 [id number] [id number] [facility] 2021-05-15 00:00:00 2021-05-15 00:00:00 Case Management Farhana Grover [facility] Building 1.2840.114 350.1.13.10 4.2.7.2.686 [id number] 204 [id number] [facility] 2021-05-15 00:00:00 2021-05-15 00:00:00 Case Management Farhana Grover [facility] 1.2840.114 350.1.13.10 4.2.7.2.686 [id number] [facility] 2021-05-08 00:00:00 2021-05-08 00:00:00 Orders Only Doctor Unassigned, [place] [facility] 1.2.840.114 350.1.13.10 4.2.7.2.686 [id number] 009 [id number] [facility] 2021-05-08 00:00:00 2021-05-08 00:00:00 Orders Only Doctor Unassigned, [place] [facility] 1.2.840.114 350.1.13.10 4.2.7.2.686 [id number] [id number] [facility] 2021-04-26 09:20:59 2021-04-26 10:02:28 Office Visit Pranay Davies Rm, Adc Surg Spec Procedure [facility] 1.2840.114 350.1.13.10 4.2.7.2.686 [id number] [facility] 2021-04-26 09:30:00 2021-04-26 09:30:00 Outpatient R PRANAY DAVIES [facility] [id number] [facility] 2021-04-26 00:00:00 2021-04-26 00:00:00 Orders Only Doctor Unassigned, [place] [facility] 1.2840.114 350.1.13.10 4.2.7.2.686 [id number] [id number] [facility] 2021-04-24 10:13:04 2021-04-24 10:28:04 Nurse Visit Nurse, [facility] Building 1.2.840.114 350.1.13.10 4.2.7.2.686 [id number] [facility] 2021-04-24 10:00:00 2021-04-24 10:00:00 Outpatient R ANJALI [facility] [id number] [facility] 2021-04-24 00:00:00 2021-04-24 00:00:00 Telephone Anjali [facility] 1.2.840.114 350.1.13.10 4.2.7.2.686 [id number] 204 [id number] [facility] 2021-04-24 00:00:00 2021-04-24 00:00:00 Telephone Anjali [facility] 1.2.840.114 350.1.13.10 4.2.7.2.686 [id number] [facility] 2021-04-09 00:00:00 2021-04-09 00:00:00 Outpatient R FARHANA GROVER [facility] [id number] [facility] 2021-04-04 00:00:00 2021-04-04 00:00:00 Case Management Caitlyn Farhana A [facility] 1.2.840.114 350.1.13.10 4.2.7.2.686 [id number] [facility] 2021-03-27 09:14:56 2021-03-27 23:59:00 Hospital Encounter Farhana Grover [facility] 1.2.840.114 350.1.13.10 4.2.7.2.686 [id number] [facility] 2021-03-27 00:00:00 2021-03-27 00:00:00 Outpatient R FARHANA GROVER [facility] [id number] [facility] 2021-03-21 08:53:31 2021-03-21 09:44:44 Office Visit Caitlyn Farhana Kaur [facility] 1.2.840.114 350.1.13.10 4.2.7.2.686 [id number] [facility] 2021-03-21 09:30:00 2021-03-21 09:30:00 Outpatient R FARHANA GROEVR [facility] [id number] [facility] 2020-12-21 13:54:08 2020-12-21 15:56:02 [facility] 1.2.840.114 350.1.13.10 4.2.7.2.686 [id number] [facility] 2020-12-21 14:15:00 2020-12-21 14:15:00 [facility] [id number] 2020-12-21 00:00:00 2020-12-21 00:00:00 Orders Only Doctor Unassigned, [place] [facility] 1.2.840.114 350.1.13.10 4.2.7.2.686 [id number] [id number] [facility] Results Test Description Test Time Test Comments Results Result Co mments Source SURGICAL PATHOLOGY [id number] 20:39:51* Test Item Value Reference Range Interpretation Comme nts Case Report (test code = 2530694091) Surgical Pathology ?Case: [id number] ? Authorizing Provider: ?Alberto Mcrae MD ? ?Collected: ? 05/21/2022 1542 ?Ordering Location: ? ? [facility] OR ? Received: ?05/21/2022 1722 ? Department ? Pathologist: ? Trip Newsome MD ?Specimens: ? A) - KIDNEY, RIGHT, RIGHT KIDNEY AND RIGHT URETER ? B) - LYMPH NODE, RIGHT PARACAVAL LYMPH NODES ? Final Diagnosis (test code = [id number]) f5otaRLhFVBse5kjUZMnvIRm ZzEwMzNcZnRuYmpcdWMxIHtc kgKzGPsotEgnJRIrDCEqUS7r eYxasPm8qZpgPXWfemU8bKDy CGqdc7iuVBG7m6qtkphnJCRc WUxzAu0lgIQgvCugXePnLCYq LLy9mA17VSOyhU8mfHNnGXw1 XHBhcGVydzEyMjQwXHBhcGVy yUV6EEXnKY4srcviOMvoBJtt XDIiyoG1JJChkXExJ9JdWKBc RJ9cvijsSBH7DJmdDZWfEFG3 QtXmXFSel0Clekd4FdWxnLLr ZFxwbGFpblxmczIwXHBhciBB EiKFXQLGXNocVI2EFILLCLKK UiwgUklHSFQsIEhBTkQgQVNT RICVISPzFZZRWLAJS9OPLBsI IFJBRElDQUxccGFyICAgICBO CTGNIk8JCfPMALTYD3VVYQk3 BVXeknJwXGVaDT7pZQYWLVEY UmZDH50pTJ6PHBZEPkUlVSzP SCBHUkFERSBQQVBJTExBUlkg YTYAUOaXXLdHFXKUEVUOAY3S TUFccGFyICAgICAgLSBVTklG Y4AGJNSSUL3ZUlXECPVLJSJV TkcgNSBDTSBJTiBHUkVBVEVT BOAVMJ8KVzWOC55viTRrNIHc NGOzAPJNQK3RTlMQA09ZZG4O RCBUTyBVUkVURVJccGFyICAg UWRiQPQFVbJVAY4VPX0ATSRQ WBsASpVQXwYFT0tTRwFNMMLA GGnOLEGYPCYvzaUzNWFkEV0b ZWlGJu0AFQOPGx7VIOJrtDLv SHQzWYYtJDRWOacRBu3TVsHL HEeBKZ3DTYamKOTAESXXI5SH SVCKP9iDOONQICOTNQ6PD74n E8eNWVdAFQHOE8UABPAhjmIk JWKuOH8vHFROA4UwJXAYUU8H A6xIHnGKCRJPDZUmPXjOIiW0 RQwnTUBFCTmTBdg0LCDZOGSo AhEqdT1BGWalZHHtkWAiEKTy PDgVATJXYM6GZJAlDDMMG4dS IFBBUkFDQVZBTCwgRVhDSVNJ A070WCUdueRxDBSnUT0rL20E PRjPRMHJIR9LUSHsC7vSXBKO SkZGUMjOJ95QLaXBWKpGBY9F SUZJRUQgKDAvMSlccGFyXHBh ppUGHTEaOSwcjR5zXACVIHLt IO1vNhZmOpOlTIE6XATmLO6y gTTmCPGkdv12SQU6RcAqi6T4 HFWxLkEvEFPnYP6ceUqmPOGi FN3zIDOxN2nngV3pyik1AwAp LVDuIhX0HJFzzzX8Pvx3VDAr LZwtn1uva9ZeK0LllJYbgXi0 m2xdANEyIcW0nDJiYQzfN5no fwLueJBxRVBlGAi9jRowTjSr NORnq8lvlvEjVvZfVPIeXMJg WDVucNnwasf6aQ73YSHezB8i sHKlMEvbytBoUbS0SGlnFVTx GzF9VLVmkEPxEEOaR8foFGGu KYodHYIwMJqfbUFhAHE5fZim v5L8mLMuxFTsgCapHzChBnCj CSCIb6HdSMg3qMfzB7AiTDTg AsR7cPVyTVHnHZvtMIVoETFj syI1vO94ORjnooI9vDMuq6Yc b04kp327nN6weKWqGFW8AUQr HSIcxADgKYUfVMR2CDSsjNGx F6qtSBNyST1dumbfYShvZWlo MJJeaVB8YUXzgZWqC0ZqUGPu ZYaeTYOevej5ZpHhEk0wtEOi fEweLHdfn2qwd3qudIAmJwy4 SWWmEmWqRtfsQQutu8Neo1nv FRRkyv7oHZZ8bBLviEcrf4D3 bGUxXGRudGJsbnNiZGJcZmV0 FNcaDO7ptd69UGAuVRD2sv2s dRZtlQhbxiOxkUJyVUplH8Ud MQWvw876YWYiV7YuQDNpe7E7 moQjGzKtMFWxnIU3hhT3ETFe VFg4zMAeqwQ8cfLwcFYzJ0tw fI4wHOIyHU3gynwmu0dbHFan OZzyEYKxuLV6nxV0GXMotFXv K0NwpS4bPLEaSWuoKEFxwiq3 TiBdPe3utTCgkXzvJBdaMsvd YWdlXHBnbmNvbnRccGduZGVj XHBsYWluXHBsYWluXGYwXGZz ZhTxdYregHdbuS0lKkZyUwIn LEmaYD5xIHNoN8tswFNgOLUo LAUsR6tnEnAsbK6unUsiWKsx ZjJcZnMyMFxwYXIgSSBoYXZl IULeghJfoeIuaOrnfuO5uBS2 IYOhPXcbKADhYVBtgUYahj9u sFoyFFKyWZ0cKEMeesEyBAzk jBknNOlzBBU4EZRpqKNkyEKn bWFkZSBieSByZXNpZGVudHMs ORHypBdlv9Tog6QrgEX8tO3u i4zub9WuHZQiwYT3GA68ohL1 pC1eYLHoGF1gJDZzKG8vyRVs mKGfGQBct21uqPsaxxRuCBGk cnQuXHBsYWluXGYyXGZzMjhc bGFuZzEwMzNcaGljaFxmMlxk SpRcQUFgXJfrX0vfCqDwMvFo CDhvLSI3eN== Clinical Information (test code = [id number]) 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] Gross Description (test code = [id number]) f2xwmQLuMDGnbTBLKAMrGUEe NP2psUthkAm0tTesSNTbxhK0 lFAvEFtaw4cxPBS7e2pvaoEN ClxkZWZmMVxwYXBlcncxMjI0 FEhgWPBtdhkqLHj3SEvrTOQy uCO0IFAxuUXvA5CoVFMtAT8l jnk8ZOQ2PZlkPOBjRyP4ZJUr VjDbUhliVAz9YNDtikR8Ylq8 ATAsAVRwoTRbx6N5WMidjfuq KHEtvACrF859JFkbg3ZchSLe DQpccGFyZCANCntcKlxlcGlj y0FxpMFcBIjwPPLnCVWcMWcr nhvwBIf7TEIsJFlwsACfTK5i qOdgDdfnxQjzh9OxuLRfMEfv JLYvUOCgLUtdZYJlVP0URpVu INIkHOT5LOJzUQe4SAs3UA1P MeCfTPXuRTafAqF5RvWkXSy8 WIerSA0QRTL3IQD9WJA9NORb INGnQHOcJZu1RKSgJQmuOBOi aWFsIFxcZnMgMTAgXFxmbCBc LI6fpWmxbLDavqhpduMyWRRI VXANQAHPYCEiyLWrGT0LHUTl ADsiLSHgeSXFZDO4NT5nYNWQ YexbbOVvSCCkaGzoILtcjR6r CP4WVOx8nuHuJQWgUaVuA8Dl C4ytJP3jSYTmhgMaNEJpeOMb ZCBmcmVzaCBsYWJlbGVkIHdp dGggdGhlIHBhdGllbnQncyBu OH4aEWTZCSKwgA9dIZXoIXOf zUrktPRjnMNfFYrkLZ5wVJUu A4e4RGKuFDOvueJyTV5lWAGr tsVdq1WeBH1bSHPbadPpwVMt sXBouDMiGZS6e362XFLzDMWs sRWiIzHHoIAne0wiklB0OKcd xJtcDEJ4HGZoAVIeeGAhvP8u bJsblDZqLxM8SQ4yRCS9mtCh ZDLkFeHfaZS5AnBbwBV3KbYt I81wQHAmWdFrKHB3JvXcWTG7 InWqY13xk6h0jC17kVOkSOUx bmVwaHJpYyBmYXQpLiBUaGUg lDDlnW8tiVtqbDXkYIQbsA4u PHS2zQGxdGUlzTXteFAgiFjy sVy8NHW5aqrnyNBjLX9bSLBt ZSBhbnRlcmlvciBzdXJmYWNl PuWZhDNxyKSbaGKuUY9iHFW8 xpVoOPO4ZyWzK91kfX3ppBBk S9EgCTtmWE36SD5sPP25PLZg KMtxXHZjRU2raSZmWgLKtSHp x8MqV8jcZZ9quKZuxH4bUPPy AUViv9HlqB5wFQPtJWIeADDh xkvoE75yHHThifOrd6ChbqDo IHRvIHJldmVhbCBhIHBvbHlw f0zlDP3wr7MviM5iiPtaZTZt WDGxbgEzqL9wxmCvEMOxfHRq ljobQG0dHZvkAb4aABvxJU13 QVRtDnMQuQJkpNLeybXge76k cxZ3vQGnmV2xWw8pPLHhVA7d JMHxGIUigKStIQhtUT8jSCig hJKsVJPtAGKoCM4aQJJpRgOg E73ng5LydLlxQVEeFPLlltJh YPKdR0Bxc12btHVaZ0icXgJr HXqnzqLafDFpvl9kh7O3hP49 cyBtYXNzIGluIHRoZSBraWRu XUnsKYD9xJRiZAGkcdIoGSTs bYH2EDOvL0emcJuzVZClWLPy noVcutLubAHab2DbyIVhjqN5 dPFoudZqVDlunWArSL7qfMju XScxiXsnUUbmxogcm1Tyw32g KJqlYEXvXWL9lTOlvnLoe5hi TB9fLKZjYQDtdKVcMQdmqJRv v4VeuA1gEMVqMLSgoLPamoEw ydGdbCMziBOitE2etpFsg86s ZSAxlWWsCB5QJMWlmjPXUcmp sjDom0XhQvfbCOOuFEaRfZAg OiBhbnRlcmlvclxwYXIgDQpS MXL0MBMsz4AbtxxvhzypWJWs DQpCbGFjazogdXJldGVyXHBh tvUWEgmnMCCaGPaUULL3uG5o RAQmDON2FQEixoEZSeEeZhM9 ZWluIGFuZCBhcnRlcnkgbWFy F1meDHXnqoXDMpFeOgI7xzU2 BAYvzXIsO0djIYNnpjYULdPg GKN2ZrVSqL8baoM4ajE2cfC6 ASXpQCXkp1XbFWJoJ6Pjj85i wNChSR3WKBV1LEJ7hGylSgMg MXE6iI8kcgahFTErXAsPMxhe MLFpqYIrMRHij9DrZTBhWQzz VQ0syKvrbuBepqAmHT86LCFu jgGczNAcVV4VYQt1PPyisIXo CPThYSIdvESaHY1PBFctJWUv TcUEVCByBHOlvvWbtIj6REHe pEEnXMshLROuWVK8tDEcKMO1 n6PtdACnLY4NWKBpmgCJTxQv xIhoAI61eghiMR3AESM7PrIy LrAnLnNvMHE8CbXyZT7zrMFt ZY4TMAVzdwCCIpLbQEO3CUek sBHnHO9NTN2gMXE0kU8ineJa QJX9sF6vmeY7KCWkLYC7Vy0x lNNwCSXtu4rhy0jijmwsxFjf nO0nl6gwQsVgCMIuOWbpj2Wr gRwiMQkhsONsDNuvn8RkfPok bnMuIFxwYXIgDQpBMTEtQTE1 VbZXWXZ4AD6lPAR7oC8kAUTd rjIHMfFcQtudJEAxgGPzUO8z gfgacpahPWRuDTbytXKeBA4L XCS1oBNKs3JmEilyDIOeJHhf VG8gDFVcUJZ8MtBiVVZFNGSn ciANClxlcGljTmVzdERvYzBc ifH6YZAhbGJnRZI1SU1zZGOn jufzEGTsIYZdCVU2PWqrlU86 bHQwXGZzMTZccGFyfVxwbGFp pfEOBvtpNilvcHfro6KurQVq QTtaHRAhEAGfZVcmPGEaUQ2H EiNjXGLqRQO5HSXoAVg2GAz4 EW1PQlDrVHOaYZsxFmC3NvTf FAc2AYgcTA0HCHL8QDY0DDv9 QnidZPKfIsebWEe1CPUlSPuz IEFyaWFsIFxcZnMgMTAgXFxm mYQaGA0wkVtmoDCtlrnytnAu PUHIKTWBADANBLIbaIJoUH3B UHSaHHizDRFfeTGRORR4IE0h MSANClxsdHJwYXJcbGluMFxy kU2fQS3VFZx4qmEpQGLmDdEv K3XxS7iqSL3sUnWasgTsWHKy aXZlZCBmcmVzaCBsYWJlbGVk IHdpdGggdGhlIHBhdGllbnQn krMeQZ9yNZUYFMYcnS7aXALl FKInzAewpBRoXBUdM4D6TDjd zTczeBprxo5oFJRbTTCsRUCh h00diUC7rfOgYwUbVKbwLtOl YXRlZCBmcmFnbWVudCBvZiBh UIuow3YcBMEbu5J3IOReQN2c MXroNW85OGesRM0lBWSsVZO1 aGljaCBpcyBwYWxwYWJsZSBm t4Qkwr0ccOehjJfimw9uJQZz RPEqMNPbkPNrwS8ieeYckyPq sKIeqDD6TQJfXE88xNWfcOkg vK1qPdLiBxUmYDamGBTvOEkc kPPfLM9GUXI8vECOc0XnFhqu TUQgIDgvMzEvMjAyMiAgNDoz MiBQTVxwYXIgDQogDQpcZXBp Q06nm2QUu7KdUPJmq5kkwVjb n7AhdLNnQYinRNJeiSKzNGtf lX9pHnJmh0cenWp8HWcucaG4 TESzts6fhJnvkI4qQFooj7pw JHL3WHRwnICzxPVqWXzfcHrl aF6bKgZhNjy1KTqiZFHxY1It A9BwlaT9ISJmNAmvYBQjPFHv DQp9 Synoptic Checklist (test code = 0344199151) RENAL PELVIS AND URETER: ResectionRENAL PELVIS AND URETER - All Vaztrhasm3fj Edition - Protocol posted: 03/21/2021 SPECIMEN ? [...] this pathology report. ? 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 pN Category: ? ?pN0 ADDITIONAL FINDINGS ? Associated Epithelial Lesions: ? ?None identified ? Pathologic Findings in Ipsilateral Nonneoplastic Renal Tissue: ? ?Vascular disease: ATHEROSCLEROSIS Disclaimer (test code = 9686830373) q8qxgYMiLNVsq8ioFAYxkHPs ZzEwMzNcZnRuYmpcdWMxIHtc isDdMCjoy6SjW7TxCrFoKTxb bnNpXGRlZmxhbmcxMDMzXGZ0 iiJiNIKpEMdzGCNzRYnuSv7l vKFyfKcqXeKaIHUux9xliwZB AXhpTdYcR141KWXxTTbby3ya h6WjCPQwaPArp6D6OKXJemvt xNz6kIwvQ33az5J1NwxdO8qg LSFaLWUwY4MzQP7zIWBvLtx7 XSX1SEP5YJIrWWRbA5ZiEN6v QGNdkELpNFc7b3tybEmvDMLp DZI3h2ulAKsirxWuUJ0zms3e bNu8m2aeshCnHEHlPPOlrLCA QHIfW3ZvsFudZy1woYn6bNfz YcohEPK4Pua9RL8uit05jbw8 iAzkDGCklrbyMbO6LTvpMZUq kqloODu4ZJtmGEKxhEM2ZVHb kIWmY0LgPKStVA0pywc8IGO7 CEixTFVhPcE8LRWnwXFyZPYj qIvkVAauu427VWN2TgPsYT1n X0Aws1Q8xS7keFVnDUVafWYn UrRoJEDpyr3mrHMmNXgax5Pz FPI7lcL6mQTvbTQsZNUrCG99 Wrhqe5DaOephz7QeU62nxGF8 BVlrj6xxXL6cRzG7ynOnFPox h5awiO1wKkZ7EQhhOL3pRC7c YCRwdV2xbydzWTKiOxXhukqx GQDjmJlehjIgRs2eqZjvDSL2 YBfiX1omjJ6eXcI3UFaqW6bn qM5uHBy2HHczyMX8NVCbuM6b GZ4ihkwmb1waNGjnCPmiSIPf kmA3dfN7NQNpwPSuG1UieA4o TFBtQA2kfkmrt7bzJHG4RSlv SHHkAUB9DsInMVKza5Hsmqo9 JvIzt7DewFRkRZedQ18gx979 IBRbueSoT7myuKIxhnktnIWc dmexUIyshmI0TDLbfmXgj3Or GGSoAGW2FVufGCxfkSRoKGFo vDqur7qqX7YtlJObBZJnHHvf XGYxXGZzMjBcbGFuZzEwMzNc aGljaFxmMVxkYmNoXGYxXGxv I9brHrYwD7FyTTKhVjDomQVk D2zvAUshxrBgPHYhadFajVS8 NHohW7y2DWGewgPnyOx4xrMb ZtHaUMIuUHH0SIkviDGrVROa g5SgkzcjvZQfHl0zoZGxMXSt uA7xJPCjDNYuWFxwQK5anOu5 TGNSbOPrwFGgZrVFNEMiKL16 qtXzZFTVxvrhh8I5VSzcSJPw l9PusKKoS9gmp8NkSEFba88u ZF0ne7D2x4weGTN9PK7vk3Kp DPSytIUhfDJmBDSyz8Nzqcmk w0NfWEDiwlBmh1NhISPremWx cBZuQXFkigVzln3jhhDzCZQi RCUnM4OegupwsJtoshDzMMUq ep1elsEqSBL1CFEZPTUmFAKe q7OglX3vpLXZMWV8aKHkom0v zfTOjNHfARZiob08TORzVA3z R9ekHFMmLIFqbbWjgCLir2Mr PNXwuAP5lGXnCN4UUuQVp83j IGFuZCBEcnVnIEFkbWluaXN0 viE7fK1lCIePYHAuIfk+IFRo FFHCPJGpBS1cqiGoq2RoiyFg eMylIYGysTQxu3SbhVQdd4Fh cKgrc0XlzZOikTSuBC3rFASr clxwYXIgVVRNQiBMYWJvcmF0 d5KlSHVlLVQkKFO0lNaiwqd3 YRDocD3yHWYxV1nsstwtHFft XYQrh3UutO7mhDAIqXXuu2Wt nSEyxQVYxWLxWU0wbeXaZMvT IStRPBN0eoTuDTEwr0WhDZdt W6prW34qkXslnDk2uQD6PRV5 kE7tGok+IFxwYXJccGFyIEFw gIQjbNEtHSYsiOchfhCwZ2Fp dfAzaO6lbHDzprXiZP0gBA9f V5N7pMElEOXonoLum3ubLIng dmUgYmVlbiByZXZpZXdlZCBm q5DnFRnmEVY9KOdiktDzhcHw dWRpbmcgSCZFLCBTcGVjaWFs WER5ZGzoxmVhfsWkWL3tjE9l gCcouS2waXSnmEP0bylhTIXq CRJjcSdgLLVsUU1umHOmAAPu siHJmIsdtUTyvT1fX8FnDBIe OPSrsg5gAPAlhB9uZWyso4Mx ziffQANqOFIjQGZiznLxtv3c TIElsUNPWO3VGWaxhIJeo5Qe wbGgY1lUZBH4WMArHqKqAsmr JQApkUMxoCExCUWfvw49SBBk jR2yfGizXLYskY9xjX1pvHtw iS8eObJwOyIwQNghDY5dTNCb D7gzzSWmIISkQKAoU2kcHeLp zQ9vdOtbIQgnKfMyJvGcBVtv YXJ9fQ== Embedded Images (test code = 4036290453) [facility] 12:10:29* Test Item Value Reference Range Interpretation Comme nts MAGNESIUM (test code = 5865182897) 2.1 mg/dL 1.7-2.4 Lab Interpretation (test cod e = 68338-7) Normal [facility] 12:10:29* Test Item Value Reference Range Interpretation Comme nts PHOSPHORUS (test code = 0421354033) 3.2 mg/dL 2.5-5 Lab Interpretation (test cod e = 18641-6) Normal [facility] METABOLIC PANEL (NA, K, CL, CO2, GLUCOSE, BUN, CREATININE, CA)2022-05-28 08:05:09* Test Item Value Reference Range Interpretation Comme nts NA (test code = 7815507231) 134 mmol/L 135-145 L K (test code = 4584441783) 3.4 mmol/L 3.5-5 L CL (test code = 8636303188) 105 mmol/L 98-108 CO2 TOTAL (test code = 9789441024) 25 mmol/L 23-31 AGAP (test code = 6008880853) 2-16 BUN (test code = 1851340272) 41 mg/dL 7-23 H GLUCOSE (test code = 9417435086) 92 mg/dL 70-110 CREATININE (test code = 8762422899) 3.79 mg/dL 0.6-1.25 H CALCIUM (test code = 9309717030) 8.3 mg/dL 8.6-10.6 L eGFR (test code = 1578392560) mL/min/1.73m2 LAMAR (test code = LAMAR) Association [...] imaging tests). Lab Interpretation (test code = 30019-5) Abnormal [facility] GLUCOSE (AUTOMATED)2022-05-27 17:05:48* Test Item Value Reference Range Interpretation Comme nts POCT GLU (test code = 8217054730) 91 mg/dL 70-110 Notified Provide r Lab Interpretation (test code = 56100-7) Normal [facility] GLUCOSE (AUTOMATED)2022-05-27 16:19:18* Test Item Value Reference Range Interpretation Comme nts POCT GLU (test code = 4445078039) 101 mg/dL 70-110 Lab Interpretation (test cod e = 35460-5) Normal [facility] GLUCOSE (AUTOMATED)2022-05-27 01:54:26* Test Item Value Reference Range Interpretation Comme nts POCT GLU (test code = 0024073069) 94 mg/dL 70-110 Lab Interpretation (test cod e = 62945-6) Normal [facility] GLUCOSE (AUTOMATED)2022-05-26 20:57:23* Test Item Value Reference Range Interpretation Comme nts POCT GLU (test code = 7274677228) 111 mg/dL 70-110 H Lab Interpretation (test cod e = 73342-2) Abnormal [facility] GLUCOSE (AUTOMATED)2022-05-26 17:20:02* Test Item Value Reference Range Interpretation Comme nts POCT GLU (test code = 4306638450) 145 mg/dL 70-110 H Notified Provide r Lab Interpretation (test code = 15068-4) Abnormal [facility] GLUCOSE (AUTOMATED)2022-05-26 14:01:51* Test Item Value Reference Range Interpretation Comme nts POCT GLU (test code = 4901886215) 109 mg/dL 70-110 Notified Provide r Lab Interpretation (test code = 71388-8) Normal [facility] GLUCOSE (AUTOMATED)2022-05-26 01:56:49* Test Item Value Reference Range Interpretation Comme nts POCT GLU (test code = 4144281806) 144 mg/dL 70-110 H Notified Provide r Lab Interpretation (test code = 68234-8) Abnormal [facility] GLUCOSE (AUTOMATED)2022-05-25 22:23:00* Test Item Value Reference Range Interpretation Comme nts POCT GLU (test code = 5348582811) 88 mg/dL 70-110 Notified Provide r Lab Interpretation (test code = 96258-6) Normal [facility] GLUCOSE (AUTOMATED)2022-05-25 12:51:19* Test Item Value Reference Range Interpretation Comme nts POCT GLU (test code = 3268920531) 102 mg/dL 70-110 Notified Provide r Lab Interpretation (test code = 09303-5) Normal [facility] GLUCOSE (AUTOMATED)2022-05-25 12:51:19* Test Item Value Reference Range Interpretation Comme nts POCT GLU (test code = 2519111449) 102 mg/dL 70-110 Notified Provide r Lab Interpretation (test code = 11626-2) Normal [facility] GLUCOSE (AUTOMATED)2022-05-25 01:56:36* Test Item Value Reference Range Interpretation Comme nts POCT GLU (test code = 7677709520) 117 mg/dL 70-110 H Lab Interpretation (test cod e = 78757-6) Abnormal [facility] GLUCOSE (AUTOMATED)2022-05-24 22:40:35* Test Item Value Reference Range Interpretation Comme nts POCT GLU (test code = 9237230659) 109 mg/dL 70-110 Lab Interpretation (test cod e = 20385-4) Normal [facility] GLUCOSE (AUTOMATED)2022-05-24 17:00:37* Test Item Value Reference Range Interpretation Comme nts POCT GLU (test code = 7953987295) 113 mg/dL 70-110 H Lab Interpretation (test cod e = 05950-4) Abnormal [facility] GLUCOSE (AUTOMATED)2022-05-24 12:57:44* Test Item Value Reference Range Interpretation Comme nts POCT GLU (test code = 1577601401) 101 mg/dL 70-110 Lab Interpretation (test cod e = 30033-0) Normal [facility] GLUCOSE (AUTOMATED)2022-05-24 02:43:09* Test Item Value Reference [facility] (test code = 9701530662) 135 mg/dL 70-110 H Lab Interpretation (test cod e = 52754-8) Abnormal [facility] GLUCOSE (AUTOMATED)2022-05-23 22:34:12* Test Item Value Reference Range Interpretation Comme [facility] PO[facility] GLU (test code = 1629950659) 91 mg/dL 70-110 Lab Interpretation (test cod e = 22394-8) Normal [facility]NA+K+GLU+CA2+2022-05-23 21:19:58* Test Item Value Reference Range Interpretation Comme [facility] PH (test code = 2) 7.35-7.45 PCO2 (test code = 2507167913) See_Comment [Automated messa ge] The system which generated this result transmitted reference range: 35 - 45 mmHg. The reference range was not used to interpret this result as normal/abnormal. PO2 (test code = 0087533537) See_Comment H [Automated messa ge] The system which generated this result transmitted reference range: 80 - 100 mmHg. The reference range was not used to interpret this result as normal/abnormal. HCO3 (test code = 4305377721) See_Comment [Automated messa ge] The system which generated this result transmitted reference range: 22 - 26 mEq/L. The reference range was not used to interpret this result as normal/abnormal. BE (test code = 0057765701) See_Comment [Automated messa ge] The system which generated this result transmitted reference range: -3.0 - 3.0 mEq/L. The reference range was not used to interpret this result as normal/abnormal. THB (test code = 4085600707) 13.4 g/dL 13.5-18 L %O2HB (test code = 9893489924) 99.2 % 94-99 H %COHB ART (test code = 8141987059) 0.2 % 0-1.5 %METHB ART (test code = 6791639400) 0.2 % 0.4-1.5 L VOL%O2 ART (test code = 8230695716) 19.2 % 15-23 QUES NA (test code = 9512140118) 143 mmol/L 135-145 K+ (test code = 1371696442) 3.2 mmol/L 3.5-5 L AC CA IONZ (test code = 2870017595) 5.10 mg/dL 4.5-5.3 GLUCOSE (test code = 0450247593) 117 mg/dL 70-110 H Lab Interpretation (test code = 02792-3) Abnormal [facility]X+NA+K+GLU+CA2+2022-05-23 21:19:58* Test Item Value Reference Range Interpretation Comme nts PH (test code = 2) 7.35-7.45 PCO2 (test code = 1094188397) See_Comment [Automated messa ge] The system which generated this result transmitted reference range: 35 - 45 mmHg. The reference range was not used to interpret this result as normal/abnormal. PO2 (test code = 9268963368) See_Comment H [Automated messa ge] The system which generated this result transmitted reference range: 80 - 100 mmHg. The reference range was not used to interpret this result as normal/abnormal. HCO3 (test code = 3368512527) See_Comment [Automated messa ge] The system which generated this result transmitted reference range: 22 - 26 mEq/L. The reference range was not used to interpret this result as normal/abnormal. BE (test code = 3085839115) See_Comment [Automated messa ge] The system which generated this result transmitted reference range: -3.0 - 3.0 mEq/L. The reference range was not used to interpret this result as normal/abnormal. THB (test code = 8844985496) 13.4 g/dL 13.5-18 L %O2HB (test code = 0368293285) 99.2 % 94-99 H %COHB ART (test code = 3153999961) 0.2 % 0-1.5 %METHB ART (test code = 1088985467) 0.2 % 0.4-1.5 L VOL%O2 ART (test code = 8656130363) 19.2 % 15-23 QUES NA (test code = 7556631356) 143 mmol/L 135-145 K+ (test code = 7753730365) 3.2 mmol/L 3.5-5 L AC CA IONZ (test code = 6354018740) 5.10 mg/dL 4.5-5.3 GLUCOSE (test code = 0475612058) 117 mg/dL 70-110 H Lab Interpretation (test code = 32033-5) Abnormal [facility]2022-[facility]-23 16:48:15* Test Item Value Reference Range Interpretation Comme [facility] PO[facility] GLU (test code = 2834347664) 193 mg/dL 70-110 H Lab Interpretation (test cod e = 11966-9) Abnormal [facility] METABOLIC PANEL (NA, K, CL, CO2, GLUCOSE, BUN, CREATININE, CA)2022-05-23 14:26:44* Test Item Value Reference Range Interpretation Comme [facility] NA (test code = 2539726951) 140 mmol/L 135-145 K (test code = 6722161780) 3.9 mmol/L 3.5-5 CL (test code = 7102610049) 108 mmol/L 98-108 CO2 TOTAL (test code = 2796212688) 24 mmol/L 23-31 AGAP (test code = 4579689653) 2-16 BUN (test code = 8493966537) 46 mg/dL 7-23 H GLUCOSE (test code = 1386213468) 148 mg/dL 70-110 H CREATININE (test code = 5652531911) 4.80 mg/dL 0.6-1.25 H CALCIUM (test code = 1130408731) 8.6 mg/dL 8.6-10.6 eGFR (test code = 6558084892) mL/min/1.73m2 LAMAR (test code = LAMAR) Association [...] imaging tests). Lab Interpretation (test code = 79675-8) Abnormal [facility] GLUCOSE (AUTOMATED)2022-05-23 12:57:22* Test Item Value Reference Range Interpretation Comme nts POCT GLU (test code = 9292957674) 115 mg/dL 70-110 H Lab Interpretation (test cod e = 04401-0) Abnormal [facility] GLUCOSE (AUTOMATED)2022-05-23 02:13:30* Test Item Value Reference Range Interpretation Comme nts POCT GLU (test code = 1914268644) 133 mg/dL 70-110 H Lab Interpretation (test cod e = 18429-3) Abnormal [facility] GLUCOSE (AUTOMATED)2022-05-22 21:26:56* Test Item Value Reference Range Interpretation Comme nts POCT GLU (test code = 9770907005) 148 mg/dL 70-110 H Lab Interpretation (test cod e = 31384-0) Abnormal [facility] GLUCOSE (AUTOMATED)2022-05-22 21:26:56* Test Item Value Reference Range Interpretation Comme nts POCT GLU (test code = 5282794398) 148 mg/dL 70-110 H Lab Interpretation (test cod e = 94425-3) Abnormal [facility] GLUCOSE (AUTOMATED)2022-05-22 16:35:07* Test Item Value Reference Range Interpretation Comme nts POCT GLU (test code = 9724829155) 118 mg/dL 70-110 H Lab Interpretation (test cod e = 41513-4) Abnormal [facility]2022-[facility]-22 16:35:07* Test Item Value Reference Range Interpretation Comme [facility] PO[facility] GLU (test code = 2518768682) 118 mg/dL 70-110 H Lab Interpretation (test cod e = 84832-9) Abnormal [facility] Metabolic Panel (NA, K, CL, CO2, Glucose, BUN, Creatinine, CA)2022-05-22 15:45:30* Test Item Value Reference Range Interpretation Comme [facility] NA (test code = 1351425839) 143 mmol/L 135-145 K (test code = 4851544284) 3.7 mmol/L 3.5-5 CL (test code = 2390444320) 111 mmol/L 98-108 H CO2 TOTAL (test code = 3812088004) 27 mmol/L 23-31 AGAP (test code = 7956063556) 2-16 BUN (test code = 9978442245) 33 mg/dL 7-23 H GLUCOSE (test code = 6594209365) 122 mg/dL 70-110 H CREATININE (test code = 9453527393) 3.11 mg/dL 0.6-1.25 H CALCIUM (test code = 4881192616) 7.9 mg/dL 8.6-10.6 L eGFR (test code = 4894199828) mL/min/1.73m2 LAMAR (test code = LAMAR) Association [...] imaging tests). Lab Interpretation (test code = 67316-3) Abnormal [facility] Metabolic Panel (NA, K, CL, CO2, Glucose, BUN, Creatinine, CA)2022-05-22 15:45:30* Test Item Value Reference Range Interpretation Comme nts NA (test code = 4445163625) 143 mmol/L 135-145 K (test code = 4596076407) 3.7 mmol/L 3.5-5 CL (test code = 6984446769) 111 mmol/L 98-108 H CO2 TOTAL (test code = 9079841119) 27 mmol/L 23-31 AGAP (test code = 0752139312) 2-16 BUN (test code = 8876956936) 33 mg/dL 7-23 H GLUCOSE (test code = 2583762117) 122 mg/dL 70-110 H CREATININE (test code = 2605071740) 3.11 mg/dL 0.6-1.25 H CALCIUM (test code = 8994738338) 7.9 mg/dL 8.6-10.6 L eGFR (test code = 0038788296) mL/min/1.73m2 LAMAR (test code = LAMAR) Association [...] imaging tests). Lab Interpretation (test code = 14739-4) Abnormal [facility] GLUCOSE (AUTOMATED)2022-05-22 12:44:12* Test Item Value Reference Range Interpretation Comme [facility] POCT GLU (test code = 5058583638) 129 mg/dL 70-110 H Lab Interpretation (test cod e = 60780-6) Abnormal [facility] GLUCOSE (AUTOMATED)2022-05-22 12:44:12* Test Item Value Reference Range Interpretation Comme [facility] POCT GLU (test code = 1518492760) 129 mg/dL 70-110 H Lab Interpretation (test cod e = 99071-7) Abnormal [facility] Metabolic Panel (NA, K, CL, CO2, Glucose, BUN, Creatinine, CA)2022-05-22 05:21:04* Test Item Value Reference Range Interpretation Comme nts NA (test code = 2087874691) 141 mmol/L 135-145 K (test code = 8686813651) 3.7 mmol/L 3.5-5 CL (test code = 1767451577) 112 mmol/L 98-108 H CO2 TOTAL (test code = 8067529612) 22 mmol/L 23-31 L AGAP (test code = 2249294673) 2-16 BUN (test code = 5976815066) 27 mg/dL 7-23 H GLUCOSE (test code = 1741002702) 136 mg/dL 70-110 H CREATININE (test code = 7380944686) 2.22 mg/dL 0.6-1.25 H CALCIUM (test code = 6269695322) 7.9 mg/dL 8.6-10.6 L eGFR (test code = 5605265085) mL/min/1.73m2 LAMAR (test code = LAMAR) Association [...] imaging tests). Lab Interpretation (test code = 33970-5) [facility]normal [facility] (NA, K, CL, CO2, Glucose, BUN, Creatinine, CA)2022-05-22 05:21:04* Test Item Value Reference Range Interpretation Comme nts NA (test code = 0267944456) 141 mmol/L 135-145 K (test code = 5856924425) 3.7 mmol/L 3.5-5 CL (test code = 9728024760) 112 mmol/L 98-108 H CO2 TOTAL (test code = 6131206035) 22 mmol/L 23-31 L AGAP (test code = 5178523215) 2-16 BUN (test code = 5597339981) 27 mg/dL 7-23 H GLUCOSE (test code = 7547073570) 136 mg/dL 70-110 H CREATININE (test code = 8879576080) 2.22 mg/dL 0.6-1.25 H CALCIUM (test code = 8770449265) 7.9 mg/dL 8.6-10.6 L eGFR (test code = 4474380891) mL/min/1.73m2 LAMAR (test code = LAMAR) Association [...] imaging tests). Lab Interpretation (test code = 22392-8) Abnormal [facility] GLUCOSE (AUTOMATED)2022-05-22 01:45:11* Test Item Value Reference Range Interpretation Comme [facility] (test code = 2841972813) 135 mg/dL 70-110 H Lab Interpretation (test cod e = 23989-1) Abnormal [facility] GLUCOSE (AUTOMATED)2022-05-22 01:45:11* Test Item Value Reference Range Interpretation Comme nts POCT GLU (test code = 4873322393) 135 mg/dL 70-110 H Lab Interpretation (test cod e = 37890-6) Abnormal [facility] GLUCOSE (AUTOMATED)2022-05-21 23:03:07* Test Item Value Reference Range Interpretation Comme nts POCT GLU (test code = 2127737490) 150 mg/dL 70-110 H Lab Interpretation (test cod e = 00685-0) Abnormal [facility] GLUCOSE (AUTOMATED)2022-05-21 23:03:07* Test Item Value Reference Range Interpretation Comme nts POCT GLU (test code = 2352724738) 150 mg/dL 70-110 H Lab Interpretation (test cod e = 85955-8) Abnormal [facility] Metabolic Panel (NA, K, CL, CO2, Glucose, BUN, Creatinine, CA)2022-05-21 22:58:23* Test Item Value Reference Range Interpretation Comme nts NA (test code = 3291120413) 140 mmol/L 135-145 K (test code = 1031167354) 3.5 mmol/L 3.5-5 CL (test code = 6363883571) 110 mmol/L 98-108 H CO2 TOTAL (test code = 4411032530) 23 mmol/L 23-31 AGAP (test code = 0198522594) 2-16 BUN (test code = 2133977055) 25 mg/dL 7-23 H GLUCOSE (test code = 3071874633) 167 mg/dL 70-110 H CREATININE (test code = 9478352176) 2.14 mg/dL 0.6-1.25 H CALCIUM (test code = 4915085077) 8.6 mg/dL 8.6-10.6 eGFR (test code = 0287387189) mL/min/1.73m2 LAMAR (test code = LAMAR) Association [...] imaging tests). Lab Interpretation (test code = 76658-7) Abnormal [facility] Metabolic Panel (NA, K, CL, CO2, Glucose, BUN, Creatinine, CA)2022-05-21 22:58:23* Test Item Value Reference Range Interpretation Comme nts NA (test code = 1461832685) 140 mmol/L 135-145 K (test code = 2041251415) 3.5 mmol/L 3.5-5 CL (test code = 8764786767) 110 mmol/L 98-108 H CO2 TOTAL (test code = 4200018182) 23 mmol/L 23-31 AGAP (test code = 3904500973) 2-16 BUN (test code = 1755810888) 25 mg/dL 7-23 H GLUCOSE (test code = 1463196117) 167 mg/dL 70-110 H CREATININE (test code = 7456771156) 2.14 mg/dL 0.6-1.25 H CALCIUM (test code = 4242099713) 8.6 mg/dL 8.6-10.6 eGFR (test code = 9010666842) mL/min/1.73m2 LAMAR (test code = LAMAR) Association [...] imaging tests). Lab Interpretation (test code = 12638-0) Abnormal [facility] / [id number] 22:42:01* Test Item Value Reference Range Interpretation Comme nts LATASHA PATIENT (test code = 5964-2) See_Comment H [Automated [employer]] The system which generated this result transmitted reference range: 10.1 - 12.6 Seconds. The reference range was not used to interpret this result as normal/abnormal. INR (test code = 6301-6) Normal INR <1.1; Warfarin Therapeutic range 2.0 to 3.0 or 2.5 to 3.5, depending upon the indications. Lab Interpretation (test code = 70634-3) [facility] / [id number] 22:42:01* Test Item Value Reference Range Interpretation [...] the indications. Lab Interpretation (test code = 46555-6) Abnormal [facility] / [id number] 22:42:01* Test Item Value Reference Range Interpretation [...] the indications. Lab Interpretation (test code = 09039-0) Abnormal [facility] GLUCOSE (AUTOMATED)2022-05-21 17:44:04* Test Item Value Reference Range Interpretation Comme [facility] (test code = 1098305797) 106 mg/dL 70-110 Lab Interpretation (test cod e = 57652-2) Normal [facility] GLUCOSE (AUTOMATED)2022-05-21 17:44:04* Test Item Value Reference Range Interpretation Comme [facility]U (test code = 2346880998) 106 mg/dL 70-110 Lab Interpretation (test cod e = 72031-6) Normal [facility] - This is a pre-surgical type and screen. ONCE [id number] 16:59:30* Test Item Value Reference Range Interpretation [facility] ABO & RH (test code = 20) AB POSITIVE Performed at [facility] Laboratory Services - [facility] Blood [address] [place] [address]Nzsi Free: [phone] No. [id number] IAT (test code = 1185) Negative Performed at [facility] Laboratory Services - [address] Free: [phone] No. [id number] [facility] and Screen - This is a pre-surgical type and screen. ONCE [id number] 16:59:30* Test Item Value Reference Range Interpretation Comme nts ABO & RH (test code = 20) AB POSITIVE Performed at [facility] Laboratory [facility] - [address] Free: [phone] No. [id number] IAT (test code = 1185) Negative Performed at [facility] Laboratory [address] Free: [phone] No. [id number] [facility] Screen - This is a pre-surgical type and screen. ONCE [id number] 16:59:30* Test Item Value Reference Range Interpretation Comme nts ABO & RH (test code = 20) AB POSITIVE Performed at [facility] Laboratory [facility] - [address] Free: [phone] No. [id number] IAT (test code = 1185) Negative Performed at [facility] Laboratory [facility] - [address] Free: [phone] No. [id number] [facility] ResourcesTransthoracic echo (TTE)2022-05-16 18:51:14* Test Item Value Reference Range Interpretation Comme nts Height (test code = 8643115873) in Weight (test code = 9373698136) lbs Systolic BP (test code = 2303680875) mmHg Diastolic BP (test code = 3202880237) mmHg Heart Rate (test code = 1491179786) bpm BSA (test code = 0401846531) 1.88 m2 Ao root annulus (test code = 6932362029) 3.7 cm Ao root diam (test code = 1718713835) 3.70 cm Aortic root (test code = 8747394898) 3.7 cm LVOT diameter (test code = 5794297959) 2.06 cm LVIDD (test code = 1189810339) 4.80 cm IVS (test code = 8505679061) 1.52 cm Interventricular Septum Diastolic Thickness by 2D (test code = 5426920) 1.52 cm LVPWD (test code = 4145530046) 1.52 cm PW (test code = 2348512287) 1.52 cm 0.6-1.1 EF(Teich) (test code = 9341421292) 57.00 % LVIDS (test code = 3204218746) 3.40 cm FS (test code = 6030117806) 30 % EF - 2D (test code = 46944600) 57.00 % LA size (test code = 5794830807) 4.2 cm LAV(MOD-sp4) (test code = 9109105697) 68.30 mL E wave decelartion time (test code = 6567733526) 0.20 s MV Peak E Sourav (test code = 6318648845) 91.0 cm/s MV stenosis pressure 1/2 time (test code = 5882113871) 57.7 ms MV Peak A Sourav (test code = 4631070761) 111.4 cm/s E/A ratio (test code = 5219691720) ratio MV Prop V (test code = 8869537978) 53.90 cm/s MV E/e' septal (test code = 2971106869) 7.9 cm/s Tapse (test code = 6514417280) 2.5 cm LVOT stroke volume (test code = 9018019325) 80.20 cm3 LVOT peak sourav (test code = 4238796113) 93.2 cm/s LVOT mn grad (test code = 9023496162) mmHg AV LVOT peak gradient (test code = 1124833512) mmHg LVOT peak VTI (test code = 5023792242) 24.1 cm LV V1 mean (test code = 5848323416) 66.80 cm/s Aortic valve mean velocity (test code = 2648765805) 101.3 cm/s Ao peak sourav (test code = 1174319194) 146.4 cm/s Ao VTI (test code = 9133122610) 33.4 cm AV area by cont VTI (test code = 6302056171) 2.4 cm2 AV area peak sourav (test code = 8379817216) 2.1 cm2 Ao max PG (test code = 9409378958) 8.60 mm[Hg] AV peak gradient (test code = 9981547145) mmHg AV valve area (test code = 5713459107) 2.40 cm2 AV mean gradient (test code = 9383841688) mmHg Radiology Study observation (narrative) (test code = 78283-4) LAMAR (test code = LAMAR) Formatting of [...] mL of Lumason ultrasound enhancing agent used. [facility] ResourcesINTA[facility] PTH CALCIUM [id number] 19:45:54* Test Item Value Reference Range Interpretation Comme nts PTH-INTACT (test code = 2968211083) 158.8 pg/mL 12-88 H PTH-CA Interpretation (test code = 0223624027) Further clinical data needed for interpretation. CALCIUM (test code = 5134759763) 8.9 mg/dL 8.6-10.6 Lab Interpretation (test code = 98540-4) Abnormal [facility] ResourcesFERRITIN [id number] 18:13:44* Test Item Value Reference Range Interpretation Comme nts FERRITIN (test code = 8119040532) 81.7 ng/mL 18-464 LAMAR (test code = LAMAR) Biotin has been reported to cause a negative bias, interpret results relative to patient's use of biotin. Lab Interpretation (test code = 44026-2) Normal [facility] [id number] 17:46:02 * Test Item Value Reference Range Interpretation Comme nts TIBC (test code = 1964503107) 288 ug/dL 250-410 Lab Interpretation (test cod e = 65128-8) Normal [facility] ResourcesCOMP. METABOLIC PANEL (51415)2022-04-29 17:37:02* Test Item Value Reference Range Interpretation Comme nts NA (test code = 2176765687) 141 mmol/L 135-145 K (test code = 8204820135) 3.3 mmol/L 3.5-5 L CL (test code = 9308349415) 105 mmol/L 98-108 CO2 TOTAL (test code = 5688295895) 29 mmol/L 23-31 AGAP (test code = 4534302990) 2-16 BUN (test code = 6723304068) 34 mg/dL 7-23 H GLUCOSE (test code = 0331263834) 113 mg/dL 70-110 H CREATININE (test code = 4390229325) 2.23 mg/dL 0.6-1.25 H TOTAL BILI (test code = 9490116829) 0.3 mg/dL 0.1-1.1 CALCIUM (test code = 6288672157) 8.9 mg/dL 8.6-10.6 T PROTEIN (test code = 9512039187) 7.2 g/dL 6.3-8.2 ALBUMIN (test code = 0922504842) 4.3 g/dL 3.5-5 ALK PHOS (test code = 8176655497) 83 U/L 34-122 ALTv (test code = 1742-6) 17 U/L 5-50 AST(SGOT) (test code = 5810425311) 23 U/L 13-40 eGFR (test code = 1658419760) mL/min/1.73m2 LAMAR (test code = LAMAR) Association [...] imaging tests). Lab Interpretation (test code = 19811-2) Abnormal [facility] WITH [id number] 17:31:00* Test Item Value Reference Range Interpretation Comme nts WBC (test code = 6690-2) See_Comment [Automated [employer]] The system which generated this result transmitted reference range: 4.20 - 10.70 10*3/?L. The reference range was not used to interpret this result as normal/abnormal. RBC (test code = 789-8) See_Comment L [Automated [employer]] The system which generated this result transmitted [...] 32.2 g/dL 31.2-35 RDW-SD (test code = 61146-2) 51.6 fL 38.5-51.6 RDW-CV (test code = 788-0) 14.5 % 12.1-15.4 PLT (test code = 777-3) See_Comment L [Automated messa ge] The system which generated this result transmitted reference range: 150 - 328 10*3/?L. The reference range was not used to interpret this result as normal/abnormal. MPV (test code = 05663-5) 10.9 fL 9.8-13 NRBC/100 WBC (test code = 0351808019) See_Comment [Automated me ssage] The system which generated this result transmitted reference range: 0.0 - 10.0 /100 WBCs. The reference range was not used to interpret this result as normal/abnormal. NRBC x10^3 (test code = 2921048113) See_Comment [Automated messa ge] The system which generated this result transmitted reference range: 10*3/?L. The reference range was not used to interpret this result as normal/abnormal. GRAN MAT (NEUT) % (test code = 770-8) 66.4 % IMM GRAN % (test code = 7924950585) 0.20 % LYMPH % (test code = 736-9) 20.7 % MONO % (test code = 5905-5) 11.2 % EOS % (test code = 713-8) 1.1 % BASO % (test code = 706-2) 0.4 % GRAN MAT x10^3(ANC) (test code = 5803108117) 3.80 10*3/uL 1.99-6.95 IMM GRAN x10^3 (test code = 6520651564) 0-0.06 LYMPH x10^3 (test code = 731-0) 1.18 10*3/uL 1.09-3.23 MONO x10^3 (test code = 742-7) 0.64 10*3/uL 0.36-1.02 EOS x10^3 (test code = 711-2) 0.06 10*3/uL 0.06-0.53 BASO x10^3 (test code = 704-7) 0.01-0.09 Lab Interpretation (test code = 57886-8) Abnormal [facility] RETROPERITONEAL [id number] 11:35:00 Patient Name: ALICIA STEWART Unit No: [id number] EXAMS: CPT CODE: [id number] [place] [id number] CLINICAL INFORMATION: Chronic kidney disease stage III [...] simple appearing cortical cysts. 4. Right hydronephrosis. [id number] Reported and signed by: Polo Gutierrez M.D. CC: Debbie Boone; Laura Almeida Technologist: Jeanine Adams RDMS() Transcrpt Date/Tm/Trnsp: 01/18/2019 (1135) [facility] Print D/T: S:01/18/2019 (1135) [facility] NAME: ALICIA STEWART [id number] PHYS: [place] [address] : 1935 AGE: 83 SEX: M LOC: [facility] PHONE #: [phone] EXAM DATE: 01/18/2019 STATUS: REG CLI FAX #: [phone] RADIOLOGY NO: PAGE 1 Signed Report"
[2024-09-16] MEDS ORDERED: ACETAMINOPHEN 650MG/RECT SUPP PR PRN (08:45)
[2024-09-16] MEDS ORDERED: BISACODYL 10 MG RECTAL SUPP PR PRN (08:45)
[2024-09-16] MEDS ORDERED: ONDANSETRON 4 MG (ODT) TAB PO PRN (08:46)
[2024-09-16] MEDS ORDERED: LORazepam 2 MG/ML VIAL IV PRN (08:46)
--- NOTE | 2024-09-16 10:27 | P.HP ---
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 HE IS OBTUNDED BUT IN CHEST PAIN AND NOT ABLE TO CONTROL PAIN WITH OUTPATIENT MEDS. I WAS CALLED TO ADMIT HIM FOR HOSPICE. I DID A TELEHEALTH VISIT I AM OUT OF TOWN. HE IS CONFUSED, NONVERBAL AND NOT ABLE TO COMMUNICATE. Allergies No Known Allergies Allergy (Unverified 08/01/22 13:46) Home medications list reviewed: Yes Home Medications: Allopurinol 1 tab PO DAILY 08/01/22 Hydralazine [Apresoline*] 1 tab PO TID 08/01/22 Metoprolol Succinate [Toprol Xl*] 1 tab PO DAILY 08/01/22 Nifedipine Xl [Procardia XL*] 1 tab PO DAILY 08/01/22 Quinapril HCl 1 tab PO BID 08/01/22 Rosuvastatin [Crestor*] 1 tab PO DAILY 08/01/22 Torsemide [Demadex*] 1 tab PO DAILY 08/01/22 buPROPion HCL [Wellbutrin Xl] 1 tab PO DAILY 08/01/22 cloNIDine HCL [Clonidine HCl] 1 tab PO TID 08/01/22 - Past Medical/Surgical History Diabetic: No -: ESRD on HD -: HTN -: R nephrectomy for renal tumor -: Gout -: R nephrectomy - Social History Alcohol use: No CD- Drugs: No Caffeine use: No Review of Systems is unable to be obtained Physical Examination - Vital Signs Temperature: 97.1 F Blood Pressure: 92/59 Pulse: 102 Respirations: 12 Pulse Ox (%): 90 - Physical Exam General: Unresponsive HEENT: Other Neck: Without JVD or thyroid abnormality Neurological: Dementia Assessment and Plan - Problems (Diagnosis) (1) Unstable angina Current Visit: Yes Status: Acute Plan: PAIN CONTROL WITH NARCOTICS TO KEEP HIM COMFORTABLE. (2) Chronic kidney disease with in-center hemodialysis preferred by patient Current Visit: Yes Status: Chronic Plan: FAMILY HAS ELECTED TO KEEP HIM ON HOSPICE AND STOP HD I AGREE. I SEE NO BENEFIT OF HD NOW. (3) Dementia Current Visit: Yes Status: Chronic - Advance Directives Does patient have a Living Will: Yes Does patient have a Durable POA for Healthcare: Yes
[2024-09-16] MEDS: MORPHINE 2 MG/ML SYR IV PRN (10:55)
[2024-09-16 13:40] VITALS: TEMP 97
[2024-09-16 17:49] VITALS: BP 62/35
[2024-09-16 19:47] VITALS: BMI 18.0
[2024-09-18] MEDS ORDERED: SCOPOLAMINE HYDROBROMIDE PATCH TD SCH (09:00)
--- NOTE | 2024-09-20 11:24 | EKG ---
Test Date: 2024-09-14 Test Time: 10:13:40 Paradichlorobenzene Machine Operator: COLLINS MEASUREMENT RESULTS: Intervals: Rate: 102 [place]: QRSD: 84 QT: 358 QTc: 466 [place]: P: [place]: QRS: -16 T: -36 INTERPRETIVE STATEMENTS: Atrial fibrillation with premature ventricular or aberrantly conducted complexes Anteroseptal infarct, possibly acute Lateral injury pattern ACUTE OR Abnormal ECG Compared to ECG 03/06/2024 07:39:14 Ventricular premature complex(es) now present Myocardial infarct finding now present Sinus rhythm no longer present Atrial premature complex(es) no longer present Electronically Signed On 09-20-24 11:18:12 LOCAL INTERMODAL TRUCK DRIVER by Lauri Vegas
--- NOTE | 2024-09-22 19:36 | P.DS ---
Admission Date: 09/16/24 Discharge Date: 09/22/24 Disposition: Discharge Condition: Reason for Admission: HOSPICE ADMISSION FOR CAD AND ESRD - Problems (1) Unstable angina Status: Acute (2) Chronic kidney disease with in-center hemodialysis preferred by patient Status: Chronic (3) Dementia Status: Chronic Brief History of Present Illness: ALICIA IS 89 YEARS OLD GM WITH HTN, CKD-5 ON HD AND UNSTABLE ANGINA. HE IS OBTUNDED BUT IN CHEST PAIN AND NOT ABLE TO CONTROL PAIN WITH OUTPATIENT MEDS. I WAS CALLED TO ADMIT HIM FOR HOSPICE. I DID A TELEHEALTH VISIT I AM OUT OF TOWN. HE IS CONFUSED, NONVERBAL AND NOT ABLE TO COMMUNICATE. Hospital Course: ALICIA WAS ON HOSPICE FOR SEVERE DEMENTIA, ESRD AND CHEST PAIN. HE HAS BEEN COMATOS AND DEXPECTED TODAY. HE WAS KEPT COMFORTABLE WITH MEDS. Vital Signs/Physical Exam: Temp Pulse Resp BP Pulse Ox 97 F 91 H 12 62/35 L 90 L 09/16/24 16:00 09/16/24 16:00 09/16/24 18:39 09/16/24 16:00 09/16/24 12:00 Home Medications: Allopurinol 1 tab PO DAILY 08/01/22 Hydralazine [Apresoline*] 1 tab PO TID 08/01/22 Metoprolol Succinate [Toprol Xl*] 1 tab PO DAILY 08/01/22 Nifedipine Xl [Procardia XL*] 1 tab PO DAILY 08/01/22 Quinapril HCl 1 tab PO BID 08/01/22 Rosuvastatin [Crestor*] 1 tab PO DAILY 08/01/22 Torsemide [Demadex*] 1 tab PO DAILY 08/01/22 buPROPion HCL [Wellbutrin Xl] 1 tab PO DAILY 08/01/22 cloNIDine HCL [Clonidine HCl] 1 tab PO TID 08/01/22
== END 2024-09-16 20:27 | disposition expired | DRG 951 ==
LOC: 2ND 07:52
PROVIDERS: ADMIT Internal Medicine; ATTEND Internal Medicine
DX: Z51.5 Encounter for palliative care (principal)
CPT/HCPCS: 93005; J2270